=== PATIENT | male | born 1980 | race Caucasian/White ===

== ENCOUNTER 2020-02-29 07:46 | Inpatient (IN) | payer MEDICAID, OTHER ==
--- NOTE | 2020-02-29 08:05 | ED Physician Documentation ---
PD HPI NVD - Stated complaint Stated Complaint: VOMITING/SHAKY - Chief complaint Chief Complaint: Abd Pain - History obtained from History obtained from: Patient - History of Present Illness Timing - onset: How many days ago (several) Timing - details: Gradual onset, Still present Associated symptoms: Abdominal pain, Other (nausea and vomiting; no diarrhea.) Contributing factors: Alcohol use (regularly and was trying to taper some and then got the nausea/pain/vomiting and has not had regular alcohol for 2 days. 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 No: Sick contact, Bad food, Recent antibiotics Improved by: No: Vomiting, Position Worsened by: Eating, Moving, Palpation. No: Breathing Similar symptoms before: Has not had sx before Recently seen: Not recently seen Review of Systems Constitutional: reports: Myalgias, Fatigue. denies: Fever, Chills Nose: denies: Rhinorrhea / runny nose, Congestion Throat: denies: Sore throat Cardiac: denies: Chest pain / pressure Respiratory: denies: Cough (just usual "smokers cough"), Wheezing GI: reports: Abdominal Pain, Nausea, Vomiting (frequent for 2 days), Hematemesis (just small amount today). denies: Abdominal Swelling, Constipation, Diarrhea Neurologic: reports: Generalized weakness. denies: Focal weakness, Near syncope, Altered mental status, Headache Psychiatric: denies: Depressed Immunocompromised: denies: Immunocompromised PD PAST MEDICAL HISTORY - Past Medical History Cardiovascular: None Respiratory: None Endocrine/Autoimmune: None GI: None : None HEENT: None Psych: None Musculoskeletal: None Derm: None - Past Surgical History Past Surgical History: Yes Ortho: Other Derm: Skin grafts - Present Medications Home Medications: Ambulatory Orders Medication Instructions Recorded Confirmed Acetaminophen [Tylenol] 0 mg PO PRN PRN 02/29/20 02/29/20 - Allergies Allergies/Adverse Reactions: Allergies Allergy/AdvReac Type Severity Reaction Status Date / Time No Known Drug Allergies Allergy Verified 02/29/20 07:49 - Living Situation Living Arrangement: reports: At home - Social History Does the pt smoke?: Yes Smoking Status: Current every day smoker Does the pt drink ETOH?: Yes ETOH Use: Other (regular alcohol use for many years. ) Does the pt have substance abuse?: No - Family History Family history: reports: Non contributory - Immunizations Immunizations are current?: Yes - POLST Patient has POLST: No PD ED PE NORMAL - Vitals Vital signs reviewed: Yes - General General: Alert and oriented X 3, Well developed/nourished, Other (He appears uncomfortable with upper abdominal pain and nausea.) - HEENT HEENT: Pharynx benign. No: Moist mucous membranes - Neck Neck: Supple, no meningeal sign, No adenopathy - Cardiac Cardiac: RRR (tachycardic but regular), No murmur - Respiratory Respiratory: Clear bilaterally - Abdomen Abdomen: Soft, Non distended, No organomegaly, Other (Significantly tender in the epigastric to right upper quadrant area. There is positive Godoy sign. Lower abdomen is nontender. Bowel sounds are decreased. There is no distention.). No: Normal bowel sounds (decreased) - Male Male : Deferred - Rectal Rectal: Deferred - Back Back: No CVA TTP - Derm Derm: Normal color, Warm and dry - Extremities Extremities: No edema, No calf tenderness / cord - Neuro Neuro: Alert and oriented X 3, No motor deficit, Normal speech Results - Vitals Vitals: Vital Signs - 24 hr 02/29/20 02/29/20 07:49 09:30 Temperature 36.6 C Heart Rate 112 H 107 H Respiratory 20 20 Rate Blood Pressure 134/98 H 133/94 H O2 Saturation 96 91 L Oxygen O2 Source Room air - Labs Labs: Laboratory Tests 02/29/20 02/29/20 02/29/20 08:10 08:10 08:10 WBC 13.5 H RBC 3.92 L Hgb 13.4 L Hct 36.6 L MCV 93.4 MCH 34.2 H MCHC 36.6 H RDW 13.2 Plt Count 103 L MPV 11.7 H Neut # (Auto) Not Reportable Lymph # (Auto) Not Reportable Schuyler # (Auto) Not Reportable Eos # (Auto) Not Reportable Baso # (Auto) Not Reportable Absolute Nucleated RBC Not Reportable Total Counted 100 Band Neuts % (Manual) 6 Abnorm Lymph % (Manual) 0 Nucleated RBC % Not Reportable Neutrophils # (Manual) 13.0 H Lymphocytes # (Manual) 0.5 L Monocytes # (Manual) 0.0 Eosinophils # (Manual) 0.0 Basophils # (Manual) 0.0 Differential Comment MANUAL DIFFERENTIAL Manual Slide Review Indicated Sodium 138 Potassium 3.9 Chloride 94 L Carbon Dioxide 24 Anion Gap 20.0 H BUN 14 Creatinine 0.9 Estimated GFR (MDRD) 95 Glucose 169 H Calcium 8.3 L Magnesium Total Bilirubin 2.5 H AST 1113 H ALT 619 H Alkaline Phosphatase 390 H Total Protein 5.6 L Albumin 3.0 L Globulin 2.6 Albumin/Globulin Ratio 1.2 Triglycerides Cancelled Cholesterol Cancelled LDL Cholesterol, Calc Cancelled VLDL Cholesterol Cancelled HDL Cholesterol Cancelled LDL/HDL Ratio Cancelled Cholesterol/HDL Ratio Cancelled Lipase 26 Urine Color Urine Clarity Urine pH Ur Specific [place] Urine Protein Urine Glucose (UA) Urine Ketones Urine Occult Blood Urine Nitrite Urine Bilirubin Urine Urobilinogen Ur Leukocyte Esterase Ur Microscopic Review Urine Culture Comments Ethyl Alcohol 02/29/20 02/29/20 08:29 10:37 WBC RBC Hgb Hct MCV MCH MCHC RDW Plt Count MPV Neut # (Auto) Lymph # (Auto) Schuyler # (Auto) Eos # (Auto) Baso # (Auto) Absolute Nucleated RBC Total Counted Band Neuts % (Manual) Abnorm Lymph % (Manual) Nucleated RBC % Neutrophils # (Manual) Lymphocytes # (Manual) Monocytes # (Manual) Eosinophils # (Manual) Basophils # (Manual) Differential Comment Manual Slide Review Sodium Potassium Chloride Carbon Dioxide Anion Gap BUN Creatinine Estimated GFR (MDRD) Glucose Calcium Magnesium 1.6 L Total Bilirubin AST ALT Alkaline Phosphatase Total Protein Albumin Globulin Albumin/Globulin Ratio Triglycerides Cholesterol LDL Cholesterol, Calc VLDL Cholesterol HDL Cholesterol LDL/HDL Ratio Cholesterol/HDL Ratio Lipase Urine Color DARK YELLOW Urine Clarity CLEAR Urine pH 5.5 Ur Specific [place] >=1.030 H Urine Protein NEGATIVE Urine Glucose (UA) NEGATIVE Urine Ketones NEGATIVE Urine Occult Blood NEGATIVE Urine Nitrite NEGATIVE Urine Bilirubin MODERATE H Urine Urobilinogen 1 (NORMAL) Ur Leukocyte Esterase NEGATIVE Ur Microscopic Review NOT INDICATED Urine Culture Comments NOT INDICATED Ethyl Alcohol 28.1 - Rads (name of study) abd CT Radiology: Prelim report reviewed (Abdominal CT shows enlarged and edematous gallbladder. Pancreas appears normal. Intra-and extrahepatic ducts are normal.), See rad report PD MEDICAL DECISION MAKING - ED course Complexity details: reviewed results, re-evaluated patient (Proved pain and nausea after IV fluids and medications. Also given medication for withdrawal.), considered differential (Consideration for gastritis or ulcer versus pancreatitis versus gallbladder problem given the location of pain. He is also having now alcohol withdrawal due to the vomiting and inability to maintain his usual intake), d/w patient, d/w fundraising consultant (Talked with Dr. Perez on-call for surgery who states she would like to have his acute hepatitis and alcohol withdrawal improved prior to surgical treatment of the gallbladder. defers to hospitalist.) Departure - Departure Disposition: 66 [facility] DC/Xfer Clinical Impression: Acute alcoholic hepatitis, Acute cholecystitis, Upper abdominal pain Alcohol withdrawal Qualifiers: Complication of substance-induced condition: uncomplicated Qualified Code(s): F10.230 - Alcohol dependence with withdrawal, uncomplicated Condition: Stable Discharge Date/Time: 02/29/20 11:36
[2020-02-29] MEDS ORDERED: ONDANSETRON 4 MG/2 ML VIAL IVP STA (08:29)
[2020-02-29] MEDS ORDERED: LORazepam 2 MG/ML VIAL IVP STA ×2 (08:29→10:34)
[2020-02-29] MEDS ORDERED: FAMOTIDINE 20 MG/2 ML SYRINGE IVP STA (08:29)
[2020-02-29] MEDS ORDERED: SODIUM CHLORIDE 0.9% 1,000 ML IV STA ×2 (08:29→08:30)
[2020-02-29] MEDS ORDERED: HYDROmorphone 2 MG/ML VIAL IVP STA (08:29)
[2020-02-29] MEDS ORDERED: THIAMINE INJ 100 MG in SODIUM CHLORIDE 0.9% 50 ML IV STA (08:30)
[2020-02-29 09:01] LABS: BASOPHILS % (AUTO) 0.1 %; EOSINOPHILS % (AUTO) 0.1 %; HGB - HEMOGLOBIN 13.4 g/dL (14.0-18.0); LYMPHOCYTES % (AUTO) 13.6 %; MEAN CORPUSCULAR HEMOGLOBIN 34.2 pg (27.0-31.0); MEAN CORPUSCULAR VOLUME 93.4 fL (80.0-94.0); MEAN PLATELET VOLUME 11.7 fL (7.4-11.4); MONOCYTES % (AUTO) 5.2 %; NEUTROPHILS % (AUTO) 80.2 %; PLT - PLATELET COUNT 103 10^3/uL (130-450); RED BLOOD COUNT 3.92 10^6/uL (4.70-6.10); RED CELL DISTRIBUTION WIDTH 13.2 % (12.0-15.0); WHITE BLOOD COUNT 13.5 x10^3/uL (4.8-10.8)
[2020-02-29 09:07] LABS: MEAN CORPUSCULAR HGB CONC 36.6 g/dL (32.0-36.0)
[2020-02-29 09:08] LABS: ABNORMAL LYMPHS % (MANUAL) 0 %
[2020-02-29] MEDS ORDERED: IOVERSOL 320 100 ML VIAL IVP ONE ×2 (09:11→10:20)
[2020-02-29 09:25] LABS: BAND NEUTROPHILS % (MANUAL) 6 %; LYMPHOCYTES # (MANUAL) 0.5 10^3/uL (1.5-3.5); LYMPHOCYTES % (MANUAL) 4 %
[2020-02-29 09:26] LABS: DIFFERENTIAL COMMENT MANUAL DIFFERENTIAL
[2020-02-29 09:38] LABS: CREATININE 0.9 mg/dL (0.6-1.2)
[2020-02-29 09:39] LABS: BILIRUBIN,TOTAL 2.5 mg/dL (0.2-1.0); CALCIUM 8.3 mg/dL (8.5-10.3); TOTAL PROTEIN 5.6 g/dL (6.7-8.2)
[2020-02-29 09:40] LABS: ALBUMIN/GLOBULIN RATIO 1.2 (1.0-2.2)
[2020-02-29 09:42] LABS: MAGNESIUM 1.6 mg/dL (1.7-2.8)
--- NOTE | 2020-02-29 10:23 | CT Report ---
PROCEDURE: Abdomen/Pelvis W INDICATIONS: mid to upper abd pain x 1 week CONTRAST: IV CONTRAST: Optiray 320 ml: 100 PO CONTRAST: *NO PO CONTRAST TECHNIQUE: After the administration of 100 cc Optiray 320 IV contrast, 5 mm thick sections acquired from the stacy phragms to the symphysis. 5 mm thick coronal and sagittal reformats were acquired. For radiation do se reduction, the following was used: automated exposure control, adjustment of mA and/or kV accordi ng to patient size. COMPARISON: None. FINDINGS: Image quality: Excellent. ABDOMEN: Lung bases: Lung bases demonstrate mild bilateral bibasilar alveolitis, right more extensive than lef t. No dense consolidative changes or pleural effusions. Heart size is normal. Solid organs: The liver is enlarged and mildly diffusely hypodense suggesting fatty infiltration. The gallbladder wall is diffusely thickened and the mucosa is hyperemic. No calcified stones visible by CT. Intra and extrahepatic biliary tree is nondilated. The spleen, adrenal glands, pancreas, and kidneys are normal. Peritoneum and bowel: Bowel loops demonstrate normal wall thickness and caliber. Occasional divertic rj in the sigmoid colon. Normal appendix. No small bowel obstruction or ileus. No free fluid or air. Nodes and vessels: No retroperitoneal or mesenteric adenopathy by size criteria. Aorta and inferior vena cava are normal in size. Miscellaneous: No ventral hernias. PELVIS: Genitourinary: Bladder wall thickness is normal. Miscellaneous: No inguinal hernias or adenopathy. Bones: No suspicious bony lesions. No vertebral body compression fractures. IMPRESSION: 1. Findings suggest acute cholecystitis. Right upper quadrant ultrasound is recommended for confirmat ion. 2. Mild hepatomegaly and hepatic steatosis. 3. Acute bilateral lower lung alveolitis, potentially infection or aspiration. No dense consolidation or effusion. Reviewed by: Mae Mai MD on 02/29/2020 9:22 AM DARLENE Approved by: Mae Mai MD on 02/29/2020 9:22 AM DARLENE Station ID: [id number]
[2020-02-29] MEDS ORDERED: MAGNESIUM SULFATE 2 GRAM 2 GM/50 ML BAG IV ONE ×2 (10:26→10:55)
[2020-02-29] MEDS ORDERED: LACTATED RINGERS 1,000 ML IV STA (10:35)
[2020-02-29] MEDS ORDERED: PIPERACILLIN/TAZOBACTAM 3.375 GM in SODIUM CHLORIDE 0.9% MINIBAG 100 ML IV STA (10:39)
[2020-02-29] MEDS ORDERED: metroNIDAZOLE 500 MG/100 ML 500 MG/100 ML BAG IV ONE (10:40)
[2020-02-29 10:51] LABS: GLUCOSE, URINE (UA) NEGATIVE (NEGATIVE); KETONES,URINE (UA) NEGATIVE (NEGATIVE); LEUKOCYTE ESTERASE, URINE NEGATIVE (NEGATIVE); NITRITE,URINE NEGATIVE (NEGATIVE); OCCULT BLOOD,URINE NEGATIVE (NEGATIVE); PH,URINE 5.5 PH (5.0-7.5); PROTEIN,URINE NEGATIVE (NEGATIVE); UROBILINOGEN,URINE 1 (NORMAL) E.U./dL (NORMAL)
[2020-02-29 10:57] LABS: BILIRUBIN,URINE MODERATE (NEGATIVE); CLARITY,URINE CLEAR (CLEAR); ICTOTEST,URINE POSITIVE
[2020-02-29] MEDS ORDERED: PROCHLORPERAZINE 10 MG/2 ML VIAL IVP PRN (10:59)
[2020-02-29] MEDS ORDERED: ONDANSETRON 4 MG/2 ML VIAL IVP PRN (10:59)
--- NOTE | 2020-02-29 12:49 | XRAY Report ---
PROCEDURE: Chest 1 View X-Ray INDICATIONS: Eval for aspiration pneumonia TECHNIQUE: One view of the chest was acquired. COMPARISON: CT abdomen pelvis performed the same day. FINDINGS: Surgical changes and devices: None. Lungs and pleura: No pleural effusions or pneumothorax. Moderate mixed interstitial and alveolar [place] in the right mid and lower lung. The lateral perihilar peribronchial thickening, particularly in the right lung. No focal consolidations. Mediastinum: Mediastinal contours appear normal. Heart size is normal. Bones and chest wall: No suspicious bony lesions. Overlying soft tissues appear unremarkable. IMPRESSION: 1. Findings most suggestive of bronchitis without focal consolidative change. CT demonstrates minor b ronchopneumonia. Reviewed by: Mae Mai MD on 02/29/2020 11:48 AM DARLENE Approved by: Mae Mai MD on 02/29/2020 11:48 AM DARLENE Station ID: [id number]
[2020-02-29] MEDS ORDERED: LACTATED RINGERS 1,000 ML IV SCH (13:00)
--- NOTE | 2020-02-29 13:01 | HISTORY & PHYSICAL EXAMINATION ---
Chief Complaint - Chief Complaint Chief Complaint: abdominal pain History of Present Illness - Admitted From Admitted From:: ER - History Obtained From Records Reviewed: [facility] History obtained from: pt Exam Limitations: non - History of Present Illness HPI Comment/Other: This is a 39 years old male with a significant medical history of alcohol abuse, Who presented ER complaining of abdominal pain. pt report he had upper abdominal pain for last week with on/off nausea and vomiting for about one week. He report he was worse after eating. He feel he has abdominal pain in all his upper quadrant but mainly he still located at his right upper quadrant. He also report he had hematemesis in yesterday, emesis blood volume is small which feared to him. He reported his last alcohol use was last night. He usually drink 6 pack beer in the night. He reported he had alcohol withdrawal with shaking sweating in the last admission. He also reported he has cigarette smoking 1 pack/day. CAT scan of abdomen concern acute cholecystitis. Ultrasound of abdominal limited is pending. Phlebotomy report there is difficulty dry patient blood because so high cholesterol level and blood is white color. Routine laboratory tests do show patient had significantly elevated liver enzyme, alcohol level is 28, Slightly elevated WBC. surgeon was called by the ER for consulting. he denies Chest pain, fever, shortness of breathing, headache diarrhea. Patient is admitted for further medical management. Discussed the care goal with the patient, patient want full code. History - Past Medical History Cardiovascular: reports: None Respiratory: reports: None Neuro: reports: None Endocrine/Autoimmune: reports: None GI: reports: None : reports: None HEENT: reports: None Psych: reports: None Musculoskeletal: reports: None Derm: reports: None MRSA Hx?: No - Past Surgical History Ortho: reports: Other Derm: reports: Skin grafts - Family & Social History Family History: Mother: Alive and Well, Father: Alive and Well Family History Comment/Other: Patient reported his father have heart medical problem, her mother is healthy.He had 2 children, 1 daughter and 1 son, both are health. Social History Notes: Patient reported he is still smoking cigarette 1 pack/day, drinks alcohol daily.He is live at [place]. 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 - POLST Patient has POLST: No Meds/Allgy - Home Medications Home Medications: Ambulatory Orders Medication Instructions Recorded Confirmed Acetaminophen [Tylenol] 0 mg PO PRN PRN 02/29/20 02/29/20 - Allergies Allergies/Adverse Reactions: Allergies Allergy/AdvReac Type Severity Reaction Status Date / Time No Known Drug Allergies Allergy Verified 02/29/20 07:49 Review of Systems - Constitutional Constitutional: denies: Fatigue, Fever, Poor appetite, Diaphoresis, Night sweats - Eyes Eyes: denies: Pain, Blurred vision, Spots in vision, Field loss, Vision loss, Dipolpia - Ears, Nose & Throat Ears, Nose & Throat: denies: Ear pain, Vertigo, Nasal pain, Nosebleeds, Nasal congestion, Postnasal drainage, Hoarseness, Mouth lesions, Bleeding gums - Cardiovascular Cariovascular: denies: Irregular heart rate, Palpitations, Edema, Lightheadedness, Syncope, Exertional dyspnea, Decr. exercise tolerance - Respiratory Respiratory: denies: Cough, Sputum production, Wheezing, Snoring, Hemoptysis, Orthopnea, SOB at rest, SOB with exertion - Gastrointestinal Gastrointestinal: reports: Abdominal pain, Nausea, Vomiting, Coffee grounds emesis. denies: Constipation, Diarrhea, Change in bowel habits, Rectal bleeding, Black stools, Bloody stools, Bile emesis, Bam blood emesis - Genitourinary Genitourinary: denies: Dysuria, Frequency, Urgency, Hematuria, Incontinence, Flank pain, Urethral discharge - Musculoskeletal Musculoskeletal: denies: Muscle pain, Muscle aches, Limited range of motion, Gout, Joint pain - Integumentary Integumentary: denies: Lesions, Lumps, Pigment changes - Neurological Neurological: denies: General weakness, Focal weakness, Headache, Dizziness, Numbness, Memory problems, Pre-existing deficit, Abnormal gait, Seizures, Incoordination, Slurred speech - Psychiatric Psychiatric: denies: Suicidal, Delusions, Hallucinations, Homicidal - Endocrine Endocrine: denies: Polydypsia, Polyphagia - Hematologic/Lymphatic Hematologic/Lymphatic: denies: Anemia, Petechiae, Blood clots, Lymphadenopathy, Bleeding tendencies, Recurrent infections Exam - Vital Signs Vital Signs: Vital Signs x48h Temp Pulse Pulse Resp BP BP Pulse Ox 02/29/20 11:35 37.2 C 108 H 20 137/91 H 94 02/29/20 11:00 104 H 16 135/89 H 93 02/29/20 09:30 107 H 20 133/94 H 91 L 02/29/20 07:49 36.6 C 112 H 20 134/98 H 96 - Physical Exam General Appearance: positive: No acute distress, Alert. negative: Lethargic Eyes Bilateral: positive: Normal inspection, PERRL, No lid inflammation ENT: positive: ENT inspection nml, No signs of dehydration. negative: Purulent nasal drainage Neck: positive: Nml inspection, Thyroid nml, Trachea midline. negative: Thyromegaly, Stiff neck, Tracheal deviation Respiratory: positive: Chest non-tender, No respiratory distress. negative: Wheezes, Rales, Rhonchi Cardiovascular: positive: Regular rate & rhythm, No murmur, Tachycardia. negative: Irregularly irregular, Bradycardia, Systolic murmur, Diastolic murmur Peripheral Pulses: positive: 2+ Abdomen: positive: Non-tender, No organomegaly, Nml bowel sounds, No distention, Other (Godoy sign positive). negative: Tenderness, Guarding, Rebound Back: positive: Nml inspection. negative: CVA tenderness (R), CVA tenderness (L) Skin: positive: Color nml, No rash, Warm, Dry. negative: Cyanosis, Diaphoresis, Pallor Extremities: positive: Non-tender, Full ROM, Nml appearance. negative: Calf tenderness, Maverick's sign/cords Neurologic/Psychiatric: positive: Oriented x3, Motor nml, Sensation nml, Mood/affect nml. negative: Weakness, Sensory loss, Facial droop, Slurred/abnml speech, Depressed mood/affect Sepsis Event Note (H) - Evaluation Current Stage of Sepsis: Ruled out Conclusion/Plan - Problem List (1) Upper abdominal pain Conclusion/Plan: Patient report upper abdominal pain With nausea and vomiting. CAT scan of the abdomen indicate cholecystitis. Ultrasound finding are equivocal For cholecystitis. Surgeon was consult, Agree medical management right now. Patient had slightly elevated WBC. The patient denied fever or chill. Patient was given antibiotics Zosyn and Flagyl, Pain control, Intravenous IV fluids, NPO now. (2) Hematemesis Conclusion/Plan: Patient reported he had small amount of vomiting of blood. He does not know if he has varices. Consult with general surgeon, and NPO now. Patient had a hemoglobin 13.4. H&H monitor hemoglobin. Started intravenous of Protonix. (3) Alcoholic hepatitis Conclusion/Plan: Patient had a significant elevated total bili, AST, ALT and alk phos. Patient has history of alcohol abuse. Advised patient quit alcohol, patient agree to quit alcohol as well. 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 Hold or reduce hepatic intoxic agents. (4) Alcohol abuse Conclusion/Plan: Patient has a history of alcohol abuse, he still drinks six pack beer per day. Alcohol test was positive in the ER. Patient has history of alcohol withdrawal symptoms. Started with patient for CIWA protocol, Ativan PRN, Banana bag, ER give patient intravenous vitamin B1, continue oral vitamin B1. (5) Smokes cigarettes Conclusion/Plan: Patient reported he smokes cigarette 1 pack/day, he requests nicotine patch (6) HLD (hyperlipidemia) Conclusion/Plan: Phlebotomy could not finish patient lipid panel study now, And report patient blood was very thick and white, and difficult to draw. We will recheck lipid panel, will start patient with lipitor. Because patient had elevated liver enzyme, we started with Lipitor 40 mg daily. - Lab Results Fish Bones: 02/29/20 08:10 02/29/20 08:10 Core Measures - Anticipated LOS I expect patient to be DC'd or transferred within 96 hours.: Yes - Stroke - Rehab Assessment Rehab services assessment to be ordered?: Yes - AMI - Statin at Admit Aspirin Prescribed on Admit: Yes
[2020-02-29] MEDS: MULTIVITAMIN 10 ML, THIAMINE INJ 100 MG, FOLIC ACID INJ 1 MG in SODIUM CHLORIDE 0.9% 1,... IV SCH (13:12)
--- NOTE | 2020-02-29 13:14 | HISTORY & PHYSICAL EXAMINATION ---
Chief Complaint - Chief Complaint Chief Complaint: abdominal pain and nausea and vomiting Abdominal Pain HPI - Admitted From Admitted from: ED - History Obtained From Records Reviewed: Other (admitting md records reviewed) History obtained from: Patient Exam limitations: No limitations - History of Present Illness Severity at the worst: Moderate Pain Quality: Aching Improved with: Other (ivf and nausea medication) HPI Comment/Other: He states he had nausea and vomiting for a week and periumbilical pain for 1 day. He is feeling much improved PMH/PSH - Past Medical History Cardiovascular: positive: None Respiratory: positive: None Neuro: positive: None Endocrine/Autoimmune: positive: None GI: positive: None : positive: None HEENT: positive: None Psych: positive: None Musculoskeletal: positive: None Derm: positive: None MRSA Hx?: No - Past Surgical History Ortho: positive: Other Derm: positive: Skin grafts Social & Family Hx - Social History Does the pt smoke?: Yes Smoking Status: Current every day smoker Does the pt drink ETOH?: Yes Does the pt have substance abuse?: No - POLST Patient has POLST: No Meds/Allgy - Home Medications Home Medications: Ambulatory Orders Medication Instructions Recorded Confirmed Hydrocodone/Acetaminophen [[place] 1 each PO Q6H PRN #20 tablet 12/29/15 5-325 Tablet] Ibuprofen [Motrin] 600 mg PO TID #30 tab 12/29/15 - Allergies Allergies/Adverse Reactions: Allergies Allergy/AdvReac Type Severity Reaction Status Date / Time No Known Drug Allergies Allergy Verified 02/29/20 07:49 Exam - Vital Signs Vital Signs: Vital Signs x48h Temp Pulse Pulse Resp BP BP Pulse Ox 02/29/20 11:35 37.2 C 108 H 20 137/91 H 94 02/29/20 11:00 104 H 16 135/89 H 93 02/29/20 09:30 107 H 20 133/94 H 91 L 02/29/20 07:49 36.6 C 112 H 20 134/98 H 96 Results - Lab Results Fish Bones: 02/29/20 08:10 02/29/20 08:10 Other Lab Results: Lab Results x24hrs 02/29/20 02/29/20 02/29/20 Range/Units 13:04 10:37 08:29 WBC (4.8-10.8) x10^3/uL RBC (4.70-6.10) 10^6/uL Hgb (14.0-18.0) g/dL Hct (42.0-52.0) % MCV (80.0-94.0) fL MCH (27.0-31.0) pg MCHC (32.0-36.0) g/dL RDW (12.0-15.0) % Plt Count (130-450) 10^3/uL MPV (7.4-11.4) fL Neut # (Auto) Lymph # (Auto) [place] # (Auto) Eos # (Auto) Baso # (Auto) Absolute Nucleated RBC Total Counted Band Neuts % (Manual) (0 - 10) % Abnorm Lymph % (Manual) % Nucleated RBC % Neutrophils # (Manual) (1.5-6.6) 10^3/uL Lymphocytes # (Manual) (1.5-3.5) 10^3/uL Monocytes # (Manual) (0.0-1.0) 10^3/uL Eosinophils # (Manual) (0-0.7) 10^3/uL Basophils # (Manual) (0-0.1) 10^3/uL Differential Comment Manual Slide Review Whole Blood INR 1.0 (0.8-1.2) Sodium (135-145) mmol/L Potassium (3.5-5.0) mmol/L Chloride (101-111) mmol/L Carbon Dioxide (21-32) mmol/L Anion Gap (6-13) BUN (6-20) mg/dL Creatinine (0.6-1.2) mg/dL Estimated GFR (MDRD) (>89) Glucose (70-100) mg/dL Calcium (8.5-10.3) mg/dL Magnesium 1.6 L (1.7-2.8) mg/dL Total Bilirubin (0.2-1.0) mg/dL AST (10-42) IU/L ALT (10-60) IU/L Alkaline Phosphatase (42-121) IU/L Total Protein (6.7-8.2) g/dL Albumin (3.2-5.5) g/dL Globulin (2.1-4.2) g/dL Albumin/Globulin Ratio (1.0-2.2) Lipase (22-51) U/L Urine Color DARK YELLOW Urine Clarity CLEAR (CLEAR) Urine pH 5.5 (5.0-7.5) PH Ur Specific [place] >=1.030 H (1.002-1.030) Urine Protein NEGATIVE (NEGATIVE) mg/dL Urine Glucose (UA) NEGATIVE (NEGATIVE) mg/dL Urine Ketones NEGATIVE (NEGATIVE) mg/dL Urine Occult Blood NEGATIVE (NEGATIVE) Urine Nitrite NEGATIVE (NEGATIVE) Urine Bilirubin MODERATE H (NEGATIVE) Urine Urobilinogen 1 (NORMAL) (NORMAL) E.U./dL Ur Leukocyte Esterase NEGATIVE (NEGATIVE) Ur Microscopic Review NOT INDICATED Urine Culture Comments NOT INDICATED Ethyl Alcohol 28.1 mg/dL 02/29/20 02/29/20 Range/Units 08:10 08:10 WBC 13.5 H (4.8-10.8) x10^3/uL RBC 3.92 L (4.70-6.10) 10^6/uL Hgb 13.4 L (14.0-18.0) g/dL Hct 36.6 L (42.0-52.0) % MCV 93.4 (80.0-94.0) fL MCH 34.2 H (27.0-31.0) pg MCHC 36.6 H (32.0-36.0) g/dL RDW 13.2 (12.0-15.0) % Plt Count 103 L (130-450) 10^3/uL MPV 11.7 H (7.4-11.4) fL Neut # (Auto) Not Reportable Lymph # (Auto) Not Reportable [place] # (Auto) Not Reportable Eos # (Auto) Not Reportable Baso # (Auto) Not Reportable Absolute Nucleated RBC Not Reportable Total Counted 100 Band Neuts % (Manual) 6 (0 - 10) % Abnorm Lymph % (Manual) 0 % Nucleated RBC % Not Reportable Neutrophils # (Manual) 13.0 H (1.5-6.6) 10^3/uL Lymphocytes # (Manual) 0.5 L (1.5-3.5) 10^3/uL Monocytes # (Manual) 0.0 (0.0-1.0) 10^3/uL Eosinophils # (Manual) 0.0 (0-0.7) 10^3/uL Basophils # (Manual) 0.0 (0-0.1) 10^3/uL Differential Comment MANUAL DIFFERENTIAL Manual Slide Review Indicated Whole Blood INR (0.8-1.2) Sodium 138 (135-145) mmol/L Potassium 3.9 (3.5-5.0) mmol/L Chloride 94 L (101-111) mmol/L Carbon Dioxide 24 (21-32) mmol/L Anion Gap 20.0 H (6-13) BUN 14 (6-20) mg/dL Creatinine 0.9 (0.6-1.2) mg/dL Estimated GFR (MDRD) 95 (>89) Glucose 169 H (70-100) mg/dL Calcium 8.3 L (8.5-10.3) mg/dL Magnesium (1.7-2.8) mg/dL Total Bilirubin 2.5 H (0.2-1.0) mg/dL AST 1113 H (10-42) IU/L ALT 619 H (10-60) IU/L Alkaline Phosphatase 390 H (42-121) IU/L Total Protein 5.6 L (6.7-8.2) g/dL Albumin 3.0 L (3.2-5.5) g/dL Globulin 2.6 (2.1-4.2) g/dL Albumin/Globulin Ratio 1.2 (1.0-2.2) Lipase 26 (22-51) U/L Urine Color Urine Clarity (CLEAR) Urine pH (5.0-7.5) PH Ur Specific [place] (1.002-1.030) Urine Protein (NEGATIVE) mg/dL Urine Glucose (UA) (NEGATIVE) mg/dL Urine Ketones (NEGATIVE) mg/dL Urine Occult Blood (NEGATIVE) Urine Nitrite (NEGATIVE) Urine Bilirubin (NEGATIVE) Urine Urobilinogen (NORMAL) E.U./dL Ur Leukocyte Esterase (NEGATIVE) Ur Microscopic Review Urine Culture Comments Ethyl Alcohol mg/dL - Diagnostic Imaging Results Diagnostic Imaging Results: positive: Final report reviewed, Read independently (ct reviewed) Impression/Plan - Problem List Problem List: hepatitis and congested gallbladder. He is feeling better Clinically he does not have cholecystitis Agree with medical care It is reasonable to do an abdominal ultrasound for further evaluation of his liver, spleen, and to check for gallstones. Clinically he has hepatitis and gallbladder congestion without cholecystitis
--- NOTE | 2020-02-29 15:46 | PHARMACY PROGRESS NOTE ---
- Best Possible Medication History Admit Date and Time: 02/29/20 1052 Processed by: Pharmacy Medication History completed: Yes Patient Interview: Pt interview ONLY source (Patient is a poor historian - states takes medication at a strength that does not exist. The medication in question is a PRN OTC analgesic. Unable to source any additional meds. Patient states does not take any others.) As the person ultimately responsible for medication therapy, providers are able to order a medication from an existing home medication list in [facility] via the "Reconcile Routine" prior to Confirmation of that medication by aviation support equipment repairer. Such practice is discouraged except when the physician, in their clinical judgment, deems that a medical need exists for a medication without regard to previous use.
--- NOTE | 2020-02-29 15:59 | Ultrasound Report ---
PROCEDURE: Abdomen Limited INDICATIONS: abdominal pain, acute cholecystitis? TECHNIQUE: Real-time focused scanning was performed of the abdomen, with image documentation. COMPARISON: CT abdomen pelvis performed the same day. FINDINGS: The liver is mildly enlarged and diffusely mildly hyperechoic in echotexture. No biliary d ilatation. Common bile duct is at the upper limits of normal measuring 7 mm in diameter. The gallblad domi is underdistended, demonstrates a mildly hyperemic mucosal surface and diffusely thickened and ed ematous wall measuring up to 9 mm. No stones or sludge are seen. There is a negative sonographic Murp hy's sign per the technologist. The visible portions of the pancreas and right kidney are within normal limits. No free fluid in Tyler son's pouch. IMPRESSION: 1. Findings are equivocal for cholecystitis, acute or chronic. No obstruction is identified. 2. Consider nuclear medicine HIDA scan for further assessment of gallbladder function. 3. Mild hepatic steatosis. Reviewed by: Mae Mai MD on 02/29/2020 2:58 PM DARLENE Approved by: Mae Mai MD on 02/29/2020 2:58 PM AKJARETH Station ID: [id number]
[2020-02-29] MEDS ORDERED: oxyCODONE 5 MG TABLET PO PRN (16:16)
[2020-02-29] MEDS: HYDROmorphone 1 MG/ML CARPUJECT IVP PRN (16:21)
[2020-02-29] MEDS: LORazepam 2 MG/ML VIAL IVP PRN ×2 (16:22→23:45)
[2020-02-29] MEDS: PIPERACILLIN/TAZOBACTAM 3.375 GM in SODIUM CHLORIDE 0.9% MINIBAG 100 ML IV SCH ×2 (17:19→23:52)
[2020-02-29] MEDS: SODIUM CHLORIDE FLUSH 0.9% 10 ML SYRINGE IVP SCH ×2 (17:19→23:57)
[2020-02-29] MEDS: NICOTINE 14 MG PATCH TOP SCH (17:21)
[2020-02-29] MEDS: metroNIDAZOLE 500 MG/100 ML 500 MG/100 ML BAG IV SCH (19:06)
[2020-02-29] MEDS ORDERED: ATORVASTATIN 40 MG TABLET PO SCH ×2 (21:00)
[2020-02-29] MEDS: PANTOPRAZOLE 40 MG VIAL IVP SCH (21:34)
[2020-02-29] MEDS: D5.45NS W/20 MEQ KCL 1,000 ML IV SCH (22:28)
[2020-03-01] MEDS: HYDROmorphone 1 MG/ML CARPUJECT IVP PRN (00:01)
[2020-03-01] MEDS: LORazepam 2 MG/ML VIAL IVP PRN ×9 (01:27→09:37)
[2020-03-01] MEDS: metroNIDAZOLE 500 MG/100 ML 500 MG/100 ML BAG IV SCH (03:50)
[2020-03-01] MEDS: SODIUM CHLORIDE FLUSH 0.9% 10 ML SYRINGE IVP PRN ×7 (04:04→15:51)
[2020-03-01 05:31] LABS: BASOPHILS % (AUTO) 0.1 %; EOSINOPHILS # (AUTO) 0.1 10^3/uL (0.0-0.7); EOSINOPHILS % (AUTO) 1.3 %; HGB - HEMOGLOBIN 11.5 g/dL (14.0-18.0); LYMPHOCYTES # (AUTO) 1.7 10^3/uL (1.5-3.5); MEAN CORPUSCULAR HEMOGLOBIN 34.8 pg (27.0-31.0); MEAN CORPUSCULAR HGB CONC 36.5 g/dL (32.0-36.0); MEAN CORPUSCULAR VOLUME 95.5 fL (80.0-94.0); MEAN PLATELET VOLUME 12.3 fL (7.4-11.4); MONOCYTES # (AUTO) 0.5 10^3/uL (0.0-1.0); NEUTROPHILS # (AUTO) 6.6 10^3/uL (1.5-6.6); NEUTROPHILS % (AUTO) 74.2 %; PLT - PLATELET COUNT 66 10^3/uL (130-450); WHITE BLOOD COUNT 8.9 x10^3/uL (4.8-10.8)
[2020-03-01 05:45] LABS: ALBUMIN 2.6 g/dL (3.2-5.5); BILIRUBIN,TOTAL 3.8 mg/dL (0.2-1.0); CALCIUM 7.3 mg/dL (8.5-10.3); CREATININE 0.7 mg/dL (0.6-1.2); TOTAL PROTEIN 5.3 g/dL (6.7-8.2)
[2020-03-01 06:01] LABS: CHOL/HDL RATIO 53.6 (<5.0); CHOLESTEROL 643 mg/dL; HDL CHOLESTEROL 12 mg/dL
[2020-03-01 06:38] LABS: LDL CHOLESTEROL,DIRECT 129 mg/dL; LDLD/HDL RATIO 10.8 (<3.6)
[2020-03-01] MEDS ORDERED: PANTOPRAZOLE 40 MG VIAL IVP SCH (07:00)
[2020-03-01] MEDS ORDERED: OLANZapine 10 MG VIAL IM ONE ×3 (07:13→07:16)
[2020-03-01] MEDS ORDERED: LORazepam 2 MG/ML VIAL IVP STA (07:35)
[2020-03-01] MEDS ORDERED: gemfibroziL 600 MG TABLET PO SCH (08:00)
[2020-03-01] MEDS ORDERED: POTASSIUM CHLORIDE 20 MEQ TABLET PO ONE (08:00)
[2020-03-01] MEDS: LORazepam 100MG/100ML D5W 100 ML IV SCH ×3 (08:16→18:57)
[2020-03-01] MEDS ORDERED: SODIUM CHLORIDE FLUSH 0.9% 10 ML SYRINGE IVP PRN (08:18)
[2020-03-01] MEDS ORDERED: INSULIN REGULAR HUMAN 100 UNIT in SODIUM CHLORIDE 0.9% 100ML 99 ML IV SCH (08:30)
[2020-03-01] MEDS ORDERED: THIAMINE 100 MG TABLET PO SCH (09:00)
[2020-03-01] MEDS ORDERED: SODIUM CHLORIDE FLUSH 0.9% 10 ML SYRINGE IVP SCH (09:00)
[2020-03-01] MEDS ORDERED: chlordiazePOXIDE 25 MG CAPSULE PO SCH (09:00)
--- NOTE | 2020-03-01 09:54 | PROVIDER PROGRESS NOTE ---
Subjective - Prog Note Date Prog Note Date: 03/01/20 - Subjective Subjective: He does not have abdominal tenderness. He is very agitated, Objective - Vital Signs/Intake & Output Reviewed Vital Signs: Yes Vital Signs: Vital Signs x48h Temp Pulse Pulse Pulse Resp BP Pulse Ox 03/01/20 09:33 37.9 C H 102 H 27 H 118/83 H 95 03/01/20 09:02 130 H 28 H 145/94 H 98 03/01/20 04:00 36.9 C 95 20 134/79 H 93 03/01/20 02:32 92 Intake & Output: Intake & Output 02/27/20 02/28/20 02/29/20 03/01/20 23:59 23:59 23:59 23:59 Intake Total 3861.367 214.583 Output Total 1100 Balance 3861.367 -885.417 - Objective General Appearance: positive: Moderate distress, Other (agitation. no distress from abdomen) Respiratory: positive: No respiratory distress Abdomen: positive: Non-tender, No distention Neurologic/Psychiatric: positive: Disoriented to place - Lab Results Fish Bones: 03/01/20 04:45 03/01/20 04:45 Other Labs: Lab Results x24hrs 03/01/20 03/01/20 03/01/20 Range/Units 05:56 04:45 04:45 WBC (4.8-10.8) x10^3/uL RBC (4.70-6.10) 10^6/uL Hgb (14.0-18.0) g/dL Hct (42.0-52.0) % MCV (80.0-94.0) fL MCH (27.0-31.0) pg MCHC (32.0-36.0) g/dL RDW (12.0-15.0) % Plt Count (130-450) 10^3/uL MPV (7.4-11.4) fL Neut # (Auto) (1.5-6.6) 10^3/uL Lymph # (Auto) (1.5-3.5) 10^3/uL [place] # (Auto) (0.0-1.0) 10^3/uL Eos # (Auto) (0.0-0.7) 10^3/uL Baso # (Auto) (0.0-0.1) 10^3/uL Absolute Nucleated RBC x10^3/uL Nucleated RBC % /100WBC Whole Blood INR (0.8-1.2) Sodium (135-145) mmol/L Potassium (3.5-5.0) mmol/L Chloride (101-111) mmol/L Carbon Dioxide (21-32) mmol/L Anion Gap (6-13) BUN (6-20) mg/dL Creatinine (0.6-1.2) mg/dL Estimated GFR (MDRD) (>89) Glucose (70-100) mg/dL POC Whole Bld Glucose 134 H (70 - 100) mg/dL Calcium (8.5-10.3) mg/dL Magnesium (1.7-2.8) mg/dL Total Bilirubin (0.2-1.0) mg/dL AST (10-42) IU/L ALT (10-60) IU/L Alkaline Phosphatase (42-121) IU/L Total Protein (6.7-8.2) g/dL Albumin (3.2-5.5) g/dL Globulin (2.1-4.2) g/dL Albumin/Globulin Ratio (1.0-2.2) Triglycerides > 2000 H Cholesterol 643 H LDL Cholesterol Direct 129 ( - 129) mg/dL LDL Cholesterol, Calc Not Reportable VLDL Cholesterol Not Reportable HDL Cholesterol 12 L LDL/HDL Ratio Not Reportable dLDL/HDL Ratio 10.8 (<3.6) Cholesterol/HDL Ratio 53.6 Lipase 27 (22-51) U/L Urine Color Urine Clarity (CLEAR) Urine pH (5.0-7.5) PH Ur Specific [place] (1.002-1.030) Urine Protein (NEGATIVE) mg/dL Urine Glucose (UA) (NEGATIVE) mg/dL Urine Ketones (NEGATIVE) mg/dL Urine Occult Blood (NEGATIVE) Urine Nitrite (NEGATIVE) Urine Bilirubin (NEGATIVE) Urine Urobilinogen (NORMAL) E.U./dL Ur Leukocyte Esterase (NEGATIVE) Ur Microscopic Review Urine Culture Comments Blood Type Blood Type Recheck Antibody Screen 03/01/20 03/01/20 02/29/20 Range/Units 04:45 04:45 23:49 WBC 8.9 (4.8-10.8) x10^3/uL RBC 3.30 L (4.70-6.10) 10^6/uL Hgb 11.5 L (14.0-18.0) g/dL Hct 31.5 L (42.0-52.0) % MCV 95.5 H (80.0-94.0) fL MCH 34.8 H (27.0-31.0) pg MCHC 36.5 H (32.0-36.0) g/dL RDW 13.0 (12.0-15.0) % Plt Count 66 L (130-450) 10^3/uL MPV 12.3 H (7.4-11.4) fL Neut # (Auto) 6.6 (1.5-6.6) 10^3/uL Lymph # (Auto) 1.7 (1.5-3.5) 10^3/uL [place] # (Auto) 0.5 (0.0-1.0) 10^3/uL Eos # (Auto) 0.1 (0.0-0.7) 10^3/uL Baso # (Auto) 0.0 (0.0-0.1) 10^3/uL Absolute Nucleated RBC 0.00 x10^3/uL Nucleated RBC % 0.0 /100WBC Whole Blood INR (0.8-1.2) Sodium 131 L (135-145) mmol/L Potassium 2.9 L (3.5-5.0) mmol/L Chloride 95 L (101-111) mmol/L Carbon Dioxide 26 (21-32) mmol/L Anion Gap 10.0 (6-13) BUN 5 L (6-20) mg/dL Creatinine 0.7 (0.6-1.2) mg/dL Estimated GFR (MDRD) 127 (>89) Glucose 121 H (70-100) mg/dL POC Whole Bld Glucose 116 H (70 - 100) mg/dL Calcium 7.3 L (8.5-10.3) mg/dL Magnesium 2.0 (1.7-2.8) mg/dL Total Bilirubin 3.8 H (0.2-1.0) mg/dL AST 386 H (10-42) IU/L ALT 355 H (10-60) IU/L Alkaline Phosphatase 345 H (42-121) IU/L Total Protein 5.3 L (6.7-8.2) g/dL Albumin 2.6 L (3.2-5.5) g/dL Globulin 2.7 (2.1-4.2) g/dL Albumin/Globulin Ratio 1.0 (1.0-2.2) Triglycerides Cholesterol LDL Cholesterol Direct ( - 129) mg/dL LDL Cholesterol, Calc VLDL Cholesterol HDL Cholesterol LDL/HDL Ratio dLDL/HDL Ratio (<3.6) Cholesterol/HDL Ratio Lipase (22-51) U/L Urine Color Urine Clarity (CLEAR) Urine pH (5.0-7.5) PH Ur Specific [place] (1.002-1.030) Urine Protein (NEGATIVE) mg/dL Urine Glucose (UA) (NEGATIVE) mg/dL Urine Ketones (NEGATIVE) mg/dL Urine Occult Blood (NEGATIVE) Urine Nitrite (NEGATIVE) Urine Bilirubin (NEGATIVE) Urine Urobilinogen (NORMAL) E.U./dL Ur Leukocyte Esterase (NEGATIVE) Ur Microscopic Review Urine Culture Comments Blood Type Blood Type Recheck Antibody Screen 02/29/20 02/29/20 02/29/20 Range/Units 20:50 20:50 13:04 WBC (4.8-10.8) x10^3/uL RBC (4.70-6.10) 10^6/uL Hgb 13.0 L (14.0-18.0) g/dL Hct 33.6 L (42.0-52.0) % MCV (80.0-94.0) fL MCH (27.0-31.0) pg MCHC (32.0-36.0) g/dL RDW (12.0-15.0) % Plt Count (130-450) 10^3/uL MPV (7.4-11.4) fL Neut # (Auto) (1.5-6.6) 10^3/uL Lymph # (Auto) (1.5-3.5) 10^3/uL [place] # (Auto) (0.0-1.0) 10^3/uL Eos # (Auto) (0.0-0.7) 10^3/uL Baso # (Auto) (0.0-0.1) 10^3/uL Absolute Nucleated RBC x10^3/uL Nucleated RBC % /100WBC Whole Blood INR 1.0 (0.8-1.2) Sodium (135-145) mmol/L Potassium (3.5-5.0) mmol/L Chloride (101-111) mmol/L Carbon Dioxide (21-32) mmol/L Anion Gap (6-13) BUN (6-20) mg/dL Creatinine (0.6-1.2) mg/dL Estimated GFR (MDRD) (>89) Glucose (70-100) mg/dL POC Whole Bld Glucose (70 - 100) mg/dL Calcium (8.5-10.3) mg/dL Magnesium (1.7-2.8) mg/dL Total Bilirubin (0.2-1.0) mg/dL AST (10-42) IU/L ALT (10-60) IU/L Alkaline Phosphatase (42-121) IU/L Total Protein (6.7-8.2) g/dL Albumin (3.2-5.5) g/dL Globulin (2.1-4.2) g/dL Albumin/Globulin Ratio (1.0-2.2) Triglycerides Cholesterol LDL Cholesterol Direct ( - 129) mg/dL LDL Cholesterol, Calc VLDL Cholesterol HDL Cholesterol LDL/HDL Ratio dLDL/HDL Ratio (<3.6) Cholesterol/HDL Ratio Lipase (22-51) U/L Urine Color Urine Clarity (CLEAR) Urine pH (5.0-7.5) PH Ur Specific [place] (1.002-1.030) Urine Protein (NEGATIVE) mg/dL Urine Glucose (UA) (NEGATIVE) mg/dL Urine Ketones (NEGATIVE) mg/dL Urine Occult Blood (NEGATIVE) Urine Nitrite (NEGATIVE) Urine Bilirubin (NEGATIVE) Urine Urobilinogen (NORMAL) E.U./dL Ur Leukocyte Esterase (NEGATIVE) Ur Microscopic Review Urine Culture Comments Blood Type Blood Type Recheck O POSITIVE Antibody Screen 02/29/20 02/29/20 02/29/20 Range/Units 10:37 08:10 08:10 WBC (4.8-10.8) x10^3/uL RBC (4.70-6.10) 10^6/uL Hgb (14.0-18.0) g/dL Hct (42.0-52.0) % MCV (80.0-94.0) fL MCH (27.0-31.0) pg MCHC (32.0-36.0) g/dL RDW (12.0-15.0) % Plt Count (130-450) 10^3/uL MPV (7.4-11.4) fL Neut # (Auto) (1.5-6.6) 10^3/uL Lymph # (Auto) (1.5-3.5) 10^3/uL [place] # (Auto) (0.0-1.0) 10^3/uL Eos # (Auto) (0.0-0.7) 10^3/uL Baso # (Auto) (0.0-0.1) 10^3/uL Absolute Nucleated RBC x10^3/uL Nucleated RBC % /100WBC Whole Blood INR (0.8-1.2) Sodium (135-145) mmol/L Potassium (3.5-5.0) mmol/L Chloride (101-111) mmol/L Carbon Dioxide (21-32) mmol/L Anion Gap (6-13) BUN (6-20) mg/dL Creatinine (0.6-1.2) mg/dL Estimated GFR (MDRD) (>89) Glucose (70-100) mg/dL POC Whole Bld Glucose (70 - 100) mg/dL Calcium (8.5-10.3) mg/dL Magnesium (1.7-2.8) mg/dL Total Bilirubin (0.2-1.0) mg/dL AST (10-42) IU/L ALT (10-60) IU/L Alkaline Phosphatase (42-121) IU/L Total Protein (6.7-8.2) g/dL Albumin (3.2-5.5) g/dL Globulin (2.1-4.2) g/dL Albumin/Globulin Ratio (1.0-2.2) Triglycerides Cancelled Cholesterol Cancelled LDL Cholesterol Direct ( - 129) mg/dL LDL Cholesterol, Calc Cancelled VLDL Cholesterol Cancelled HDL Cholesterol Cancelled LDL/HDL Ratio Cancelled dLDL/HDL Ratio (<3.6) Cholesterol/HDL Ratio Cancelled Lipase (22-51) U/L Urine Color DARK YELLOW Urine Clarity CLEAR (CLEAR) Urine pH 5.5 (5.0-7.5) PH Ur Specific [place] >=1.030 H (1.002-1.030) Urine Protein NEGATIVE (NEGATIVE) mg/dL Urine Glucose (UA) NEGATIVE (NEGATIVE) mg/dL Urine Ketones NEGATIVE (NEGATIVE) mg/dL Urine Occult Blood NEGATIVE (NEGATIVE) Urine Nitrite NEGATIVE (NEGATIVE) Urine Bilirubin MODERATE H (NEGATIVE) Urine Urobilinogen 1 (NORMAL) (NORMAL) E.U./dL Ur Leukocyte Esterase NEGATIVE (NEGATIVE) Ur Microscopic Review NOT INDICATED Urine Culture Comments NOT INDICATED Blood Type O POSITIVE Blood Type Recheck Antibody Screen NEGATIVE - Diagnostic Imaging Diagnostic Imaging Results: positive: Read independently, Other (no gallstones) Sepsis Event Note (H) - Evaluation Current Stage of Sepsis: Ruled out Assessment/Plan - Problem List (1) Acute alcoholic hepatitis Impression: Clinically he has hepatitis and gallbladder congestion without cholecystitis. No gallstones Gallbladder surgery or procedure is not indicated or needed
[2020-03-01] MEDS: DEXMEDETOMIDINE 400 MCG in SODIUM CHLORIDE 0.9% 100ML 96 ML IV SCH ×2 (10:20→14:29)
[2020-03-01] MEDS ORDERED: MIDAZOLAM 2 MG/2 ML VIAL IVP ONE (10:39)
[2020-03-01] MEDS ORDERED: MIDAZOLAM 2 MG/2 ML VIAL IVP PRN (11:09)
[2020-03-01] MEDS: DEXTROSE 5%-0.45% NACL 1,000 ML IV SCH ×2 (11:48→22:12)
[2020-03-01] MEDS: MULTIVITAMIN 10 ML, THIAMINE INJ 100 MG, FOLIC ACID INJ 1 MG in SODIUM CHLORIDE 0.9% 1,... IV SCH (11:55)
--- NOTE | 2020-03-01 12:00 | PROVIDER PROGRESS NOTE ---
Assessment/Plan - Problem List (1) Alcohol withdrawal Qualifiers: Complication of substance-induced condition: with unspecified complication Qualified Code(s): F10.239 - Alcohol dependence with withdrawal, unspecified Assessment/Plan: Patient became delirious and combative, tachycardic and hypertensive and has been transferred to the ICU to start IV Ativan drip. Despite maximum dose of this he has needed Precedex drip. Continue ICU stay and neuro checks and CIWA protocol (2) Alcohol abuse Assessment/Plan: As per Hx. SW consult is planned, once his alcohol withdrawal clears (3) Hypertriglyceridemia Assessment/Plan: The serum triglycerides were greater than 2000 (severe hypertriglyceridemia). He was started on statin and gemfibrozil. The Television Cameraman also started him on insulin drip at a set rate with D5 IV (per up-to-date management of hypertriglyceridemia). He developed 2 episodes of hypoglycemia during the day and the insulin drip needed to be discontinued, after about 8 hours. He is also not able to take p.o. meds while he is sedated. Following Lipid panel daily. (4) Alcoholic hepatitis Assessment/Plan: LFTs have decreased slightly, ever since abstinence, since admission. (5) Acute cholecystitis Assessment/Plan: CT abdomen at admission was abnormal, but RUQ ultrasound did not confirm cholecystitis. The surgeon is following along. HIDA scan has been ordered however with today's delirium and combativeness and needing admission to the ICU for IV Ativan drip, he was not stable to take to a 2.5-hour nuclear med HIDA scan. Plan HIDA scan tomorrow. (6) Hematemesis Qualifiers: Nausea presence: with nausea Qualified Code(s): K92.0 - Hematemesis Assessment/Plan: Occurred briefly at the time of admission. Follow H/H daily. He is on IV Protonix twice daily empirically. (7) Hyponatremia Assessment/Plan: Replace with peripheral saline. Follow BMP daily (8) Hypokalemia Assessment/Plan: Likely related to inadequate p.o. intake during alcohol abuse. Replace with IV riders and ICU protocol. Follow BMP daily (9) Anemia Assessment/Plan: He did have witnessed hematemesis at admission, none further. Hemoglobin drop is also partly hemo-dilutional Follow H/H daily. (10) Tobacco use Assessment/Plan: Nicotine patch topically has been ordered - Current Meds Current Meds: Current Medications Generic Name Dose Route Start Last Admin Trade Name Freq PRN Reason Stop Dose Admin Atorvastatin Calcium 40 mg 02/29/20 21:00 02/29/20 21:31 Lipitor PO 40 mg QPM CASH Administration Hydromorphone HCl 1 mg 02/29/20 10:59 03/01/20 00:01 Dilaudid Inj Carp IVP 1 mg Q3H PRN Administration Pain 8 to 10 Multivitamins 10 ml/ Thiamine 1,011.2 mls @ 100 mls/hr 02/29/20 13:00 02/29/20 22:28 HCl 100 mg/ Folic Acid 1 mg/ IV Infused Sodium Chloride DAILY CASH Infusion Metronidazole 500 mg in 100 mls @ 100 mls/hr 02/29/20 18:00 03/01/20 04:55 Flagyl 500 Mg/100 Ml IV Infused Q8H CASH Infusion Lorazepam 100 mls @ 5 mls/hr 03/01/20 08:30 03/01/20 09:31 Ativan IV 20 mg/hr .Q20H CASH 20 mls/hr Titration Protocol 5 MG/HR Dexmedetomidine HCl 400 mcg/ 100 mls @ 3.175 mls/hr 03/01/20 10:00 03/01/20 11:30 Sodium Chloride IV 1.5 mcg/kg/hr .[id number] CASH 23.813 mls/hr Titration Protocol 0.2 MCG/KG/HR Lorazepam 2 mg 02/29/20 10:55 03/01/20 09:37 Ativan Inj (Vial) IVP 2 mg Q30M PRN Administration CIWA >8 Protocol Nicotine 1 patch 02/29/20 16:16 02/29/20 17:21 Nicoderm TOP 1 patch DAILY CASH Administration Oxycodone HCl 5 mg 02/29/20 16:16 02/29/20 20:10 Roxicodone PO 5 mg Q4HR PRN Administration PAIN Pantoprazole Sodium 40 mg 02/29/20 21:00 02/29/20 21:34 Protonix IVP 40 mg BID CASH Administration Sodium Chloride 10 ml 02/29/20 10:59 03/01/20 09:38 Normal Saline Flush 0.9% IVP 10 ml PRN PRN Administration NEEDED PER PROVIDER ORDERS Sodium Chloride 10 ml 02/29/20 17:00 02/29/20 23:57 Normal Saline Flush 0.9% IVP Not Given 0100,0900,1700 CASH - Lab Result Fish Bone Diagrams: 03/01/20 04:45 03/01/20 04:45 - Additional Planning My Orders: My Active Orders 02/29/20 10:59 Activity Orders [RC] Q2HR IO [RC] IOSHIFT Initiate Bowel Care Protocol [RC] .protocol Initiate Personal Care Protoco [RC] .protocol Oxygen Therapy [RC] Routine HYDROmorphone INJ CARP [Dilaudid Inj Carp] 1 mg IVP Q3H PRN Ondansetron Inj [Zofran Inj] 4 mg IVP Q6HR PRN Prochlorperazine Inj [Compazine Inj] 10 mg IVP Q6HR PRN Sodium Chloride Flush 0.9% [Normal Saline Flush 0.9%] 10 ml IVP PRN PRN Code Status [OTHERS] Routine Condition of Patient [OTHERS] Routine DVT Prophylaxis [OTHERS] Routine 02/29/20 11:00 IV Insert [RC] .ONCE 02/29/20 11:01 DANIELLE Vásquez [RC] QSHIFT 02/29/20 11:02 Initiate Line Care Protocol [RC] QSHIFT 02/29/20 11:50 Miscellaneous Laboratory Order [LAB] Urgent 02/29/20 13:00 Multivitamin [Infuvite] 10 ml Thiamine Inj [Vitamin B-1 Inj] 100 mg Folic Acid Inj 1 mg Sodium Chloride 0.9% [Normal Saline 0.9%] 1,000 ml IV DAILY 02/29/20 17:00 Sodium Chloride Flush 0.9% [Normal Saline Flush 0.9%] 10 ml IVP 0100,0900,1700 02/29/20 18:00 metroNIDAZOLE 500 MG/100 ML [Flagyl 500 mg/100 ml] 500 mg in 100 ml IV Q8H 03/01/20 08:18 Daily Weight [RC] 0600 IO [RC] Q1HR Initiate ICU Electrolyte Prot. [RC] .protocol 03/01/20 08:19 DANIELLE Vásquez and SCDs [RC] QSHIFT Telemetry- [RC] Q4HR Turn, Cough and Deep Breathe [RC] Routine 03/01/20 08:22 Miscellaenous Nursing Order [RC] QSHIFT 03/01/20 10:00 Sodium Chloride 0.9% 100Ml [Normal Saline 0.9% 100Ml] 96 ml Dexmedetomidine [Precedex] 400 mcg IV 0.2 mcg/kg/hr 03/01/20 11:02 MRSA PCR,CCU ADMIT Routine 03/01/20 11:09 Midazolam [Versed] 2 mg IVP Q6H PRN 03/01/20 13:00 Piperacillin/Tazobactam [Zosyn] 3.375 gm Sodium Chloride 0.9% Minibag [Normal Saline 0.9% Minibag] 100 ml IV ONCE 03/01/20 16:00 Piperacillin/Tazobactam [Zosyn] 3.375 gm Sodium Chloride 0.9% Minibag [Normal Saline 0.9% Minibag] 100 ml IV Q8H 03/02/20 05:00 CBC - COMP BLD CT W/AUTO DIFF [HEME] DAILYLAB COMPREHENSIVE METABOLIC PANEL [CHEM] DAILYLAB MAGNESIUM [CHEM] DAILYLAB 03/03/20 05:00 CBC - COMP BLD CT W/AUTO DIFF [HEME] DAILYLAB COMPREHENSIVE METABOLIC PANEL [CHEM] DAILYLAB MAGNESIUM [CHEM] DAILYLAB Subjective - Subjective Patient Reports: Other (Delerious, combative, staff are holding him down despite being in 4-point restraints) Objective Vital Signs: Vital Signs - 24 hr 02/29/20 02/29/20 02/29/20 16:32 20:01 23:58 Temperature 37.9 C H 37.4 C 37.0 C Heart Rate [ Apical] Heart Rate [ 92 89 81 Brachial] Heart Rate [ Monitoring electrodes] Respiratory 18 18 17 Rate Blood Pressure 139/89 H 125/82 H 135/83 H [Left Brachial artery] Blood Pressure [Right Brachial artery] O2 Saturation 96 93 93 03/01/20 03/01/20 03/01/20 02:32 04:00 09:02 Temperature 36.9 C Heart Rate [ 130 H Apical] Heart Rate [ 95 Brachial] Heart Rate [ Monitoring electrodes] Respiratory 20 28 H Rate Blood Pressure 134/79 H 145/94 H [Left Brachial artery] Blood Pressure [Right Brachial artery] O2 Saturation 92 93 98 03/01/20 03/01/20 03/01/20 09:33 10:39 10:53 Temperature 37.9 C H Heart Rate [ Apical] Heart Rate [ Brachial] Heart Rate [ 102 H 152 H 139 H Monitoring electrodes] Respiratory 27 H 37 H 22 Rate Blood Pressure 118/83 H [Left Brachial artery] Blood Pressure 149/106 H 124/88 H [Right Brachial artery] O2 Saturation 95 93 2 L Oxygen O2 Source Nasal cannula I&O (Last 24 Hrs): Intake and Output Totals x24h 02/28/20 02/29/20 03/01/20 23:59 23:59 23:59 Intake Total 3861.367 234.347 Output Total 1999 Balance 3861.367 -1765.653 General: Moderate distress HEENT: Other (Dry mucosa) Neck: No JVD Neuro: Disoriented, Non Focal Cardiovascular: Regular rate (Tachycardia), No murmurs Respiratory: No respiratory distress Abdomen: Soft (Non-distended) Extremities: No edema - Results Results: Laboratory Results WBC 8.9 x10^3/uL (4.8-10.8) 03/01/20 04:45 RBC 3.30 10^6/uL (4.70-6.10) L 03/01/20 04:45 Hgb 11.5 g/dL (14.0-18.0) L 03/01/20 04:45 Hct 31.5 % (42.0-52.0) L 03/01/20 04:45 MCV 95.5 fL (80.0-94.0) H 03/01/20 04:45 MCH 34.8 pg (27.0-31.0) H 03/01/20 04:45 MCHC 36.5 g/dL (32.0-36.0) H 03/01/20 04:45 RDW 13.0 % (12.0-15.0) 03/01/20 04:45 Plt Count 66 10^3/uL (130-450) L 03/01/20 04:45 MPV 12.3 fL (7.4-11.4) H 03/01/20 04:45 Neut # (Auto) 6.6 10^3/uL (1.5-6.6) 03/01/20 04:45 Lymph # (Auto) 1.7 10^3/uL (1.5-3.5) 03/01/20 04:45 [place] # (Auto) 0.5 10^3/uL (0.0-1.0) 03/01/20 04:45 Eos # (Auto) 0.1 10^3/uL (0.0-0.7) 03/01/20 04:45 Baso # (Auto) 0.0 10^3/uL (0.0-0.1) 03/01/20 04:45 Absolute Nucleated RBC 0.00 x10^3/uL 03/01/20 04:45 Total Counted 100 02/29/20 08:10 Band Neuts % (Manual) 6 % (0-10) 02/29/20 08:10 Abnorm Lymph % (Manual) 0 % 02/29/20 08:10 Nucleated RBC % 0.0 /100WBC 03/01/20 04:45 Neutrophils # (Manual) 13.0 10^3/uL (1.5-6.6) H 02/29/20 08:10 Lymphocytes # (Manual) 0.5 10^3/uL (1.5-3.5) L 02/29/20 08:10 Monocytes # (Manual) 0.0 10^3/uL (0.0-1.0) 02/29/20 08:10 Eosinophils # (Manual) 0.0 10^3/uL (0-0.7) 02/29/20 08:10 Basophils # (Manual) 0.0 10^3/uL (0-0.1) 02/29/20 08:10 Differential Comment MANUAL DIFFERENTIAL 02/29/20 08:10 Manual Slide Review Indicated 02/29/20 08:10 Whole Blood INR 1.0 (0.8-1.2) 02/29/20 13:04 Sodium 131 mmol/L (135-145) L 03/01/20 04:45 Potassium 2.9 mmol/L (3.5-5.0) L 03/01/20 04:45 Chloride 95 mmol/L (101-111) L 03/01/20 04:45 Carbon Dioxide 26 mmol/L (21-32) 03/01/20 04:45 Anion Gap 10.0 (6-13) 03/01/20 04:45 BUN 5 mg/dL (6-20) L 03/01/20 04:45 Creatinine 0.7 mg/dL (0.6-1.2) 03/01/20 04:45 Estimated GFR (MDRD) 127 (>89) 03/01/20 04:45 Glucose 121 mg/dL (70-100) H 03/01/20 04:45 POC Whole Bld Glucose 130 mg/dL (70 - 100) H 03/01/20 11:42 Calcium 7.3 mg/dL (8.5-10.3) L 03/01/20 04:45 Magnesium 2.0 mg/dL (1.7-2.8) 03/01/20 04:45 Total Bilirubin 3.8 mg/dL (0.2-1.0) H 03/01/20 04:45 AST 386 IU/L (10-42) H 03/01/20 04:45 ALT 355 IU/L (10-60) H 03/01/20 04:45 Alkaline Phosphatase 345 IU/L (42-121) H 03/01/20 04:45 Total Protein 5.3 g/dL (6.7-8.2) L 03/01/20 04:45 Albumin 2.6 g/dL (3.2-5.5) L 03/01/20 04:45 Globulin 2.7 g/dL (2.1-4.2) 03/01/20 04:45 Albumin/Globulin Ratio 1.0 (1.0-2.2) 03/01/20 04:45 Triglycerides > 2000 mg/dL (-149) H 03/01/20 04:45 Cholesterol 643 mg/dL (-199) H 03/01/20 04:45 LDL Cholesterol Direct 129 mg/dL (-129) 03/01/20 04:45 LDL Cholesterol, Calc Not Reportable 03/01/20 04:45 VLDL Cholesterol Not Reportable 03/01/20 04:45 HDL Cholesterol 12 mg/dL (60-) L 03/01/20 04:45 LDL/HDL Ratio Not Reportable 03/01/20 04:45 dLDL/HDL Ratio 10.8 (<3.6) 03/01/20 04:45 Cholesterol/HDL Ratio 53.6 (<5.0) 03/01/20 04:45 Lipase 27 U/L (22-51) 03/01/20 04:45 Urine Color DARK YELLOW 02/29/20 10:37 Urine Clarity CLEAR (CLEAR) 02/29/20 10:37 Urine pH 5.5 PH (5.0-7.5) 02/29/20 10:37 Ur Specific [place] >=1.030 (1.002-1.030) H 02/29/20 10:37 Urine Protein NEGATIVE mg/dL (NEGATIVE) 02/29/20 10:37 Urine Glucose (UA) NEGATIVE mg/dL (NEGATIVE) 02/29/20 10:37 Urine Ketones NEGATIVE mg/dL (NEGATIVE) 02/29/20 10:37 Urine Occult Blood NEGATIVE (NEGATIVE) 02/29/20 10:37 Urine Nitrite NEGATIVE (NEGATIVE) 02/29/20 10:37 Urine Bilirubin MODERATE (NEGATIVE) H 02/29/20 10:37 Urine Urobilinogen 1 (NORMAL) E.U./dL (NORMAL) 02/29/20 10:37 Ur Leukocyte Esterase NEGATIVE (NEGATIVE) 02/29/20 10:37 Ur Microscopic Review NOT INDICATED 02/29/20 10:37 Urine Culture Comments NOT INDICATED 02/29/20 10:37 Ethyl Alcohol 28.1 mg/dL 02/29/20 08:29 Blood Type O POSITIVE 02/29/20 08:10 Blood Type Recheck O POSITIVE 02/29/20 20:50 Antibody Screen NEGATIVE 02/29/20 08:10 Sepsis Event Note (H) - Evaluation Current Stage of Sepsis: Ruled out
[2020-03-01] MEDS: POTASSIUM CHLOR 10 MEQ/100 ML 10 MEQ/100 ML BAG IV SCH ×4 (12:43→15:41)
[2020-03-01] MEDS: NICOTINE 14 MG PATCH TOP SCH (12:54)
[2020-03-01] MEDS: PANTOPRAZOLE 40 MG VIAL IVP SCH ×2 (12:57→20:30)
[2020-03-01] MEDS ORDERED: PIPERACILLIN/TAZOBACTAM 3.375 GM in SODIUM CHLORIDE 0.9% MINIBAG 100 ML IV ONE (13:00)
[2020-03-01] MEDS: SODIUM CHLORIDE FLUSH 0.9% 10 ML SYRINGE IVP SCH ×3 (13:20→20:30)
[2020-03-01] MEDS: D5.45NS W/20 MEQ KCL 1,000 ML IV SCH (14:16)
[2020-03-01] MEDS ORDERED: DEXTROSE 50% ABBOJECT 25 GM/50 ML SYRINGE IVP SCH ×2 (14:30→15:59)
[2020-03-01] MEDS ORDERED: DEXTROSE 50% ABBOJECT 25 GM/50 ML SYRINGE IVP ONE (15:45)
[2020-03-01] MEDS: PIPERACILLIN/TAZOBACTAM 3.375 GM in SODIUM CHLORIDE 0.9% MINIBAG 100 ML IV SCH (16:11)
[2020-03-02] MEDS: PIPERACILLIN/TAZOBACTAM 3.375 GM in SODIUM CHLORIDE 0.9% MINIBAG 100 ML IV SCH ×3 (00:35→16:25)
[2020-03-02] MEDS: DEXTROSE 5%-0.45% NACL 1,000 ML IV SCH ×2 (00:38→06:03)
[2020-03-02] MEDS: HYDROmorphone 1 MG/ML CARPUJECT IVP PRN ×2 (01:20→10:44)
[2020-03-02] MEDS: LORazepam 100MG/100ML D5W 100 ML IV SCH ×3 (01:21→16:35)
[2020-03-02] MEDS: DEXMEDETOMIDINE 400 MCG in SODIUM CHLORIDE 0.9% 100ML 96 ML IV SCH ×3 (01:50→21:35)
[2020-03-02 05:03] LABS: BASOPHILS % (AUTO) 0.1 %; EOSINOPHILS # (AUTO) 0.2 10^3/uL (0.0-0.7); EOSINOPHILS % (AUTO) 2.2 %; HGB - HEMOGLOBIN 11.8 g/dL (14.0-18.0); LYMPHOCYTES # (AUTO) 1.5 10^3/uL (1.5-3.5); LYMPHOCYTES % (AUTO) 15.6 %; MEAN CORPUSCULAR HEMOGLOBIN 33.5 pg (27.0-31.0); MEAN CORPUSCULAR HGB CONC 34.8 g/dL (32.0-36.0); MEAN CORPUSCULAR VOLUME 96.3 fL (80.0-94.0); MEAN PLATELET VOLUME 11.5 fL (7.4-11.4); MONOCYTES # (AUTO) 0.5 10^3/uL (0.0-1.0); MONOCYTES % (AUTO) 5.4 %; NEUTROPHILS # (AUTO) 7.4 10^3/uL (1.5-6.6); NEUTROPHILS % (AUTO) 76.2 %; PLT - PLATELET COUNT 72 10^3/uL (130-450); RED BLOOD COUNT 3.52 10^6/uL (4.70-6.10); RED CELL DISTRIBUTION WIDTH 13.4 % (12.0-15.0); WHITE BLOOD COUNT 9.8 x10^3/uL (4.8-10.8)
[2020-03-02 05:15] LABS: ALBUMIN 2.5 g/dL (3.2-5.5); ALBUMIN/GLOBULIN RATIO 0.8 (1.0-2.2); ALKALINE PHOSPHATASE 384 IU/L (42-121); ALT ALANINE AMINOTRANSFERASE 283 IU/L (10-60); AST ASPARTATE AMINOTRANSFERASE 261 IU/L (10-42); BILIRUBIN,TOTAL 4.8 mg/dL (0.2-1.0); BUN - BLOOD UREA NITROGEN < 5 mg/dL (6-20); CALCIUM 7.6 mg/dL (8.5-10.3); CARBON DIOXIDE - CO2 26 mmol/L (21-32); CHLORIDE 102 mmol/L (101-111); CREATININE 0.6 mg/dL (0.6-1.2); GLUCOSE 159 mg/dL (70-100); MAGNESIUM 1.8 mg/dL (1.7-2.8); SODIUM 137 mmol/L (135-145); TOTAL PROTEIN 5.8 g/dL (6.7-8.2)
[2020-03-02 05:21] LABS: CHOL/HDL RATIO 41.8 (<5.0); CHOLESTEROL 544 mg/dL; HDL CHOLESTEROL 13 mg/dL
[2020-03-02 05:39] LABS: LDL CHOLESTEROL,DIRECT 231 mg/dL; LDLD/HDL RATIO 17.8 (<3.6)
[2020-03-02] MEDS: POTASSIUM CHLOR 10 MEQ/100 ML 10 MEQ/100 ML BAG IV SCH ×8 (05:44→15:20)
[2020-03-02] MEDS ORDERED: POTASSIUM CHLOR 10 MEQ/100 ML 10 MEQ/100 ML BAG IV SCH (08:00)
[2020-03-02] MEDS: NICOTINE 14 MG PATCH TOP SCH (08:19)
[2020-03-02] MEDS: PANTOPRAZOLE 40 MG VIAL IVP SCH ×2 (08:22→20:34)
[2020-03-02] MEDS: SODIUM CHLORIDE FLUSH 0.9% 10 ML SYRINGE IVP SCH ×2 (08:24→17:53)
[2020-03-02] MEDS: MULTIVITAMIN 10 ML, THIAMINE INJ 100 MG, FOLIC ACID INJ 1 MG in SODIUM CHLORIDE 0.9% 1,... IV SCH (08:55)
--- NOTE | 2020-03-02 15:35 | Nuclear Medicine Report ---
PROCEDURE: Hepatobiliary HIDA w/o Rx INDICATIONS: Eval for acute cholecystitis RADIOPHARMACEUTICAL: 5.10 mCi Tc-99m meprofenin i.v. TECHNIQUE: Following intravenous administration of Tc-99m meprofenin, sequential anterior abdominal images were obtained through 55 minutes. COMPARISON: None. FINDINGS: Biliary scan: There is normal tracer uptake and excretion by the liver. There is normal visualizati on of the intrahepatic ducts, common bile duct, and gallbladder. There is normal tracer transit into the duodenum. IMPRESSION: Normal biliary imaging study with no scintigraphic evidence of acute cholecystitis. Reviewed by: Sierra David MD, PhD on 03/02/2020 3:33 PM PDT Approved by: Sierra David MD, PhD on 03/02/2020 3:33 PM PDT Station ID: [id number]
--- NOTE | 2020-03-02 17:24 | PROVIDER PROGRESS NOTE ---
Assessment/Plan - Problem List (1) Alcohol withdrawal Qualifiers: Complication of substance-induced condition: with unspecified complication Qualified Code(s): F10.239 - Alcohol dependence with withdrawal, unspecified Assessment/Plan: He is still sedated, will try slow decrease of drips. (2) Alcohol abuse Assessment/Plan: He is on a banana bag and will switch to oral thiamine and multivitamins when he wakes up and is able to take a diet. He still needs consultation with social work regarding alcohol abuse, when alert (3) Hypertriglyceridemia Assessment/Plan: The insulin drip was stopped because it was causing hypoglycemia. He will need to be resumed on oral triglyceride management when he is awake and taking diet (4) Alcoholic hepatitis Assessment/Plan: LFTs are improving daily, since he is abstinent since admission (5) Hyponatremia Assessment/Plan: Improving. Continue with IV fluids. Follow BMP daily (6) Hypokalemia Assessment/Plan: Remains in the ICU and will get K riders and replacement on the ICU protocol. Follow BMP daily (7) Anemia Assessment/Plan: Likely hemo-dilutional because of very high fluid IV infusions. No obvious GI blood losses have occurred since admission Follow CBC daily (8) Tobacco use Assessment/Plan: Nicotine patch is on (9) Hematemesis Qualifiers: Nausea presence: with nausea Qualified Code(s): K92.0 - Hematemesis Assessment/Plan: None further Since day of admission. He still needs GI work-up (10) Acute cholecystitis Assessment/Plan: This was ruled out. He did undergo a HIDA nuclear scan today which showed no evidence of acute cholecystitis, therefore his right sided mid abdominal pain is not explained by acute cholecystitis - Current Meds Current Meds: Current Medications Generic Name Dose Route Start Last Admin Trade Name Freq PRN Reason Stop Dose Admin Multivitamins 10 ml/ Thiamine 1,011.2 mls @ 100 mls/hr 02/29/20 13:00 03/02/20 08:55 HCl 100 mg/ Folic Acid 1 mg/ IV 100 mls/hr Sodium Chloride DAILY CASH Administration Lorazepam 100 mls @ 5 mls/hr 03/01/20 08:30 03/02/20 16:35 Ativan IV 10 mg/hr .Q20H CASH 10 mls/hr Administration Protocol 5 MG/HR Dexmedetomidine HCl 400 mcg/ 100 mls @ 3.175 mls/hr 03/01/20 10:00 03/02/20 16:00 Sodium Chloride IV 0.4 mcg/kg/hr .[id number] CASH 6.35 mls/hr Titration Protocol 0.2 MCG/KG/HR Piperacillin Sod/Tazobactam 100 mls @ 25 mls/hr 03/01/20 16:00 03/02/20 16:25 Sod 3.375 gm/ Sodium Chloride IV 25 mls/hr Q8H CASH Administration Lorazepam 2 mg 02/29/20 10:55 03/01/20 09:37 Ativan Inj (Vial) IVP 2 mg Q30M PRN Administration CIWA >8 Protocol Nicotine 1 patch 02/29/20 16:16 03/02/20 08:19 Nicoderm TOP 1 patch DAILY CASH Administration Pantoprazole Sodium 40 mg 02/29/20 21:00 03/02/20 08:22 Protonix IVP 40 mg BID CASH Administration Sodium Chloride 10 ml 02/29/20 10:59 03/01/20 15:51 Normal Saline Flush 0.9% IVP 20 ml PRN PRN Administration NEEDED PER PROVIDER ORDERS Sodium Chloride 10 ml 02/29/20 17:00 03/02/20 08:24 Normal Saline Flush 0.9% IVP 10 ml 0100,0900,1700 CASH Administration - Lab Result Fish Bone Diagrams: 03/03/20 04:30 03/06/20 03:21 - Additional Planning My Orders: My Active Orders 03/03/20 05:00 CBC - COMP BLD CT W/AUTO DIFF [HEME] DAILYLAB COMPREHENSIVE METABOLIC PANEL [CHEM] DAILYLAB MAGNESIUM [CHEM] DAILYLAB Subjective - Subjective Patient Reports: Other (sedated on drips in ICU) Objective Vital Signs: Vital Signs - 24 hr 03/01/20 03/01/20 03/01/20 18:00 19:00 20:00 Temperature Heart Rate [ 63 64 66 Monitoring electrodes] Respiratory 31 H 26 H 35 H Rate Blood Pressure 139/89 H 133/89 H 126/89 H [Right Brachial artery] O2 Saturation 100 100 100 03/01/20 03/01/20 03/02/20 21:00 22:00 01:00 Temperature 36.9 C Heart Rate [ 71 74 74 Monitoring electrodes] Respiratory 34 H 35 H 30 H Rate Blood Pressure 118/83 H 114/79 110/88 H [Right Brachial artery] O2 Saturation 100 100 90 L 03/02/20 03/02/20 03/02/20 02:00 03:00 04:00 Temperature 36.8 C Heart Rate [ 75 73 74 Monitoring electrodes] Respiratory 20 22 25 H Rate Blood Pressure 147/97 H 153/98 H 149/99 H [Right Brachial artery] O2 Saturation 91 L 92 91 L 03/02/20 03/02/20 03/02/20 05:00 05:30 05:46 Temperature Heart Rate [ 76 Monitoring electrodes] Respiratory 30 H Rate Blood Pressure 150/99 H [Right Brachial artery] O2 Saturation 90 L 90 L 94 03/02/20 03/02/20 03/02/20 05:50 05:56 06:00 Temperature 36.8 C Heart Rate [ 74 Monitoring electrodes] Respiratory 29 H 28 H Rate Blood Pressure 125/84 H [Right Brachial artery] O2 Saturation 91 L 91 L 03/02/20 03/02/20 03/02/20 07:00 08:00 08:30 Temperature Heart Rate [ 72 72 69 Monitoring electrodes] Respiratory 26 H 34 H 35 H Rate Blood Pressure 127/89 H 137/93 H 140/99 H [Right Brachial artery] O2 Saturation 91 L 92 92 03/02/20 03/02/20 03/02/20 09:00 09:30 10:00 Temperature 36.7 C 36.7 C Heart Rate [ 71 71 70 Monitoring electrodes] Respiratory 32 H 31 H 19 Rate Blood Pressure 135/93 H 135/94 H 116/98 H [Right Brachial artery] O2 Saturation 92 92 92 03/02/20 03/02/20 03/02/20 10:30 11:00 11:30 Temperature Heart Rate [ 69 69 68 Monitoring electrodes] Respiratory 32 H 27 H 27 H Rate Blood Pressure 147/99 H 135/97 H 141/96 H [Right Brachial artery] O2 Saturation 92 92 92 03/02/20 03/02/20 03/02/20 12:00 12:30 13:00 Temperature 36.9 C Heart Rate [ 67 66 66 Monitoring electrodes] Respiratory 27 H 23 26 H Rate Blood Pressure 148/98 H 148/98 H 161/104 H [Right Brachial artery] O2 Saturation 92 96 96 03/02/20 03/02/20 03/02/20 13:30 14:00 14:30 Temperature Heart Rate [ 71 67 69 Monitoring electrodes] Respiratory 21 23 21 Rate Blood Pressure 140/104 H 157/108 H 156/105 H [Right Brachial artery] O2 Saturation 97 95 03/02/20 03/02/20 03/02/20 15:00 15:34 16:00 Temperature 36.4 C L Heart Rate [ 70 68 68 Monitoring electrodes] Respiratory 27 H 26 H 23 Rate Blood Pressure 143/101 H 157/102 H 155/108 H [Right Brachial artery] O2 Saturation 94 95 95 03/02/20 03/02/20 16:30 17:00 Temperature Heart Rate [ 68 68 Monitoring electrodes] Respiratory 24 23 Rate Blood Pressure 163/107 H 157/103 H [Right Brachial artery] O2 Saturation 95 95 Oxygen O2 Source Nasal cannula I&O (Last 24 Hrs): Intake and Output Totals x24h 02/29/20 03/01/20 03/02/20 23:59 23:59 23:59 Intake Total 3861.367 3311.099 2253.950 Output Total 4137 2710 Balance 3861.367 -825.901 -456.050 General: Other (sedated) HEENT: Other (sleeping) Neuro: Other (sedated) Cardiovascular: Regular rate Respiratory: No respiratory distress Abdomen: Soft Extremities: No edema - Results Results: Laboratory Results WBC 9.8 x10^3/uL (4.8-10.8) 03/02/20 04:15 RBC 3.52 10^6/uL (4.70-6.10) L 03/02/20 04:15 Hgb 11.8 g/dL (14.0-18.0) L 03/02/20 04:15 Hct 33.9 % (42.0-52.0) L 03/02/20 04:15 MCV 96.3 fL (80.0-94.0) H 03/02/20 04:15 MCH 33.5 pg (27.0-31.0) H 03/02/20 04:15 MCHC 34.8 g/dL (32.0-36.0) 03/02/20 04:15 RDW 13.4 % (12.0-15.0) 03/02/20 04:15 Plt Count 72 10^3/uL (130-450) L 03/02/20 04:15 MPV 11.5 fL (7.4-11.4) H 03/02/20 04:15 Neut # (Auto) 7.4 10^3/uL (1.5-6.6) H 03/02/20 04:15 Lymph # (Auto) 1.5 10^3/uL (1.5-3.5) 03/02/20 04:15 [place] # (Auto) 0.5 10^3/uL (0.0-1.0) 03/02/20 04:15 Eos # (Auto) 0.2 10^3/uL (0.0-0.7) 03/02/20 04:15 Baso # (Auto) 0.0 10^3/uL (0.0-0.1) 03/02/20 04:15 Absolute Nucleated RBC 0.00 x10^3/uL 03/02/20 04:15 Total Counted 100 02/29/20 08:10 Band Neuts % (Manual) 6 % (0-10) 02/29/20 08:10 Abnorm Lymph % (Manual) 0 % 02/29/20 08:10 Nucleated RBC % 0.0 /100WBC 03/02/20 04:15 Neutrophils # (Manual) 13.0 10^3/uL (1.5-6.6) H 02/29/20 08:10 Lymphocytes # (Manual) 0.5 10^3/uL (1.5-3.5) L 02/29/20 08:10 Monocytes # (Manual) 0.0 10^3/uL (0.0-1.0) 02/29/20 08:10 Eosinophils # (Manual) 0.0 10^3/uL (0-0.7) 02/29/20 08:10 Basophils # (Manual) 0.0 10^3/uL (0-0.1) 02/29/20 08:10 Differential Comment MANUAL DIFFERENTIAL 02/29/20 08:10 Manual Slide Review Indicated 02/29/20 08:10 Whole Blood INR 1.0 (0.8-1.2) 02/29/20 13:04 Sodium 137 mmol/L (135-145) 03/02/20 04:15 Potassium 2.7 mmol/L (3.5-5.0) L 03/02/20 04:15 Chloride 102 mmol/L (101-111) 03/02/20 04:15 Carbon Dioxide 26 mmol/L (21-32) 03/02/20 04:15 Anion Gap 9.0 (6-13) 03/02/20 04:15 BUN < 5 mg/dL (6-20) L 03/02/20 04:15 Creatinine 0.6 mg/dL (0.6-1.2) 03/02/20 04:15 Estimated GFR (MDRD) 152 (>89) 03/02/20 04:15 Glucose 159 mg/dL (70-100) H 03/02/20 04:15 POC Whole Bld Glucose 123 mg/dL (70 - 100) H 03/02/20 11:54 Calcium 7.6 mg/dL (8.5-10.3) L 03/02/20 04:15 Magnesium 1.8 mg/dL (1.7-2.8) 03/02/20 04:15 Total Bilirubin 4.8 mg/dL (0.2-1.0) H 03/02/20 04:15 AST 261 IU/L (10-42) H 03/02/20 04:15 ALT 283 IU/L (10-60) H 03/02/20 04:15 Alkaline Phosphatase 384 IU/L (42-121) H 03/02/20 04:15 Total Protein 5.8 g/dL (6.7-8.2) L 03/02/20 04:15 Albumin 2.5 g/dL (3.2-5.5) L 03/02/20 04:15 Globulin 3.3 g/dL (2.1-4.2) 03/02/20 04:15 Albumin/Globulin Ratio 0.8 (1.0-2.2) L 03/02/20 04:15 Triglycerides 784 mg/dL (-149) H 03/02/20 04:15 Cholesterol 544 mg/dL (-199) H 03/02/20 04:15 LDL Cholesterol Direct 231 mg/dL (-129) H 03/02/20 04:15 LDL Cholesterol, Calc Not Reportable 03/02/20 04:15 VLDL Cholesterol Not Reportable 03/02/20 04:15 HDL Cholesterol 13 mg/dL (60-) L 03/02/20 04:15 LDL/HDL Ratio Not Reportable 03/02/20 04:15 dLDL/HDL Ratio 17.8 (<3.6) 03/02/20 04:15 Cholesterol/HDL Ratio 41.8 (<5.0) 03/02/20 04:15 Lipase 27 U/L (22-51) 03/01/20 04:45 Urine Color DARK YELLOW 02/29/20 10:37 Urine Clarity CLEAR (CLEAR) 02/29/20 10:37 Urine pH 5.5 PH (5.0-7.5) 02/29/20 10:37 Ur Specific [place] >=1.030 (1.002-1.030) H 02/29/20 10:37 Urine Protein NEGATIVE mg/dL (NEGATIVE) 02/29/20 10:37 Urine Glucose (UA) NEGATIVE mg/dL (NEGATIVE) 02/29/20 10:37 Urine Ketones NEGATIVE mg/dL (NEGATIVE) 02/29/20 10:37 Urine Occult Blood NEGATIVE (NEGATIVE) 02/29/20 10:37 Urine Nitrite NEGATIVE (NEGATIVE) 02/29/20 10:37 Urine Bilirubin MODERATE (NEGATIVE) H 02/29/20 10:37 Urine Urobilinogen 1 (NORMAL) E.U./dL (NORMAL) 02/29/20 10:37 Ur Leukocyte Esterase NEGATIVE (NEGATIVE) 02/29/20 10:37 Ur Microscopic Review NOT INDICATED 02/29/20 10:37 Urine Culture Comments NOT INDICATED 02/29/20 10:37 Nasal Screen MRSA (PCR) NEGATIVE (NEGATIVE) 03/01/20 11:02 Ethyl Alcohol 28.1 mg/dL 02/29/20 08:29 Ref Lab Test Result REPORT 02/29/20 08:10 Blood Type O POSITIVE 02/29/20 08:10 Blood Type Recheck O POSITIVE 02/29/20 20:50 Antibody Screen NEGATIVE 02/29/20 08:10 Sepsis Event Note (H) - Evaluation Current Stage of Sepsis: Ruled out
[2020-03-02] MEDS ORDERED: SODIUM CHLORIDE 0.9% 500 ML IV PRN (19:50)
--- NOTE | 2020-03-02 21:22 | XRAY Report ---
PROCEDURE: Chest 1 View X-Ray INDICATIONS: tachypnea, hypoxia TECHNIQUE: One view of the chest was acquired. COMPARISON: 02/29/2020 FINDINGS: Surgical changes and devices: None. Lungs and pleura: No pleural effusions or pneumothorax. Interval development of subtle focal pneumon ia in the right midlung field. Interval development of patchy bibasilar consolidation, right greater than left. Mediastinum: Mediastinal contours appear normal. Heart size is normal. Bones and chest wall: No suspicious bony lesions. Overlying soft tissues appear unremarkable. IMPRESSION: Interval development of small focal pneumonia in the right midlung field and patchy bibasilar consoli dation. Consider viral versus bacterial pneumonia. Reviewed by: Canelo Alexander MD on 03/02/2020 9:21 PM PDT Approved by: Canelo Alexander MD on 03/02/2020 9:21 PM PDT Station ID: [id number]
[2020-03-02] MEDS: SODIUM CHLORIDE 0.9% 1,000 ML IV SCH (22:27)
[2020-03-02] MEDS: HYDROmorphone 0.5 MG/0.5 ML SYRINGE IVP PRN (22:27)
[2020-03-03] MEDS: SODIUM CHLORIDE FLUSH 0.9% 10 ML SYRINGE IVP SCH ×4 (00:11→23:28)
[2020-03-03] MEDS: PIPERACILLIN/TAZOBACTAM 3.375 GM in SODIUM CHLORIDE 0.9% MINIBAG 100 ML IV SCH ×4 (00:11→23:27)
[2020-03-03] MEDS: LORazepam 100MG/100ML D5W 100 ML IV SCH ×2 (02:03→14:26)
[2020-03-03 05:14] LABS: BASOPHILS % (AUTO) 0.2 %; EOSINOPHILS # (AUTO) 0.3 10^3/uL (0.0-0.7); EOSINOPHILS % (AUTO) 2.8 %; HGB - HEMOGLOBIN 11.6 g/dL (14.0-18.0); LYMPHOCYTES % (AUTO) 17.6 %; MEAN CORPUSCULAR HEMOGLOBIN 33.4 pg (27.0-31.0); MEAN CORPUSCULAR HGB CONC 34.6 g/dL (32.0-36.0); MEAN CORPUSCULAR VOLUME 96.5 fL (80.0-94.0); MEAN PLATELET VOLUME 11.5 fL (7.4-11.4); MONOCYTES % (AUTO) 8.6 %; NEUTROPHILS # (AUTO) 7.9 10^3/uL (1.5-6.6); NEUTROPHILS % (AUTO) 69.6 %; PLT - PLATELET COUNT 94 10^3/uL (130-450); RED BLOOD COUNT 3.47 10^6/uL (4.70-6.10); WHITE BLOOD COUNT 11.3 x10^3/uL (4.8-10.8)
[2020-03-03 05:17] LABS: VBG PH 7.405 (7.31-7.41)
[2020-03-03 05:29] LABS: ALBUMIN 2.4 g/dL (3.2-5.5); ALBUMIN/GLOBULIN RATIO 0.7 (1.0-2.2); ALKALINE PHOSPHATASE 372 IU/L (42-121); ALT ALANINE AMINOTRANSFERASE 222 IU/L (10-60); AST ASPARTATE AMINOTRANSFERASE 184 IU/L (10-42); BILIRUBIN,TOTAL 4.2 mg/dL (0.2-1.0); BUN - BLOOD UREA NITROGEN < 5 mg/dL (6-20); CALCIUM 7.8 mg/dL (8.5-10.3); CARBON DIOXIDE - CO2 26 mmol/L (21-32); CHLORIDE 104 mmol/L (101-111); CREATININE 0.6 mg/dL (0.6-1.2); GLUCOSE 111 mg/dL (70-100); MAGNESIUM 1.7 mg/dL (1.7-2.8); SODIUM 139 mmol/L (135-145); TOTAL PROTEIN 5.9 g/dL (6.7-8.2)
[2020-03-03 05:39] LABS: CHOL/HDL RATIO 32.4 (<5.0); CHOLESTEROL 454 mg/dL; HDL CHOLESTEROL 14 mg/dL; PHOSPHORUS 2.5 mg/dL (2.5-4.6)
[2020-03-03 06:01] LABS: LDL CHOLESTEROL,DIRECT 264 mg/dL; LDLD/HDL RATIO 18.9 (<3.6)
[2020-03-03] MEDS ORDERED: MAGNESIUM SULFATE 2 GRAM 2 GM/50 ML BAG IV ONE (06:20)
[2020-03-03] MEDS: POTASSIUM CHLOR 10 MEQ/100 ML 10 MEQ/100 ML BAG IV SCH ×4 (06:49→09:58)
[2020-03-03] MEDS: HYDROmorphone 0.5 MG/0.5 ML SYRINGE IVP PRN ×3 (07:49→22:44)
--- NOTE | 2020-03-03 08:05 | PROVIDER PROGRESS NOTE ---
Assessment/Plan - Problem List (1) HCAP (healthcare-associated pneumonia) Assessment/Plan: He started to desaturate yesterday and a chest x-ray was done last night showing a new consolidation in the right side and bilateral patchy infiltrates. He has been started on Pip/Tazocin for HCAP. The right-sided consolidation may be the reason for his right lateral upper abdominal pain, since acute cholecystitis was ruled out with a normal HIDA scan yesterday. Continue empiric iv antibiotics. We will add Florastor when he is taking p.o. (2) Alcohol withdrawal Qualifiers: Complication of substance-induced condition: with unspecified complication Qualified Code(s): F10.239 - Alcohol dependence with withdrawal, unspecified Assessment/Plan: Resolving, he is still tremulous when moves spontaneously He is still sleepy, going into the stage of benzodiazepene withdrawl (3) Alcohol abuse Assessment/Plan: He still needs to be more awake to have a conversation with social workers regarding resources to stay alcohol abstinence. The father is very supportive, at [facility] (4) Hypertriglyceridemia Assessment/Plan: He needs to be resumed on his triglyceride management. The father himself was interested in the patient having good follow-up for high triglycerides (5) Alcoholic hepatitis Assessment/Plan: LFTs improving daily. (6) Hypokalemia Assessment/Plan: Replace. Follow BMP daily (7) Anemia Assessment/Plan: Likely hemo-dilutional. We will check stores and replace if low (8) Tobacco use Assessment/Plan: Nicotine patche is on (9) Acute cholecystitis Assessment/Plan: Ruled out (10) Hematemesis Qualifiers: Nausea presence: with nausea Qualified Code(s): K92.0 - Hematemesis Assessment/Plan: No further hematemesis since day of admission. He still needs a GI work-up (11) Hyponatremia Assessment/Plan: Resolved on iv fluids - Current Meds Current Meds: Current Medications Generic Name Dose Route Start Last Admin Trade Name Freq PRN Reason Stop Dose Admin Hydromorphone HCl 0.5 mg 03/02/20 22:03 03/03/20 07:49 Dilaudid Inj Syringe IVP 0.5 mg Q2H PRN Administration PAIN Multivitamins 10 ml/ Thiamine 1,011.2 mls @ 100 mls/hr 02/29/20 13:00 03/02/20 19:49 HCl 100 mg/ Folic Acid 1 mg/ IV Infused Sodium Chloride DAILY CASH Infusion Lorazepam 100 mls @ 5 mls/hr 03/01/20 08:30 03/03/20 06:18 Ativan IV 8 mg/hr .Q20H CASH 8 mls/hr Titration Protocol 5 MG/HR Dexmedetomidine HCl 400 mcg/ 100 mls @ 3.175 mls/hr 03/01/20 10:00 03/03/20 06:00 Sodium Chloride IV 0.3 mcg/kg/hr .[id number] CASH 4.763 mls/hr Titration Protocol 0.2 MCG/KG/HR Piperacillin Sod/Tazobactam 100 mls @ 25 mls/hr 03/01/20 16:00 03/03/20 04:16 Sod 3.375 gm/ Sodium Chloride IV Infused Q8H CASH Infusion Sodium Chloride 500 mls @ 0 mls/hr 03/02/20 19:50 03/03/20 06:00 Normal Saline 0.9% IV 10 mls/hr Q24H PRN Infusion TKO RATE TKO Sodium Chloride 1,000 mls @ 83.333 mls/hr 03/02/20 23:00 03/03/20 06:51 Normal Saline 0.9% IV 50 mls/hr .Q12H CASH Infusion Potassium Chloride 10 meq in 100 mls @ 100 mls/hr 03/03/20 07:00 03/03/20 07:51 Potassium Chloride IV 03/03/20 10:59 100 mls/hr Q1H CASH Administration Protocol Lorazepam 2 mg 02/29/20 10:55 03/01/20 09:37 Ativan Inj (Vial) IVP 2 mg Q30M PRN Administration CIWA >8 Protocol Nicotine 1 patch 02/29/20 16:16 03/02/20 08:19 Nicoderm TOP 1 patch DAILY CASH Administration Pantoprazole Sodium 40 mg 02/29/20 21:00 03/02/20 20:34 Protonix IVP 40 mg BID CASH Administration Sodium Chloride 10 ml 02/29/20 10:59 03/01/20 15:51 Normal Saline Flush 0.9% IVP 20 ml PRN PRN Administration NEEDED PER PROVIDER ORDERS Sodium Chloride 10 ml 02/29/20 17:00 03/03/20 00:11 Normal Saline Flush 0.9% IVP 10 ml 0100,0900,1700 [facility] Administration - Lab Result Fish Bone Diagrams: 03/03/20 04:30 03/06/20 03:21 - Additional Planning My Orders: My Active Orders 03/03/20 07:00 Potassium Chlor 10 Meq/100 ml [Potassium Chloride] 10 meq in 100 ml IV Q1H 03/03/20 08:30 Potassium Phosphate 15 mmol Sodium Chloride 0.9% [Normal Saline 0.9%] 250 ml IV ONCE 03/04/20 05:00 CALCIUM, IONIZED ([facility]) [BG] DAILYLAB PHOSPHORUS [CHEM] DAILYLAB 03/05/20 05:00 CALCIUM, IONIZED ([facility]) [BG] DAILYLAB PHOSPHORUS [CHEM] DAILYLAB Subjective - Subjective Patient Reports: Other (Sleeping) Objective Vital Signs: Vital Signs - 24 hr 03/02/20 03/02/20 03/02/20 08:30 09:00 09:30 Temperature 36.7 C 36.7 C Heart Rate [ 69 71 71 Monitoring electrodes] Respiratory 35 H 32 H 31 H Rate Blood Pressure 140/99 H 135/93 H 135/94 H [Right Brachial artery] O2 Saturation 92 92 92 03/02/20 03/02/20 03/02/20 10:00 10:30 11:00 Temperature Heart Rate [ 70 69 69 Monitoring electrodes] Respiratory 19 32 H 27 H Rate Blood Pressure 116/98 H 147/99 H 135/97 H [Right Brachial artery] O2 Saturation 92 92 92 03/02/20 03/02/20 03/02/20 11:30 12:00 12:30 Temperature 36.9 C Heart Rate [ 68 67 66 Monitoring electrodes] Respiratory 27 H 27 H 23 Rate Blood Pressure 141/96 H 148/98 H 148/98 H [Right Brachial artery] O2 Saturation 92 92 96 03/02/20 03/02/20 03/02/20 13:00 13:30 14:00 Temperature Heart Rate [ 66 71 67 Monitoring electrodes] Respiratory 26 H 21 23 Rate Blood Pressure 161/104 H 140/104 H 157/108 H [Right Brachial artery] O2 Saturation 96 97 03/02/20 03/02/20 03/02/20 14:30 15:00 15:34 Temperature Heart Rate [ 69 70 68 Monitoring electrodes] Respiratory 21 27 H 26 H Rate Blood Pressure 156/105 H 143/101 H 157/102 H [Right Brachial artery] O2 Saturation 95 94 95 03/02/20 03/02/20 03/02/20 16:00 16:30 17:00 Temperature 36.4 C L Heart Rate [ 68 68 68 Monitoring electrodes] Respiratory 23 24 23 Rate Blood Pressure 155/108 H 163/107 H 157/103 H [Right Brachial artery] O2 Saturation 95 95 95 03/02/20 03/02/20 03/02/20 17:30 18:00 18:30 Temperature Heart Rate [ 71 77 78 Monitoring electrodes] Respiratory 26 H 38 H 42 H Rate Blood Pressure 149/102 H 123/86 H 124/95 H [Right Brachial artery] O2 Saturation 94 88 L 88 L 03/02/20 03/02/20 03/02/20 19:00 19:30 19:48 Temperature Heart Rate [ 75 Monitoring electrodes] Respiratory 33 H 45 H 34 H Rate Blood Pressure 139/91 H [Right Brachial artery] O2 Saturation 89 L 90 L 94 03/02/20 03/02/20 03/02/20 20:00 21:00 22:00 Temperature Heart Rate [ 85 84 87 Monitoring electrodes] Respiratory 36 H 36 H 27 H Rate Blood Pressure 116/79 91/61 96/84 H [Right Brachial artery] O2 Saturation 94 95 94 03/02/20 03/03/20 03/03/20 23:00 00:00 00:20 Temperature 36.2 C L Heart Rate [ 86 79 Monitoring electrodes] Respiratory 31 H 27 H Rate Blood Pressure 109/66 118/85 H [Right Brachial artery] O2 Saturation 92 95 03/03/20 03/03/20 03/03/20 01:00 02:00 03:00 Temperature Heart Rate [ 73 72 70 Monitoring electrodes] Respiratory 24 24 24 Rate Blood Pressure 125/87 H 125/85 H 136/93 H [Right Brachial artery] O2 Saturation 98 98 98 03/03/20 03/03/20 03/03/20 04:00 05:00 06:00 Temperature 36.4 C L Heart Rate [ 70 69 67 Monitoring electrodes] Respiratory 22 27 H 26 H Rate Blood Pressure 134/89 H 121/89 H 142/96 H [Right Brachial artery] O2 Saturation 99 96 97 03/03/20 07:00 Temperature Heart Rate [ 69 Monitoring electrodes] Respiratory 29 H Rate Blood Pressure 132/94 H [Right Brachial artery] O2 Saturation 95 Oxygen O2 Source Room air I&O (Last 24 Hrs): Intake and Output Totals x24h 03/01/20 03/02/20 03/03/20 23:59 23:59 23:59 Intake Total 3311.099 4020.007 1034.496 Output Total 4137 3400 470 Balance -825.901 620.007 564.496 General: Other (sedated) HEENT: Other (sleeping, eyes are closed) Neuro: Other (sedated) Respiratory: No respiratory distress Abdomen: Soft Extremities: No edema - Results Results: Laboratory Results WBC 11.3 x10^3/uL (4.8-10.8) H 03/03/20 04:30 RBC 3.47 10^6/uL (4.70-6.10) L 03/03/20 04:30 Hgb 11.6 g/dL (14.0-18.0) L 03/03/20 04:30 Hct 33.5 % (42.0-52.0) L 03/03/20 04:30 MCV 96.5 fL (80.0-94.0) H 03/03/20 04:30 MCH 33.4 pg (27.0-31.0) H 03/03/20 04:30 MCHC 34.6 g/dL (32.0-36.0) 03/03/20 04:30 RDW 14.0 % (12.0-15.0) 03/03/20 04:30 Plt Count 94 10^3/uL (130-450) L 03/03/20 04:30 MPV 11.5 fL (7.4-11.4) H 03/03/20 04:30 Neut # (Auto) 7.9 10^3/uL (1.5-6.6) H 03/03/20 04:30 Lymph # (Auto) 2.0 10^3/uL (1.5-3.5) 03/03/20 04:30 Ector # (Auto) 1.0 10^3/uL (0.0-1.0) 03/03/20 04:30 Eos # (Auto) 0.3 10^3/uL (0.0-0.7) 03/03/20 04:30 Baso # (Auto) 0.0 10^3/uL (0.0-0.1) 03/03/20 04:30 Absolute Nucleated RBC 0.00 x10^3/uL 03/03/20 04:30 Total Counted 100 02/29/20 08:10 Band Neuts % (Manual) 6 % (0-10) 02/29/20 08:10 Abnorm Lymph % (Manual) 0 % 02/29/20 08:10 Nucleated RBC % 0.0 /100WBC 03/03/20 04:30 Neutrophils # (Manual) 13.0 10^3/uL (1.5-6.6) H 02/29/20 08:10 Lymphocytes # (Manual) 0.5 10^3/uL (1.5-3.5) L 02/29/20 08:10 Monocytes # (Manual) 0.0 10^3/uL (0.0-1.0) 02/29/20 08:10 Eosinophils # (Manual) 0.0 10^3/uL (0-0.7) 02/29/20 08:10 Basophils # (Manual) 0.0 10^3/uL (0-0.1) 02/29/20 08:10 Differential Comment MANUAL DIFFERENTIAL 02/29/20 08:10 Manual Slide Review Indicated 02/29/20 08:10 Whole Blood INR 1.0 (0.8-1.2) 02/29/20 13:04 VBG pH 7.405 (7.31-7.41) 03/03/20 04:30 Ionized Calcium 1.04 mmol/L (1.15-1.33) L 03/03/20 04:30 Sodium 139 mmol/L (135-145) 03/03/20 04:30 Potassium 3.0 mmol/L (3.5-5.0) L 03/03/20 04:30 Chloride 104 mmol/L (101-111) 03/03/20 04:30 Carbon Dioxide 26 mmol/L (21-32) 03/03/20 04:30 Anion Gap 9.0 (6-13) 03/03/20 04:30 BUN < 5 mg/dL (6-20) L 03/03/20 04:30 Creatinine 0.6 mg/dL (0.6-1.2) 03/03/20 04:30 Estimated GFR (MDRD) 152 (>89) 03/03/20 04:30 Glucose 111 mg/dL (70-100) H 03/03/20 04:30 POC Whole Bld Glucose 92 mg/dL (70 - 100) 03/03/20 06:11 Calcium 7.8 mg/dL (8.5-10.3) L 03/03/20 04:30 Phosphorus 2.5 mg/dL (2.5-4.6) 03/03/20 04:30 Magnesium 1.7 mg/dL (1.7-2.8) 03/03/20 04:30 Total Bilirubin 4.2 mg/dL (0.2-1.0) H 03/03/20 04:30 AST 184 IU/L (10-42) H 03/03/20 04:30 ALT 222 IU/L (10-60) H 03/03/20 04:30 Alkaline Phosphatase 372 IU/L (42-121) H 03/03/20 04:30 Total Protein 5.9 g/dL (6.7-8.2) L 03/03/20 04:30 Albumin 2.4 g/dL (3.2-5.5) L 03/03/20 04:30 Globulin 3.5 g/dL (2.1-4.2) 03/03/20 04:30 Albumin/Globulin Ratio 0.7 (1.0-2.2) L 03/03/20 04:30 Triglycerides 591 mg/dL (-149) H 03/03/20 04:30 Cholesterol 454 mg/dL (-199) H 03/03/20 04:30 LDL Cholesterol Direct 264 mg/dL (-129) H 03/03/20 04:30 LDL Cholesterol, Calc Not Reportable 03/03/20 04:30 VLDL Cholesterol Not Reportable 03/03/20 04:30 HDL Cholesterol 14 mg/dL (60-) L 03/03/20 04:30 LDL/HDL Ratio Not Reportable 03/03/20 04:30 dLDL/HDL Ratio 18.9 (<3.6) 03/03/20 04:30 Cholesterol/HDL Ratio 32.4 (<5.0) 03/03/20 04:30 Lipase 27 U/L (22-51) 03/01/20 04:45 Urine Color DARK YELLOW 02/29/20 10:37 Urine Clarity CLEAR (CLEAR) 02/29/20 10:37 Urine pH 5.5 PH (5.0-7.5) 02/29/20 10:37 Ur Specific Miller >=1.030 (1.002-1.030) H 02/29/20 10:37 Urine Protein NEGATIVE mg/dL (NEGATIVE) 02/29/20 10:37 Urine Glucose (UA) NEGATIVE mg/dL (NEGATIVE) 02/29/20 10:37 Urine Ketones NEGATIVE mg/dL (NEGATIVE) 02/29/20 10:37 Urine Occult Blood NEGATIVE (NEGATIVE) 02/29/20 10:37 Urine Nitrite NEGATIVE (NEGATIVE) 02/29/20 10:37 Urine Bilirubin MODERATE (NEGATIVE) H 02/29/20 10:37 Urine Urobilinogen 1 (NORMAL) E.U./dL (NORMAL) 02/29/20 10:37 Ur Leukocyte Esterase NEGATIVE (NEGATIVE) 02/29/20 10:37 Ur Microscopic Review NOT INDICATED 02/29/20 10:37 Urine Culture Comments NOT INDICATED 02/29/20 10:37 Nasal Screen MRSA (PCR) NEGATIVE (NEGATIVE) 03/01/20 11:02 Ethyl Alcohol 28.1 mg/dL 02/29/20 08:29 Ref Lab Test Result REPORT 02/29/20 08:10 Blood Type O POSITIVE 02/29/20 08:10 Blood Type Recheck O POSITIVE 02/29/20 20:50 Antibody Screen NEGATIVE 02/29/20 08:10 Sepsis Event Note (H) - Evaluation Current Stage of Sepsis: Ruled out
[2020-03-03] MEDS: NICOTINE 14 MG PATCH TOP SCH (08:30)
[2020-03-03] MEDS ORDERED: POTASSIUM PHOSPHATE 15 MMOL in SODIUM CHLORIDE 0.9% 250 ML IV ONE (08:30)
[2020-03-03] MEDS: PANTOPRAZOLE 40 MG VIAL IVP SCH ×2 (08:47→21:00)
[2020-03-03] MEDS: MULTIVITAMIN 10 ML, THIAMINE INJ 100 MG, FOLIC ACID INJ 1 MG in SODIUM CHLORIDE 0.9% 1,... IV SCH (08:59)
--- NOTE | 2020-03-03 15:35 | ADVANCE CARE PLANNING NOTE ---
Advance Care Planning - Planning Encounter Date: 03/03/20 Time: 14:30 Purpose: To update father on his condition To determine wishes for patient's care going forward. Parties in Attendance: I met with the patient in his bed, TIANNA Clayton at bedside, and the patient's father at bedside. Decisional Capacity of the Patient: Part of this visit was to establish if the patient has capacity to make decisions for himself yet. He does not have decision-making capacity. - Diagnosis for Encounter (1) Alcohol withdrawal Qualifiers: Complication of substance-induced condition: with unspecified complication Qualified Code(s): F10.239 - Alcohol dependence with withdrawal, unspecified Summary: I updated the father on how the patient is progressing with his alcohol withdrawal. I then tested to see what the patient remembered about going through withdrawal and his answers were only about vomiting, Which were his symptoms for several days before coming to the ER peer. He does not remember being combative and delirious (and needing four-point restraints). He does not know how many days he has been in the hospital. Patient is still on Ativan drip and a Precedex drip and both are being decreased. The patient still has bradycardikinesis and is not yet swallowing more than just ice chips. Patient asked to be discharged and when I replied that he has an estimated hospitalization of 2 days to go yet, patient began to shake his head no and said "That's not going to happen". The father then rep lied that he knows the patient is stubborn and wants things his way. I requested that the father have some influence over the patient to prevent this patient from leaving or requesting to sign out AMA and the father agreed. (2) Alcohol abuse Summary: As learned from the admitting provider, the patient drinks 6 beers per day. The father is supportive of the patient transitioning through alcohol withdrawal and being abstinent, he said today. The father wanted to know what kind of follow-up there will be for this problem. He will get social work consultation when he is medically clear to make decisions regarding the choices that are available for alcohol rehab. (3) Hypertriglyceridemia Summary: I updated the father about this patient's severe hyperlipidemia, with triglyceride level greater than 2000. The father then provided information that he himself is a cardiac patient has very high lipids as was his father before him. I stated that the lipid panel was so high that it must be a genetic problem and this was confirmed with this information. The father then stated that he is half and knows that high lipids are high in the community. The father then wanted to know what kind of follow-up there would be for this problem. The plan will be that the patient will be discharged on triglyceride meds and will need follow-up from a PCP. (4) Alcoholic hepatitis Summary: I summarized the abnormal lab findings including inflammatory liver function test results, which are consequence of alcohol abuse. (5) Tobacco use Summary: The patient asked to go out of the hospital for a smoke. His RN Rdaha answered that this is currently not a good idea with his cough and pneumonia and also responded that he already has a nicotine patch on to help with nicotine urges. (6) Hematemesis Qualifiers: Nausea presence: with nausea Qualified Code(s): K92.0 - Hematemesis Summary: During our conversation, when asked what he remembers about this current hospitalization, the patient only kept supplying information about the 3 days that he had abdominal pain, burning and nausea and vomiting. - Encounter Subjective/Patient's Story: The patient is currently living in his parents old house (his parents just moved into their new house). The patient's older child, a son Roman, who is 12 years old, is staying with his grandfather, this patient's father. When speaking about Roman, the patient stated "My son is old enough to be independent". The patient's younger child is an 8-year-old daughter staying with her mother. Patient is from his . 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 With that he lost his health insurance. Father states he knows this patient is worried about getting back to work for this reason. Patient presented to the ER with several days of nausea and vomiting and had witnessed hematemesis x1. Since being admitted he is also had right lateral abdominal pain. He underwent work-up for gallbladder disease which was finally definitively negative. I confirmed this for the father since he said he was telling family members that the patient had acute cholecystitis. The patient started to have a cough and a chest x-ray yesterday showed a right base pneumonia, thus he was started on antibiotics yesterday. This may be adding to the pain. I asked if it hurts with a deep breath and he tried that and said it hurts in the mid and right abdomen. I asked the patient if he has had any trauma to the right rib cage area and the patient answered that yes he "falls a lot". He remembered a recent fall over an excavator and tripping over his dog. I asked if any of these were when he was drunk and he said he thought he was not drunk with either of these episodes. He did say he fell on his right rib cage area though. Objective/Medical Story: Patient admitted with nausea vomiting and tremulous with early alcohol withdrawal. He then went into florid alcohol withdrawal and needed transfer to the ICU for IV sedative drips. He has been somnolent for 2 days, the drips are decreasing and he is more awake. A Healthcare-associated pneumonia has been documented and antibiotics were started. Goals of Care: Continue to manage his alcohol withdrawal. Advance his diet as tolerated. The patient is eager to be discharged. The father is to help the patient make good medical decisions, to avoid signing out AMA. Sources and management for alcohol abuse will be done when the patient is more alert and awake. The patient will need treatment for newly diagnosed hypertriglyceridemia and will need a new PCP. Plan: Does not medications and plan. Code Status: Attempt Resuscitation Time spent on advance care plannin min.
[2020-03-03] MEDS: DEXMEDETOMIDINE 400 MCG in SODIUM CHLORIDE 0.9% 100ML 96 ML IV SCH (19:31)
[2020-03-03] MEDS: SODIUM CHLORIDE 0.9% 1,000 ML IV SCH ×2 (19:31→23:05)
[2020-03-03] MEDS: chlordiazePOXIDE 25 MG CAPSULE PO SCH (23:27)
[2020-03-04] MEDS: HYDROmorphone 0.5 MG/0.5 ML SYRINGE IVP PRN ×3 (03:27→19:03)
[2020-03-04] MEDS: chlordiazePOXIDE 25 MG CAPSULE PO SCH ×4 (05:37→23:45)
[2020-03-04 06:22] LABS: VBG PH 7.378 (7.31-7.41)
[2020-03-04 06:31] LABS: CALCIUM 8.3 mg/dL (8.5-10.3); MAGNESIUM 1.9 mg/dL (1.7-2.8)
[2020-03-04 06:48] LABS: CHOL/HDL RATIO 31.4 (<5.0); CHOLESTEROL 439 mg/dL; HDL CHOLESTEROL 14 mg/dL; PHOSPHORUS 2.8 mg/dL (2.5-4.6)
[2020-03-04 07:26] LABS: LDL CHOLESTEROL,DIRECT 296 mg/dL; LDLD/HDL RATIO 21.1 (<3.6)
[2020-03-04] MEDS: polyethylene glycoL 3350 17 GM PACKET PO SCH (08:51)
[2020-03-04] MEDS: PANTOPRAZOLE 40 MG VIAL IVP SCH ×2 (08:51→21:03)
[2020-03-04] MEDS: MULTIVITAMIN 10 ML, THIAMINE INJ 100 MG, FOLIC ACID INJ 1 MG in SODIUM CHLORIDE 0.9% 1,... IV SCH (08:51)
[2020-03-04] MEDS: PIPERACILLIN/TAZOBACTAM 3.375 GM in SODIUM CHLORIDE 0.9% MINIBAG 100 ML IV SCH ×3 (08:51→23:45)
[2020-03-04] MEDS: NICOTINE 14 MG PATCH TOP SCH (08:51)
[2020-03-04] MEDS: SODIUM CHLORIDE FLUSH 0.9% 10 ML SYRINGE IVP SCH ×4 (08:52→21:05)
[2020-03-04] MEDS ORDERED: POTASSIUM CHLORIDE 20 MEQ TABLET PO SCH (12:27)
--- NOTE | 2020-03-04 15:47 | PROVIDER PROGRESS NOTE ---
Assessment/Plan - Problem List (1) Benzodiazepine withdrawal Assessment/Plan: The IV Ativan and IV Precedex were discontinued overnight. Today he is mostly sleepy but when he awakens he is tremulous and also combative and states he wants to leave, pulls off his telemetry leads. Continue with gentle weaning of his meds for withdrawal and get him through his benzodiazepine withdrawal as well (2) HCAP (healthcare-associated pneumonia) Assessment/Plan: still has a wet but non-productive cough Continue empiric iv Uansyn (3) Alcohol abuse Assessment/Plan: He still needs social work consult when he is awake and alert and medically cleared. Continue with thiamine daily, transition to oral. Finished with banana bag and transition to oral intake (4) Hypertriglyceridemia Assessment/Plan: It was learned that he has a familial history of this. He received less than 24 hours of IV insulin to bring this down since it was greater than 2000 on admission. He will need oral treatment started and follow-up regarding this with a new PCP (5) Alcoholic hepatitis Assessment/Plan: LFTs are improving daily. We will order ammonia level as well which may explain some of his confusion and poor decision-making choices (6) Hypokalemia Assessment/Plan: Related to inadequate intake. Replace and follow BMP daily (7) Anemia Assessment/Plan: He did have witnessed hematemesis at the time of this admission. Will check B12 and folate levels and iron stores and replace if low. He needs work-up for GI blood loss anemia (see below) (8) Tobacco use Assessment/Plan: Nicotine patch ordered. (9) Hematemesis Qualifiers: Nausea presence: with nausea Qualified Code(s): K92.0 - Hematemesis Assessment/Plan: No further hematemesis, it was witnessed at the time of admission. He has not yet had EGD because he went through florid alcohol withdrawal just after admission. We will obtain general surgery consult (10) Hyponatremia Assessment/Plan: Improving daily. Follow BMP daily (11) Alcohol withdrawal Qualifiers: Complication of substance-induced condition: with unspecified complication Qualified Code(s): F10.239 - Alcohol dependence with withdrawal, unspecified Assessment/Plan: Resolved and drips off since last night (12) Acute cholecystitis Assessment/Plan: Ruled out. - Current Meds Current Meds: Current Medications Generic Name Dose Route Start Last Admin Trade Name Freq PRN Reason Stop Dose Admin Chlordiazepoxide HCl 25 mg 03/04/20 00:00 03/04/20 13:27 Librium PO 03/05/20 06:01 25 mg Q6HR CASH Administration Hydromorphone HCl 0.5 mg 03/02/20 22:03 03/04/20 13:34 Dilaudid Inj Syringe IVP 0.5 mg Q2H PRN Administration PAIN Lorazepam 100 mls @ 5 mls/hr 03/01/20 08:30 03/04/20 03:20 Ativan IV Infused .Q20H CASH Titration Protocol 5 MG/HR Dexmedetomidine HCl 400 mcg/ 100 mls @ 3.175 mls/hr 03/01/20 10:00 03/04/20 07:10 Sodium Chloride IV Infused .[id number] CASH Titration Protocol 0.2 MCG/KG/HR Piperacillin Sod/Tazobactam 100 mls @ 25 mls/hr 03/01/20 16:00 03/04/20 13:00 Sod 3.375 gm/ Sodium Chloride IV Infused Q8H CASH Infusion Lorazepam 2 mg 02/29/20 10:55 03/01/20 09:37 Ativan Inj (Vial) IVP 2 mg Q30M PRN Administration CIWA >8 Protocol Nicotine 1 patch 02/29/20 16:16 03/04/20 08:51 Nicoderm TOP 1 patch DAILY CASH Administration Ondansetron HCl 4 mg 02/29/20 10:59 03/03/20 14:15 Zofran Inj IVP 4 mg Q6HR PRN Administration Nausea / Vomiting Pantoprazole Sodium 40 mg 02/29/20 21:00 03/04/20 08:51 Protonix IVP 40 mg BID CASH Administration Polyethylene Glycol 17 gm 03/04/20 09:00 03/04/20 08:51 Miralax PO 17 gm DAILY CASH Administration Sodium Chloride 10 ml 02/29/20 10:59 03/01/20 15:51 Normal Saline Flush 0.9% IVP 20 ml PRN PRN Administration NEEDED PER PROVIDER ORDERS Sodium Chloride 10 ml 02/29/20 17:00 03/04/20 08:52 Normal Saline Flush 0.9% IVP 10 ml 0100,0900,1700 CASH Administration - Lab Result Fish Bone Diagrams: 03/03/20 04:30 03/04/20 06:10 - Additional Planning My Orders: My Active Orders 03/04/20 09:00 polyethylene glycoL 3350 [Miralax] 17 gm PO DAILY 03/05/20 05:00 CALCIUM [CHEM] DAILYLAB CALCIUM, IONIZED ([facility]) [BG] DAILYLAB MAGNESIUM [CHEM] DAILYLAB PHOSPHORUS [CHEM] DAILYLAB POTASSIUM [CHEM] DAILYLAB 03/06/20 05:00 CALCIUM [CHEM] DAILYLAB MAGNESIUM [CHEM] DAILYLAB POTASSIUM [CHEM] DAILYLAB 03/07/20 05:00 CALCIUM [CHEM] DAILYLAB MAGNESIUM [CHEM] DAILYLAB POTASSIUM [CHEM] DAILYLAB Subjective - Subjective Patient Reports: Resting Comfortably Objective Vital Signs: Vital Signs - 24 hr 03/03/20 03/03/20 03/03/20 16:00 17:00 18:00 Temperature Heart Rate Heart Rate [ 76 77 78 Monitoring electrodes] Respiratory 32 H 30 H 34 H Rate Blood Pressure 144/99 H 146/97 H 138/99 H [Right Brachial artery] O2 Saturation 91 L 93 92 03/03/20 03/03/20 03/03/20 19:00 20:00 21:00 Temperature 37.4 C Heart Rate Heart Rate [ 88 79 72 Monitoring electrodes] Respiratory 19 22 23 Rate Blood Pressure 141/102 H 126/90 H [Right Brachial artery] O2 Saturation 96 96 03/03/20 03/03/20 03/03/20 22:00 23:00 23:30 Temperature 36.8 C Heart Rate Heart Rate [ 74 75 Monitoring electrodes] Respiratory 24 26 H 24 Rate Blood Pressure 130/91 H 134/93 H [Right Brachial artery] O2 Saturation 92 87 L 94 03/04/20 03/04/20 03/04/20 02:14 03:21 03:50 Temperature 37.3 C Heart Rate Heart Rate [ 88 Monitoring electrodes] Respiratory 26 H 18 27 H Rate Blood Pressure 124/84 H [Right Brachial artery] O2 Saturation 94 91 L 94 03/04/20 03/04/20 03/04/20 07:25 09:00 11:00 Temperature 37.3 C 37.0 C Heart Rate 79 Heart Rate [ 82 78 Monitoring electrodes] Respiratory 24 16 25 H Rate Blood Pressure 140/104 H 141/91 H [Right Brachial artery] O2 Saturation 92 94 88 L 03/04/20 14:45 Temperature Heart Rate Heart Rate [ 104 H Monitoring electrodes] Respiratory 21 Rate Blood Pressure 134/100 H [Right Brachial artery] O2 Saturation 88 L Oxygen O2 Source Room air I&O (Last 24 Hrs): Intake and Output Totals x24h 03/02/20 03/03/20 03/04/20 23:59 23:59 23:59 Intake Total 4020.257 3734.162 2422.747 Output Total 3400 2135 650 Balance 306.759 0766.162 1772.747 General: Other (sleeping) HEENT: Mucous membr. moist/pink Neck: Supple Neuro: Other (sleeping) Cardiovascular: Regular rate Respiratory: No respiratory distress Abdomen: Soft Extremities: No edema - Results Results: Laboratory Results WBC 11.3 x10^3/uL (4.8-10.8) H 03/03/20 04:30 RBC 3.47 10^6/uL (4.70-6.10) L 03/03/20 04:30 Hgb 11.6 g/dL (14.0-18.0) L 03/03/20 04:30 Hct 33.5 % (42.0-52.0) L 03/03/20 04:30 MCV 96.5 fL (80.0-94.0) H 03/03/20 04:30 MCH 33.4 pg (27.0-31.0) H 03/03/20 04:30 MCHC 34.6 g/dL (32.0-36.0) 03/03/20 04:30 RDW 14.0 % (12.0-15.0) 03/03/20 04:30 Plt Count 94 10^3/uL (130-450) L 03/03/20 04:30 MPV 11.5 fL (7.4-11.4) H 03/03/20 04:30 Neut # (Auto) 7.9 10^3/uL (1.5-6.6) H 03/03/20 04:30 Lymph # (Auto) 2.0 10^3/uL (1.5-3.5) 03/03/20 04:30 [place] # (Auto) 1.0 10^3/uL (0.0-1.0) 03/03/20 04:30 Eos # (Auto) 0.3 10^3/uL (0.0-0.7) 03/03/20 04:30 Baso # (Auto) 0.0 10^3/uL (0.0-0.1) 03/03/20 04:30 Absolute Nucleated RBC 0.00 x10^3/uL 03/03/20 04:30 Total Counted 100 02/29/20 08:10 Band Neuts % (Manual) 6 % (0-10) 02/29/20 08:10 Abnorm Lymph % (Manual) 0 % 02/29/20 08:10 Nucleated RBC % 0.0 /100WBC 03/03/20 04:30 Neutrophils # (Manual) 13.0 10^3/uL (1.5-6.6) H 02/29/20 08:10 Lymphocytes # (Manual) 0.5 10^3/uL (1.5-3.5) L 02/29/20 08:10 Monocytes # (Manual) 0.0 10^3/uL (0.0-1.0) 02/29/20 08:10 Eosinophils # (Manual) 0.0 10^3/uL (0-0.7) 02/29/20 08:10 Basophils # (Manual) 0.0 10^3/uL (0-0.1) 02/29/20 08:10 Differential Comment MANUAL DIFFERENTIAL 02/29/20 08:10 Manual Slide Review Indicated 02/29/20 08:10 Whole Blood INR 1.0 (0.8-1.2) 02/29/20 13:04 VBG pH 7.378 (7.31-7.41) 03/04/20 06:10 Ionized Calcium 1.10 mmol/L (1.15-1.33) L 03/04/20 06:10 Sodium 139 mmol/L (135-145) 03/03/20 04:30 Potassium 3.4 mmol/L (3.5-5.0) L 03/04/20 06:10 Chloride 104 mmol/L (101-111) 03/03/20 04:30 Carbon Dioxide 26 mmol/L (21-32) 03/03/20 04:30 Anion Gap 9.0 (6-13) 03/03/20 04:30 BUN < 5 mg/dL (6-20) L 03/03/20 04:30 Creatinine 0.6 mg/dL (0.6-1.2) 03/03/20 04:30 Estimated GFR (MDRD) 152 (>89) 03/03/20 04:30 Glucose 111 mg/dL (70-100) H 03/03/20 04:30 POC Whole Bld Glucose 101 mg/dL (70 - 100) H 03/03/20 16:55 Calcium 8.3 mg/dL (8.5-10.3) L 03/04/20 06:10 Phosphorus 2.8 mg/dL (2.5-4.6) 03/04/20 06:10 Magnesium 1.9 mg/dL (1.7-2.8) 03/04/20 06:10 Total Bilirubin 4.2 mg/dL (0.2-1.0) H 03/03/20 04:30 AST 184 IU/L (10-42) H 03/03/20 04:30 ALT 222 IU/L (10-60) H 03/03/20 04:30 Alkaline Phosphatase 372 IU/L (42-121) H 03/03/20 04:30 Total Protein 5.9 g/dL (6.7-8.2) L 03/03/20 04:30 Albumin 2.4 g/dL (3.2-5.5) L 03/03/20 04:30 Globulin 3.5 g/dL (2.1-4.2) 03/03/20 04:30 Albumin/Globulin Ratio 0.7 (1.0-2.2) L 03/03/20 04:30 Triglycerides 584 mg/dL (-149) H 03/04/20 06:10 Cholesterol 439 mg/dL (-199) H 03/04/20 06:10 LDL Cholesterol Direct 296 mg/dL (-129) H 03/04/20 06:10 LDL Cholesterol, Calc Not Reportable 03/04/20 06:10 VLDL Cholesterol Not Reportable 03/04/20 06:10 HDL Cholesterol 14 mg/dL (60-) L 03/04/20 06:10 LDL/HDL Ratio Not Reportable 03/04/20 06:10 dLDL/HDL Ratio 21.1 (<3.6) 03/04/20 06:10 Cholesterol/HDL Ratio 31.4 (<5.0) 03/04/20 06:10 Lipase 27 U/L (22-51) 03/01/20 04:45 Urine Color DARK YELLOW 02/29/20 10:37 Urine Clarity CLEAR (CLEAR) 02/29/20 10:37 Urine pH 5.5 PH (5.0-7.5) 02/29/20 10:37 Ur Specific [place] >=1.030 (1.002-1.030) H 02/29/20 10:37 Urine Protein NEGATIVE mg/dL (NEGATIVE) 02/29/20 10:37 Urine Glucose (UA) NEGATIVE mg/dL (NEGATIVE) 02/29/20 10:37 Urine Ketones NEGATIVE mg/dL (NEGATIVE) 02/29/20 10:37 Urine Occult Blood NEGATIVE (NEGATIVE) 02/29/20 10:37 Urine Nitrite NEGATIVE (NEGATIVE) 02/29/20 10:37 Urine Bilirubin MODERATE (NEGATIVE) H 02/29/20 10:37 Urine Urobilinogen 1 (NORMAL) E.U./dL (NORMAL) 02/29/20 10:37 Ur Leukocyte Esterase NEGATIVE (NEGATIVE) 02/29/20 10:37 Ur Microscopic Review NOT INDICATED 02/29/20 10:37 Urine Culture Comments NOT INDICATED 02/29/20 10:37 Nasal Screen MRSA (PCR) NEGATIVE (NEGATIVE) 03/01/20 11:02 Ethyl Alcohol 28.1 mg/dL 02/29/20 08:29 Ref Lab Test Result REPORT 02/29/20 08:10 Blood Type O POSITIVE 02/29/20 08:10 Blood Type Recheck O POSITIVE 02/29/20 20:50 Antibody Screen NEGATIVE 02/29/20 08:10 Sepsis Event Note (H) - Evaluation Current Stage of Sepsis: Ruled out
[2020-03-04] MEDS ORDERED: LORazepam 2 MG/ML VIAL ONE (17:41)
[2020-03-04] MEDS: LORazepam 2 MG/ML VIAL IVP PRN ×2 (17:42→22:44)
[2020-03-04] MEDS ORDERED: LORazepam 2 MG/ML VIAL IVP ONE (17:53)
--- NOTE | 2020-03-04 19:44 | CONSULTATION NOTE ---
Chief Complaint - Chief Complaint Chief Complaint: Hematemesis/upper GI bleed History of Present Illness - Admitted From Admitted From:: Home - History Obtained From Records Reviewed: Electronic medical record History obtained from: Hospitalist service and EMR as patient is arousable but difficult to engage Exam Limitations: Patient remains on benzodiazepine regimen for delirium tremens however able - History of Present Illness HPI Comment/Other: 39-year-old male with alcoholic cirrhosis by report who presents with judy temesis. He immediately began with alcoholic withdrawal with delirium tremens. Work-up was deferred for his gastrointestinal bleed and the hematemesis. He was followed without any recurrence however towards evaluating for potential source request was made from surgery to perform upper endoscopy to rule out varices in this patient with known cirrhosis. History - Past Medical History Cardiovascular: reports: None Respiratory: reports: None Neuro: reports: None Endocrine/Autoimmune: reports: None GI: reports: None : reports: None HEENT: reports: None Psych: reports: None Musculoskeletal: reports: None Derm: reports: None MRSA Hx?: No - Past Surgical History Ortho: reports: Other Derm: reports: Skin grafts - Family & Social History Family History: Mother: Alive and Well, Father: Alive and Well Family History Comment/Other: Patient reported his father have heart medical problem, her mother is healthy.He had 2 children, 1 daughter and 1 son, both are health. Living arrangement: At home Social History Notes: Patient reported he is still smoking cigarette 1 pack/day, drinks alcohol daily.He is live at [place]. 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 - POLST Patient has POLST: No Meds/Allgy - Home Medications Home Medications: Ambulatory Orders Medication Instructions Recorded Confirmed Acetaminophen [Tylenol] 0 mg PO PRN PRN 02/29/20 02/29/20 Amox/Clav 875/125 [Augmentin] 1 each PO Q12H #6 tablet 03/06/20 Gemfibrozil [Lopid] 600 mg PO BID #60 tablet 03/06/20 Pantoprazole [Protonix] 40 mg PO BID #42 tablet 03/06/20 148/Iron/Folate 6/Dha 1 each PO DAILY #30 capsule 03/06/20 [Tendera-Ob Softgel] Thiamine [Vitamin B-1] 100 mg PO DAILY #30 tablet 03/06/20 - Allergies Allergies/Adverse Reactions: Allergies Allergy/AdvReac Type Severity Reaction Status Date / Time phenobarbital Allergy Severe Anaphylaxis Verified 03/05/20 08:34 Review of Systems - Other Findings Other Findings: See hospitalist service admission history and physical. Exam - Vital Signs Reviewed Vital Signs: Yes Vital Signs: Vital Signs x48h Temp Pulse Resp BP Pulse Ox 03/04/20 19:15 36.9 C 83 19 130/101 H 95 03/04/20 15:59 37 C 88 19 134/91 H 94 03/04/20 14:45 104 H 21 134/100 H 88 L - Physical Exam General Appearance: positive: No acute distress, Other (Patient lethargic however arousable) Eyes Bilateral: positive: Normal inspection, PERRL, EOMI ENT: positive: ENT inspection nml Neck: positive: Nml inspection Respiratory: positive: Chest non-tender, No respiratory distress, Breath sounds nml. negative: Wheezes, Rales, Rhonchi Cardiovascular: positive: Regular rate & rhythm Abdomen: positive: Non-tender, No distention. negative: Tenderness, Guarding, Rebound Back: positive: Nml inspection Skin: positive: Color nml Extremities: positive: Non-tender, Full ROM, Nml appearance Neurologic/Psychiatric: positive: Oriented x3, CN's nml (2-12), Motor nml, Sensation nml, Other (Patient arousable however sedated.) Conclusion/Plan - Diagnosis Diagnosis: 1. Liver cirrhosis. 2. Alcohol abuse. 3. Delirium tremens. 4. Upper GI bleed - Plan Plan: 1. Patient has been admitted to the ICU, with hospitalist service, as part of treatment for his alcohol withdrawal and severe delirium tremens for which he has been on a benzodiazepine taper. 2. Patient is currently stable from a hospital standpoint to proceed with work- up for his hematemesis for which we will evaluate for the presence of any g astric or esophageal varices. 3. Patient was advised of the indication to undergo endoscopic evaluation. 4. Plan upper endoscopy to evaluate source, will defer colonoscopy and necessary bowel prep given presentation with hematemesis and associated history of alcoholic cirrhosis. 5. Aggressive resuscitation 6. Patient consented 7. Bowel rest pending results 8. PPI infusion and consider Carafate pending results - Lab Results Fish Bones: 03/03/20 04:30 03/06/20 03:21
[2020-03-04] MEDS: SODIUM CHLORIDE FLUSH 0.9% 10 ML SYRINGE IVP PRN (22:43)
[2020-03-04] MEDS ORDERED: PHENobarbitaL 32.4 MG TABLET PO SCH (23:23)
[2020-03-05] MEDS: HYDROmorphone 0.5 MG/0.5 ML SYRINGE IVP PRN ×3 (03:21→20:11)
[2020-03-05] MEDS: diphenhydrAMINE 25 MG CAPSULE PO PRN ×3 (03:23→20:06)
[2020-03-05 05:09] LABS: VBG PH 7.442 (7.31-7.41)
[2020-03-05 05:16] LABS: CALCIUM 8.6 mg/dL (8.5-10.3); CHOL/HDL RATIO 23.4 (<5.0); CHOLESTEROL 398 mg/dL; HDL CHOLESTEROL 17 mg/dL; MAGNESIUM 1.9 mg/dL (1.7-2.8); PHOSPHORUS 2.9 mg/dL (2.5-4.6)
[2020-03-05 05:35] LABS: LDL CHOLESTEROL,DIRECT 304 mg/dL; LDLD/HDL RATIO 17.9 (<3.6)
[2020-03-05] MEDS: chlordiazePOXIDE 25 MG CAPSULE PO SCH (06:55)
[2020-03-05] MEDS: PIPERACILLIN/TAZOBACTAM 3.375 GM in SODIUM CHLORIDE 0.9% MINIBAG 100 ML IV SCH ×2 (07:55→16:33)
[2020-03-05] MEDS: NICOTINE 14 MG PATCH TOP SCH (07:56)
[2020-03-05] MEDS: PANTOPRAZOLE 40 MG VIAL IVP SCH ×2 (07:57→20:06)
[2020-03-05] MEDS: polyethylene glycoL 3350 17 GM PACKET PO SCH (07:57)
[2020-03-05] MEDS: SODIUM CHLORIDE FLUSH 0.9% 10 ML SYRINGE IVP SCH ×2 (07:58→16:37)
[2020-03-05] MEDS: DEXMEDETOMIDINE 400 MCG in SODIUM CHLORIDE 0.9% 100ML 96 ML IV SCH (07:58)
[2020-03-05] MEDS ORDERED: POTASSIUM CHLORIDE 20 MEQ TABLET PO ONE (08:00)
--- NOTE | 2020-03-05 09:22 | PROVIDER PROGRESS NOTE ---
Assessment/Plan - Problem List (1) Benzodiazepine withdrawal Assessment/Plan: Today he started with physical therapy who reported a wide-based gait, unsteady on his feet and he improved even later in the day. Probable discharge tomorrow (2) Angioedema of lips Assessment/Plan: He required phenobarbital for agitation last night. Following this he had swelling of the upper lip, consistent with angioedema, consistent with an allergic reaction. Phenobarbital has been added to his list of allergy (3) HCAP (healthcare-associated pneumonia) Assessment/Plan: Continue to treat with antibiotics. He will be discharged with a course of p.o. antibiotics to finish. Probably discharge tomorrow (4) Alcohol abuse Assessment/Plan: He was seen by social work today and there were discussions about how to manage alcohol abuse. Patient told me, in front of his father at bedside, that he plans to not abuse alcohol going forward (5) Hypertriglyceridemia Assessment/Plan: This will need p.o. medications and follow-up with a PCP. I reminded him of this and the father in the room at bedside. (6) Alcoholic hepatitis Assessment/Plan: LFTs are better daily, since alcohol abstinence while here (7) Hypokalemia Assessment/Plan: Replace. Follow BMP (8) Anemia Assessment/Plan: EGD was done today to finally look at upper GI tract since he had hematemesis at presentation. Findings were of gastritis. He had no varices. He will need a PPI for several weeks (9) Tobacco use Assessment/Plan: On a Nicotine patch (10) Hematemesis Qualifiers: Nausea presence: with nausea Qualified Code(s): K92.0 - Hematemesis Assessment/Plan: None further (11) Hyponatremia Assessment/Plan: Resolved (12) Alcohol withdrawal Qualifiers: Complication of substance-induced condition: with unspecified complication Qualified Code(s): F10.239 - Alcohol dependence with withdrawal, unspecified (13) Acute cholecystitis Assessment/Plan: Ruled out - Current Meds Current Meds: Current Medications Generic Name Dose Route Start Last Admin Trade Name Freq PRN Reason Stop Dose Admin Diphenhydramine HCl 25 mg 03/05/20 03:19 03/05/20 06:55 Benadryl PO 25 mg Q4HR PRN Administration Allergy Symptoms Hydromorphone HCl 0.5 mg 03/02/20 22:03 03/05/20 09:19 Dilaudid Inj Syringe IVP 0.5 mg Q2H PRN Administration PAIN Lorazepam 100 mls @ 5 mls/hr 03/01/20 08:30 03/04/20 03:20 Ativan IV Infused .Q20H CASH Titration Protocol 5 MG/HR Dexmedetomidine HCl 400 mcg/ 100 mls @ 3.175 mls/hr 03/01/20 10:00 03/05/20 07:58 Sodium Chloride IV Not Given .[id number] CASH Protocol 0.2 MCG/KG/HR Piperacillin Sod/Tazobactam 100 mls @ 25 mls/hr 03/01/20 16:00 03/05/20 07:55 Sod 3.375 gm/ Sodium Chloride IV 25 mls/hr Q8H CASH Administration Lorazepam 2 mg 02/29/20 10:55 03/04/20 22:44 Ativan Inj (Vial) IVP 2 mg Q30M PRN Administration CIWA >8 Protocol Nicotine 1 patch 02/29/20 16:16 03/05/20 07:56 Nicoderm TOP 1 patch DAILY CASH Administration Ondansetron HCl 4 mg 02/29/20 10:59 03/03/20 14:15 Zofran Inj IVP 4 mg Q6HR PRN Administration Nausea / Vomiting Pantoprazole Sodium 40 mg 02/29/20 21:00 03/05/20 07:57 Protonix IVP 40 mg BID CASH Administration Polyethylene Glycol 17 gm 03/04/20 09:00 03/05/20 07:57 Miralax PO Not Given DAILY CASH Sodium Chloride 10 ml 02/29/20 10:59 03/04/20 22:43 Normal Saline Flush 0.9% IVP 10 ml PRN PRN Administration NEEDED PER PROVIDER ORDERS Sodium Chloride 10 ml 02/29/20 17:00 03/05/20 07:58 Normal Saline Flush 0.9% IVP 10 ml 0100,0900,1700 CASH Administration - Lab Result Fish Bone Diagrams: 03/03/20 04:30 03/05/20 04:25 - Additional Planning My Orders: My Active Orders 03/04/20 09:00 polyethylene glycoL 3350 [Miralax] 17 gm PO DAILY 03/06/20 05:00 CALCIUM [CHEM] DAILYLAB MAGNESIUM [CHEM] DAILYLAB POTASSIUM [CHEM] DAILYLAB 03/07/20 05:00 CALCIUM [CHEM] DAILYLAB MAGNESIUM [CHEM] DAILYLAB POTASSIUM [CHEM] DAILYLAB Objective Vital Signs: Vital Signs - 24 hr 03/04/20 03/04/20 03/04/20 11:00 14:45 15:59 Temperature 37 C Heart Rate [ 78 104 H 88 Monitoring electrodes] Respiratory 25 H 21 19 Rate Blood Pressure 141/91 H 134/100 H 134/91 H [Right Brachial artery] O2 Saturation 88 L 88 L 94 03/04/20 03/04/20 03/05/20 19:15 23:00 03:19 Temperature 36.9 C 37.2 C 36.8 C Heart Rate [ 83 98 76 Monitoring electrodes] Respiratory 19 21 21 Rate Blood Pressure 130/101 H 133/101 H 133/88 H [Right Brachial artery] O2 Saturation 95 92 91 L Oxygen O2 Source Room air I&O (Last 24 Hrs): Intake and Output Totals x24h 03/03/20 03/04/20 03/05/20 23:59 23:59 23:59 Intake Total 3734.162 3318.947 500 Output Total 2135 850 0 Balance 2763.962 4792.947 500 General: Alert HEENT: Mucous membr. moist/pink, Other (Swelling around both eyes, slightly swollen upper) Neck: Supple Neuro: Alert, Non Focal, Oriented Times 3 Cardiovascular: Regular rate Respiratory: No respiratory distress Extremities: No edema - Results Results: Laboratory Results WBC 11.3 x10^3/uL (4.8-10.8) H 03/03/20 04:30 RBC 3.47 10^6/uL (4.70-6.10) L 03/03/20 04:30 Hgb 11.6 g/dL (14.0-18.0) L 03/03/20 04:30 Hct 33.5 % (42.0-52.0) L 03/03/20 04:30 MCV 96.5 fL (80.0-94.0) H 03/03/20 04:30 MCH 33.4 pg (27.0-31.0) H 03/03/20 04:30 MCHC 34.6 g/dL (32.0-36.0) 03/03/20 04:30 RDW 14.0 % (12.0-15.0) 03/03/20 04:30 Plt Count 94 10^3/uL (130-450) L 03/03/20 04:30 MPV 11.5 fL (7.4-11.4) H 03/03/20 04:30 Neut # (Auto) 7.9 10^3/uL (1.5-6.6) H 03/03/20 04:30 Lymph # (Auto) 2.0 10^3/uL (1.5-3.5) 03/03/20 04:30 [place] # (Auto) 1.0 10^3/uL (0.0-1.0) 03/03/20 04:30 Eos # (Auto) 0.3 10^3/uL (0.0-0.7) 03/03/20 04:30 Baso # (Auto) 0.0 10^3/uL (0.0-0.1) 03/03/20 04:30 Absolute Nucleated RBC 0.00 x10^3/uL 03/03/20 04:30 Total Counted 100 02/29/20 08:10 Band Neuts % (Manual) 6 % (0-10) 02/29/20 08:10 Abnorm Lymph % (Manual) 0 % 02/29/20 08:10 Nucleated RBC % 0.0 /100WBC 03/03/20 04:30 Neutrophils # (Manual) 13.0 10^3/uL (1.5-6.6) H 02/29/20 08:10 Lymphocytes # (Manual) 0.5 10^3/uL (1.5-3.5) L 02/29/20 08:10 Monocytes # (Manual) 0.0 10^3/uL (0.0-1.0) 02/29/20 08:10 Eosinophils # (Manual) 0.0 10^3/uL (0-0.7) 02/29/20 08:10 Basophils # (Manual) 0.0 10^3/uL (0-0.1) 02/29/20 08:10 Differential Comment MANUAL DIFFERENTIAL 02/29/20 08:10 Manual Slide Review Indicated 02/29/20 08:10 Whole Blood INR 1.0 (0.8-1.2) 02/29/20 13:04 VBG pH 7.442 (7.31-7.41) H 03/05/20 04:25 Ionized Calcium 1.08 mmol/L (1.15-1.33) L 03/05/20 04:25 Sodium 139 mmol/L (135-145) 03/03/20 04:30 Potassium 3.1 mmol/L (3.5-5.0) L 03/05/20 04:25 Chloride 104 mmol/L (101-111) 03/03/20 04:30 Carbon Dioxide 26 mmol/L (21-32) 03/03/20 04:30 Anion Gap 9.0 (6-13) 03/03/20 04:30 BUN < 5 mg/dL (6-20) L 03/03/20 04:30 Creatinine 0.6 mg/dL (0.6-1.2) 03/03/20 04:30 Estimated GFR (MDRD) 152 (>89) 03/03/20 04:30 Glucose 111 mg/dL (70-100) H 03/03/20 04:30 POC Whole Bld Glucose 101 mg/dL (70 - 100) H 03/03/20 16:55 Calcium 8.6 mg/dL (8.5-10.3) 03/05/20 04:25 Phosphorus 2.9 mg/dL (2.5-4.6) 03/05/20 04:25 Magnesium 1.9 mg/dL (1.7-2.8) 03/05/20 04:25 Total Bilirubin 4.2 mg/dL (0.2-1.0) H 03/03/20 04:30 AST 184 IU/L (10-42) H 03/03/20 04:30 ALT 222 IU/L (10-60) H 03/03/20 04:30 Alkaline Phosphatase 372 IU/L (42-121) H 03/03/20 04:30 Total Protein 5.9 g/dL (6.7-8.2) L 03/03/20 04:30 Albumin 2.4 g/dL (3.2-5.5) L 03/03/20 04:30 Globulin 3.5 g/dL (2.1-4.2) 03/03/20 04:30 Albumin/Globulin Ratio 0.7 (1.0-2.2) L 03/03/20 04:30 Triglycerides 405 mg/dL (-149) H 03/05/20 04:25 Cholesterol 398 mg/dL (-199) H 03/05/20 04:25 LDL Cholesterol Direct 304 mg/dL (-129) H 03/05/20 04:25 LDL Cholesterol, Calc Not Reportable 03/05/20 04:25 VLDL Cholesterol Not Reportable 03/05/20 04:25 HDL Cholesterol 17 mg/dL (60-) L 03/05/20 04:25 LDL/HDL Ratio Not Reportable 03/05/20 04:25 dLDL/HDL Ratio 17.9 (<3.6) 03/05/20 04:25 Cholesterol/HDL Ratio 23.4 (<5.0) 03/05/20 04:25 Lipase 27 U/L (22-51) 03/01/20 04:45 Urine Color DARK YELLOW 02/29/20 10:37 Urine Clarity CLEAR (CLEAR) 02/29/20 10:37 Urine pH 5.5 PH (5.0-7.5) 02/29/20 10:37 Ur Specific [place] >=1.030 (1.002-1.030) H 02/29/20 10:37 Urine Protein NEGATIVE mg/dL (NEGATIVE) 02/29/20 10:37 Urine Glucose (UA) NEGATIVE mg/dL (NEGATIVE) 02/29/20 10:37 Urine Ketones NEGATIVE mg/dL (NEGATIVE) 02/29/20 10:37 Urine Occult Blood NEGATIVE (NEGATIVE) 02/29/20 10:37 Urine Nitrite NEGATIVE (NEGATIVE) 02/29/20 10:37 Urine Bilirubin MODERATE (NEGATIVE) H 02/29/20 10:37 Urine Urobilinogen 1 (NORMAL) E.U./dL (NORMAL) 02/29/20 10:37 Ur Leukocyte Esterase NEGATIVE (NEGATIVE) 02/29/20 10:37 Ur Microscopic Review NOT INDICATED 02/29/20 10:37 Urine Culture Comments NOT INDICATED 02/29/20 10:37 Nasal Screen MRSA (PCR) NEGATIVE (NEGATIVE) 03/01/20 11:02 Ethyl Alcohol 28.1 mg/dL 02/29/20 08:29 Ref Lab Test Result REPORT 02/29/20 08:10 Blood Type O POSITIVE 02/29/20 08:10 Blood Type Recheck O POSITIVE 02/29/20 20:50 Antibody Screen NEGATIVE 02/29/20 08:10 Sepsis Event Note (H) - Evaluation Current Stage of Sepsis: Ruled out
--- NOTE | 2020-03-05 14:45 | ANESTHESIA ---
Pre-Anesthesia VS, & Labs - Diagnosis GI Bleed - Procedure EGD Vital Signs: Temp Pulse Resp BP Pulse Ox 36.9 C 98 24 131/88 H 92 03/05/20 13:00 03/05/20 13:00 03/05/20 13:00 03/05/20 13:00 03/05/20 13:00 Height: 5 ft 11 in Weight (kg): 64.5 kg Body Mass Index: 19.8 BMI Classification: Healthy weight - NPO >8 hours - Lab Results Current Lab Results: Laboratory Tests 03/05/20 04:25: VBG pH 7.442 H, Ionized Calcium 1.08 L 03/05/20 04:25: Potassium 3.1 L, Calcium 8.6, Phosphorus 2.9, Magnesium 1.9, Triglycerides 405 H, Cholesterol 398 H, LDL Cholesterol Direct 304 H, LDL Cholesterol, Calc Not Reportable, VLDL Cholesterol Not Reportable, HDL Cholesterol 17 L, LDL/HDL Ratio Not Reportable, dLDL/HDL Ratio 17.9, Cholesterol/HDL Ratio 23.4 03/04/20 06:10: Potassium 3.4 L, Calcium 8.3 L, Magnesium 1.9 03/04/20 06:10: VBG pH 7.378, Ionized Calcium 1.10 L 03/04/20 06:10: Phosphorus 2.8, Triglycerides 584 H, Cholesterol 439 H, LDL Cholesterol Direct 296 H, LDL Cholesterol, Calc Not Reportable, VLDL Cholesterol Not Reportable, HDL Cholesterol 14 L, LDL/HDL Ratio Not Reportable, dLDL/HDL Ratio 21.1, Cholesterol/HDL Ratio 31.4 03/03/20 16:55: POC Whole Bld Glucose 101 H 03/03/20 11:48: POC Whole Bld Glucose 105 H 03/03/20 06:11: POC Whole Bld Glucose 92 03/03/20 04:30: VBG pH 7.405, Ionized Calcium 1.04 L 03/03/20 04:30: Phosphorus 2.5, Triglycerides 591 H, Cholesterol 454 H, LDL Cholesterol Direct 264 H, LDL Cholesterol, Calc Not Reportable, VLDL Cholesterol Not Reportable, HDL Cholesterol 14 L, LDL/HDL Ratio Not Reportable, dLDL/HDL Ratio 18.9, Cholesterol/HDL Ratio 32.4 03/03/20 04:30: Sodium 139, Potassium 3.0 L, Chloride 104, Carbon Dioxide 26, Anion Gap 9.0, BUN < 5 L, Creatinine 0.6, Estimated GFR (MDRD) 152, Glucose 111 H, Calcium 7.8 L, Magnesium 1.7, Total Bilirubin 4.2 H, AST 184 H, ALT 222 H, A lkaline Phosphatase 372 H, Total Protein 5.9 L, Albumin 2.4 L, Globulin 3.5, Albumin/Globulin Ratio 0.7 L 03/03/20 04:30: WBC 11.3 H, RBC 3.47 L, Hgb 11.6 L, Hct 33.5 L, MCV 96.5 H, MCH 33.4 H, MCHC 34.6, RDW 14.0, Plt Count 94 L, MPV 11.5 H, Neut # (Auto) 7.9 H, Lymph # (Auto) 2.0, Butler # (Auto) 1.0, Eos # (Auto) 0.3, Baso # (Auto) 0.0, Absolute Nucleated RBC 0.00, Nucleated RBC % 0.0 03/03/20 00:16: POC Whole Bld Glucose 111 H 03/02/20 17:56: POC Whole Bld Glucose 98 03/02/20 11:54: POC Whole Bld Glucose 123 H 03/02/20 04:15: Triglycerides 784 H, Cholesterol 544 H, LDL Cholesterol Direct 231 H, LDL Cholesterol, Calc Not Reportable, VLDL Cholesterol Not Reportable, HDL Cholesterol 13 L, LDL/HDL Ratio Not Reportable, dLDL/HDL Ratio 17.8, Cholesterol/HDL Ratio 41.8 03/02/20 04:15: Sodium 137, Potassium 2.7 L, Chloride 102, Carbon Dioxide 26, Anion Gap 9.0, BUN < 5 L, Creatinine 0.6, Estimated GFR (MDRD) 152, Glucose 159 H, Calcium 7.6 L, Magnesium 1.8, Total Bilirubin 4.8 H, AST 261 H, ALT 283 H, Alkaline Phosphatase 384 H, Total Protein 5.8 L, Albumin 2.5 L, Globulin 3.3, Albumin/Globulin Ratio 0.8 L 03/02/20 04:15: WBC 9.8, RBC 3.52 L, Hgb 11.8 L, Hct 33.9 L, MCV 96.3 H, MCH 33.5 H, MCHC 34.8, RDW 13.4, Plt Count 72 L, MPV 11.5 H, Neut # (Auto) 7.4 H, Lymph # (Auto) 1.5, Butler # (Auto) 0.5, Eos # (Auto) 0.2, Baso # (Auto) 0.0, Absolute Nucleated RBC 0.00, Nucleated RBC % 0.0 03/02/20 00:04: POC Whole Bld Glucose 111 H 03/01/20 18:20: POC Whole Bld Glucose 140 H 03/01/20 16:06: POC Whole Bld Glucose 168 H 03/01/20 15:40: POC Whole Bld Glucose 50 L* 03/01/20 13:51: POC Whole Bld Glucose 94 03/01/20 11:42: POC Whole Bld Glucose 130 H 03/01/20 05:56: POC Whole Bld Glucose 134 H 03/01/20 04:45: Lipase 27 03/01/20 04:45: Triglycerides > 2000 H, Cholesterol 643 H, LDL Cholesterol Direct 129, LDL Cholesterol, Calc Not Reportable, VLDL Cholesterol Not Reportable, HDL Cholesterol 12 L, LDL/HDL Ratio Not Reportable, dLDL/HDL Ratio 10.8, Cholesterol/HDL Ratio 53.6 03/01/20 04:45: Sodium 131 L, Potassium 2.9 L, Chloride 95 L, Carbon Dioxide 26, Anion Gap 10.0, BUN 5 L, Creatinine 0.7, Estimated GFR (MDRD) 127, Glucose 121 H , Calcium 7.3 L, Magnesium 2.0, Total Bilirubin 3.8 H, AST 386 H, ALT 355 H, Alkaline Phosphatase 345 H, Total Protein 5.3 L, Albumin 2.6 L, Globulin 2.7, Albumin/Globulin Ratio 1.0 03/01/20 04:45: WBC 8.9, RBC 3.30 L, Hgb 11.5 L, Hct 31.5 L, MCV 95.5 H, MCH 34.8 H, MCHC 36.5 H, RDW 13.0, Plt Count 66 L, MPV 12.3 H, Neut # (Auto) 6.6, Lymph # (Auto) 1.7, Butler # (Auto) 0.5, Eos # (Auto) 0.1, Baso # (Auto) 0.0, Absolute Nucleated RBC 0.00, Nucleated RBC % 0.0 02/29/20 23:49: POC Whole Bld Glucose 116 H 02/29/20 20:50: Blood Type Recheck O POSITIVE 02/29/20 20:50: Hgb 13.0 L, Hct 33.6 L 02/29/20 13:04: Whole Blood INR 1.0 02/29/20 08:29: Magnesium 1.6 L, Ethyl Alcohol 28.1 02/29/20 08:10: Blood Type O POSITIVE, Antibody Screen NEGATIVE 02/29/20 08:10: Triglycerides Cancelled, Cholesterol Cancelled, LDL Cholesterol, Calc Cancelled, VLDL Cholesterol Cancelled, HDL Cholesterol Cancelled, LDL/HDL Ratio Cancelled, Cholesterol/HDL Ratio Cancelled 02/29/20 08:10: Sodium 138, Potassium 3.9, Chloride 94 L, Carbon Dioxide 24, Anion Gap 20.0 H, BUN 14, Creatinine 0.9, Estimated GFR (MDRD) 95, Glucose 169 H , Calcium 8.3 L, Total Bilirubin 2.5 H, AST 1113 H, ALT 619 H, Alkaline Phosphatase 390 H, Total Protein 5.6 L, Albumin 3.0 L, Globulin 2.6, Albumin/Globulin Ratio 1.2, Lipase 26 02/29/20 08:10: WBC 13.5 H, RBC 3.92 L, Hgb 13.4 L, Hct 36.6 L, MCV 93.4, MCH 34.2 H, MCHC 36.6 H, RDW 13.2, Plt Count 103 L, MPV 11.7 H, Neut # (Auto) Not Reportable, Lymph # (Auto) Not Reportable, Butler # (Auto) Not Reportable, Eos # (Auto) Not Reportable, Baso # (Auto) Not Reportable, Absolute Nucleated RBC Not Reportable, Total Counted 100, Band Neuts % (Manual) 6, Abnorm Lymph % (Manual) 0, Nucleated RBC % Not Reportable, Neutrophils # (Manual) 13.0 H, Lymphocytes # (Manual) 0.5 L, Monocytes # (Manual) 0.0, Eosinophils # (Manual) 0.0, Basophils # (Manual) 0.0, Differential Comment MANUAL DIFFERENTIAL, Manual Slide Review Indicated Fish Bones: 03/03/20 04:30 03/05/20 04:25 Home Medications and Allergies Home Medications: Ambulatory Orders Acetaminophen [Tylenol] 0 mg PO PRN PRN 02/29/20 Active Medications Diphenhydramine HCl (Benadryl) 25 mg PO Q4HR PRN PRN Reason: Allergy Symptoms Last Admin: 03/05/20 06:55 Dose: 25 mg Documented by: Hydromorphone HCl (Dilaudid Inj Syringe) 0.5 mg IVP Q2H PRN PRN Reason: PAIN Last Admin: 03/05/20 09:19 Dose: 0.5 mg Documented by: Lorazepam (Ativan) 100 mls @ 5 mls/hr IV .Q20H [facility]; Protocol Last Titration: 03/04/20 03:20 Dose: Infused Documented by: Dexmedetomidine HCl 400 mcg/ (Sodium Chloride) 100 mls @ 3.175 mls/hr IV .[id number] [facility]; Protocol Last Admin: 03/05/20 07:58 Dose: Not Given Documented by: Piperacillin Sod/Tazobactam (Sod 3.375 gm/ Sodium Chloride) 100 mls @ 25 mls/hr IV Q8H [facility] Last Infusion: 03/05/20 12:15 Dose: Infused Documented by: Lorazepam (Ativan Inj (Vial)) 2 mg IVP Q30M PRN; Protocol PRN Reason: CIWA >8 Last Admin: 03/04/20 22:44 Dose: 2 mg Documented by: Midazolam HCl (Versed) 2 mg IVP Q6H PRN PRN Reason: Agitation Nicotine (Nicoderm) 1 patch TOP DAILY [facility] Last Admin: 03/05/20 07:56 Dose: 1 patch Documented by: Ondansetron HCl (Zofran Inj) 4 mg IVP Q6HR PRN PRN Reason: Nausea / Vomiting Last Admin: 03/03/20 14:15 Dose: 4 mg Documented by: Pantoprazole Sodium (Protonix) 40 mg IVP BID [facility] Last Admin: 03/05/20 07:57 Dose: 40 mg Documented by: Polyethylene Glycol (Miralax) 17 gm PO DAILY [facility] Last Admin: 03/05/20 07:57 Dose: Not Given Documented by: Prochlorperazine Edisylate (Compazine Inj) 10 mg IVP Q6HR PRN PRN Reason: Nausea / Vomiting Sodium Chloride (Normal Saline Flush 0.9%) 10 ml IVP PRN PRN PRN Reason: NEEDED PER PROVIDER ORDERS Last Admin: 03/04/20 22:43 Dose: 10 ml Documented by: Sodium Chloride (Normal Saline Flush 0.9%) 10 ml IVP 0100,0900,1700 CASH Last Admin: 03/05/20 07:58 Dose: 10 ml Documented by: Acetaminophen [Tylenol] 0 mg PO PRN PRN 02/29/20 Allergies/Adverse Reactions: Allergies Allergy/AdvReac Type Severity Reaction Status Date / Time phenobarbital Allergy Severe Anaphylaxis Verified 03/05/20 08:34 Anes History & Medical History - Anesthetic History Anesthesia Complications: reports: No previous complications - Medical History Cardiovascular: reports: None Pulmonary: reports: None Gastrointestinal: reports: GI bleed, Other (hypertriglyceridemia) Urinary: reports: None Neuro: reports: Other (DTs) Musculoskeletal: reports: None Endocrine/Autoimmune: reports: None Blood Disorders: reports: None Skin: reports: None Smoking Status: Current every day smoker Psychosocial: reports: Substance abuse, Alcohol History of Cancer?: No Other Past Medical History: ETOH use and smokes. - Surgical History Orthopedic: Other Dermatologic: Skin grafts Exam General: Alert, Oriented x3, Cooperative, No acute distress Dental: Poor dentition Mouth Openin Fingerbreadth Neck Mobility: Normal Mallampati classification: III Thyromental Distance: 4-6 cm Mental/Cognitive Status: Alert/Oriented X3, Normal for patient, Lethargic Plan Anesthesia Type: MAC Consent for Procedure(s) Verified and Reviewed: Yes Code Status: Attempt Resuscitation ASA classification: 3-Severe systemic disease Is this case an emergency?: No
--- NOTE | 2020-03-05 15:39 | ANESTHESIA POST OP EVALUATION ---
Anesthesia Post Eval - Post Anesthesia Eval Vitals: Last Vital Signs Temp 36.9 C 03/05/20 15:37 Pulse 86 03/05/20 15:37 Resp 32 H 03/05/20 15:37 BP 118/80 03/05/20 15:37 Pulse Ox 91 L 03/05/20 15:37 CV Function Including HR & BP: positive: Stable Pain Control: positive: Satisfactory Nausea & Vomiting: positive: Negative Mental Status: positive: Baseline Respiratory Status: Airway Patent Hydration Status: Satisfactory Anesthesia Complications: positive: None
[2020-03-05] MEDS: SODIUM CHLORIDE FLUSH 0.9% 10 ML SYRINGE IVP PRN (20:12)
[2020-03-05] MEDS ORDERED: PHENobarbitaL 32.4 MG TABLET PO SCH (21:00)
[2020-03-06] MEDS: PIPERACILLIN/TAZOBACTAM 3.375 GM in SODIUM CHLORIDE 0.9% MINIBAG 100 ML IV SCH ×2 (00:09→08:31)
[2020-03-06] MEDS: HYDROmorphone 0.5 MG/0.5 ML SYRINGE IVP PRN ×2 (00:09→03:19)
[2020-03-06] MEDS: SODIUM CHLORIDE FLUSH 0.9% 10 ML SYRINGE IVP SCH (00:09)
[2020-03-06] MEDS: SODIUM CHLORIDE FLUSH 0.9% 10 ML SYRINGE IVP PRN (03:19)
[2020-03-06 03:46] LABS: CALCIUM 8.7 mg/dL (8.5-10.3); CHOL/HDL RATIO 17.9 (<5.0); CHOLESTEROL 429 mg/dL; HDL CHOLESTEROL 24 mg/dL; LDL CHOLESTEROL,CALCULATED 335 mg/dL; MAGNESIUM 1.8 mg/dL (1.7-2.8); VLDL CHOLESTEROL 70 mg/dL
[2020-03-06] MEDS ORDERED: POTASSIUM CHLORIDE 20 MEQ TABLET PO ONE (08:00)
[2020-03-06 08:05] VITALS: BP 127/77
--- NOTE | 2020-03-06 08:47 | Discharge Plan ---
Discharge Plan Problem Reviewed?: Yes Disposition: Home, Self Care Condition: Stable Prescriptions: Amox/Clav 875/125 [Augmentin] 1 each PO Q12H #6 tablet Gemfibrozil [Lopid] 600 mg PO BID #60 tablet 148/Iron/Folate 6/Dha [Tendera-Ob Softgel] 1 each PO DAILY #30 capsule Thiamine [Vitamin B-1] 100 mg PO DAILY #30 tablet Diet: Regular Activity Restrictions: Activity as Tolerated Shower Restrictions: No Driving Restrictions: Yes (You need to see your PCP to have OK to resume driving) Instruction Topics: Addiction Alcohol, Addiction Tx Options, Triglycerides Health Concerns: You were hospitalized for 7 days, in critical condition, due to alcohol withdrawal (DTs). There is new prescription for Thiamine replacement and multivitamin with iron to take, which you are low in because of alcohol abuse. You also had evaluation of why you had been throwing up blood. You are being discharged to take several weeks of Protonix for healing the gastritis found on endoscopy. You are being discharged on new triglyceride medication (Gemfibrozil), for your severely elevated triglyceride levels which we found, and you need a PCP for managing this. These high triglyceride levels give you a very high risk of heart attack and stroke in your future, especially if left untreated. You also had a pneumonia. You are being discharged to finish a course of antibiotics. All these new prescriptions were electronically sent to your [facility] pharmacy in [place] There is a medical restriction for you to drive now, because of the fogginess and poor balance, which is slowly improving. Police take this very seriously; if you are stopped and found to be driving with this medical restriction, you will be arrested. You must see your PCP for having clearance to resume driving a vehicle or operating heavy machinery, because of the heavy sedatives used to get you through withdrawal. Stop abusing alcohol. Resources were given to you to help you with this, from our social media assistant. Plan of Treatment: As above. Please get an appointment with a PCP soon. A list of providers was given to you by our social workers. Care Goals: Improvement in symptoms and stabilization are the goals. Assessment: Patient understood the plan, written instructions were provided to him at discharge. These instructions had been reviewed with him and his father at bedside, yesterday. Additional Instructions or Follow Up instructions: If you have new or worsening symptoms, call your PCP for advice or come to the ER. No Smoking: If you smoke, Please STOP! Call for help.
--- NOTE | 2020-03-06 09:21 | DISCHARGE SUMMARY ---
Discharge Summary Admit Date: 02/29/20 Discharge Date: 03/06/20 Discharging Provider: Dr Annie Hill Primary Care Provider: None Code Status: Attempt Resuscitation Condition at Discharge: Stable Discharge Disposition: 01 Home, Self Care - HPI History of Present Illness: From the admission H&&P of Len Dyson NP: This is a 39 year old male with a significant medical history of alcohol abuse, who presented to the ER complaining of abdominal pain. He reported he had upper abdominal pain for the last week with on&off nausea and vomiting for about one week. He reported he was worse after eating. He has abdominal pain in his upper abdomen but mainly located at his right upper quadrant. He also reported he had hematemesis yesterday, which scared him. He reported his last alcohol use was last night. He usually drinks a 6-pack of beer a night. He reported he had alcohol withdrawal with shaking and sweating on the last admission. He also reported he is cigarette smoking 1 pack/day. In the ER, CT scan of abdomen had concern of acute cholecystitis. Ultrasound of abdominal (limited) is still pending. Catalog Librarian reported there is difficulty to draw patient's blood because it is white in color. Routine laboratory tests do show patient had significantly elevated liver enzymes, alcohol level is 28, slightly elevated WBC. The general surgeon was called by the ER for consulting, given the vomiting of blood. The patient currently denies chest pain, fever, shortness of breathing, headache or diarrhea. Patient is admitted for further medical management. I discussed the care goals with the patient; patient wants to be Full Code. - HOSPITAL COURSE Hospital Course: (1) Alcohol withdrawal He started to have delusions, tremors, combativeness, tachycardia and diaphoresis. He was admitted to the ICU on a CIWA protocol, but iv Ativan pushes was changed to a drip and he and required many days of IV Ativan drip, then additional Valium iv and eventually several days of a Precedex drip. He was kept on iv fluids of a banana bag and eventually transitioned to oral Thiamine. He was seen in consult by ANABELLA, when medically cleared, and was given resources for alcohol abstinence. (2) Benzodiazepine withdrawal He had many days of somnolence, after the iv Ativan and Precedex were stopped and he was also deconditioned from a long ICU stay and needed physical therapy who reported a wide-based gait and unsteady on his feet, which slowly improved. At discharge, he was advised not to drive a car or operate heavy machinery until cleared to do so be a (new) PCP. (3) Hypertriglyceridemia At admission, the lab reported they could not run certain lab tests here, due to very lipemic blood, which actually appeared white when drawn. A lipid panel was therefore done which showed a Triglyceride level of >2000. This was felt to be genetic, and the father at bedside reported that he and his father (the patient's grandfather) had high fat in the blood, that both of them had early ca rdiovascular disease and the father wished his son to have aggressive treatment for this to avoid such disease. The patient was treated with iv Insulin for a day, and was eventually started on and discharged on Gemfibrozil. He will need refill of p.o. medications and follow-up with a PCP. I reminded him of this and the father in the room at bedside. (4) HCAP (healthcare-associated pneumonia) At about mid-hospitalization, he developed a cough and a fever, and a CXR showed an infiltrate. He was started on empiric iv antibiotics and was discharged to complete a course of p.o. antibiotics. (5) Hematemesis There was no further hematemesis. He was on iv Protonix bid empirically. He then eventually underwent upper endoscopy to evaluate the source of bleeding. (6) Gastritis The general surgeon found gastritis and no active bleeding at the time of EGD. He had no varices. The patient was discharged on oral Protonix. (7) Alcohol abuse He was seen by social work and there were discussions about how to manage alcohol abuse. Patient told me, in front of his father at bedside, that he plans to not abuse alcohol going forward (7) Alcoholic hepatitis LFTs were elevated and became better daily, since he had alcohol abstinence while here. (8) Anemia This was hemodilutional, from many days of iv hydration plus anemia from witnessed hematemesis. EGD was done and findings were of gastritis. (9) Tobacco use He required a Nicotine patch to supress his urges. (10) Hyponatremia Related to iv hydration plus history of alcohol abuse. It normalized with iv hydration. (11) Hypokalemia Also replated to alcohol intake; it was replaced and BMP followed daily. (12) Angioedema of lips Near the end of this hospitalization, he was ordered to get phenobarbital for agitation and combativeness. Following this he had swelling of the upper lip, consistent with angioedema, consistent with an allergic reaction. He received steroids and Phenobarbital has been added to his list of allergies. - ALLERGIES Allergies/Adverse Reactions: Allergies Allergy/AdvReac Type Severity Reaction Status Date / Time phenobarbital Allergy Severe Anaphylaxis Verified 03/05/20 08:34 - MEDICATIONS Home Medications: Ambulatory Orders Medication Instructions Recorded Confirmed Acetaminophen [Tylenol] 0 mg PO PRN PRN 02/29/20 02/29/20 Amox/Clav 875/125 [Augmentin] 1 each PO Q12H #6 tablet 03/06/20 Gemfibrozil [Lopid] 600 mg PO BID #60 tablet 03/06/20 Pantoprazole [Protonix] 40 mg PO BID #42 tablet 03/06/20 148/Iron/Folate 6/Dha 1 each PO DAILY #30 capsule 03/06/20 [Tendera-Ob Softgel] Thiamine [Vitamin B-1] 100 mg PO DAILY #30 tablet 03/06/20 - PHYSICAL EXAM AT DISCHARGE General Appearance: positive: No acute distress, Lethargic Eyes Bilateral: positive: Normal inspection, EOMI ENT: positive: ENT inspection nml, No signs of dehydration Neck: positive: Nml inspection, No JVD Respiratory: positive: No respiratory distress, Breath sounds nml Cardiovascular: positive: Regular rate & rhythm, No murmur Abdomen: positive: Non-tender, No distention Skin: positive: Warm, Dry Extremities: positive: No pedal edema Neurologic/Psychiatric: positive: Oriented x3 (Wide-based gait, poor balance still present.) - LABS Result Diagrams: 03/03/20 04:30 03/06/20 03:21 - SEPSIS Current Stage of Sepsis: Ruled out - FOLLOW UP Follow Up: He needs to get a PCP and needs a hospital follow-up appointment in 5-10 days. - TIME SPENT Time Spent in Discharge (Minutes): 60
== END 2020-03-06 09:55 | disposition home or self-care (01) | DRG 377 ==
LOC: ED 07:46 → MS3 10:52 → ICU 03-01 07:59
PROVIDERS: ADMIT Internal Medicine; ATTEND Internal Medicine
PROC: 0DB68ZX Excision of Stomach, Via Natural or Artificial Opening Endoscopic, Diagnostic (ICD-10-PCS; 2020-03-05)
PROC: 0DB58ZX Excision of Esophagus, Via Natural or Artificial Opening Endoscopic, Diagnostic (ICD-10-PCS; 2020-03-05)
PROC: 0DB98ZX Excision of Duodenum, Via Natural or Artificial Opening Endoscopic, Diagnostic (ICD-10-PCS; principal; 2020-03-05 10:30)
DX: K29.21 Alcoholic gastritis with bleeding (principal); J18.9 Pneumonia, unspecified organism; F10.231 Alcohol dependence with withdrawal delirium; E87.1 Hypo-osmolality and hyponatremia; K70.10 Alcoholic hepatitis without ascites; E87.6 Hypokalemia; E78.1 Pure hyperglyceridemia; F17.210 Nicotine dependence, cigarettes, uncomplicated; R40.0 Somnolence; T42.4X5A Adverse effect of benzodiazepines, initial encounter; T78.3XXA Angioneurotic edema, initial encounter; T42.3X5A Adverse effect of barbiturates, initial encounter; Y92.230 Patient room in hospital as the place of occurrence of the external cause; D64.9 Anemia, unspecified; Y95 Nosocomial condition; Y90.0 Blood alcohol level of less than 20 mg/100 ml; Z78.1 Physical restraint status; Z82.49 Family history of ischemic heart disease and other diseases of the circulatory system
CPT/HCPCS: 36415; 71045; 74177; 76705; 78226; 80053; 80061; 80320; 81003; 81599; 82310; 82330; 83690; 83721; 83735; 84100; 84132; 85014; 85018; 85025; 85610; 86850; 86900; 86901; 87070; 87150; 87205; 96365; 96375; 97161; 99284; 99285; A9270; J1170; J1815; J2060; J3411; J7040; J7120; Q9967; 81001; 87086

== ENCOUNTER 2020-12-18 11:05 | Emergency (ER) | payer MEDICAID ==
[2020-12-18 11:25] VITALS: BP 147/95
== END 2020-12-18 13:42 | disposition left against medical advice (07) ==
LOC: ED 11:05
DX: Z53.21 Procedure and treatment not carried out due to patient leaving prior to being seen by health care provider (principal)

== ENCOUNTER 2021-04-05 18:48 | Emergency (ER) | payer MEDICAID ==
--- NOTE | 2021-04-05 19:32 | ED Physician Documentation ---
History of Present Illness - Stated complaint Stated Complaint: RT FOOT INJ/PX - Chief complaint Chief Complaint: Trauma Ext - Additonal information Additional information: 40-year-old male presents emergency department for evaluation of acute right foot pain that occurred 2 nights ago when a heavy dresser was accidentally dropped on his foot. He has pain and swelling over the MCP joint of the great toe. He has fractured this foot in the past. He has been walking though painful for the last 2 days. Review of Systems Constitutional: reports: Reviewed and negative Ears: reports: Reviewed and negative Cardiac: reports: Reviewed and negative Respiratory: reports: Reviewed and negative : reports: Reviewed and negative Skin: reports: Reviewed and negative Musculoskeletal: reports: Extremity pain (Right foot) PD PAST MEDICAL HISTORY - Past Medical History Past Medical History: Yes Cardiovascular: None Respiratory: None Neuro: None Endocrine/Autoimmune: None GI: None : None HEENT: None Psych: None Musculoskeletal: None Derm: None - Past Surgical History Past Surgical History: Yes Ortho: Other Derm: Skin grafts - Present Medications Home Medications: Ambulatory Orders Medication Instructions Recorded Confirmed No Known Home Medications 12/18/20 04/05/21 - Allergies Allergies/Adverse Reactions: Allergies Allergy/AdvReac Type Severity Reaction Status Date / Time phenobarbital Allergy Severe Anaphylaxis Verified 04/05/21 18:51 morphine AdvReac Emesis Verified 04/05/21 19:30 - Social History Does the pt smoke?: Yes Smoking Status: Current every day smoker Does the pt drink ETOH?: Yes ETOH Use: Wine, Beer Does the pt have substance abuse?: No - Immunizations Immunizations are current?: Yes - POLST Patient has POLST: No PD ED PE EXPANDED - Extremities Extremities: Right foot (Tenderness and ecchymosis at MCP joint of right great toe. Normal flexion extension of the ankle and range of motion of the foot in all planes. No pain at the base of the fifth metatarsal. No Achilles or lateral malleoli or pain.), Pedal Pulses Present, Motor intact, Sensory intact Results - Vitals Vitals: Vital Signs - 24 hr 04/05/21 18:51 Temperature 36.5 C Heart Rate 100 Respiratory 16 Rate Blood Pressure 150/90 H O2 Saturation 96 Oxygen O2 Source Room air - Rads (name of study) Right foot Radiology: Final report received (No acute fracture or dislocation.) PD MEDICAL DECISION MAKING - ED course Complexity details: reviewed results, re-evaluated patient, d/w patient ED course: 40-year-old male presents the emergency department for evaluation of acute right foot pain sustained 2 nights ago when a dresser was accidentally dropped on the foot. He has swelling and ecchymosis at the MCP of the great toe. He has been able to ambulate. 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 Imaging is negative for fracture and patient is ambulatory. I have advised Tyle nol ibuprofen and ice. Advised to return to the ER for repeat imaging if pain not markedly better in 7 to 10 days. Departure - Departure Disposition: 01 Home, Self Care Clinical Impression: Contusion of right foot Qualifiers: Encounter type: initial encounter Qualified Code(s): S90.31XA - Contusion of right foot, initial encounter Condition: Stable Record reviewed to determine appropriate education?: Yes Instructions: ED Contusion Lower Extr Ch Comments: Luis you are seen today in the ER for pain in the right foot after a dresser was dropped on it 2 nights ago. The x-ray does not show an obvious fracture. You most likely have a significant bruise or contusion. It is okay to take Tylenol and ibuprofen [id number] for pain. Attempt to stay off the foot as much as possible. If your symptoms are not much better in 7 to 10 days you should return to the ER to have the x-ray repeated as in some cases subtle fractures are missed with i nitial imaging.
--- NOTE | 2021-04-05 19:32 | XRAY Report ---
PROCEDURE: Foot 3 View RT INDICATIONS: Trauma TECHNIQUE: 3 views of the foot were acquired. COMPARISON: None FINDINGS: Bones: No fractures or dislocations. No suspicious bony lesions. Soft tissues: No tibiotalar joint effusion. Achilles tendon appears normal. IMPRESSION: Unremarkable right foot radiographs Reviewed by: Tremayne Clemente MD on 04/05/2021 6:31 PM [facility] Approved by: Tremayne Clemente MD on 04/05/2021 6:31 PM [facility] Station ID: [id number]
[2021-04-05 20:02] VITALS: BP 138/88
== END 2021-04-05 20:01 | disposition home or self-care (01) ==
LOC: ED 18:48
DX: S90.31XA Contusion of right foot, initial encounter (principal); W20.8XXA Other cause of strike by thrown, projected or falling object, initial encounter; F17.200 Nicotine dependence, unspecified, uncomplicated
CPT/HCPCS: 99281; 99283

== ENCOUNTER 2022-01-09 16:06 | Emergency (ER) | payer MEDICAID ==
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
[2022-01-09 16:16] VITALS: BP 129/94
--- NOTE | 2022-01-09 17:18 | XRAY Report ---
PROCEDURE: Knee 4 View RT INDICATIONS: KNEE INJ TECHNIQUE: 3 views of the knee(s) were acquired. COMPARISON: None. FINDINGS: Bones: No fractures or dislocations. No suspicious bony lesions. Soft tissues: There is a mild joint effusion. No suspicious soft tissue calcifications. right IMPRESSION: Mild joint effusion, without an acute bony abnormality seen. If it would be helpful for clinical management decision making, please consider a dedicated, schedule d knee MRI for further evaluation (assuming that there is no contraindication). Reviewed by: Cliff Thomas MD on 01/09/2022 5:16 PM PDT Approved by: Cliff Thomas MD on 01/09/2022 5:16 PM PDT Station ID: [id number]
== END 2022-01-09 17:23 | disposition home or self-care (01) ==
LOC: EDUNIT# → ED 16:06
DX: S83.91XA Sprain of unspecified site of right knee, initial encounter (principal); W03.XXXA Other fall on same level due to collision with another person, initial encounter; Y92.511 Restaurant or cafe as the place of occurrence of the external cause; F10.129 Alcohol abuse with intoxication, unspecified; F17.200 Nicotine dependence, unspecified, uncomplicated
CPT/HCPCS: 99282; 99283

== ENCOUNTER 2022-06-11 21:09 | Outpatient (CLI) | payer MEDICAID | END 2022-06-11 21:10 | disposition critical access hospital (66) | LOC: EMS 21:09 | DX: R07.9 Chest pain, unspecified (principal) | CPT/HCPCS: A0425; A0427; A0999 ==

== ENCOUNTER 2022-06-11 21:36 | Emergency (ER) | payer MEDICAID ==
[2022-06-11 22:13] LABS: BASOPHILS % (AUTO) 0.1 %; EOSINOPHILS # (AUTO) 0.2 10^3/uL (0.0-0.7); HGB - HEMOGLOBIN 12.5 g/dL (14.0-18.0); LYMPHOCYTES # (AUTO) 1.9 10^3/uL (1.5-3.5); LYMPHOCYTES % (AUTO) 27.3 %; MEAN CORPUSCULAR HEMOGLOBIN 33.3 pg (27.0-31.0); MEAN CORPUSCULAR HGB CONC 32.9 g/dL (32.0-36.0); MEAN CORPUSCULAR VOLUME 101.3 fL (80.0-94.0); MEAN PLATELET VOLUME 10.6 fL (7.4-11.4); MONOCYTES # (AUTO) 0.7 10^3/uL (0.0-1.0); MONOCYTES % (AUTO) 10.6 %; NEUTROPHILS % (AUTO) 58.6 %; PLT - PLATELET COUNT 162 10^3/uL (130-450); RED BLOOD COUNT 3.75 10^6/uL (4.70-6.10); RED CELL DISTRIBUTION WIDTH 15.9 % (12.0-15.0); WHITE BLOOD COUNT 6.9 x10^3/uL (4.8-10.8)
[2022-06-11 22:31] LABS: ALBUMIN 3.4 g/dL (3.2-5.5); ALBUMIN/GLOBULIN RATIO 0.9 (1.0-2.2); BILIRUBIN,TOTAL 0.7 mg/dL (0.2-1.0); CALCIUM 7.6 mg/dL (8.5-10.3); CREATININE 0.8 mg/dL (0.6-1.2); POTASSIUM 3.9 mmol/L (3.5-5.0); TOTAL PROTEIN 7.1 g/dL (6.7-8.2)
--- NOTE | 2022-06-11 23:17 | XRAY Report ---
PROCEDURE: Chest 2 View X-Ray INDICATIONS: chest pain TECHNIQUE: 2 views of the chest were acquired. COMPARISON: Chest x-ray 03/02/2020 FINDINGS: Surgical changes and devices: None. Lungs and pleura: No pleural effusions or pneumothorax. There is hyperinflation of the lungs with fl attening of the hemidiaphragms compatible with COPD. Lungs are clear. Mediastinum: Mediastinal contours are normal. Heart size is normal. Bones and chest wall: No suspicious bony abnormalities. Soft tissues appear unremarkable. IMPRESSION: 1. No acute cardiopulmonary disease. 2. Findings compatible with COPD. Reviewed by: Josh Barillas MD on 06/11/2022 11:15 PM PST Approved by: Josh Barillas MD on 06/11/2022 11:15 PM PST Station ID: [id number]
--- NOTE | 2022-06-11 23:28 | ED Physician Documentation ---
PD HPI CHEST PAIN - Stated complaint Stated Complaint: CHEST/RIB PX - Chief complaint Chief Complaint: Cardiac - History obtained from History obtained from: Patient, Family (mother) - Additional information Additional information: 42-year-old man presented with chest pain for the past week, worsening this evening, Left-sided nonradiating, aching, constant, gradual onset, occurring at rest, nonexertional. Worse with range of motion of the arm. Patient has a prior rib fracture on the left side. Note that he is a smoker and has family history of AR. otherwise no hx HTN, hld, dm. Review of Systems Constitutional: denies: Fever Cardiac: reports: Chest pain / pressure Respiratory: denies: Cough PD PAST MEDICAL HISTORY - Past Medical History Cardiovascular: None Respiratory: None Neuro: None Endocrine/Autoimmune: None GI: None : None HEENT: None Psych: None Musculoskeletal: None Derm: None - Past Surgical History Past Surgical History: Yes Ortho: Other Derm: Skin grafts - Present Medications Home Medications: Ambulatory Orders Medication Instructions Recorded Confirmed No Known Home Medications 12/18/20 04/05/21 - Allergies Allergies/Adverse Reactions: Allergies Allergy/AdvReac Type Severity Reaction Status Date / Time phenobarbital Allergy Severe Anaphylaxis Verified 06/11/22 21:44 morphine AdvReac Emesis Verified 06/11/22 21:44 - Social History Does the pt smoke?: Yes Smoking Status: Current every day smoker Does the pt drink ETOH?: Yes Does the pt have substance abuse?: No - Immunizations Immunizations are current?: Yes - POLST Patient has POLST: No PD ED PE NORMAL - Vitals Vital signs reviewed: Yes - General General: Alert and oriented X 3, No acute distress, Well developed/nourished - HEENT HEENT: Atraumatic, PERRL, EOMI, Moist mucous membranes, Pharynx benign - Neck Neck: Supple, no meningeal sign - Cardiac Cardiac: RRR - Respiratory Respiratory: No respiratory distress, Clear bilaterally - Derm Derm: Normal color, Warm and dry - Psych Psych: Normal mood, Normal affect, Other (clinically sober. ambulatory without difficulty. mother at bedside) Results - Vitals Vitals: Vital Signs - 24 hr 06/11/22 06/11/22 21:44 21:49 Temperature 36.5 C 36.5 C Heart Rate 100 100 Respiratory 16 16 Rate Blood Pressure 120/86 H 120/86 H O2 Saturation 99 99 Oxygen O2 Source Room air - Labs Labs: Laboratory Tests 06/11/22 06/11/22 06/11/22 22:06 22:06 22:06 WBC 6.9 RBC 3.75 L Hgb 12.5 L Hct 38.0 L MCV 101.3 H MCH 33.3 H MCHC 32.9 RDW 15.9 H Plt Count 162 MPV 10.6 Neut # (Auto) 4.0 Lymph # (Auto) 1.9 [place] # (Auto) 0.7 Eos # (Auto) 0.2 Baso # (Auto) 0.0 Absolute Nucleated RBC 0.00 Nucleated RBC % 0.0 Sodium 141 Potassium 3.9 Chloride 102 Carbon Dioxide 24 Anion Gap 15.0 H BUN 7 Creatinine 0.8 Estimated GFR (MDRD) 107 Glucose 108 H Calcium 7.6 L Total Bilirubin 0.7 AST 265 H ALT 85 H Alkaline Phosphatase 174 H Troponin I High Sens 7.7 Total Protein 7.1 Albumin 3.4 Globulin 3.7 Albumin/Globulin Ratio 0.9 L Lipase 51 PD Medical Decision Making - ED course ED course: 42-year-old man presented with chest pain for the past week, worsening this evening, Left-sided nonradiating, aching, constant, gradual onset, occurring at rest, nonexertional. Worse with range of motion of the arm. Patient has a prior rib fracture on the left side. Note that he is a smoker and has family history of AR (heart score 1). Lab work elevation of LFTs consistent with chronic alcohol abuse. Chest x-ray without acute findings. EKG normal sinus rhythm with rate of 90, normal intervals. Discussed findings with patient. At ypical chest pain is most likely musculoskeletal in nature, however I am recommending follow-up with primary care provider and cardiology and smoking cessation. Doubt pulmonary embolism given he is not experiencing hemoptysis, leg swelling, has no prior history of clots or other risk factors.Return precautions given. Departure - Departure Disposition: 01 Home, Self Care Clinical Impression: Chest pain, Alcohol abuse Condition: Stable Instructions: ED Chest Pain Atypical Unkn Cause Follow-Up: Dulce Kay ARNP [Provider Admit Priv/Credential] - Comments: You are seen in the emergency department for chest pain. Your lab work, EKG, and chest x-ray uncovered no emergent cause for your symptoms. You should follow-up with a primary care provider and with cardiology for further evaluation. Return to the emergency department if you have any new or worsening symptoms or other concerns. Do not stop drinking alcohol cold turkey. Come to the emergency department if you need help quitting drinking. [facility] [address] [place] [address], [address] [place] [address]
[2022-06-11 23:31] VITALS: BP 120/82
== END 2022-06-11 23:29 | disposition home or self-care (01) ==
LOC: EDUNIT# → ED 21:36
DX: R07.9 Chest pain, unspecified (principal); F17.200 Nicotine dependence, unspecified, uncomplicated; F10.10 Alcohol abuse, uncomplicated; Z82.49 Family history of ischemic heart disease and other diseases of the circulatory system
CPT/HCPCS: 36415; 80053; 83690; 84484; 85025; 93005; 99283; 99284

== ENCOUNTER 2022-08-07 14:56 | Inpatient (IN) | payer MEDICAID ==
--- NOTE | 2022-08-07 15:09 | ED Physician Documentation ---
PD HPI ABD PAIN - Stated complaint Stated Complaint: ABD PX/SOA - Chief complaint Chief Complaint: Abd Pain - History obtained from History obtained from: Patient - History of Present Illness Timing - onset: How many weeks ago (2) Timing - duration: Weeks (2) Timing - details: Gradual onset, Still present, Now resolved Quality: Cramping, Aching, Fullness/distended, Pain Location: RUQ, Epigastric Radiation: Chest, Upper back Improved by: No: Vomiting Worsened by: Eating, Palpation. No: Breathing Associated symptoms: Nausea, Vomiting (frequently with any food intake, reji to take small sips of fluids. Decreased urine output but still urinating some.), Constipation. No: Fever, Hematemesis, Diarrhea Similar symptoms before: Has not had sx before (has had alcohol withdrawal in the past. Some abd pains. No prior jaundice per patient.) Recently seen: Not recently seen Review of Systems Constitutional: reports: Chills, Myalgias. denies: Fever Nose: reports: Congestion. denies: Rhinorrhea / runny nose Throat: reports: Sore throat (has noted progressive pain with swallowing, and noted redness in throat/roof of mouth.) Respiratory: reports: Cough GI: reports: Abdominal Pain, Abdominal Swelling (right upper), Nausea, Vomiting. denies: Diarrhea Skin: denies: Rash PD PAST MEDICAL HISTORY - Past Medical History Cardiovascular: None Respiratory: None Neuro: None Endocrine/Autoimmune: None GI: None : None HEENT: None Psych: None Musculoskeletal: None Derm: None - Past Surgical History Past Surgical History: Yes Ortho: Other Derm: Skin grafts - Present Medications Home Medications: Ambulatory Orders Medication Instructions Recorded Confirmed No Known Home Medications 12/18/20 08/07/22 - Allergies Allergies/Adverse Reactions: Allergies Allergy/AdvReac Type Severity Reaction Status Date / Time phenobarbital Allergy Severe Anaphylaxis Verified 08/07/22 15:08 morphine AdvReac Emesis Verified 08/07/22 15:08 - Living Situation Living Situation: reports: With friend(s) Living Arrangement: reports: At home - Social History Does the pt smoke?: Yes Smoking Status: Current every day smoker Does the pt drink ETOH?: Yes ETOH Use: Other (drinks about a fifth of liquor/vodka daily.) Does the pt have substance abuse?: No - Immunizations Immunizations are current?: Yes - POLST Patient has POLST: No PD ED PE NORMAL - Vitals Vital signs reviewed: Yes - General General: Alert and oriented X 3, Well developed/nourished, Other (appears uncomfortable due to abd pain. ) - HEENT HEENT: PERRL, EOMI (icteric). No: Pharynx benign (marked uniformly red/raw mucosa with white exudates pharynx, pallate, corners of mouth, appears c/w yeast stomatitis/esophagitis. ) - Cardiac Cardiac: No: RRR (regular but tachycardic. ) - Respiratory Respiratory: No respiratory distress. No: Clear bilaterally (Faint coarse sounds on the right hilar and central areas. No wheezes noted.) - Abdomen Abdomen: Soft, Other (His abdomen is mildly distended. It is particularly tense in the right upper quadrant with localized guarding and percussion tenderness. Lower abdomen is minimally tender. Liver feels enlarged to palpation though limited by guarding.) - Derm Derm: Warm and dry. No: Normal color (jaundice coloring. ) - Extremities Extremities: No edema, No calf tenderness / cord - Neuro Neuro: Alert and oriented X 3, No motor deficit, Normal speech Eye Opening: Spontaneous Motor: Obeys Commands Verbal: Oriented GCS Score: 15 - Psych Psych: Normal mood Results - Vitals Vitals: Vital Signs - 24 hr 08/07/22 08/07/22 08/07/22 15:01 15:56 17:29 Temperature 36.9 C Heart Rate 119 H 111 H 109 H Respiratory 28 H 13 12 Rate Blood Pressure 122/71 125/85 H 134/89 H O2 Saturation 99 97 98 08/07/22 08/07/22 08/07/22 18:50 19:32 20:14 Temperature Heart Rate 110 H 113 H 116 H Respiratory 15 13 14 Rate Blood Pressure 98/67 120/85 H 117/93 H O2 Saturation 95 92 94 08/07/22 21:49 Temperature Heart Rate 120 H Respiratory 20 Rate Blood Pressure 121/77 O2 Saturation 95 Oxygen O2 Source Room air - Labs Labs: Laboratory Tests 08/07/22 08/07/22 08/07/22 15:37 15:37 15:37 WBC 18.4 H RBC 2.73 L Hgb 9.7 L Hct 26.6 L MCV 97.4 H MCH 35.5 H MCHC 36.5 H RDW 15.5 H Plt Count 109 L MPV 11.2 Neut # (Auto) Not Reportable Lymph # (Auto) Not Reportable [place] # (Auto) Not Reportable Eos # (Auto) Not Reportable Baso # (Auto) Not Reportable Absolute Nucleated RBC Not Reportable Total Counted 100 Band Neuts % (Manual) 1 Abnorm Lymph % (Manual) 0 Metamyelocytes % 1 H Myelocytes % 3 H Nucleated RBC % Not Reportable Neutrophils # (Manual) 15.3 H Lymphocytes # (Manual) 2.2 Monocytes # (Manual) 0.2 Eosinophils # (Manual) 0.0 Basophils # (Manual) 0.0 Nucleated RBCs 1 Differential Comment MANUAL DIFFERENTIAL Platelet Estimate DECREASED (<130,000) Platelet Morphology NORMAL APPEARANCE RBC Morph Micro Appear 1+ POLYCHROMASIA Sodium Potassium Chloride Carbon Dioxide Anion Gap BUN Creatinine Estimated GFR (MDRD) Glucose Calcium Magnesium Total Bilirubin AST ALT Alkaline Phosphatase Ammonia 63.2 H Total Protein Albumin Globulin Albumin/Globulin Ratio Lipase Urine Color Urine Clarity Urine pH Ur Specific Benjamin Urine Protein Urine Glucose (UA) Urine Ketones Urine Occult Blood Urine Nitrite Urine Bilirubin Urine Urobilinogen Ur Leukocyte Esterase Urine RBC Urine WBC Ur Squamous Epith Cells Urine Bacteria Urine Casts Urine Mucus Ur Microscopic Review Urine Culture Comments Nasal Adenovirus (PCR) Nasal B. parapertussis DNA (PCR) Nasal Coronavir 229E PCR Nasal Coronavir HKU1 PCR Nasal Coronavir NL63 PCR Nasal Coronavir OC43 PCR Nasal Enterovir/Rhinovir PCR Nasal Influenza B PCR Nasal Influenza A PCR Nasal Parainfluen 1 PCR Nasal Parainfluen 2 PCR Nasal Parainfluen 3 PCR Nasal Parainfluen 4 PCR Nasal RSV (PCR) Nasal B.pertussis DNA PCR Nasal C.pneumoniae (PCR) Asaf Human Metapneumo PCR Nasal M.pneumoniae (PCR) Nasal SARS-CoV-2 (PCR) Ethyl Alcohol 121.5 08/07/22 08/07/22 08/07/22 15:54 16:15 17:15 WBC RBC Hgb Hct MCV MCH MCHC RDW Plt Count MPV Neut # (Auto) Lymph # (Auto) [place] # (Auto) Eos # (Auto) Baso # (Auto) Absolute Nucleated RBC Total Counted Band Neuts % (Manual) Abnorm Lymph % (Manual) Metamyelocytes % Myelocytes % Nucleated RBC % Neutrophils # (Manual) Lymphocytes # (Manual) Monocytes # (Manual) Eosinophils # (Manual) Basophils # (Manual) Nucleated RBCs Differential Comment Platelet Estimate Platelet Morphology RBC Morph Micro Appear Sodium 120 L* Potassium 2.3 L* Chloride 72 L* Carbon Dioxide 24 Anion Gap 24.0 H BUN 8 Creatinine 0.3 L Estimated GFR (MDRD) 332 Glucose 178 H Calcium 7.7 L Magnesium 1.8 Total Bilirubin 12.5 H AST 273 H ALT 107 H Alkaline Phosphatase 556 H Ammonia Total Protein 6.6 L Albumin 2.0 L Globulin 4.6 H Albumin/Globulin Ratio 0.4 L Lipase 58 H Urine Color DARK YELLOW Urine Clarity HAZY Urine pH 6.5 Ur Specific Benjamin 1.020 Urine Protein 100 H Urine Glucose (UA) 100 H Urine Ketones TRACE Urine Occult Blood NEGATIVE Urine Nitrite Urine Bilirubin LARGE H Urine Urobilinogen Ur Leukocyte Esterase NEGATIVE Urine RBC 0-5 Urine WBC 4-5 Ur Squamous Epith Cells NONE SEEN Urine Bacteria Rare Urine Casts 3-5 Hyaline Casts Urine Mucus Few Strands Ur Microscopic Review INDICATED Urine Culture Comments NOT INDICATED Nasal Adenovirus (PCR) NOT DETECTED Nasal B. parapertussis DNA (PCR) NOT DETECTED Nasal Coronavir 229E PCR NOT DETECTED Nasal Coronavir HKU1 PCR NOT DETECTED Nasal Coronavir NL63 PCR NOT DETECTED Nasal Coronavir OC43 PCR NOT DETECTED Nasal Enterovir/Rhinovir PCR NOT DETECTED Nasal Influenza B PCR NOT DETECTED Nasal Influenza A PCR NOT DETECTED Nasal Parainfluen 1 PCR NOT DETECTED Nasal Parainfluen 2 PCR NOT DETECTED Nasal Parainfluen 3 PCR NOT DETECTED Nasal Parainfluen 4 PCR NOT DETECTED Nasal RSV (PCR) NOT DETECTED Nasal B.pertussis DNA PCR NOT DETECTED Nasal C.pneumoniae (PCR) NOT DETECTED Asaf Human Metapneumo PCR NOT DETECTED Nasal M.pneumoniae (PCR) NOT DETECTED Nasal SARS-CoV-2 (PCR) NOT DETECTED Ethyl Alcohol - Rads (name of study) abd/pelvic cT Radiology: Prelim report reviewed, EMP read indepedently (very large liver. Pancreatic inflammation. Distended gallbladder with mildly thickened wall.s ), See rad report PD Medical Decision Making - ED course ED course: The patient has had viral type illness with congestion and cough and general malaise for about 2 weeks ago and ongoing. He started with nausea vomiting and upper abdominal pain about a week ago. He has had consistent vomiting and feels dehydrated. He has noticed onset of yellow jaundice appearance over the last several days to week. He has been able to continue some IV or oral fluids but denies any food intake. He has still been drinking alcohol. He has had the upper abdominal pain which is new for him. He has some known mild alcoholic liver disease with elevated liver enzymes but no prior bilirubin elevation. The jaundice is new. He was given some IV fluids and medications here in the ER for pain and nausea. He also was having some mild alcohol withdrawal and given lorazepam as well. Initial labs were showing significant abnormalities of liver enzymes of AST ALT and alk phos. Also elevated lipase. His bilirubin was significantly elevated at 12. His electrolytes were also abnormal with a sodium of 120 and a potassium of 2.6. Liver function creatinine and GFR is actually good. CT of the abdomen showed enlarged liver. There is findings consistent with pancreatitis. There was some distention of the gallbladder but no wall thickness or fluid noted. No obvious stones. I talked with the hospitalist who was concerned that there may be a common bile duct abnormality or acute gallbladder. Recommendation for an ultrasound. Ultrasound was done and the preliminary reading is slightly thickened wall with some distention but no pericholecystic fluid and no edema. Common bile duct was normal at 5 mm. No obvious stone seen. Liver was obviously enlarged. Inflammation of the pancreas. I talked with Dr. Goyal who is on-call for surgery. He said the gallbladder distention is likely just inflammatory and from vomiting but he would be in to discuss the case and look at imaging. At this point would likely need to admit the patient to the nighttime telemedicine hospitalist for acute pancreatitis and presumably underlying initial viral illness. His PCR was negative. He does have acute hepatitis as well and electrolyte abnormalities. He does have chronic alcoholism and certainly will need to be treated for alcohol withdrawal as well. Also of note is apparent thrush of the oral pharynx and presumably esophagus clinically. - Consults Consults: Consulted (name) (Jyotsna), Request claims consultant evaluate patient (He would come and see the patient and imaging. Initial impression was likely gb congestion due to illness and not acute cholecystitis. No obvious ductal blockage. Consult to follow. ) Departure - Departure Disposition: 66 [facility] DC/Xfer Clinical Impression: Nausea and vomiting, Elevated liver enzymes, Electrolyte abnormality, Alcohol dependence, Dehydration, Thrush of mouth and esophagus, Jaundice, Pancreatitis Condition: Stable
[2022-08-07] MEDS ORDERED: ONDANSETRON 4 MG/2 ML VIAL IVP STA (15:35)
[2022-08-07] MEDS ORDERED: SODIUM CHLORIDE 0.9% 1,000 ML IV STA (15:35)
[2022-08-07] MEDS ORDERED: HYDROmorphone 1 MG/ML CARPUJECT IVP STA ×2 (15:35→17:39)
[2022-08-07] MEDS ORDERED: KETOROLAC 15 MG/ML VIAL IVP STA (15:42)
[2022-08-07] MEDS ORDERED: NYSTATIN 500000 UNITS/5 ML UDC PO STA (15:43)
[2022-08-07 15:54] LABS: BASOPHILS % (AUTO) 0.5 %; EOSINOPHILS % (AUTO) 0.5 %; HCT - HEMATOCRIT 26.6 % (42.0-52.0); HGB - HEMOGLOBIN 9.7 g/dL (14.0-18.0); MEAN CORPUSCULAR HEMOGLOBIN 35.5 pg (27.0-31.0); MEAN CORPUSCULAR HGB CONC 36.5 g/dL (32.0-36.0); MEAN CORPUSCULAR VOLUME 97.4 fL (80.0-94.0); MEAN PLATELET VOLUME 11.2 fL (7.4-11.4); MONOCYTES % (AUTO) 2.6 %; NEUTROPHILS % (AUTO) 78.6 %; PLT - PLATELET COUNT 109 10^3/uL (130-450); RED BLOOD COUNT 2.73 10^6/uL (4.70-6.10); RED CELL DISTRIBUTION WIDTH 15.5 % (12.0-15.0); WHITE BLOOD COUNT 18.4 x10^3/uL (4.8-10.8)
[2022-08-07 15:56] LABS: ABNORMAL LYMPHS % (MANUAL) 0 %
[2022-08-07 16:21] LABS: BAND NEUTROPHILS % (MANUAL) 1 %; LYMPHOCYTES # (MANUAL) 2.2 10^3/uL (1.5-3.5); LYMPHOCYTES % (MANUAL) 12 %; METAMYELOCYTES % (MANUAL) 1 %; MONOCYTES # (MANUAL) 0.2 10^3/uL (0.0-1.0); MYELOCYTES % (MANUAL) 3 %; NEUTROPHILS # (MANUAL) 15.3 10^3/uL (1.5-6.6); NUCLEATED RBC (MANUAL) 1 %
[2022-08-07 16:22] LABS: DIFFERENTIAL COMMENT MANUAL DIFFERENTIAL; PLATELET ESTIMATE, MANUAL DECREASED (<130,000) (NORMAL); PLATELET MORPHOLOGY NORMAL APPEARANCE (NORMAL)
--- NOTE | 2022-08-07 16:23 | XRAY Report ---
PROCEDURE: Chest 1 View X-Ray INDICATIONS: cough/congestion TECHNIQUE: One view of the chest was acquired. COMPARISON: None. FINDINGS: Surgical changes and devices: None. Lungs and pleura: No pleural effusions or pneumothorax. Lungs are clear. Mediastinum: Mediastinal contours appear normal. Heart size is normal. Bones and chest wall: No suspicious bony lesions. Overlying soft tissues appear unremarkable. IMPRESSION: No acute pulmonary process. Reviewed by: Ana Paul MD on 08/07/2022 4:21 PM PST Approved by: Ana Paul MD on 08/07/2022 4:21 PM [facility] Station ID: [id number]
[2022-08-07 16:38] LABS: ALBUMIN/GLOBULIN RATIO 0.4 (1.0-2.2); BILIRUBIN,TOTAL 12.5 mg/dL (0.2-1.0); CALCIUM 7.7 mg/dL (8.5-10.3); CREATININE 0.3 mg/dL (0.6-1.2); MAGNESIUM 1.8 mg/dL (1.7-2.8); TOTAL PROTEIN 6.6 g/dL (6.7-8.2)
[2022-08-07 16:40] LABS: POTASSIUM 2.3 mmol/L (3.5-5.0)
[2022-08-07] MEDS ORDERED: POTASSIUM CHLOR 10 MEQ/100 ML 10 MEQ/100 ML BAG IV ONE (16:45)
[2022-08-07] MEDS ORDERED: LACTATED RINGERS 1,000 ML IV STA (16:45)
[2022-08-07 16:48] LABS: B. PARAPERTUSSIS- RESP PCR PAN NOT DETECTED; B. PERTUSSIS- RESP PCR PANEL NOT DETECTED; C. PNEUMONIAE- RESP PCR PANEL NOT DETECTED; CORONAVIRUS 229E-RESP PCR NOT DETECTED; CORONAVIRUS HKU1-RESP PCR NOT DETECTED; CORONAVIRUS NL63-RESP PCR NOT DETECTED; CORONAVIRUS OC43-RESP PCR NOT DETECTED; HUMAN METAPNEUMOVIRUS NOT DETECTED; INFLUENZA A- RESP PCR PANEL NOT DETECTED; INFLUENZA B - RESP PCR PANEL NOT DETECTED; M. PNEUMONIAE- RESP PCR PANEL NOT DETECTED; PARAINFLUENZA VIRUS 1 NOT DETECTED; PARAINFLUENZA VIRUS 2 NOT DETECTED; PARAINFLUENZA VIRUS 3 NOT DETECTED; PARAINFLUENZA VIRUS 4 NOT DETECTED; RHINOVIRUS/ENTEROVIRUS NOT DETECTED; RSV- RESP PCR PANEL NOT DETECTED; SARS-CoV-2 -RESP PCR PANEL NOT DETECTED
[2022-08-07] MEDS ORDERED: iohexoL-300 100 ML VIAL ONE (16:57)
[2022-08-07 17:36] LABS: GLUCOSE, URINE (UA) 100 mg/dL (NEGATIVE); KETONES,URINE (UA) TRACE mg/dL (NEGATIVE); LEUKOCYTE ESTERASE, URINE NEGATIVE (NEGATIVE); OCCULT BLOOD,URINE NEGATIVE (NEGATIVE); PH,URINE 6.5 PH (5.0-7.5); PROTEIN,URINE 100 mg/dL (NEGATIVE)
[2022-08-07] MEDS ORDERED: LORazepam 2 MG/ML VIAL IVP STA (17:39)
--- NOTE | 2022-08-07 17:41 | CT Report ---
PROCEDURE: ABDOMEN/PELVIS W INDICATIONS: right upper abd pain, vomiting, jaundice CONTRAST: 100mL Omni 300 TECHNIQUE: After the administration of intravenous contrast, 5 mm thick sections acquired from the diaphragms to the symphysis. 5 mm thick coronal and sagittal reformats were acquired. For radiation dose reducti on, the following was used: automated exposure control, adjustment of mA and/or kV according to akhil ent size. COMPARISON: CT abdomen pelvis 02/29/2020. FINDINGS: Visualized lung bases: No pleural effusion. Patchy groundglass opacities present at the imaged lung b ases, left worse than right. Liver and biliary tree: Liver is enlarged and diffusely hypoattenuating. No biliary ductal dilation d emonstrated. Gallbladder: Distended. No radiopaque cholelithiasis. Spleen: Unremarkable. Pancreas: Small amount of peripancreatic fluid present. No organized peripancreatic fluid collection or definite abnormal parenchymal enhancement. Adrenal glands: Unremarkable. Kidneys and ureters: No hydronephrosis. Gastrointestinal tract: No bowel obstruction. Peritoneal cavity: No free air . Bladder: Unremarkable. Pelvic organs: Unremarkable CT appearance. Vasculature: No abdominal aortic aneurysm. Musculoskeletal: Degenerative change of the spine. Several nonacute fractures of left lateral lower r ibs. IMPRESSION: 1. Findings compatible with acute pancreatitis. No organized peripancreatic fluid collection or evide nce of pancreatic necrosis present at this time. 2. Liver is enlarged and appears diffusely hypoattenuating suggestive of fatty infiltration. 3. Gallbladder is distended without definite radiopaque stones identified. If there is clinical suspi cion for acute cholecystitis right upper quadrant abdominal ultrasound may be helpful. 4. Patchy groundglass opacities present at the imaged lung bases, left worse than right, nonspecific but likely infectious/inflammatory. Reviewed by: Kenan Baker MD on 08/07/2022 5:39 PM PST Approved by: Kenan Baker MD on 08/07/2022 5:39 PM PST Station ID: [id number]
[2022-08-07 17:42] LABS: BILIRUBIN,URINE LARGE (NEGATIVE); CLARITY,URINE HAZY (CLEAR); ICTOTEST,URINE POSITIVE
[2022-08-07 17:50] LABS: BACTERIA,URINE Rare /HPF (None Seen); RBC,URINE 0-5 /HPF (0-5); SQUAMOUS EPITHELIAL CELL,UR NONE SEEN (<= Few)
[2022-08-07 17:51] LABS: CASTS, URINE 3-5 Hyaline Casts /LPF; MUCUS,URINE Few Strands
[2022-08-07] MEDS ORDERED: PIPERACILLIN/TAZOBACTAM 3.375 GM in SODIUM CHLORIDE 0.9% MINIBAG 100 ML IV STA (18:20)
--- NOTE | 2022-08-07 19:14 | Ultrasound Report ---
PROCEDURE: Abdomen Limited INDICATIONS: RUQ abd pain; distended GB on CT. TECHNIQUE: Real-time focused scanning was performed of the abdomen, with image documentation. COMPARISON: CT abdomen pelvis same day FINDINGS: Liver length of 23.8 cm. Liver is echogenic. Gallbladder is distended as on same-day CT. No stones id entified. Mild thickening of the gallbladder wall measuring up to 4 mm. No sonographic Godoy's sign documented. No biliary ductal dilation, extrahepatic duct measures 5 mm. Pancreas is better visualize d on same-day CT. Right renal length of 11.3 cm no right hydronephrosis or evidence of right nephroli thiasis IMPRESSION: 1. The gallbladder is distended as seen on same-day CT. No gallstones identified. Nonspecific wall th ickening of the gallbladder is present. 2. Enlarged liver, echogenic, a nonspecific finding commonly seen in the setting of steatosis. Reviewed by: Kenan Baker MD on 08/07/2022 7:12 PM PST Approved by: Kenan Baker MD on 08/07/2022 7:12 PM PST Station ID: [id number]
[2022-08-07] MEDS ORDERED: iohexoL-300 100 ML VIAL IVP ONE (19:46)
--- NOTE | 2022-08-07 20:40 | CONSULTATION NOTE ---
Referring Provider Consult Date: 08/07/22 Chief Complaint - Chief Complaint Chief Complaint: prior complaining of abdominal pain History of Present Illness - History Obtained From Records Reviewed: yes History obtained from: ed md Exam Limitations: pt currently nearly comatose. - History of Present Illness HPI Comment/Other: pt currently is not responding to voice and touch. consult for possible cholecystitis History - Past Medical History Cardiovascular: reports: None Respiratory: reports: None Neuro: reports: None Endocrine/Autoimmune: reports: None GI: reports: None : reports: None HEENT: reports: None Psych: reports: None Musculoskeletal: reports: None Derm: reports: None MRSA Hx?: No - Past Surgical History Ortho: reports: Other Derm: reports: Skin grafts - Family & Social History Family History: Mother: Alive and Well, Father: Alive and Well Family History Comment/Other: Patient reported his father have heart medical problem, her mother is healthy.He had 2 children, 1 daughter and 1 son, both are health. Social History Notes: Patient reported he is still smoking cigarette 1 pack/day, drinks alcohol daily.He is live at [place]. 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 - POLST Patient has POLST: No Meds/Allgy - Home Medications Home Medications: Ambulatory Orders Medication Instructions Recorded Confirmed No Known Home Medications 12/18/20 08/07/22 - Allergies Allergies/Adverse Reactions: Allergies Allergy/AdvReac Type Severity Reaction Status Date / Time phenobarbital Allergy Severe Anaphylaxis Verified 08/07/22 15:08 morphine AdvReac Emesis Verified 08/07/22 15:08 Exam - Vital Signs Reviewed Vital Signs: Yes Vital Signs: Vital Signs x48h Temp Pulse Resp BP Pulse Ox 08/07/22 20:14 116 H 14 117/93 H 94 08/07/22 19:32 113 H 13 120/85 H 92 08/07/22 18:50 110 H 15 98/67 95 08/07/22 17:29 109 H 12 134/89 H 98 08/07/22 15:56 111 H 13 125/85 H 97 08/07/22 15:01 36.9 C 119 H 28 H 122/71 99 - Physical Exam General Appearance: positive: Other (does not respond to voice or touch. painful stimulus not done obvious jaundice) Eyes Bilateral: positive: Other (eyes closed. not responding to open eyes) Respiratory: positive: No respiratory distress Cardiovascular: positive: Regular rate & rhythm Abdomen: positive: Other (very distended. by imaging huge liver. no ascites or dilated bowel) Skin: positive: Other (jaundice) Neurologic/Psychiatric: positive: Other (as above) Conclusion/Plan - Problem List (1) Elevated liver enzymes Conclusion/Plan: appears to be having serious acute liver failure gallbladder is mildly congested as a result. no cholecystitis. no gallstones. gallbladder is less congested than it was on imaging in 2019. had a very large liver at that time - Lab Results Fish Bones: 08/07/22 15:37 08/07/22 16:15
[2022-08-07] MEDS ORDERED: NICOTINE 14 MG PATCH TOP STA (22:18)
[2022-08-07] MEDS ORDERED: IPRATROPIUM 0.2 MG/ML NEB INH PRN (22:20)
[2022-08-07] MEDS ORDERED: ONDANSETRON 4 MG/2 ML VIAL IVP PRN (22:20)
[2022-08-07] MEDS ORDERED: PROCHLORPERAZINE 10 MG/2 ML VIAL IVP PRN (22:20)
[2022-08-07] MEDS ORDERED: ALBUTEROL NEB 2.5 MG/3 ML INH PRN (22:20)
[2022-08-07] MEDS ORDERED: POTASSIUM CHLORIDE 20 MEQ TABLET PO ONE (22:31)
[2022-08-07] MEDS ORDERED: IPRATROPIUM/ALBUTEROL 3 ML NEB INH PRN (22:39)
--- NOTE | 2022-08-07 22:44 | HISTORY & PHYSICAL EXAMINATION ---
Chief Complaint - Chief Complaint Chief Complaint: nausea, vomiting, and abdominal pain History of Present Illness - Admitted From Admitted From:: ED - History Obtained From Records Reviewed: EMR History obtained from: Patient Exam Limitations: Tele medicine - History of Present Illness HPI Comment/Other: 42M c alcohol abuse hx p/w nausea, vomiting, and abdominal pain. Patient reports 1 bottle of vodka a day. Prior hx of alcohol withdraw however no seizure. He has had abdominal pain for the past 2 weeks with RUQ being more tender for the past 2-3 days. He has noticed within the past wk to have nausea and vomiting and subsequently unable to tolerate any po. He denies bleed- no deidra blood or coffee ground or melena. Patient states no fever. POS cough - chronically 2/2 smoking. No chest pain. Positive SOB. No palpitation. No dysuria. No swelling in extremities. History - Past Medical History Cardiovascular: reports: None Respiratory: reports: Other (tobacco abuse) Neuro: reports: None Endocrine/Autoimmune: reports: None GI: reports: None : reports: None HEENT: reports: None Psych: reports: None Musculoskeletal: reports: None Derm: reports: None MRSA Hx?: No Other Past Medical History: alcohol abuse c hx of withdraw - Past Surgical History Ortho: reports: Other Derm: reports: Skin grafts - Family & Social History Family History: Mother: Alive and Well, Father: Alive and Well Family History Comment/Other: Patient reported his father have heart medical problem, her mother is healthy.He had 2 children, 1 daughter and 1 son, both are health. Living arrangement: At home Living Situation: With friend(s) Social History Notes: Patient reported he is still smoking cigarette 1 pack/day, drinks alcohol daily.He is live at [place]. 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 - POLST Patient has POLST: No Meds/Allgy - Home Medications Home Medications: Ambulatory Orders Medication Instructions Recorded Confirmed No Known Home Medications 12/18/20 08/07/22 - Allergies Allergies/Adverse Reactions: Allergies Allergy/AdvReac Type Severity Reaction Status Date / Time phenobarbital Allergy Severe Anaphylaxis Verified 08/07/22 15:08 morphine AdvReac Emesis Verified 08/07/22 15:08 Review of Systems - Constitutional Constitutional: denies: Fever - Respiratory Respiratory: reports: Cough, SOB at rest - Gastrointestinal Gastrointestinal: reports: Abdominal pain, Abdominal distention, Diarrhea, Nausea, Vomiting - Genitourinary Genitourinary: denies: Dysuria - Musculoskeletal Musculoskeletal: denies: Joint swelling - Integumentary Integumentary: denies: Rash Exam - Vital Signs Reviewed Vital Signs: Yes Vital Signs: Vital Signs x48h Temp Pulse Resp BP Pulse Ox 08/07/22 22:33 36.2 C L 121 H 18 118/92 H 95 08/07/22 21:49 120 H 20 121/77 95 08/07/22 20:14 116 H 14 117/93 H 94 08/07/22 19:32 113 H 13 120/85 H 92 08/07/22 18:50 110 H 15 98/67 95 08/07/22 17:29 109 H 12 134/89 H 98 08/07/22 15:56 111 H 13 125/85 H 97 08/07/22 15:01 36.9 C 119 H 28 H 122/71 99 - Physical Exam General Appearance: positive: No acute distress Eyes Bilateral: positive: Normal inspection ENT: positive: ENT inspection nml Neck: positive: Nml inspection Respiratory: positive: Other (diminished on the right posterior) Cardiovascular: positive: Other (s1 s2. elevated rate. no murmur. no rubs) Abdomen: positive: Tenderness, Hepatomegaly. negative: Guarding, Rebound Skin: positive: Color nml Extremities: positive: Non-tender Neurologic/Psychiatric: positive: Oriented x3, CN's nml (2-12) Conclusion/Plan - Problem List (1) Alcoholic hepatitis Conclusion/Plan: patient with elevated LFTs in setting of alcohol hepatitis. possible biliary i nfection. in addition 3 g drop, rule out GIB. hence despite discriminant score would support steroids, patient's over risk on steroids outweighs the benefit. counseled to stop all alcohol use. r/o GB disease with a HIDA. trend LFTs. Qualifiers: Ascites presence: without ascites Qualified Code(s): K70.10 - Alcoholic hepatitis without ascites (2) Alcohol dependence Conclusion/Plan: counseled to stop all alcohol abuse. transition social worker consulted. Qualifiers: Substance use status: with intoxication (3) Anemia Conclusion/Plan: noted 3g drop however per ED and patient no signs of GIB. would not be surprised if patient has variceal bleed. will seek stool guaiac and monitor hgb/hct level with repeat CBC. (4) Hypokalemia Conclusion/Plan: likely GI loss from vomiting. no on meds that would trigger loss. will replete and monitor via BMP daily and replete as needed (5) Hyponatremia Conclusion/Plan: low sodium likely multifactorial -beer potomania, vomiting, and liver cirrhosis. refrain from alcohol abuse. antiemetics. H2 salena for alcohol gastritis. regular diet. consider limited NaCl tab support. monitor Na level with q 6. (6) Tobacco use Conclusion/Plan: ordered nicotine for smoking cessation - Lab Results Lab results reviewed: Yes Fish Bones: 08/07/22 15:37 08/07/22 16:15 - Diagnostic Imaging Results Diagnostic Imaging Results: positive: Final report reviewed (noted distend GB h owever per ED Gen surg consult was negative intervention) - EKG Results EKG Interpreted Independently: No Core Measures - Anticipated LOS I expect patient to be DC'd or transferred within 96 hours.: No - DVT/VTE - Prophylaxis VTE/DVT Device ordered at admit?: Yes Telemedicine Consult Details - Provider Location & Consult Time Telemedicine consultation conducted via videoconferencing?: Yes List names and roles of persons who participated in consult:: RN and patient Telemedicine provider location:: [facility] Time Telemedicine consult began:: 22:48 Time Telemedicine consult completed:: 22:48
[2022-08-07 22:58] LABS: INR 1.1 (0.8-1.2); PT - PROTHROMBIN TIME 12.2 secs (9.9-12.6)
[2022-08-07] MEDS: SODIUM CHLORIDE 1 GM TABLET PO SCH (23:41)
[2022-08-07] MEDS: cefTRIAXone 2 GM in SODIUM CHLORIDE 0.9% MINIBAG 100 ML IV SCH (23:45)
[2022-08-07] MEDS: FAMOTIDINE 20 MG/2 ML VIAL IVP SCH (23:46)
[2022-08-07] MEDS: POTASSIUM CHLOR 10 MEQ/100 ML 10 MEQ/100 ML BAG IV SCH (23:46)
[2022-08-07] MEDS: SODIUM CHLORIDE FLUSH 0.9% 10 ML SYRINGE IVP SCH (23:55)
[2022-08-08] MEDS: POTASSIUM CHLOR 10 MEQ/100 ML 10 MEQ/100 ML BAG IV SCH ×5 (01:01→08:37)
[2022-08-08] MEDS: HYDROmorphone 1 MG/ML CARPUJECT IVP PRN ×4 (02:55→17:25)
[2022-08-08] MEDS: LORazepam 2 MG/ML VIAL IVP PRN ×5 (04:14→22:49)
[2022-08-08 04:44] LABS: CALCIUM, IONIZED 0.86 mmol/L (1.15-1.33); VBG PH 7.494 (7.31-7.41)
[2022-08-08 04:46] LABS: BASOPHILS % (AUTO) 0.5 %; EOSINOPHILS % (AUTO) 1.5 %; HGB - HEMOGLOBIN 7.5 g/dL (14.0-18.0); LYMPHOCYTES % (AUTO) 11.6 %; MEAN CORPUSCULAR HEMOGLOBIN 35.2 pg (27.0-31.0); MEAN CORPUSCULAR HGB CONC 35.7 g/dL (32.0-36.0); MEAN CORPUSCULAR VOLUME 98.6 fL (80.0-94.0); MEAN PLATELET VOLUME 11.3 fL (7.4-11.4); MONOCYTES % (AUTO) 2.3 %; NEUTROPHILS % (AUTO) 75.3 %; PLT - PLATELET COUNT 70 10^3/uL (130-450); RED BLOOD COUNT 2.13 10^6/uL (4.70-6.10); RED CELL DISTRIBUTION WIDTH 15.9 % (12.0-15.0); WHITE BLOOD COUNT 16.9 x10^3/uL (4.8-10.8)
[2022-08-08 04:47] LABS: ABNORMAL LYMPHS % (MANUAL) 0 %
[2022-08-08 04:59] LABS: BAND NEUTROPHILS % (MANUAL) 1 %; EOSINOPHILS # (MANUAL) 0.2 10^3/uL (0-0.7); LYMPHOCYTES # (MANUAL) 2.2 10^3/uL (1.5-3.5); LYMPHOCYTES % (MANUAL) 13 %; METAMYELOCYTES % (MANUAL) 1 %; MONOCYTES # (MANUAL) 0.2 10^3/uL (0.0-1.0); MYELOCYTES % (MANUAL) 2 %; NEUTROPHILS # (MANUAL) 13.9 10^3/uL (1.5-6.6); NUCLEATED RBC (MANUAL) 1 %
[2022-08-08 05:01] LABS: DIFFERENTIAL COMMENT MANUAL DIFFERENTIAL; PLATELET ESTIMATE, MANUAL DECREASED (<130,000) (NORMAL); PLATELET MORPHOLOGY NORMAL APPEARANCE (NORMAL); WBC MORPHOLOGY (MULTIPLE) NORMAL APPEARANCE (NORMAL)
[2022-08-08 05:03] LABS: ALBUMIN 1.7 g/dL (3.2-5.5); ALBUMIN/GLOBULIN RATIO 0.4 (1.0-2.2); ALKALINE PHOSPHATASE 437 IU/L (42-121); ALT ALANINE AMINOTRANSFERASE 93 IU/L (10-60); AST ASPARTATE AMINOTRANSFERASE 233 IU/L (10-42); BILIRUBIN,TOTAL 12.2 mg/dL (0.2-1.0); BUN - BLOOD UREA NITROGEN 9 mg/dL (6-20); CALCIUM 7.1 mg/dL (8.5-10.3); CARBON DIOXIDE - CO2 24 mmol/L (21-32); CHLORIDE 81 mmol/L (101-111); CREATININE 0.5 mg/dL (0.6-1.2); GFR - MDRD 184 (>89); GLUCOSE 135 mg/dL (70-100); MAGNESIUM 1.5 mg/dL (1.7-2.8); POTASSIUM 2.6 mmol/L (3.5-5.0); SODIUM 124 mmol/L (135-145); TOTAL PROTEIN 5.9 g/dL (6.7-8.2)
[2022-08-08 05:05] LABS: PHOSPHORUS < 1.0 mg/dL (2.5-4.6)
[2022-08-08] MEDS ORDERED: MAGNESIUM SULFATE 2 GRAM 2 GM/50 ML BAG IV ONE (05:10)
[2022-08-08] MEDS ORDERED: CALCIUM GLUCONATE IN NS 0.9% 2,000 MG/100 ML BAG IV ONE ×2 (05:10→15:10)
[2022-08-08] MEDS: SODIUM CHLORIDE 0.9% 500 ML IV PRN ×3 (06:28→18:44)
[2022-08-08] MEDS: POTASSIUM PHOSPHATE 15 MMOL in SODIUM CHLORIDE 0.9% 250 ML IV SCH ×2 (06:50→08:38)
[2022-08-08] MEDS: DOCUSATE SODIUM 250 MG CAPSULE PO SCH (08:36)
[2022-08-08] MEDS: SENNA 8.6 MG TABLET PO SCH (08:36)
[2022-08-08] MEDS: SODIUM CHLORIDE 1 GM TABLET PO SCH (08:36)
[2022-08-08] MEDS: polyethylene glycoL 3350 17 GM PACKET PO SCH (08:37)
[2022-08-08] MEDS: SODIUM CHLORIDE FLUSH 0.9% 10 ML SYRINGE IVP SCH ×2 (08:38→17:03)
[2022-08-08] MEDS: FAMOTIDINE 20 MG/2 ML VIAL IVP SCH ×2 (08:38→21:01)
[2022-08-08] MEDS ORDERED: SODIUM PHOSPHATE 15 MMOL in SODIUM CHLORIDE 0.9% 250 ML IV SCH (09:00)
[2022-08-08 10:09] LABS: HCT - HEMATOCRIT 20.4 % (42.0-52.0); HGB - HEMOGLOBIN 7.3 g/dL (14.0-18.0)
[2022-08-08 10:12] LABS: CALCIUM, IONIZED 0.94 mmol/L (1.15-1.33); VBG PH 7.473 (7.31-7.41)
[2022-08-08 10:23] LABS: CALCIUM 7.6 mg/dL (8.5-10.3); CREATININE 0.4 mg/dL (0.6-1.2); POTASSIUM 2.8 mmol/L (3.5-5.0)
--- NOTE | 2022-08-08 10:44 | PHARMACY PROGRESS NOTE ---
- Best Possible Medication History Admit Date and Time: 08/07/222222 Processed by: Nursing Medication History completed: Yes Patient Interview: Completed As the person ultimately responsible for medication therapy, providers are able to order a medication from an existing home medication list in [facility] via the "Reconcile Routine" prior to Confirmation of that medication by direct support specialist. Such practice is discouraged except when the physician, in their clinical judg ment, deems that a medical need exists for a medication without regard to previous use.
[2022-08-08] MEDS: chlordiazePOXIDE 5 MG CAPSULE PO SCH ×2 (12:04→17:00)
[2022-08-08] MEDS: THIAMINE 100 MG TABLET PO SCH (12:04)
[2022-08-08] MEDS: PRENATAL VITAMIN TABLET PO SCH (12:04)
--- NOTE | 2022-08-08 13:20 | PROVIDER PROGRESS NOTE ---
Subjective - Prog Note Date Prog Note Date: 08/08/22 Prog Note Time: 13:15 - Subjective Pt reports feeling: Worse (Patient is increasingly fatigued and has a baseline tremor that is worse upon arousal.) Subjective: Patient is a 42 year old male who is has a history of chronic alcohol abuse for an unspecified amount of time. Patient is extremely fatigued and shaky during visit and is unable to give a full detailed history. Patient was just given ativan prior to visit. As per the RN patient has a baseline tremor and patient is not a accurate historian. Patient has been urinating during admission but has yet to have a bowel movement. Lactolose has been considered to possibly aide in producing a bowel movement. During visit in the morning with Dr. Quinones, patient was informed on the direness of his condition, and told that he will likely from his condition if no changes are made to his drinking habits. Patient unders tood and expressed interest in inpatient rehab for alcoholics to the social science instructor Kika. Current Medications - Current Medications Current Medications: Active Medications Albuterol/Ipratropium (Ipratropium/Albuterol 3 Ml Neb) 3 ml INH Q4HR PRN PRN Reason: Wheezing Chlordiazepoxide HCl (Chlordiazepoxide 5 Mg Capsule) 5 mg PO Q6HR [facility] Last Admin: 08/08/22 12:04 Dose: 5 mg Docusate Sodium (Docusate Sodium 250 Mg Capsule) 250 - 500 mg PO DAILY [facility] Last Admin: 08/08/22 08:36 Dose: 250 mg Famotidine (Famotidine 20 Mg/2 Ml Vial) 20 mg IVP BID [facility] Last Admin: 08/08/22 08:38 Dose: 20 mg Hydromorphone HCl (Hydromorphone 0.5 Mg/0.5 Ml Syringe) 0.5 mg IVP Q2HR PRN PRN Reason: moderate pain Hydromorphone HCl (Hydromorphone 1 Mg/Ml Carpuject) 0.8 mg IVP Q2HR PRN PRN Reason: Severe Pain Last Admin: 08/08/22 08:48 Dose: 0.8 mg Ceftriaxone Sodium 2 gm/ (Sodium Chloride) 100 mls @ 200 mls/hr IV Q24H [facility] Last Infusion: 08/08/22 00:15 Dose: Infused Potassium Phosphate 15 mmol/ (Sodium Chloride) 255 mls @ 63 mls/hr IV Q4H [facility]; Protocol Stop: 08/08/22 14:59 Last Admin: 08/08/22 08:38 Dose: 63 mls/hr Sodium Chloride (Normal Saline 0.9%) 500 mls @ 20 mls/hr IV Q24H PRN PRN Reason: TKO RATE Last Admin: 08/08/22 12:07 Dose: 100 mls/hr Lorazepam (Lorazepam 2 Mg/Ml Vial) 2 - 20 mg IVP Q15M PRN; Protocol PRN Reason: RASS > 0 Last Admin: 08/08/22 12:05 Dose: 2 mg Nicotine (Nicotine 14 Mg Patch) 1 patch TOP DAILY PRN PRN Reason: smoking cessation Ondansetron HCl (Ondansetron 4 Mg/2 Ml Vial) 4 mg IVP Q6HR PRN PRN Reason: Nausea / Vomiting Polyethylene Glycol (Polyethylene Glycol 3350 17 Gm Packet) 17 gm PO DAILY [facility] Last Admin: 08/08/22 08:37 Dose: 17 gm Multivit/Folic Acid/Iron ( Vitamin Tablet) 1 tab PO DAILYWM [facility] Last Admin: 08/08/22 12:04 Dose: 1 tab Prochlorperazine Edisylate (Prochlorperazine 10 Mg/2 Ml Vial) 10 mg IVP Q6HR PRN PRN Reason: Nausea / Vomiting Senna (Senna 8.6 Mg Tablet) 8.6 - 17.2 mg PO DAILY [facility] Last Admin: 08/08/22 08:36 Dose: 8.6 mg Sodium Chloride (Sodium Chloride Flush 0.9% 10 Ml Syringe) 10 ml IVP 0100,0900,1700 [facility] Last Admin: 08/08/22 08:38 Dose: 10 ml Sodium Chloride (Sodium Chloride Flush 0.9% 10 Ml Syringe) 10 ml IVP PRN PRN PRN Reason: NEEDED PER PROVIDER ORDERS Sodium Chloride (Sodium Chloride 1 Gm Tablet) 1 gm PO DAILY [facility] Last Admin: 08/08/22 08:36 Dose: 1 gm Thiamine HCl (Thiamine 100 Mg Tablet) 100 mg PO DAILY [facility] Last Admin: 08/08/22 12:04 Dose: 100 mg No Known Home Medications 12/18/20 Objective - Vital Signs/Intake & Output Reviewed Vital Signs: Yes Vital Signs: Vital Signs x48h Temp Pulse Resp BP Pulse Ox O2 Flow Rate 08/08/22 12:37 37.3 C 08/08/22 12:00 122 H 23 142/90 H 94 2 08/08/22 11:00 121 H 21 131/82 H 97 08/08/22 10:00 128 H 17 126/72 94 2 08/08/22 09:00 127 H 27 H 130/88 H 95 2 08/08/22 08:00 37.0 C 125 H 16 130/90 H 92 2 08/08/22 07:00 127 H 23 132/93 H 93 2 08/08/22 06:57 2 08/08/22 06:11 125 H 20 125/86 H 95 2 Intake & Output: Intake & Output 08/05/22 08/06/22 08/07/22 08/08/22 23:59 23:59 23:59 23:59 Intake Total 2200 2041.733 Output Total 350 Balance 2200 1691.733 - Objective General Appearance: positive: Lethargic (Patient was fatigued and difficult to arouse. Possibly exacerbated by ativan.) Eyes Bilateral: positive: Normal inspection ENT: positive: ENT inspection nml Neck: positive: Nml inspection, Thyroid nml, No JVD Respiratory: positive: Chest non-tender, Other (Decreased breath sounds in right posterior.) Cardiovascular: positive: Tachycardia (Patient consistently over 120bpm during exam.) Abdomen: positive: Non-tender, Hepatomegaly Back: positive: Nml inspection Skin: positive: No rash, Warm, Other (Jaundiced.) Extremities: positive: Non-tender, Nml appearance, No pedal edema Neurologic/Psychiatric: positive: Other (Patient difficult to arouse and likely confused.) - Lab Results Fish Bones: 08/08/22 10:02 08/08/22 10:02 Other Labs: Lab Results x24hrs 08/08/22 08/08/22 08/08/22 Range/Units 10:02 10:02 10:02 WBC (4.8-10.8) x10^3/uL RBC (4.70-6.10) 10^6/uL Hgb 7.3 L (14.0-18.0) g/dL Hct 20.4 L (42.0-52.0) % MCV (80.0-94.0) fL MCH (27.0-31.0) pg MCHC (32.0-36.0) g/dL RDW (12.0-15.0) % Plt Count (130-450) 10^3/uL MPV (7.4-11.4) fL Neut # (Auto) Lymph # (Auto) [place] # (Auto) Eos # (Auto) Baso # (Auto) Absolute Nucleated RBC Total Counted Band Neuts % (Manual) (0 - 10) % Abnorm Lymph % (Manual) % Metamyelocytes % ( - 0) % Myelocytes % ( - 0) % Nucleated RBC % Neutrophils # (Manual) (1.5-6.6) 10^3/uL Lymphocytes # (Manual) (1.5-3.5) 10^3/uL Monocytes # (Manual) (0.0-1.0) 10^3/uL Eosinophils # (Manual) (0-0.7) 10^3/uL Basophils # (Manual) (0-0.1) 10^3/uL Nucleated RBCs % Differential Comment WBC Morphology (NORMAL) Platelet Estimate (NORMAL) Platelet Morphology (NORMAL) RBC Morph Micro Appear (NORMAL) PT (9.9-12.6) secs INR (0.8-1.2) VBG pH 7.473 H (7.31-7.41) Ionized Calcium 0.94 L (1.15-1.33) mmol/L Sodium (135-145) mmol/L Potassium (3.5-5.0) mmol/L Chloride (101-111) mmol/L Carbon Dioxide (21-32) mmol/L Anion Gap (6-13) BUN (6-20) mg/dL Creatinine (0.6-1.2) mg/dL Estimated GFR (MDRD) (>89) Glucose (70-100) mg/dL Calcium (8.5-10.3) mg/dL Phosphorus (2.5-4.6) mg/dL Magnesium 2.0 (1.7-2.8) mg/dL Total Bilirubin (0.2-1.0) mg/dL AST (10-42) IU/L ALT (10-60) IU/L Alkaline Phosphatase (42-121) IU/L Ammonia (7-35) umol/L Total Protein (6.7-8.2) g/dL Albumin (3.2-5.5) g/dL Globulin (2.1-4.2) g/dL Albumin/Globulin Ratio (1.0-2.2) Lipase (22-51) U/L Procalcitonin (<0.5) ng/mL Urine Color Urine Clarity (CLEAR) Urine pH (5.0-7.5) PH Ur Specific [place] (1.002-1.030) Urine Protein (NEGATIVE) mg/dL Urine Glucose (UA) (NEGATIVE) mg/dL Urine Ketones (NEGATIVE) mg/dL Urine Occult Blood (NEGATIVE) Urine Nitrite (NEGATIVE) Urine Bilirubin (NEGATIVE) Urine Urobilinogen (NORMAL) E.U./dL Ur Leukocyte Esterase (NEGATIVE) Urine RBC (0-5) /HPF Urine WBC (0-3) /HPF Ur Squamous Epith Cells (<= Few) Urine Bacteria (None Seen) /HPF Urine Casts /LPF Urine Mucus Ur Microscopic Review Urine Culture Comments Nasal Adenovirus (PCR) Nasal B. parapertussis DNA (PCR) Nasal Coronavir 229E PCR Nasal Coronavir HKU1 PCR Nasal Coronavir NL63 PCR Nasal Coronavir OC43 PCR Nasal Enterovir/Rhinovir PCR Nasal Influenza B PCR Nasal Influenza A PCR Nasal Parainfluen 1 PCR Nasal Parainfluen 2 PCR Nasal Parainfluen 3 PCR Nasal Parainfluen 4 PCR Nasal RSV (PCR) Nasal Screen MRSA (PCR) (NEGATIVE) Nasal B.pertussis DNA PCR Nasal C.pneumoniae (PCR) Asaf Human Metapneumo PCR Nasal M.pneumoniae (PCR) Nasal SARS-CoV-2 (PCR) Ethyl Alcohol mg/dL Blood Type Antibody Screen 08/08/22 08/08/22 08/08/22 Range/Units 10:02 04:23 04:23 WBC (4.8-10.8) x10^3/uL RBC (4.70-6.10) 10^6/uL Hgb (14.0-18.0) g/dL Hct (42.0-52.0) % MCV (80.0-94.0) fL MCH (27.0-31.0) pg MCHC (32.0-36.0) g/dL RDW (12.0-15.0) % Plt Count (130-450) 10^3/uL MPV (7.4-11.4) fL Neut # (Auto) Lymph # (Auto) [place] # (Auto) Eos # (Auto) Baso # (Auto) Absolute Nucleated RBC Total Counted Band Neuts % (Manual) (0 - 10) % Abnorm Lymph % (Manual) % Metamyelocytes % ( - 0) % Myelocytes % ( - 0) % Nucleated RBC % Neutrophils # (Manual) (1.5-6.6) 10^3/uL Lymphocytes # (Manual) (1.5-3.5) 10^3/uL Monocytes # (Manual) (0.0-1.0) 10^3/uL Eosinophils # (Manual) (0-0.7) 10^3/uL Basophils # (Manual) (0-0.1) 10^3/uL Nucleated RBCs % Differential Comment WBC Morphology (NORMAL) Platelet Estimate (NORMAL) Platelet Morphology (NORMAL) RBC Morph Micro Appear (NORMAL) PT (9.9-12.6) secs INR (0.8-1.2) VBG pH 7.494 H (7.31-7.41) Ionized Calcium 0.86 L (1.15-1.33) mmol/L Sodium 125 L 124 L (135-145) mmol/L Potassium 2.8 L 2.6 L (3.5-5.0) mmol/L Chloride 86 L 81 L (101-111) mmol/L Carbon Dioxide 25 24 (21-32) mmol/L Anion Gap 14.0 H 19.0 H (6-13) BUN 8 9 (6-20) mg/dL Creatinine 0.4 L 0.5 L (0.6-1.2) mg/dL Estimated GFR (MDRD) 238 184 (>89) Glucose 135 H 135 H (70-100) mg/dL Calcium 7.6 L 7.1 L (8.5-10.3) mg/dL Phosphorus < 1.0 L* (2.5-4.6) mg/dL Magnesium 1.5 L (1.7-2.8) mg/dL Total Bilirubin 12.2 H (0.2-1.0) mg/dL AST 233 H (10-42) IU/L ALT 93 H (10-60) IU/L Alkaline Phosphatase 437 H (42-121) IU/L Ammonia (7-35) umol/L Total Protein 5.9 L (6.7-8.2) g/dL Albumin 1.7 L (3.2-5.5) g/dL Globulin 4.2 (2.1-4.2) g/dL Albumin/Globulin Ratio 0.4 L (1.0-2.2) Lipase (22-51) U/L Procalcitonin (<0.5) ng/mL Urine Color Urine Clarity (CLEAR) Urine pH (5.0-7.5) PH Ur Specific [place] (1.002-1.030) Urine Protein (NEGATIVE) mg/dL Urine Glucose (UA) (NEGATIVE) mg/dL Urine Ketones (NEGATIVE) mg/dL Urine Occult Blood (NEGATIVE) Urine Nitrite (NEGATIVE) Urine Bilirubin (NEGATIVE) Urine Urobilinogen (NORMAL) E.U./dL Ur Leukocyte Esterase (NEGATIVE) Urine RBC (0-5) /HPF Urine WBC (0-3) /HPF Ur Squamous Epith Cells (<= Few) Urine Bacteria (None Seen) /HPF Urine Casts /LPF Urine Mucus Ur Microscopic Review Urine Culture Comments Nasal Adenovirus (PCR) Nasal B. parapertussis DNA (PCR) Nasal Coronavir 229E PCR Nasal Coronavir HKU1 PCR Nasal Coronavir NL63 PCR Nasal Coronavir OC43 PCR Nasal Enterovir/Rhinovir PCR Nasal Influenza B PCR Nasal Influenza A PCR Nasal Parainfluen 1 PCR Nasal Parainfluen 2 PCR Nasal Parainfluen 3 PCR Nasal Parainfluen 4 PCR Nasal RSV (PCR) Nasal Screen MRSA (PCR) (NEGATIVE) Nasal B.pertussis DNA PCR Nasal C.pneumoniae (PCR) Asaf Human Metapneumo PCR Nasal M.pneumoniae (PCR) Nasal SARS-CoV-2 (PCR) Ethyl Alcohol mg/dL Blood Type Antibody Screen 08/08/22 08/07/22 08/07/22 Range/Units 04:23 23:35 22:45 WBC 16.9 H (4.8-10.8) x10^3/uL RBC 2.13 L (4.70-6.10) 10^6/uL Hgb 7.5 L (14.0-18.0) g/dL Hct 21.0 L (42.0-52.0) % MCV 98.6 H (80.0-94.0) fL MCH 35.2 H (27.0-31.0) pg MCHC 35.7 (32.0-36.0) g/dL RDW 15.9 H (12.0-15.0) % Plt Count 70 L (130-450) 10^3/uL MPV 11.3 (7.4-11.4) fL Neut # (Auto) Not Reportable Lymph # (Auto) Not Reportable [place] # (Auto) Not Reportable Eos # (Auto) Not Reportable Baso # (Auto) Not Reportable Absolute Nucleated RBC Not Reportable Total Counted 100 Band Neuts % (Manual) 1 (0 - 10) % Abnorm Lymph % (Manual) 0 % Metamyelocytes % 1 H ( - 0) % Myelocytes % 2 H ( - 0) % Nucleated RBC % Not Reportable Neutrophils # (Manual) 13.9 H (1.5-6.6) 10^3/uL Lymphocytes # (Manual) 2.2 (1.5-3.5) 10^3/uL Monocytes # (Manual) 0.2 (0.0-1.0) 10^3/uL Eosinophils # (Manual) 0.2 (0-0.7) 10^3/uL Basophils # (Manual) 0.0 (0-0.1) 10^3/uL Nucleated RBCs 1 % Differential Comment MANUAL DIFFERENTIAL WBC Morphology NORMAL APPEARANCE (NORMAL) Platelet Estimate DECREASED (<130,000) (NORMAL) Platelet Morphology NORMAL APPEARANCE (NORMAL) RBC Morph Micro Appear 1+ STOMATOCYTES (NORMAL) PT (9.9-12.6) secs INR (0.8-1.2) VBG pH (7.31-7.41) Ionized Calcium (1.15-1.33) mmol/L Sodium (135-145) mmol/L Potassium (3.5-5.0) mmol/L Chloride (101-111) mmol/L Carbon Dioxide (21-32) mmol/L Anion Gap (6-13) BUN (6-20) mg/dL Creatinine (0.6-1.2) mg/dL Estimated GFR (MDRD) (>89) Glucose (70-100) mg/dL Calcium (8.5-10.3) mg/dL Phosphorus (2.5-4.6) mg/dL Magnesium (1.7-2.8) mg/dL Total Bilirubin (0.2-1.0) mg/dL AST (10-42) IU/L ALT (10-60) IU/L Alkaline Phosphatase (42-121) IU/L Ammonia (7-35) umol/L Total Protein (6.7-8.2) g/dL Albumin (3.2-5.5) g/dL Globulin (2.1-4.2) g/dL Albumin/Globulin Ratio (1.0-2.2) Lipase (22-51) U/L Procalcitonin 1.30 H (<0.5) ng/mL Urine Color Urine Clarity (CLEAR) Urine pH (5.0-7.5) PH Ur Specific [place] (1.002-1.030) Urine Protein (NEGATIVE) mg/dL Urine Glucose (UA) (NEGATIVE) mg/dL Urine Ketones (NEGATIVE) mg/dL Urine Occult Blood (NEGATIVE) Urine Nitrite (NEGATIVE) Urine Bilirubin (NEGATIVE) Urine Urobilinogen (NORMAL) E.U./dL Ur Leukocyte Esterase (NEGATIVE) Urine RBC (0-5) /HPF Urine WBC (0-3) /HPF Ur Squamous Epith Cells (<= Few) Urine Bacteria (None Seen) /HPF Urine Casts /LPF Urine Mucus Ur Microscopic Review Urine Culture Comments Nasal Adenovirus (PCR) Nasal B. parapertussis DNA (PCR) Nasal Coronavir 229E PCR Nasal Coronavir HKU1 PCR Nasal Coronavir NL63 PCR Nasal Coronavir OC43 PCR Nasal Enterovir/Rhinovir PCR Nasal Influenza B PCR Nasal Influenza A PCR Nasal Parainfluen 1 PCR Nasal Parainfluen 2 PCR Nasal Parainfluen 3 PCR Nasal Parainfluen 4 PCR Nasal RSV (PCR) Nasal Screen MRSA (PCR) NEGATIVE (NEGATIVE) Nasal B.pertussis DNA PCR Nasal C.pneumoniae (PCR) Asaf Human Metapneumo PCR Nasal M.pneumoniae (PCR) Nasal SARS-CoV-2 (PCR) Ethyl Alcohol mg/dL Blood Type Antibody Screen 08/07/22 08/07/22 08/07/22 Range/Units 22:45 22:45 22:45 WBC (4.8-10.8) x10^3/uL RBC (4.70-6.10) 10^6/uL Hgb (14.0-18.0) g/dL Hct (42.0-52.0) % MCV (80.0-94.0) fL MCH (27.0-31.0) pg MCHC (32.0-36.0) g/dL RDW (12.0-15.0) % Plt Count (130-450) 10^3/uL MPV (7.4-11.4) fL Neut # (Auto) Lymph # (Auto) [place] # (Auto) Eos # (Auto) Baso # (Auto) Absolute Nucleated RBC Total Counted Band Neuts % (Manual) (0 - 10) % Abnorm Lymph % (Manual) % Metamyelocytes % ( - 0) % Myelocytes % ( - 0) % Nucleated RBC % Neutrophils # (Manual) (1.5-6.6) 10^3/uL Lymphocytes # (Manual) (1.5-3.5) 10^3/uL Monocytes # (Manual) (0.0-1.0) 10^3/uL Eosinophils # (Manual) (0-0.7) 10^3/uL Basophils # (Manual) (0-0.1) 10^3/uL Nucleated RBCs % Differential Comment WBC Morphology (NORMAL) Platelet Estimate (NORMAL) Platelet Morphology (NORMAL) RBC Morph Micro Appear (NORMAL) PT 12.2 (9.9-12.6) secs INR 1.1 (0.8-1.2) VBG pH (7.31-7.41) Ionized Calcium (1.15-1.33) mmol/L Sodium (135-145) mmol/L Potassium (3.5-5.0) mmol/L Chloride (101-111) mmol/L Carbon Dioxide (21-32) mmol/L Anion Gap (6-13) BUN (6-20) mg/dL Creatinine (0.6-1.2) mg/dL Estimated GFR (MDRD) (>89) Glucose (70-100) mg/dL Calcium (8.5-10.3) mg/dL Phosphorus (2.5-4.6) mg/dL Magnesium (1.7-2.8) mg/dL Total Bilirubin (0.2-1.0) mg/dL AST (10-42) IU/L ALT (10-60) IU/L Alkaline Phosphatase (42-121) IU/L Ammonia (7-35) umol/L Total Protein (6.7-8.2) g/dL Albumin (3.2-5.5) g/dL Globulin (2.1-4.2) g/dL Albumin/Globulin Ratio (1.0-2.2) Lipase 47 (22-51) U/L Procalcitonin (<0.5) ng/mL Urine Color Urine Clarity (CLEAR) Urine pH (5.0-7.5) PH Ur Specific [place] (1.002-1.030) Urine Protein (NEGATIVE) mg/dL Urine Glucose (UA) (NEGATIVE) mg/dL Urine Ketones (NEGATIVE) mg/dL Urine Occult Blood (NEGATIVE) Urine Nitrite (NEGATIVE) Urine Bilirubin (NEGATIVE) Urine Urobilinogen (NORMAL) E.U./dL Ur Leukocyte Esterase (NEGATIVE) Urine RBC (0-5) /HPF Urine WBC (0-3) /HPF Ur Squamous Epith Cells (<= Few) Urine Bacteria (None Seen) /HPF Urine Casts /LPF Urine Mucus Ur Microscopic Review Urine Culture Comments Nasal Adenovirus (PCR) Nasal B. parapertussis DNA (PCR) Nasal Coronavir 229E PCR Nasal Coronavir HKU1 PCR Nasal Coronavir NL63 PCR Nasal Coronavir OC43 PCR Nasal Enterovir/Rhinovir PCR Nasal Influenza B PCR Nasal Influenza A PCR Nasal Parainfluen 1 PCR Nasal Parainfluen 2 PCR Nasal Parainfluen 3 PCR Nasal Parainfluen 4 PCR Nasal RSV (PCR) Nasal Screen MRSA (PCR) (NEGATIVE) Nasal B.pertussis DNA PCR Nasal C.pneumoniae (PCR) Asaf Human Metapneumo PCR Nasal M.pneumoniae (PCR) Nasal SARS-CoV-2 (PCR) Ethyl Alcohol mg/dL Blood Type O POSITIVE Antibody Screen NEGATIVE 08/07/22 08/07/22 08/07/22 Range/Units 17:15 16:15 15:54 WBC (4.8-10.8) x10^3/uL RBC (4.70-6.10) 10^6/uL Hgb (14.0-18.0) g/dL Hct (42.0-52.0) % MCV (80.0-94.0) fL MCH (27.0-31.0) pg MCHC (32.0-36.0) g/dL RDW (12.0-15.0) % Plt Count (130-450) 10^3/uL MPV (7.4-11.4) fL Neut # (Auto) Lymph # (Auto) [place] # (Auto) Eos # (Auto) Baso # (Auto) Absolute Nucleated RBC Total Counted Band Neuts % (Manual) (0 - 10) % Abnorm Lymph % (Manual) % Metamyelocytes % ( - 0) % Myelocytes % ( - 0) % Nucleated RBC % Neutrophils # (Manual) (1.5-6.6) 10^3/uL Lymphocytes # (Manual) (1.5-3.5) 10^3/uL Monocytes # (Manual) (0.0-1.0) 10^3/uL Eosinophils # (Manual) (0-0.7) 10^3/uL Basophils # (Manual) (0-0.1) 10^3/uL Nucleated RBCs % Differential Comment WBC Morphology (NORMAL) Platelet Estimate (NORMAL) Platelet Morphology (NORMAL) RBC Morph Micro Appear (NORMAL) PT (9.9-12.6) secs INR (0.8-1.2) VBG pH (7.31-7.41) Ionized Calcium (1.15-1.33) mmol/L Sodium 120 L* (135-145) mmol/L Potassium 2.3 L* (3.5-5.0) mmol/L Chloride 72 L* (101-111) mmol/L Carbon Dioxide 24 (21-32) mmol/L Anion Gap 24.0 H (6-13) BUN 8 (6-20) mg/dL Creatinine 0.3 L (0.6-1.2) mg/dL Estimated GFR (MDRD) 332 (>89) Glucose 178 H (70-100) mg/dL Calcium 7.7 L (8.5-10.3) mg/dL Phosphorus (2.5-4.6) mg/dL Magnesium 1.8 (1.7-2.8) mg/dL Total Bilirubin 12.5 H (0.2-1.0) mg/dL AST 273 H (10-42) IU/L ALT 107 H (10-60) IU/L Alkaline Phosphatase 556 H (42-121) IU/L Ammonia (7-35) umol/L Total Protein 6.6 L (6.7-8.2) g/dL Albumin 2.0 L (3.2-5.5) g/dL Globulin 4.6 H (2.1-4.2) g/dL Albumin/Globulin Ratio 0.4 L (1.0-2.2) Lipase 58 H (22-51) U/L Procalcitonin (<0.5) ng/mL Urine Color DARK YELLOW Urine Clarity HAZY (CLEAR) Urine pH 6.5 (5.0-7.5) PH Ur Specific [place] 1.020 (1.002-1.030) Urine Protein 100 H (NEGATIVE) mg/dL Urine Glucose (UA) 100 H (NEGATIVE) mg/dL Urine Ketones TRACE (NEGATIVE) mg/dL Urine Occult Blood NEGATIVE (NEGATIVE) Urine Nitrite (NEGATIVE) Urine Bilirubin LARGE H (NEGATIVE) Urine Urobilinogen (NORMAL) E.U./dL Ur Leukocyte Esterase NEGATIVE (NEGATIVE) Urine RBC 0-5 (0-5) /HPF Urine WBC 4-5 (0-3) /HPF Ur Squamous Epith Cells NONE SEEN (<= Few) Urine Bacteria Rare (None Seen) /HPF Urine Casts 3-5 Hyaline Casts /LPF Urine Mucus Few Strands Ur Microscopic Review INDICATED Urine Culture Comments NOT INDICATED Nasal Adenovirus (PCR) NOT DETECTED Nasal B. parapertussis DNA (PCR) NOT DETECTED Nasal Coronavir 229E PCR NOT DETECTED Nasal Coronavir HKU1 PCR NOT DETECTED Nasal Coronavir NL63 PCR NOT DETECTED Nasal Coronavir OC43 PCR NOT DETECTED Nasal Enterovir/Rhinovir PCR NOT DETECTED Nasal Influenza B PCR NOT DETECTED Nasal Influenza A PCR NOT DETECTED Nasal Parainfluen 1 PCR NOT DETECTED Nasal Parainfluen 2 PCR NOT DETECTED Nasal Parainfluen 3 PCR NOT DETECTED Nasal Parainfluen 4 PCR NOT DETECTED Nasal RSV (PCR) NOT DETECTED Nasal Screen MRSA (PCR) (NEGATIVE) Nasal B.pertussis DNA PCR NOT DETECTED Nasal C.pneumoniae (PCR) NOT DETECTED Asaf Human Metapneumo PCR NOT DETECTED Nasal M.pneumoniae (PCR) NOT DETECTED Nasal SARS-CoV-2 (PCR) NOT DETECTED Ethyl Alcohol mg/dL Blood Type Antibody Screen 08/07/22 08/07/22 08/07/22 Range/Units 15:37 15:37 15:37 WBC 18.4 H (4.8-10.8) x10^3/uL RBC 2.73 L (4.70-6.10) 10^6/uL Hgb 9.7 L (14.0-18.0) g/dL Hct 26.6 L (42.0-52.0) % MCV 97.4 H (80.0-94.0) fL MCH 35.5 H (27.0-31.0) pg MCHC 36.5 H (32.0-36.0) g/dL RDW 15.5 H (12.0-15.0) % Plt Count 109 L (130-450) 10^3/uL MPV 11.2 (7.4-11.4) fL Neut # (Auto) Not Reportable Lymph # (Auto) Not Reportable [place] # (Auto) Not Reportable Eos # (Auto) Not Reportable Baso # (Auto) Not Reportable Absolute Nucleated RBC Not Reportable Total Counted 100 Band Neuts % (Manual) 1 (0 - 10) % Abnorm Lymph % (Manual) 0 % Metamyelocytes % 1 H ( - 0) % Myelocytes % 3 H ( - 0) % Nucleated RBC % Not Reportable Neutrophils # (Manual) 15.3 H (1.5-6.6) 10^3/uL Lymphocytes # (Manual) 2.2 (1.5-3.5) 10^3/uL Monocytes # (Manual) 0.2 (0.0-1.0) 10^3/uL Eosinophils # (Manual) 0.0 (0-0.7) 10^3/uL Basophils # (Manual) 0.0 (0-0.1) 10^3/uL Nucleated RBCs 1 % Differential Comment MANUAL DIFFERENTIAL WBC Morphology (NORMAL) Platelet Estimate DECREASED (<130,000) (NORMAL) Platelet Morphology NORMAL APPEARANCE (NORMAL) RBC Morph Micro Appear 1+ POLYCHROMASIA (NORMAL) PT (9.9-12.6) secs INR (0.8-1.2) VBG pH (7.31-7.41) Ionized Calcium (1.15-1.33) mmol/L Sodium (135-145) mmol/L Potassium (3.5-5.0) mmol/L Chloride (101-111) mmol/L Carbon Dioxide (21-32) mmol/L Anion Gap (6-13) BUN (6-20) mg/dL Creatinine (0.6-1.2) mg/dL Estimated GFR (MDRD) (>89) Glucose (70-100) mg/dL Calcium (8.5-10.3) mg/dL Phosphorus (2.5-4.6) mg/dL Magnesium (1.7-2.8) mg/dL Total Bilirubin (0.2-1.0) mg/dL AST (10-42) IU/L ALT (10-60) IU/L Alkaline Phosphatase (42-121) IU/L Ammonia 63.2 H (7-35) umol/L Total Protein (6.7-8.2) g/dL Albumin (3.2-5.5) g/dL Globulin (2.1-4.2) g/dL Albumin/Globulin Ratio (1.0-2.2) Lipase (22-51) U/L Procalcitonin (<0.5) ng/mL Urine Color Urine Clarity (CLEAR) Urine pH (5.0-7.5) PH Ur Specific [place] (1.002-1.030) Urine Protein (NEGATIVE) mg/dL Urine Glucose (UA) (NEGATIVE) mg/dL Urine Ketones (NEGATIVE) mg/dL Urine Occult Blood (NEGATIVE) Urine Nitrite (NEGATIVE) Urine Bilirubin (NEGATIVE) Urine Urobilinogen (NORMAL) E.U./dL Ur Leukocyte Esterase (NEGATIVE) Urine RBC (0-5) /HPF Urine WBC (0-3) /HPF Ur Squamous Epith Cells (<= Few) Urine Bacteria (None Seen) /HPF Urine Casts /LPF Urine Mucus Ur Microscopic Review Urine Culture Comments Nasal Adenovirus (PCR) Nasal B. parapertussis DNA (PCR) Nasal Coronavir 229E PCR Nasal Coronavir HKU1 PCR Nasal Coronavir NL63 PCR Nasal Coronavir OC43 PCR Nasal Enterovir/Rhinovir PCR Nasal Influenza B PCR Nasal Influenza A PCR Nasal Parainfluen 1 PCR Nasal Parainfluen 2 PCR Nasal Parainfluen 3 PCR Nasal Parainfluen 4 PCR Nasal RSV (PCR) Nasal Screen MRSA (PCR) (NEGATIVE) Nasal B.pertussis DNA PCR Nasal C.pneumoniae (PCR) Asaf Human Metapneumo PCR Nasal M.pneumoniae (PCR) Nasal SARS-CoV-2 (PCR) Ethyl Alcohol 121.5 mg/dL Blood Type Antibody Screen ABX Reporting Has patient been on IV antibiotics over the past 48 hours?: Yes Assessment/Plan - Problem List (1) Alcoholic hepatitis Impression: Patient presents with elevated LFTs and bilirubin. Patient is jaundiced and is difficult to arouse. Patient's chronic use of alcohol is believed to be the main culprit of patient condition. Hepatomegaly was noted on physical exam. Patient MELD score was calculated at 19.6% per [facility]. Hepatatis panel have been order to rule out Hep A,B,C,D. Plan Stop all use of alcohol Strongly insist on inpatient rehab for alcohol Continue IV fluids Continue to monitor LFTs, PT, and CBC every 6 hours. Order Hepatitis panels Qualifiers: Ascites presence: without ascites Qualified Code(s): K70.10 - Alcoholic hepatitis without ascites (2) Alcohol withdrawal Impression: Patient has essential tremor at rest. Patient is jaundiced and has a long unspecified history of alcohol use. Patient's mouth is full of dried blood, highly suggestive of seizure. Patients given benzos to alleviate tremors. Plan Continue use of ativan to alleviate symptoms Continue IV fluids. Strongly encourage inpatient rehab. Monitor patient closely for seizures and need for intubation. Qualifiers: Complication of substance-induced condition: with unspecified complication Qualified Code(s): F10.939 - Alcohol use, unspecified with withdrawal, unspecified (3) Anemia Impression: Patient is fatigued and not well appearing. Patients labs should decreased hemoglobin and hematocrit since admission. Patients increased MCV is likely due to alcohol abuse but is also suggestive of possible GI bleed. Patient to remain in ICU under close supervision. Plan Continue monitoring patients CBC, CMP, and PT every 6 hours. Continue IV fluids including banana bag. Qualifiers: Folate deficiency anemia type: drug-induced (4) Hypokalemia Impression: Patient's hypokalemia likely from vomiting. Patient's potassium level has been increasing since admission due to IV potassium. Plan Continue with IV potassium until within normal range Continue to monitor patients heart rate and pattern. (5) Hyponatremia Impression: Patient's sodium has been increasing since admission. Patient still seems confused, but this is likely due to ativan. Plan Continue on IV fluids Continue to monitor patients arousal level and vitals. 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 Patient will be encourage to stop smoking and nicotine will be offered if patient needs it. Plan Encourage cessation of smoking Provide nicotine patches prn. (7) Constipation Impression: Patient does not know when his last bowel movement was. Lactolose may be considered if patient has no produced a bowel movement in the next couple of days Plan Monitor patient bowel movements Consider lactolose if patient has not produce a bowel movement in 1-2 days. Qualifiers: Constipation type: other constipation type Qualified Code(s): K59.09 - Other constipation
[2022-08-08 18:30] LABS: VBG PH 7.459 (7.31-7.41)
[2022-08-08] MEDS: PANTOPRAZOLE 40 MG TABLET PO SCH (18:35)
[2022-08-08 18:38] LABS: PHOSPHORUS 1.5 mg/dL (2.5-4.6)
[2022-08-08 18:40] LABS: POTASSIUM 2.5 mmol/L (3.5-5.0)
[2022-08-08] MEDS ORDERED: POTASSIUM PHOSPHATE 21 MMOL in SODIUM CHLORIDE 0.9% 250 ML IV ONE (18:55)
[2022-08-08] MEDS: HYDROGEN PEROXIDE 3% 473 ML BOTTLE TOP SCH (23:18)
[2022-08-08] MEDS: CALCIUM CARBONATE CHEW 500 MG TABLET PO SCH (23:18)
[2022-08-08] MEDS: cefTRIAXone 2 GM in SODIUM CHLORIDE 0.9% MINIBAG 100 ML IV SCH (23:35)
[2022-08-09] MEDS: SODIUM CHLORIDE 0.9% 500 ML IV PRN (00:17)
[2022-08-09] MEDS: HYDROmorphone 0.5 MG/0.5 ML SYRINGE IVP PRN ×4 (02:22→15:25)
[2022-08-09] MEDS: LORazepam 2 MG/ML VIAL IVP PRN ×6 (02:26→21:20)
[2022-08-09] MEDS: CALCIUM CARBONATE CHEW 500 MG TABLET PO SCH (02:28)
[2022-08-09] MEDS: NICOTINE 14 MG PATCH TOP PRN (02:34)
[2022-08-09] MEDS: SODIUM CHLORIDE FLUSH 0.9% 10 ML SYRINGE IVP SCH ×3 (02:40→15:07)
[2022-08-09 04:55] LABS: CALCIUM, IONIZED 0.96 mmol/L (1.15-1.33); VBG PH 7.541 (7.31-7.41)
[2022-08-09 04:59] LABS: BASOPHILS % (AUTO) 0.4 %; EOSINOPHILS % (AUTO) 2.6 %; LYMPHOCYTES % (AUTO) 12.9 %; MEAN CORPUSCULAR HEMOGLOBIN 35.1 pg (27.0-31.0); MEAN CORPUSCULAR HGB CONC 34.9 g/dL (32.0-36.0); MEAN CORPUSCULAR VOLUME 100.5 fL (80.0-94.0); MEAN PLATELET VOLUME 12.4 fL (7.4-11.4); MONOCYTES % (AUTO) 3.6 %; NEUTROPHILS % (AUTO) 68.4 %; PLT - PLATELET COUNT 44 10^3/uL (130-450); RED BLOOD COUNT 1.94 10^6/uL (4.70-6.10); RED CELL DISTRIBUTION WIDTH 16.5 % (12.0-15.0)
[2022-08-09 05:03] LABS: HCT - HEMATOCRIT 19.5 % (42.0-52.0); HGB - HEMOGLOBIN 6.8 g/dL (14.0-18.0)
[2022-08-09 05:04] LABS: ABNORMAL LYMPHS % (MANUAL) 0 %
[2022-08-09 05:27] LABS: ALBUMIN 1.6 g/dL (3.2-5.5); ALBUMIN/GLOBULIN RATIO 0.4 (1.0-2.2); BILIRUBIN,TOTAL 12.4 mg/dL (0.2-1.0); CALCIUM 7.4 mg/dL (8.5-10.3); CREATININE 0.3 mg/dL (0.6-1.2); POTASSIUM 2.6 mmol/L (3.5-5.0); TOTAL PROTEIN 5.4 g/dL (6.7-8.2)
[2022-08-09 05:52] LABS: BAND NEUTROPHILS % (MANUAL) 8 %; DIFFERENTIAL COMMENT MANUAL DIFFERENTIAL; EOSINOPHILS # (MANUAL) 0.9 10^3/uL (0-0.7); LYMPHOCYTES # (MANUAL) 2.7 10^3/uL (1.5-3.5); LYMPHOCYTES % (MANUAL) 16 %; METAMYELOCYTES % (MANUAL) 3 %; MONOCYTES # (MANUAL) 0.2 10^3/uL (0.0-1.0); MYELOCYTES % (MANUAL) 3 %; NEUTROPHILS # (MANUAL) 12.2 10^3/uL (1.5-6.6); NUCLEATED RBC (MANUAL) 2 %; PLATELET ESTIMATE, MANUAL DECREASED (<130,000) (NORMAL)
[2022-08-09 05:54] LABS: MAGNESIUM 1.7 mg/dL (1.7-2.8); PHOSPHORUS 1.5 mg/dL (2.5-4.6)
[2022-08-09] MEDS: POTASSIUM CHLOR 10 MEQ/100 ML 10 MEQ/100 ML BAG IV SCH ×9 (06:05→20:00)
[2022-08-09 06:10] LABS: HBsAG SCREEN Negative (Negative); HCV AB Non Reactive (Non Reactive); HEPATITIS B CORE IGM AB Negative (Negative)
[2022-08-09] MEDS: HYDROGEN PEROXIDE 3% 473 ML BOTTLE TOP SCH ×3 (06:10→21:23)
[2022-08-09] MEDS ORDERED: MAGNESIUM SULFATE 2 GRAM 2 GM/50 ML BAG IV ONE (06:50)
[2022-08-09] MEDS ORDERED: CALCIUM GLUCONATE IN NS 0.9% 2,000 MG/100 ML BAG IV ONE (07:13)
[2022-08-09] MEDS: PANTOPRAZOLE 40 MG TABLET PO SCH (07:34)
[2022-08-09] MEDS: PRENATAL VITAMIN TABLET PO SCH (08:23)
[2022-08-09] MEDS: DOCUSATE SODIUM 250 MG CAPSULE PO SCH (08:25)
[2022-08-09] MEDS: SENNA 8.6 MG TABLET PO SCH (08:26)
[2022-08-09] MEDS: THIAMINE 100 MG TABLET PO SCH (08:27)
[2022-08-09] MEDS: FAMOTIDINE 20 MG/2 ML VIAL IVP SCH ×2 (08:28→20:38)
[2022-08-09] MEDS: polyethylene glycoL 3350 17 GM PACKET PO SCH (08:28)
[2022-08-09] MEDS: LACTULOSE 10 GM /15 ML UDC PO SCH (08:40)
[2022-08-09] MEDS ORDERED: POTASSIUM PHOSPHATE 21 MMOL in SODIUM CHLORIDE 0.9% 250 ML IV ONE ×2 (09:00→22:31)
[2022-08-09 09:53] LABS: CALCIUM, IONIZED 1.03 mmol/L (1.15-1.33); VBG PH 7.496 (7.31-7.41)
[2022-08-09] MEDS ORDERED: CALCIUM CHLORIDE 1,000 MG in SODIUM CHLORIDE 0.9% 50 ML IV ONE (10:11)
[2022-08-09] MEDS: SODIUM CHLORIDE FLUSH 0.9% 10 ML SYRINGE IVP PRN ×3 (10:23→20:42)
[2022-08-09] MEDS ORDERED: CALCIUM GLUC 1,000MG/50ML-NACL 1,000 MG/50 ML BAG IV ONE ×3 (11:00→17:33)
[2022-08-09 11:12] LABS: HCT - HEMATOCRIT 22.5 % (42.0-52.0); HGB - HEMOGLOBIN 7.8 g/dL (14.0-18.0)
[2022-08-09 13:42] LABS: CALCIUM, IONIZED 1.05 mmol/L (1.15-1.33); VBG PH 7.454 (7.31-7.41)
--- NOTE | 2022-08-09 13:52 | PROVIDER PROGRESS NOTE ---
Subjective - Prog Note Date Prog Note Date: 08/09/22 Prog Note Time: 13:50 - Subjective Pt reports feeling: Improved (Patient has improved but only slightly. He is more alert during visit, however is still extremely fatigued and tremulous.) Subjective: Patient is a 42 year old male who is going through alcohol withdrawal. Patient is currently on his third day of admission and has shown slight improvement. Patient is responsive to verbal stimuli but is only able to stay awake for a short amount of time. Patient confirms abdominal pain and feeling fatigued. Patient denies chest pain, fever, and shortness of breath. Patient appears to be responding well to CIWA protocol and was given Ativan at 1023, as well as IV fluids and thiamine supplements PO. Patient's mouth was clean out by nursing staff and revealed a missing left lateral incisor. This may be the source of bleeding that was seen upon admission. No obvious signs of laceration to tongue were found, however, seizure monitoring should still continue. Patient was transfused at 0639 with 300 mL of leuocyte-reduced RBCs which raised Hgb from 6.8 to 7.8 and Hct from 19.5 to 22.5. Suggest that patients Hgb and Hct to remain in close monitoring and CBC to be drawn every 6 hours. Current Medications - Current Medications Current Medications: Active Medications Albuterol/Ipratropium (Ipratropium/Albuterol 3 Ml Neb) 3 ml INH Q4HR PRN PRN Reason: Wheezing Docusate Sodium (Docusate Sodium 250 Mg Capsule) 250 - 500 mg PO DAILY [facility] Last Admin: 08/09/22 08:25 Dose: 250 mg Famotidine (Famotidine 20 Mg/2 Ml Vial) 20 mg IVP BID [facility] Last Admin: 08/09/22 08:28 Dose: Not Given Hydrogen Peroxide/Benzyl Alcohol (Hydrogen Peroxide 3% 473 Ml Bottle) 5 ml TOP TID [facility] Stop: 08/10/22 14:01 Last Admin: 08/09/22 06:10 Dose: Not Given Hydromorphone HCl (Hydromorphone 0.5 Mg/0.5 Ml Syringe) 0.5 mg IVP Q2HR PRN PRN Reason: moderate pain Last Admin: 08/09/22 10:23 Dose: 0.5 mg Hydromorphone HCl (Hydromorphone 1 Mg/Ml Carpuject) 0.8 mg IVP Q2HR PRN PRN Reason: Severe Pain Last Admin: 08/08/22 17:25 Dose: 0.8 mg Ceftriaxone Sodium 2 gm/ (Sodium Chloride) 100 mls @ 200 mls/hr IV Q24H [facility] Last Infusion: 08/09/22 00:09 Dose: Infused Sodium Chloride (Normal Saline 0.9%) 500 mls @ 20 mls/hr IV Q24H PRN PRN Reason: TKO RATE Last Infusion: 08/09/22 12:26 Dose: 20 mls/hr Lactulose (Lactulose 10 Gm /15 Ml Udc) 10 gm PO DAILY [facility] Last Admin: 08/09/22 08:40 Dose: 10 gm Lorazepam (Lorazepam 2 Mg/Ml Vial) 2 - 20 mg IVP Q15M PRN; Protocol PRN Reason: RASS > 0 Last Admin: 08/09/22 10:23 Dose: 2 mg Nicotine (Nicotine 14 Mg Patch) 1 patch TOP DAILY PRN PRN Reason: smoking cessation Last Admin: 08/09/22 02:34 Dose: 1 patch Ondansetron HCl (Ondansetron 4 Mg/2 Ml Vial) 4 mg IVP Q6HR PRN PRN Reason: Nausea / Vomiting Pantoprazole Sodium (Pantoprazole 40 Mg Tablet) 40 mg PO QDAC [facility] Last Admin: 08/09/22 07:34 Dose: 40 mg Polyethylene Glycol (Polyethylene Glycol 3350 17 Gm Packet) 17 gm PO DAILY [facility] Last Admin: 08/09/22 08:28 Dose: 17 gm Multivit/Folic Acid/Iron ( Vitamin Tablet) 1 tab PO DAILYWM [facility] Last Admin: 08/09/22 08:23 Dose: 1 tab Prochlorperazine Edisylate (Prochlorperazine 10 Mg/2 Ml Vial) 10 mg IVP Q6HR PRN PRN Reason: Nausea / Vomiting Senna (Senna 8.6 Mg Tablet) 8.6 - 17.2 mg PO DAILY [facility] Last Admin: 08/09/22 08:26 Dose: 8.6 mg Sodium Chloride (Sodium Chloride Flush 0.9% 10 Ml Syringe) 10 ml IVP 0100,0900,1700 [facility] Last Admin: 08/09/22 08:27 Dose: 10 ml Sodium Chloride (Sodium Chloride Flush 0.9% 10 Ml Syringe) 10 ml IVP PRN PRN PRN Reason: NEEDED PER PROVIDER ORDERS Last Admin: 08/09/22 11:14 Dose: 10 ml Sodium Chloride (Sodium Chloride 1 Gm Tablet) 1 gm PO DAILY [facility] Last Admin: 08/08/22 08:36 Dose: 1 gm Thiamine HCl (Thiamine 100 Mg Tablet) 100 mg PO DAILY [facility] Last Admin: 08/09/22 08:27 Dose: 100 mg No Known Home Medications 12/18/20 Objective - Vital Signs/Intake & Output Reviewed Vital Signs: Yes Vital Signs: Vital Signs x48h Temp Pulse Resp BP Pulse Ox O2 Flow Rate 08/09/22 13:00 99 21 115/67 100 2 08/09/22 12:00 103 H 22 92/65 99 2 08/09/22 11:00 102 H 21 118/80 94 2 08/09/22 10:00 113 H 25 H 126/92 H 95 2 08/09/22 09:22 37.7 C 108 H 28 H 150/97 H 97 2 08/09/22 09:00 118 H 37 H 154/92 H 98 2 08/09/22 08:00 37.3 C 108 H 23 139/92 H 92 2 08/09/22 07:46 37.8 C 108 H 26 H 126/97 H 98 2 08/09/22 07:15 114 H 31 H 130/85 H 94 2 08/09/22 07:00 37.7 C 113 H 21 113/77 100 2 08/09/22 06:54 112 H 24 114/83 H 97 2 08/09/22 06:46 116 H 24 100/79 96 2 08/09/22 06:38 37.2 C 117 H 23 108/58 L 2 08/09/22 06:34 36.9 C 129 H 16 108/58 L 97 2 08/09/22 06:00 116 H 22 99/74 95 2 Intake & Output: Intake & Output 08/06/22 08/07/22 08/08/22 08/09/22 23:59 23:59 23:59 23:59 Intake Total 2200 2901.733 1954.067 Output Total 1050 800 Balance 2200 1410.937 1161.067 - Objective General Appearance: positive: Lethargic, Other (Patient is sick appearing and inconherent at times.) Eyes Bilateral: positive: No lid inflammation, No scleral icterus ENT: positive: Other (Missing left lateral incisor. May be source of bleeding upon admission.) Neck: positive: Nml inspection, No JVD Respiratory: positive: Wheezes, Other Cardiovascular: positive: Tachycardia (Tachypnea) Abdomen: positive: Nml bowel sounds, Hepatomegaly. negative: Tenderness Back: positive: Nml inspection Skin: positive: No rash, Warm, Other (Jaundiced) Extremities: positive: Full ROM, No pedal edema Neurologic/Psychiatric: positive: Weakness, Other (Baseline tremor when awake.). negative: Motor nml, Mood/affect nml - Lab Results Fish Bones: 08/09/22 11:07 08/09/22 13:32 Other Labs: Lab Results x24hrs 08/09/22 08/09/22 08/09/22 Range/Units 13:32 11:07 09:47 WBC (4.8-10.8) x10^3/uL RBC (4.70-6.10) 10^6/uL Hgb 7.8 L (14.0-18.0) g/dL Hct 22.5 L (42.0-52.0) % MCV (80.0-94.0) fL MCH (27.0-31.0) pg MCHC (32.0-36.0) g/dL RDW (12.0-15.0) % Plt Count (130-450) 10^3/uL MPV (7.4-11.4) fL Neut # (Auto) Lymph # (Auto) Coffee # (Auto) Eos # (Auto) Baso # (Auto) Absolute Nucleated RBC Total Counted Band Neuts % (Manual) (0 - 10) % Abnorm Lymph % (Manual) % Metamyelocytes % ( - 0) % Myelocytes % ( - 0) % Nucleated RBC % Neutrophils # (Manual) (1.5-6.6) 10^3/uL Lymphocytes # (Manual) (1.5-3.5) 10^3/uL Monocytes # (Manual) (0.0-1.0) 10^3/uL Eosinophils # (Manual) (0-0.7) 10^3/uL Basophils # (Manual) (0-0.1) 10^3/uL Nucleated RBCs % Differential Comment Platelet Estimate (NORMAL) RBC Morph Micro Appear (NORMAL) VBG pH 7.454 H 7.496 H (7.31-7.41) Ionized Calcium 1.05 L 1.03 L (1.15-1.33) mmol/L Sodium (135-145) mmol/L Potassium (3.5-5.0) mmol/L Chloride (101-111) mmol/L Carbon Dioxide (21-32) mmol/L Anion Gap (6-13) BUN (6-20) mg/dL Creatinine (0.6-1.2) mg/dL Estimated GFR (MDRD) (>89) Glucose (70-100) mg/dL Calcium (8.5-10.3) mg/dL Phosphorus (2.5-4.6) mg/dL Magnesium (1.7-2.8) mg/dL Total Bilirubin (0.2-1.0) mg/dL AST (10-42) IU/L ALT (10-60) IU/L Alkaline Phosphatase (42-121) IU/L Total Protein (6.7-8.2) g/dL Albumin (3.2-5.5) g/dL Globulin (2.1-4.2) g/dL Albumin/Globulin Ratio (1.0-2.2) Hepatitis A IgM Ab (Negative) Hep Bs Antigen (Negative) Hep B Core IgM Ab (Negative) Hepatitis C Antibody (Non Reactive) Hepatitis C Interp (.) Blood Type Antibody Screen Crossmatch IS Only 08/09/22 08/09/22 08/09/22 Range/Units 09:47 04:35 04:35 WBC (4.8-10.8) x10^3/uL RBC (4.70-6.10) 10^6/uL Hgb (14.0-18.0) g/dL Hct (42.0-52.0) % MCV (80.0-94.0) fL MCH (27.0-31.0) pg MCHC (32.0-36.0) g/dL RDW (12.0-15.0) % Plt Count (130-450) 10^3/uL MPV (7.4-11.4) fL Neut # (Auto) Lymph # (Auto) Coffee # (Auto) Eos # (Auto) Baso # (Auto) Absolute Nucleated RBC Total Counted Band Neuts % (Manual) (0 - 10) % Abnorm Lymph % (Manual) % Metamyelocytes % ( - 0) % Myelocytes % ( - 0) % Nucleated RBC % Neutrophils # (Manual) (1.5-6.6) 10^3/uL Lymphocytes # (Manual) (1.5-3.5) 10^3/uL Monocytes # (Manual) (0.0-1.0) 10^3/uL Eosinophils # (Manual) (0-0.7) 10^3/uL Basophils # (Manual) (0-0.1) 10^3/uL Nucleated RBCs % Differential Comment Platelet Estimate (NORMAL) RBC Morph Micro Appear (NORMAL) VBG pH (7.31-7.41) Ionized Calcium (1.15-1.33) mmol/L Sodium 130 L (135-145) mmol/L Potassium 2.6 L (3.5-5.0) mmol/L Chloride 93 L (101-111) mmol/L Carbon Dioxide 26 (21-32) mmol/L Anion Gap 11.0 (6-13) BUN 7 (6-20) mg/dL Creatinine 0.3 L (0.6-1.2) mg/dL Estimated GFR (MDRD) 332 (>89) Glucose 101 H (70-100) mg/dL Calcium 7.4 L (8.5-10.3) mg/dL Phosphorus 1.5 L (2.5-4.6) mg/dL Magnesium 2.6 1.7 (1.7-2.8) mg/dL Total Bilirubin 12.4 H (0.2-1.0) mg/dL AST 171 H (10-42) IU/L ALT 77 H (10-60) IU/L Alkaline Phosphatase 343 H (42-121) IU/L Total Protein 5.4 L (6.7-8.2) g/dL Albumin 1.6 L (3.2-5.5) g/dL Globulin 3.8 (2.1-4.2) g/dL Albumin/Globulin Ratio 0.4 L (1.0-2.2) Hepatitis A IgM Ab (Negative) Hep Bs Antigen (Negative) Hep B Core IgM Ab (Negative) Hepatitis C Antibody (Non Reactive) Hepatitis C Interp (.) Blood Type Antibody Screen Crossmatch IS Only 08/09/22 08/09/22 08/08/22 Range/Units 04:35 04:35 18:13 WBC 17.0 H (4.8-10.8) x10^3/uL RBC 1.94 L (4.70-6.10) 10^6/uL Hgb 6.8 L* (14.0-18.0) g/dL Hct 19.5 L* (42.0-52.0) % MCV 100.5 H (80.0-94.0) fL MCH 35.1 H (27.0-31.0) pg MCHC 34.9 (32.0-36.0) g/dL RDW 16.5 H (12.0-15.0) % Plt Count 44 L (130-450) 10^3/uL MPV 12.4 H (7.4-11.4) fL Neut # (Auto) Not Reportable Lymph # (Auto) Not Reportable Coffee # (Auto) Not Reportable Eos # (Auto) Not Reportable Baso # (Auto) Not Reportable Absolute Nucleated RBC Not Reportable Total Counted 100 Band Neuts % (Manual) 8 (0 - 10) % Abnorm Lymph % (Manual) 0 % Metamyelocytes % 3 H ( - 0) % Myelocytes % 3 H ( - 0) % Nucleated RBC % Not Reportable Neutrophils # (Manual) 12.2 H (1.5-6.6) 10^3/uL Lymphocytes # (Manual) 2.7 (1.5-3.5) 10^3/uL Monocytes # (Manual) 0.2 (0.0-1.0) 10^3/uL Eosinophils # (Manual) 0.9 H (0-0.7) 10^3/uL Basophils # (Manual) 0.0 (0-0.1) 10^3/uL Nucleated RBCs 2 % Differential Comment MANUAL DIFFERENTIAL Platelet Estimate DECREASED (<130,000) (NORMAL) RBC Morph Micro Appear 1+ MACROCYTOSIS (NORMAL) VBG pH 7.541 H 7.459 H (7.31-7.41) Ionized Calcium 0.96 L 1.00 L (1.15-1.33) mmol/L Sodium (135-145) mmol/L Potassium (3.5-5.0) mmol/L Chloride (101-111) mmol/L Carbon Dioxide (21-32) mmol/L Anion Gap (6-13) BUN (6-20) mg/dL Creatinine (0.6-1.2) mg/dL Estimated GFR (MDRD) (>89) Glucose (70-100) mg/dL Calcium (8.5-10.3) mg/dL Phosphorus (2.5-4.6) mg/dL Magnesium (1.7-2.8) mg/dL Total Bilirubin (0.2-1.0) mg/dL AST (10-42) IU/L ALT (10-60) IU/L Alkaline Phosphatase (42-121) IU/L Total Protein (6.7-8.2) g/dL Albumin (3.2-5.5) g/dL Globulin (2.1-4.2) g/dL Albumin/Globulin Ratio (1.0-2.2) Hepatitis A IgM Ab (Negative) Hep Bs Antigen (Negative) Hep B Core IgM Ab (Negative) Hepatitis C Antibody (Non Reactive) Hepatitis C Interp (.) Blood Type Antibody Screen Crossmatch IS Only 08/08/22 08/07/22 08/07/22 Range/Units 18:13 22:45 15:37 WBC (4.8-10.8) x10^3/uL RBC (4.70-6.10) 10^6/uL Hgb (14.0-18.0) g/dL Hct (42.0-52.0) % MCV (80.0-94.0) fL MCH (27.0-31.0) pg MCHC (32.0-36.0) g/dL RDW (12.0-15.0) % Plt Count (130-450) 10^3/uL MPV (7.4-11.4) fL Neut # (Auto) Lymph # (Auto) Coffee # (Auto) Eos # (Auto) Baso # (Auto) Absolute Nucleated RBC Total Counted Band Neuts % (Manual) (0 - 10) % Abnorm Lymph % (Manual) % Metamyelocytes % ( - 0) % Myelocytes % ( - 0) % Nucleated RBC % Neutrophils # (Manual) (1.5-6.6) 10^3/uL Lymphocytes # (Manual) (1.5-3.5) 10^3/uL Monocytes # (Manual) (0.0-1.0) 10^3/uL Eosinophils # (Manual) (0-0.7) 10^3/uL Basophils # (Manual) (0-0.1) 10^3/uL Nucleated RBCs % Differential Comment Platelet Estimate (NORMAL) RBC Morph Micro Appear (NORMAL) VBG pH (7.31-7.41) Ionized Calcium (1.15-1.33) mmol/L Sodium (135-145) mmol/L Potassium 2.5 L* (3.5-5.0) mmol/L Chloride (101-111) mmol/L Carbon Dioxide (21-32) mmol/L Anion Gap (6-13) BUN (6-20) mg/dL Creatinine (0.6-1.2) mg/dL Estimated GFR (MDRD) (>89) Glucose (70-100) mg/dL Calcium (8.5-10.3) mg/dL Phosphorus 1.5 L (2.5-4.6) mg/dL Magnesium (1.7-2.8) mg/dL Total Bilirubin (0.2-1.0) mg/dL AST (10-42) IU/L ALT (10-60) IU/L Alkaline Phosphatase (42-121) IU/L Total Protein (6.7-8.2) g/dL Albumin (3.2-5.5) g/dL Globulin (2.1-4.2) g/dL Albumin/Globulin Ratio (1.0-2.2) Hepatitis A IgM Ab Negative (Negative) Hep Bs Antigen Negative (Negative) Hep B Core IgM Ab Negative (Negative) Hepatitis C Antibody Non Reactive (Non Reactive) Hepatitis C Interp Comment (.) Blood Type O POSITIVE Antibody Screen NEGATIVE Crossmatch IS Only See Detail ABX Reporting Has patient been on IV antibiotics over the past 48 hours?: Yes Assessment/Plan - Problem List (1) Alcoholic hepatitis Impression: Patient LFTs and bilirubin are still elevated during visit. Patient is jaundiced and hepatomegaly noted during exam. Patient is responsive to verbal stimuli but is only able to remain awake for short amount of time and is tremulous during that time. Patient's alcohol abuse is the most likely culprit of condition since Hepatitis panel came back negative for A,B,C,D Plan Continue CIWA protocol to prevent alcoholic seizures due to withdrawal. Continue transfusion if Hgb is <7 Continue IV fluids and thiamine/folate supplementation to correct lab abnormalities and prevent Wernicke's encephalopathy. Strongly encourage abstaining from alcohol after admission. Strongly encourage inpatient rehab Qualifiers: Ascites presence: without ascites Qualified Code(s): K70.10 - Alcoholic hepatitis without ascites (2) Alcohol withdrawal Impression: Patient admits to chronic use of alcohol that has most likely lead to this condition. Patient is jaundiced and has tremors when awake. Labs show elevated LFT and abnormal CBC. Plan Continue CIWA protocol to prevent seizures from withdrawals Continue IV fluids and thiamine/folate supplements to correct labs and prevent Wernicke's encephalopathy Strongly encourage inpatient rehab Strongly discourage further alcohol use. Qualifiers: Complication of substance-induced condition: with unspecified complication Qualified Code(s): F10.939 - Alcohol use, unspecified with withdrawal, unspecified (3) Anemia Impression: Patient is fatigued and not well appearing. Patient Hgb was at 6.8 at 0435 and was given 300mL Leuocyte-reduced RBCs at 0639 which raised Hgb to 7.8. Patient Patients MCV is still elevated which most likely is due to alcohol abuse but can also be due to GI bleed. CBC and CMP should be monitored very closely every 6 hours. Plan Patient to receive transfusion if Hgb is less than 7. Repeat CBC, PT, and CMP every 6 hours. Continue IV fluids and thiamine supplementation. Qualifiers: Folate deficiency anemia type: drug-induced (4) Hypokalemia Impression: Patients potassium is has elevated since admission to 2.9 from 2.5 yesterday at 1813. IV potassium appears to be working as it should. Hypokalemia is likely due to vomiting. Plan Continue with IV potassium until within normal range Continue with IV fluids and thiamine supplementation. Continue to monitor patients heart rate and pattern. (5) Hyponatremia Impression: Patients sodium has increased since admission and IV fluids. Patient is still lethargic, however this may be due to ativan. Plan Continue with IV fluids and thiamine supplementation PO. Continue to monitor patients LOC and vitals. 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 Patient will be encourage to stop smoking and given nicotine patch to alleviate symptoms. Plan Encourage smoking cessation Provide patient with nicotine patches Refer to CBT to help with cessation. (7) Constipation Impression: Patients nurse reports a "smear" of feces on patients underwear. However this is not a full bowel movement. Patient given senna, miralax, lactolose and senna. Patient should be monitored for bowel movement Plan Monitor patients bowel movements Continue to give patient laxatives to encourage bowel movement. Qualifiers: Constipation type: other constipation type Qualified Code(s): K59.09 - Other constipation
[2022-08-09 13:54] LABS: MAGNESIUM 2.2 mg/dL (1.7-2.8); PHOSPHORUS 2.5 mg/dL (2.5-4.6); POTASSIUM 2.9 mmol/L (3.5-5.0)
[2022-08-09 17:17] LABS: CALCIUM, IONIZED 1.01 mmol/L (1.15-1.33); VBG PH 7.44 (7.31-7.41)
[2022-08-09 21:57] LABS: BASOPHILS % (AUTO) 0.4 %; EOSINOPHILS % (AUTO) 2.5 %; HGB - HEMOGLOBIN 8.1 g/dL (14.0-18.0); LYMPHOCYTES % (AUTO) 12.8 %; MEAN CORPUSCULAR HEMOGLOBIN 33.9 pg (27.0-31.0); MEAN CORPUSCULAR HGB CONC 35.2 g/dL (32.0-36.0); MEAN CORPUSCULAR VOLUME 96.2 fL (80.0-94.0); MEAN PLATELET VOLUME 11.6 fL (7.4-11.4); MONOCYTES % (AUTO) 4.7 %; NEUTROPHILS % (AUTO) 61.3 %; PLT - PLATELET COUNT 42 10^3/uL (130-450); RED BLOOD COUNT 2.39 10^6/uL (4.70-6.10); RED CELL DISTRIBUTION WIDTH 19.4 % (12.0-15.0)
[2022-08-09 22:00] LABS: ABNORMAL LYMPHS % (MANUAL) 0 %
[2022-08-09 22:08] LABS: MAGNESIUM 1.8 mg/dL (1.7-2.8); PHOSPHORUS 1.5 mg/dL (2.5-4.6)
[2022-08-09 22:17] LABS: BAND NEUTROPHILS % (MANUAL) 4 %; EOSINOPHILS # (MANUAL) 0.7 10^3/uL (0-0.7); LYMPHOCYTES # (MANUAL) 3.3 10^3/uL (1.5-3.5); LYMPHOCYTES % (MANUAL) 15 %; METAMYELOCYTES % (MANUAL) 5 %; MONOCYTES # (MANUAL) 0.9 10^3/uL (0.0-1.0); MYELOCYTES % (MANUAL) 2 %; NEUTROPHILS # (MANUAL) 15.4 10^3/uL (1.5-6.6); NUCLEATED RBC (MANUAL) 1 %; PROMYELOCYTES % (MANUAL) 1 %
[2022-08-09 22:18] LABS: PLATELET ESTIMATE, MANUAL DECREASED (<130,000) (NORMAL); PLATELET MORPHOLOGY NORMAL APPEARANCE (NORMAL)
[2022-08-09 22:19] LABS: DIFFERENTIAL COMMENT MANUAL DIFFERENTIAL
[2022-08-09] MEDS ORDERED: POTASSIUM CHLOR 10 MEQ/100 ML 10 MEQ/100 ML BAG IV SCH (23:00)
[2022-08-09] MEDS: cefTRIAXone 2 GM in SODIUM CHLORIDE 0.9% MINIBAG 100 ML IV SCH (23:10)
[2022-08-10] MEDS: SODIUM CHLORIDE FLUSH 0.9% 10 ML SYRINGE IVP SCH ×3 (00:11→16:40)
[2022-08-10] MEDS: LORazepam 2 MG/ML VIAL IVP PRN ×7 (00:41→22:23)
[2022-08-10] MEDS: HYDROmorphone 0.5 MG/0.5 ML SYRINGE IVP PRN ×2 (02:00→07:55)
[2022-08-10] MEDS: NICOTINE 14 MG PATCH TOP PRN (03:02)
[2022-08-10] MEDS: SODIUM CHLORIDE 0.9% 500 ML IV PRN (03:39)
[2022-08-10 05:14] LABS: CALCIUM, IONIZED 1.01 mmol/L (1.15-1.33); VBG PH 7.498 (7.31-7.41)
[2022-08-10] MEDS ORDERED: CALCIUM GLUC 1,000MG/50ML-NACL 1,000 MG/50 ML BAG IV ONE ×6 (05:27→23:54)
[2022-08-10 05:35] LABS: ALBUMIN 1.6 g/dL (3.2-5.5); ALBUMIN/GLOBULIN RATIO 0.4 (1.0-2.2); ALKALINE PHOSPHATASE 320 IU/L (42-121); ALT ALANINE AMINOTRANSFERASE 73 IU/L (10-60); AST ASPARTATE AMINOTRANSFERASE 148 IU/L (10-42); BILIRUBIN,TOTAL 13.4 mg/dL (0.2-1.0); BUN - BLOOD UREA NITROGEN < 5 mg/dL (6-20); CALCIUM 8.1 mg/dL (8.5-10.3); CARBON DIOXIDE - CO2 28 mmol/L (21-32); CHLORIDE 94 mmol/L (101-111); CREATININE 0.5 mg/dL (0.6-1.2); GFR - MDRD 184 (>89); GLUCOSE 85 mg/dL (70-100); POTASSIUM 3.1 mmol/L (3.5-5.0); SODIUM 132 mmol/L (135-145); TOTAL PROTEIN 5.5 g/dL (6.7-8.2)
[2022-08-10 06:31] LABS: MAGNESIUM 1.6 mg/dL (1.7-2.8); PHOSPHORUS 2.7 mg/dL (2.5-4.6)
[2022-08-10] MEDS: HYDROGEN PEROXIDE 3% 473 ML BOTTLE TOP SCH ×2 (06:40→13:46)
[2022-08-10] MEDS ORDERED: MAGNESIUM SULFATE 2 GRAM 2 GM/50 ML BAG IV ONE ×2 (06:58→23:56)
[2022-08-10] MEDS: PANTOPRAZOLE 40 MG TABLET PO SCH ×2 (07:11)
[2022-08-10] MEDS: POTASSIUM CHLOR 10 MEQ/100 ML 10 MEQ/100 ML BAG IV SCH ×6 (07:31→16:40)
[2022-08-10] MEDS: FAMOTIDINE 20 MG/2 ML VIAL IVP SCH ×2 (09:48→20:20)
[2022-08-10] MEDS: SENNA 8.6 MG TABLET PO SCH (09:54)
[2022-08-10] MEDS: DOCUSATE SODIUM 250 MG CAPSULE PO SCH (09:54)
[2022-08-10] MEDS: THIAMINE 100 MG TABLET PO SCH (09:54)
[2022-08-10] MEDS: PRENATAL VITAMIN TABLET PO SCH (09:54)
[2022-08-10] MEDS: polyethylene glycoL 3350 17 GM PACKET PO SCH (10:07)
[2022-08-10] MEDS: LACTULOSE 10 GM /15 ML UDC PO SCH (10:07)
[2022-08-10 10:22] LABS: CALCIUM, IONIZED 1.05 mmol/L (1.15-1.33); VBG PH 7.471 (7.31-7.41)
[2022-08-10] MEDS: SODIUM CHLORIDE 1 GM TABLET PO SCH (10:32)
[2022-08-10 14:16] LABS: CALCIUM, IONIZED 1.07 mmol/L (1.15-1.33); VBG PH 7.469 (7.31-7.41)
[2022-08-10 14:29] LABS: MAGNESIUM 1.9 mg/dL (1.7-2.8); PHOSPHORUS 2.3 mg/dL (2.5-4.6); POTASSIUM 3.2 mmol/L (3.5-5.0)
[2022-08-10] MEDS ORDERED: POTASSIUM PHOSPHATE 15 MMOL in SODIUM CHLORIDE 0.9% 250 ML IV ONE (17:00)
--- NOTE | 2022-08-10 19:29 | PROVIDER PROGRESS NOTE ---
Progress Note August 10, 2022 7:15 PM Patient has been seen several times today. He has been sleeping. Easily arousable and then goes back to sleep and snores. Still tosses and turns in his sleep. Incontinent of urine. Active Medications Albuterol/Ipratropium (Ipratropium/Albuterol 3 Ml Neb) 3 ml INH Q4HR PRN PRN Reason: Wheezing Docusate Sodium (Docusate Sodium 250 Mg Capsule) 250 - 500 mg PO DAILY [facility] Last Admin: 08/10/22 09:54 Dose: 250 mg Famotidine (Famotidine 20 Mg/2 Ml Vial) 20 mg IVP BID [facility] Last Admin: 08/10/22 09:48 Dose: 20 mg Hydromorphone HCl (Hydromorphone 0.5 Mg/0.5 Ml Syringe) 0.5 mg IVP Q2HR PRN PRN Reason: moderate pain Last Admin: 08/10/22 07:55 Dose: 0.5 mg Hydromorphone HCl (Hydromorphone 1 Mg/Ml Carpuject) 0.8 mg IVP Q2HR PRN PRN Reason: Severe Pain Last Admin: 08/08/22 17:25 Dose: 0.8 mg Ceftriaxone Sodium 2 gm/ (Sodium Chloride) 100 mls @ 200 mls/hr IV Q24H [facility] Last Infusion: 08/09/22 23:45 Dose: Infused Sodium Chloride (Normal Saline 0.9%) 500 mls @ 20 mls/hr IV Q24H PRN PRN Reason: TKO RATE Last Infusion: 08/10/22 09:00 Dose: 20 mls/hr Potassium Phosphate 15 mmol/ (Sodium Chloride) 255 mls @ 63 mls/hr IV ONCE ONE; Protocol Stop: 08/10/22 21:02 Last Admin: 08/10/22 16:40 Dose: 63 mls/hr Lactulose (Lactulose 10 Gm /15 Ml Udc) 10 gm PO DAILY [facility] Last Admin: 08/10/22 10:07 Dose: 10 gm Lorazepam (Lorazepam 2 Mg/Ml Vial) 2 - 20 mg IVP Q15M PRN; Protocol PRN Reason: RASS > 0 Last Admin: 08/10/22 15:52 Dose: 2 mg Nicotine (Nicotine 14 Mg Patch) 1 patch TOP DAILY PRN PRN Reason: smoking cessation Last Admin: 08/10/22 03:02 Dose: 1 patch Ondansetron HCl (Ondansetron 4 Mg/2 Ml Vial) 4 mg IVP Q6HR PRN PRN Reason: Nausea / Vomiting Pantoprazole Sodium (Pantoprazole 40 Mg Tablet) 40 mg PO QDAC [facility] Last Admin: 08/10/22 07:11 Dose: 40 mg Polyethylene Glycol (Polyethylene Glycol 3350 17 Gm Packet) 17 gm PO DAILY [facility] Last Admin: 08/10/22 10:07 Dose: 17 gm Multivit/Folic Acid/Iron ( Vitamin Tablet) 1 tab PO DAILYWM [facility] Last Admin: 08/10/22 09:54 Dose: 1 tab Prochlorperazine Edisylate (Prochlorperazine 10 Mg/2 Ml Vial) 10 mg IVP Q6HR PRN PRN Reason: Nausea / Vomiting Senna (Senna 8.6 Mg Tablet) 8.6 - 17.2 mg PO DAILY [facility] Last Admin: 08/10/22 09:54 Dose: 8.6 mg Sodium Chloride (Sodium Chloride Flush 0.9% 10 Ml Syringe) 10 ml IVP 0100,0900,1700 [facility] Last Admin: 08/10/22 16:40 Dose: 10 ml Sodium Chloride (Sodium Chloride Flush 0.9% 10 Ml Syringe) 10 ml IVP PRN PRN PRN Reason: NEEDED PER PROVIDER ORDERS Last Admin: 08/09/22 20:42 Dose: 10 ml Sodium Chloride (Sodium Chloride 1 Gm Tablet) 1 gm PO DAILY [facility] Last Admin: 08/10/22 10:32 Dose: 1 gm Thiamine HCl (Thiamine 100 Mg Tablet) 100 mg PO DAILY [facility] Last Admin: 08/10/22 09:54 Dose: 100 mg No Known Home Medications 12/18/20 Exam: Vital signs throughout the day show occasional tachycardia to the 120s. Blood pressure at midnight last night was 89 systolic. Throughout the day he has been between 93 and 102 systolic. Yesterday he was hypertensive in the morning at 154/92. He is anywhere between 82 to 98% on room air. Respirations are 21. 5 feet 11 inches tall, 69.5 kg ICU nurse has rinsed out his mouth, and no lacerations. Neck is with shotty adenopathy Lungs have coarse upper airway sounds Tachycardic regular rate and rhythm at times, and he has been mainly 90 all day long Abdomen is soft, large liver that is firm and palpable in the right upper quadrant. At least 1 handbreadth below the costal margin. No fluid wave Extremities are warm, no edema. Labs: Sodium 132, potassium 3.1, BUN less than 5, creatinine 0.5 Total bili was 12.5 on admission and is 13.4 today. AST was 273 on admission is 148 ALT was 107 on admission and this was 73 alk phos was 556 and is now 320 White cell count is 22,000. Hemoglobin 8.1 after 1 unit of blood from yesterday to today. Platelets 42,000. Assessment/plan 1. Alcohol withdrawal So far he is getting 2 mg of Ativan about every 2-3 hours with adequate sedation. I would continue that amount since he still intermittently tachycardic. He is not on a banana bag but he is on thiamine 100 mg daily and a vitamin. Plan: Continues current sedation. Continue to monitor for tachycardia and hypertension. This is now day #4 and I would anticipate that will he will slowly start to resolve in the next 24 to 48 hours. 2. Alcoholic hepatitis. Enzymes are trending down. Except for bilirubin. No other treatment other than supportive care. He is not a candidate for steroids. 3. Anemia. No signs or symptoms of GI bleed other than the anemia. We will continue to monitor hemoglobin and transfuse as necessary. If he continues to need transfusion he may need an upper endoscopy. 4. Hypokalemia. On ICU electrolyte replacement protocol. Still requiring replacement as well as getting Mg and Phosporus.
[2022-08-10 23:05] LABS: CALCIUM, IONIZED 1.02 mmol/L (1.15-1.33); VBG PH 7.488 (7.31-7.41)
[2022-08-10 23:18] LABS: MAGNESIUM 1.6 mg/dL (1.7-2.8); PHOSPHORUS 3.2 mg/dL (2.5-4.6)
[2022-08-10] MEDS: cefTRIAXone 2 GM in SODIUM CHLORIDE 0.9% MINIBAG 100 ML IV SCH (23:47)
[2022-08-11] MEDS: POTASSIUM CHLOR 10 MEQ/100 ML 10 MEQ/100 ML BAG IV SCH ×4 (00:41→03:53)
[2022-08-11] MEDS: LORazepam 2 MG/ML VIAL IVP PRN ×3 (00:50→10:09)
[2022-08-11] MEDS: SODIUM CHLORIDE FLUSH 0.9% 10 ML SYRINGE IVP SCH ×3 (03:55→16:33)
[2022-08-11 07:25] LABS: ALBUMIN 1.6 g/dL (3.2-5.5); ALBUMIN/GLOBULIN RATIO 0.4 (1.0-2.2); ALKALINE PHOSPHATASE 317 IU/L (42-121); ALT ALANINE AMINOTRANSFERASE 67 IU/L (10-60); AST ASPARTATE AMINOTRANSFERASE 141 IU/L (10-42); BILIRUBIN,TOTAL 15.8 mg/dL (0.2-1.0); BUN - BLOOD UREA NITROGEN < 5 mg/dL (6-20); CARBON DIOXIDE - CO2 27 mmol/L (21-32); CHLORIDE 97 mmol/L (101-111); GLUCOSE 81 mg/dL (70-100); SODIUM 135 mmol/L (135-145); TOTAL PROTEIN 5.8 g/dL (6.7-8.2)
[2022-08-11 07:29] LABS: CREATININE < 0.3 mg/dL (0.6-1.2)
[2022-08-11 08:23] LABS: CALCIUM, IONIZED 1.04 mmol/L (1.15-1.33); VBG PH 7.526 (7.31-7.41)
[2022-08-11] MEDS: PANTOPRAZOLE 40 MG VIAL IVP SCH (08:31)
[2022-08-11] MEDS: SENNA 8.6 MG TABLET PO SCH (08:32)
[2022-08-11] MEDS: LACTULOSE 10 GM /15 ML UDC PO SCH (08:32)
[2022-08-11] MEDS: SODIUM CHLORIDE 1 GM TABLET PO SCH (08:32)
[2022-08-11] MEDS: polyethylene glycoL 3350 17 GM PACKET PO SCH (08:32)
[2022-08-11] MEDS: PRENATAL VITAMIN TABLET PO SCH (08:32)
[2022-08-11] MEDS: DOCUSATE SODIUM 250 MG CAPSULE PO SCH (08:32)
[2022-08-11] MEDS: THIAMINE 100 MG TABLET PO SCH (08:32)
[2022-08-11 08:34] LABS: MAGNESIUM 1.8 mg/dL (1.7-2.8); PHOSPHORUS 2.6 mg/dL (2.5-4.6)
[2022-08-11] MEDS ORDERED: MAGNESIUM SULFATE 2 GRAM 2 GM/50 ML BAG IV ONE (10:07)
[2022-08-11] MEDS ORDERED: CALCIUM GLUC 1,000MG/50ML-NACL 1,000 MG/50 ML BAG IV ONE ×3 (10:07→19:34)
--- NOTE | 2022-08-11 12:20 | PROVIDER PROGRESS NOTE ---
Progress Note August 11, 2022 4:11 PM Patient is adequately sedated. On his side, snoring. Not eating any of his food right now. I think he is too sleepy to eat. No fevers. Blood pressure is stable. He gets intermittently agitated with tachypnea and then receives some benzodiazepine and goes back to sleep. He is getting 2 mg of Ativan at a time. He received 7 doses yesterday, and as of midnight last night, he is only gotten 3 doses today. He is arousable, but still not verbal. In his sleep he does twitch but there is no tremors. Active Medications Albuterol/Ipratropium (Ipratropium/Albuterol 3 Ml Neb) 3 ml INH Q4HR PRN PRN Reason: Wheezing Docusate Sodium (Docusate Sodium 250 Mg Capsule) 250 - 500 mg PO DAILY [facility] Last Admin: 08/11/22 08:32 Dose: 250 mg Hydromorphone HCl (Hydromorphone 0.5 Mg/0.5 Ml Syringe) 0.5 mg IVP Q2HR PRN PRN Reason: moderate pain Last Admin: 08/10/22 07:55 Dose: 0.5 mg Hydromorphone HCl (Hydromorphone 1 Mg/Ml Carpuject) 0.8 mg IVP Q2HR PRN PRN Reason: Severe Pain Last Admin: 08/08/22 17:25 Dose: 0.8 mg Ceftriaxone Sodium 2 gm/ (Sodium Chloride) 100 mls @ 200 mls/hr IV Q24H [facility] Last Infusion: 08/11/22 00:25 Dose: Infused Sodium Chloride (Normal Saline 0.9%) 500 mls @ 20 mls/hr IV Q24H PRN PRN Reason: TKO RATE Last Infusion: 08/10/22 09:00 Dose: 20 mls/hr CALCIUM GLUC 1,000MG/50ML-NACL (Calcium Gluc 1,000mg/50ml-Nacl) 1,000 mg in 50 mls @ 50 mls/hr IV ONCE ONE; Protocol Stop: 08/11/22 16:23 Lactulose (Lactulose 10 Gm /15 Ml Udc) 10 gm PO DAILY [facility] Last Admin: 08/11/22 08:32 Dose: 10 gm Lorazepam (Lorazepam 2 Mg/Ml Vial) 2 - 20 mg IVP Q15M PRN; Protocol PRN Reason: RASS > 0 Last Admin: 08/11/22 10:09 Dose: 2 mg Nicotine (Nicotine 14 Mg Patch) 1 patch TOP DAILY PRN PRN Reason: smoking cessation Last Admin: 08/10/22 03:02 Dose: 1 patch Ondansetron HCl (Ondansetron 4 Mg/2 Ml Vial) 4 mg IVP Q6HR PRN PRN Reason: Nausea / Vomiting Pantoprazole Sodium (Pantoprazole 40 Mg Vial) 40 mg IVP QDAC [facility] Last Admin: 08/11/22 08:31 Dose: 40 mg Polyethylene Glycol (Polyethylene Glycol 3350 17 Gm Packet) 17 gm PO DAILY [facility] Last Admin: 08/11/22 08:32 Dose: 17 gm Multivit/Folic Acid/Iron ( Vitamin Tablet) 1 tab PO DAILYWM [facility] Last Admin: 08/11/22 08:32 Dose: 1 tab Prochlorperazine Edisylate (Prochlorperazine 10 Mg/2 Ml Vial) 10 mg IVP Q6HR PRN PRN Reason: Nausea / Vomiting Senna (Senna 8.6 Mg Tablet) 8.6 - 17.2 mg PO DAILY [facility] Last Admin: 08/11/22 08:32 Dose: 8.6 mg Sodium Chloride (Sodium Chloride Flush 0.9% 10 Ml Syringe) 10 ml IVP 0100,0900,1700 [facility] Last Admin: 08/11/22 03:56 Dose: 10 ml Sodium Chloride (Sodium Chloride Flush 0.9% 10 Ml Syringe) 10 ml IVP PRN PRN PRN Reason: NEEDED PER PROVIDER ORDERS Last Admin: 08/09/22 20:42 Dose: 10 ml Sodium Chloride (Sodium Chloride 1 Gm Tablet) 1 gm PO DAILY [facility] Last Admin: 08/11/22 08:32 Dose: 1 gm Thiamine HCl (Thiamine 100 Mg Tablet) 100 mg PO DAILY [facility] Last Admin: 08/11/22 08:32 Dose: 100 mg No Known Home Medications 12/18/20 Exam: Temperature 36.9, heart rate 89, blood pressure 100/63, respirations 27, where he had respirations of 23 an hour before, 100% on room air. Sleeping, snoring, disheveled appearing white male. Shotty neck adenopathy Coarse upper airway sounds with squeaking rhonchi bilaterally, right worse than left Regular rate and rhythm. His last tachycardia was August 10 when he was 123 at 5 in the afternoon. Abdomen is still firm, liver is handbreadth below his costal margin, quiet bowel sounds, and his grimacing of pain when I palpate his liver is not present as it was when I admitted him. I do not feel a fluid wave. Extremities are without edema Labs: Sodium 135, potassium 4, BUN less than 5, creatinine less than 3, total bili 15.8, AST 141, ALT 67, alk phos 317. White cell count 31.5 and continues to climb. Hemoglobin 8.3. MCV 101. Platelets 45. Conclusion/Plan - Problem List Assessment/plan 1. Alcohol withdrawal So far he is getting 2 mg of Ativan about every 2-3 hours with adequate sedation. 2 mg doses, 3 so far today. 7 yesterday. I would continue that amount since he still intermittently tachycardic. He is not on a banana bag but he is on thiamine 100 mg daily and a vitamin. Plan: Continues current sedation. Continue to monitor for tachycardia and hypertension. This is now day #5 and I would anticipate that will he will slowly start to resolve in the next 24 hours 2. Alcoholic hepatitis. Enzymes are trending down. Except for bilirubin. No other treatment other than supportive care. He is not a candidate for steroids. He is on lactulose. At this point in time I think his encephalopathy is more benzodiazepine induced than liver failure. 3. Anemia. No signs or symptoms of GI bleed other than the anemia. We will continue to monitor hemoglobin and transfuse as necessary. If he continues to need transfusion he may need an upper endoscopy. 4. Hypokalemia. On ICU electrolyte replacement protocol. Still requiring replacement as well as getting Mg and Phosporus. 5. Leukocytosis He has been sleeping most the time. Snoring. Not eating. No witnessed episodes of aspiration. He does not have any episodes of fever. I would think by now that if he had demargination his white cell count will be coming down as opposed to keep on going up. He does have an occasional cough.He has been on empiric Rocephin since admission. When I read the H&P there is no thought process document about why Rocephin. Now the only thing I can think of is that he is if he has esophageal varices and possibly bleeding, Rocephin will be started. Plan: Check chest x-ray. Check urinalysis Analyzed to see if I need to start him on Different antibiotic
[2022-08-11 13:28] LABS: BASOPHILS % (AUTO) 0.4 %; EOSINOPHILS % (AUTO) 2.3 %; HCT - HEMATOCRIT 24.6 % (42.0-52.0); HGB - HEMOGLOBIN 8.3 g/dL (14.0-18.0); LYMPHOCYTES % (AUTO) 10.4 %; MEAN CORPUSCULAR HEMOGLOBIN 34.2 pg (27.0-31.0); MEAN CORPUSCULAR HGB CONC 33.7 g/dL (32.0-36.0); MEAN CORPUSCULAR VOLUME 101.2 fL (80.0-94.0); MEAN PLATELET VOLUME 13.6 fL (7.4-11.4); MONOCYTES % (AUTO) 6.8 %; NEUTROPHILS % (AUTO) 57.3 %; PLT - PLATELET COUNT 45 10^3/uL (130-450); RED BLOOD COUNT 2.43 10^6/uL (4.70-6.10); RED CELL DISTRIBUTION WIDTH 20.5 % (12.0-15.0); WHITE BLOOD COUNT 31.5 x10^3/uL (4.8-10.8)
[2022-08-11 13:33] LABS: ABNORMAL LYMPHS % (MANUAL) 0 %
[2022-08-11 13:37] LABS: CALCIUM, IONIZED 1.07 mmol/L (1.15-1.33); VBG PH 7.504 (7.31-7.41)
[2022-08-11 13:52] LABS: BAND NEUTROPHILS % (MANUAL) 8 %; EOSINOPHILS # (MANUAL) 0.3 10^3/uL (0-0.7); LYMPHOCYTES # (MANUAL) 5.7 10^3/uL (1.5-3.5); LYMPHOCYTES % (MANUAL) 18 %; METAMYELOCYTES % (MANUAL) 3 %; MONOCYTES # (MANUAL) 0.6 10^3/uL (0.0-1.0); MYELOCYTES % (MANUAL) 13 %; NEUTROPHILS # (MANUAL) 19.8 10^3/uL (1.5-6.6); NUCLEATED RBC (MANUAL) 6 %
[2022-08-11 13:53] LABS: DIFFERENTIAL COMMENT MANUAL DIFFERENTIAL
--- NOTE | 2022-08-11 17:20 | XRAY Report ---
PROCEDURE: Chest 1 View X-Ray INDICATIONS: WBC elev, on CIWA, TECHNIQUE: One view of the chest was acquired. COMPARISON: None. FINDINGS: Surgical changes and devices: None. Lungs and pleura: No pleural effusions or pneumothorax. Lungs are clear. Mediastinum: Mediastinal contours appear normal. Heart size is normal. Bones and chest wall: No suspicious bony lesions. Overlying soft tissues appear unremarkable. IMPRESSION: No acute abnormality of the chest Reviewed by: Fredrick Stephenson on 08/11/2022 4:18 PM [facility] Approved by: Fredrick Stephenson on 08/11/2022 4:18 PM [facility] Station ID: [id number]
[2022-08-11 19:28] LABS: CALCIUM, IONIZED 1.06 mmol/L (1.15-1.33); VBG PH 7.5 (7.31-7.41)
[2022-08-11 21:49] LABS: GLUCOSE, URINE (UA) 100 mg/dL (NEGATIVE); KETONES,URINE (UA) NEGATIVE (NEGATIVE); LEUKOCYTE ESTERASE, URINE NEGATIVE (NEGATIVE); NITRITE,URINE NEGATIVE (NEGATIVE); OCCULT BLOOD,URINE TRACE-INTA (NEGATIVE); PROTEIN,URINE NEGATIVE (NEGATIVE); UROBILINOGEN,URINE 0.2 (NORMAL) E.U./dL (NORMAL)
[2022-08-11 21:54] LABS: BILIRUBIN,URINE LARGE (NEGATIVE); CLARITY,URINE HAZY (CLEAR); ICTOTEST,URINE POSITIVE
[2022-08-11 22:03] LABS: RBC,URINE 0-5 /HPF (0-5); SQUAMOUS EPITHELIAL CELL,UR FEW Squamous (<= Few); WBC,URINE 0-3 /HPF (0-3)
[2022-08-11 22:04] LABS: AMORPHOUS SEDIMENT,UR Few /LPF; BACTERIA,URINE Few /HPF (None Seen); CASTS, URINE 3-5 Fine Granular /LPF; MUCUS,URINE Few Strands
[2022-08-11] MEDS: cefTRIAXone 2 GM in SODIUM CHLORIDE 0.9% MINIBAG 100 ML IV SCH (23:17)
[2022-08-11] MEDS: SODIUM CHLORIDE 0.9% 500 ML IV PRN (23:23)
[2022-08-12 05:16] LABS: BASOPHILS % (AUTO) 0.4 %; EOSINOPHILS % (AUTO) 2.2 %; HCT - HEMATOCRIT 25.9 % (42.0-52.0); HGB - HEMOGLOBIN 8.8 g/dL (14.0-18.0); LYMPHOCYTES % (AUTO) 10.7 %; MEAN CORPUSCULAR HEMOGLOBIN 34.2 pg (27.0-31.0); MEAN CORPUSCULAR VOLUME 100.8 fL (80.0-94.0); MONOCYTES % (AUTO) 7.2 %; NEUTROPHILS % (AUTO) 59.1 %; PLT - PLATELET COUNT 49 10^3/uL (130-450); RED BLOOD COUNT 2.57 10^6/uL (4.70-6.10); RED CELL DISTRIBUTION WIDTH 21.9 % (12.0-15.0); WHITE BLOOD COUNT 32.1 x10^3/uL (4.8-10.8)
[2022-08-12 05:23] LABS: ABNORMAL LYMPHS % (MANUAL) 0 %
[2022-08-12 05:34] LABS: ALBUMIN 1.5 g/dL (3.2-5.5); ALBUMIN/GLOBULIN RATIO 0.3 (1.0-2.2); ALKALINE PHOSPHATASE 314 IU/L (42-121); ALT ALANINE AMINOTRANSFERASE 61 IU/L (10-60); AST ASPARTATE AMINOTRANSFERASE 122 IU/L (10-42); BILIRUBIN,TOTAL 16.4 mg/dL (0.2-1.0); BUN - BLOOD UREA NITROGEN < 5 mg/dL (6-20); CALCIUM 8.4 mg/dL (8.5-10.3); CARBON DIOXIDE - CO2 26 mmol/L (21-32); CHLORIDE 103 mmol/L (101-111); CREATININE 0.4 mg/dL (0.6-1.2); GFR - MDRD 238 (>89); GLUCOSE 86 mg/dL (70-100); POTASSIUM 3.3 mmol/L (3.5-5.0); SODIUM 139 mmol/L (135-145); TOTAL PROTEIN 5.9 g/dL (6.7-8.2)
[2022-08-12 05:44] LABS: BAND NEUTROPHILS % (MANUAL) 3 %; LYMPHOCYTES # (MANUAL) 4.5 10^3/uL (1.5-3.5); LYMPHOCYTES % (MANUAL) 14 %; METAMYELOCYTES % (MANUAL) 3 %; MONOCYTES # (MANUAL) 1.3 10^3/uL (0.0-1.0); MYELOCYTES % (MANUAL) 8 %; NEUTROPHILS # (MANUAL) 21.8 10^3/uL (1.5-6.6); NUCLEATED RBC (MANUAL) 1 %
[2022-08-12 05:46] LABS: PLATELET ESTIMATE, MANUAL DECREASED (<130,000) (NORMAL); PLATELET MORPHOLOGY NORMAL APPEARANCE (NORMAL); WBC MORPHOLOGY (MULTIPLE) NORMAL APPEARANCE (NORMAL)
[2022-08-12 05:47] LABS: DIFFERENTIAL COMMENT MANUAL DIFFERENTIAL
[2022-08-12] MEDS: SODIUM CHLORIDE FLUSH 0.9% 10 ML SYRINGE IVP SCH ×3 (06:31→18:07)
[2022-08-12] MEDS: PANTOPRAZOLE 40 MG VIAL IVP SCH (06:31)
[2022-08-12] MEDS: SODIUM CHLORIDE FLUSH 0.9% 10 ML SYRINGE IVP PRN (06:33)
[2022-08-12 06:37] LABS: MAGNESIUM 1.9 mg/dL (1.7-2.8); PHOSPHORUS 3.3 mg/dL (2.5-4.6)
[2022-08-12 08:16] LABS: CALCIUM, IONIZED 1.15 mmol/L (1.15-1.33); VBG PH 7.568 (7.31-7.41)
[2022-08-12] MEDS: polyethylene glycoL 3350 17 GM PACKET PO SCH (08:22)
[2022-08-12] MEDS: POTASSIUM CHLOR 10 MEQ/100 ML 10 MEQ/100 ML BAG IV SCH ×10 (08:23→23:16)
[2022-08-12] MEDS: THIAMINE 100 MG TABLET PO SCH (09:22)
[2022-08-12] MEDS: DOCUSATE SODIUM 250 MG CAPSULE PO SCH (09:22)
[2022-08-12] MEDS: PRENATAL VITAMIN TABLET PO SCH (09:22)
[2022-08-12] MEDS: LACTULOSE 10 GM /15 ML UDC PO SCH (09:22)
[2022-08-12] MEDS: SENNA 8.6 MG TABLET PO SCH (09:22)
[2022-08-12] MEDS: SODIUM CHLORIDE 1 GM TABLET PO SCH (09:22)
[2022-08-12] MEDS ORDERED: SODIUM CHLORIDE 0.9% MINIBAG 100 ML IV ONE (12:20)
[2022-08-12] MEDS: LORazepam 2 MG/ML VIAL IVP PRN (12:25)
[2022-08-12 14:58] LABS: CALCIUM, IONIZED 1.04 mmol/L (1.15-1.33); VBG PH 7.49 (7.31-7.41)
[2022-08-12 15:06] LABS: MAGNESIUM 1.8 mg/dL (1.7-2.8); POTASSIUM 3.4 mmol/L (3.5-5.0)
[2022-08-12] MEDS ORDERED: CALCIUM GLUC 1,000MG/50ML-NACL 1,000 MG/50 ML BAG IV ONE ×2 (15:13→21:49)
[2022-08-12] MEDS ORDERED: MAGNESIUM SULFATE 2 GRAM 2 GM/50 ML BAG IV ONE (15:13)
--- NOTE | 2022-08-12 18:45 | Ultrasound Report ---
PROCEDURE: Abdomen Limited INDICATIONS: liver failure, elev wbc TECHNIQUE: Real-time focused scanning was performed of the abdomen, with image documentation. COMPARISON: Ultrasound abdomen limited, 08/07/2022. CT of abdomen and pelvis with, 08/07/2022 FINDINGS: Liver: Liver is enlarged measuring 23 cm in length. There is diffusely increased hepatic echotexture . Portal vein is patent, demonstrating hepatopedal flow Gallbladder: No gallstones. There is mild gallbladder wall thickening measuring 3.4 mm. No pericholec ystic fluid collection or no sonographic Godoy sign. Biliary ducts: Intrahepatic bile ducts are non-dilated. Extrahepatic bile duct caliber measures 5.1 mm. Normal is 6-7 mm or less in diameter, or 10 mm or less post-cholecystectomy. Pancreas: Visualized pancreas appears heterogeneous. Spleen: Spleen is normal in size and homogeneous in echotexture. Right kidney: Right kidney measures 10.6 cm long. No hydronephrosis or nephrolithiasis. No solid ma sses. Miscellaneous: No free abdominal fluid. IMPRESSION: 1. Hepatomegaly and diffuse increased hepatic echotexture. Differential diagnoses are hepatic fatty i nfiltration versus other hepatocellular disease. Please correlate with liver enzymes. 2. Gallbladder wall thickening. No gallstones. The finding may be secondary to liver disease but acal culous cholecystitis is a differential diagnosis. 3. Heterogeneous pancreas. Please correlate with pancreatic enzymes. Reviewed by: Beryl Waite MD on 08/12/2022 6:43 PM PST Approved by: Beryl Waite MD on 08/12/2022 6:43 PM PST Station ID: [id number]
--- NOTE | 2022-08-12 19:18 | PROVIDER PROGRESS NOTE ---
Progress Note August 12, 2022 7:11 PM He is not on any Librium. We are giving him Ativan to control his withdrawal. Yesterday he was on 2 mg. Had received only 3 doses yesterday. Last dose was at 10 in the morning. The day before that he received 7 doses. Today he is only received 1 dose of milligram at 1 mg at noon. Now he has seemed to transition to a sleeping state. He wakes very easily to my voice. He knows he is in the hospital but he thinks he is at [facility]. His only pain is right upper quadrant. He is still so weak that he does not get up. He is incontinent of stool. He does roll himself over in the bed and pull the covers onto himself when he wants to get comfortable. He has not had any fever. Blood pressure is occasionally hypotensive at 95/71. Or he goes back up to 117/86. He has done that this entire stay. Belly pain remains the same in his right upper quadrant. Active Medications Albuterol/Ipratropium (Ipratropium/Albuterol 3 Ml Neb) 3 ml INH Q4HR PRN PRN Reason: Wheezing Docusate Sodium (Docusate Sodium 250 Mg Capsule) 250 - 500 mg PO DAILY [facility] Last Admin: 08/12/22 09:22 Dose: 250 mg Hydromorphone HCl (Hydromorphone 0.5 Mg/0.5 Ml Syringe) 0.5 mg IVP Q2HR PRN PRN Reason: moderate pain Last Admin: 08/10/22 07:55 Dose: 0.5 mg Hydromorphone HCl (Hydromorphone 1 Mg/Ml Carpuject) 0.8 mg IVP Q2HR PRN PRN Reason: Severe Pain Last Admin: 08/08/22 17:25 Dose: 0.8 mg Ceftriaxone Sodium 2 gm/ (Sodium Chloride) 100 mls @ 200 mls/hr IV Q24H [facility] Last Infusion: 08/12/22 00:40 Dose: Infused Sodium Chloride (Normal Saline 0.9%) 500 mls @ 20 mls/hr IV Q24H PRN PRN Reason: TKO RATE Last Admin: 08/11/22 23:23 Dose: 20 mls/hr Potassium Chloride (Potassium Chloride) 10 meq in 100 mls @ 100 mls/hr IV Q1H [facility]; Protocol Stop: 08/12/22 19:59 Last Admin: 08/12/22 18:29 Dose: 100 mls/hr Lactulose (Lactulose 10 Gm /15 Ml Udc) 10 gm PO DAILY [facility] Last Admin: 08/12/22 09:22 Dose: 10 gm Lorazepam (Lorazepam 2 Mg/Ml Vial) 2 - 20 mg IVP Q15M PRN; Protocol PRN Reason: RASS > 0 Last Admin: 08/12/22 12:25 Dose: 1 mg Nicotine (Nicotine 14 Mg Patch) 1 patch TOP DAILY PRN PRN Reason: smoking cessation Last Admin: 08/10/22 03:02 Dose: 1 patch Ondansetron HCl (Ondansetron 4 Mg/2 Ml Vial) 4 mg IVP Q6HR PRN PRN Reason: Nausea / Vomiting Pantoprazole Sodium (Pantoprazole 40 Mg Vial) 40 mg IVP QDAC [facility] Last Admin: 08/12/22 06:31 Dose: 40 mg Polyethylene Glycol (Polyethylene Glycol 3350 17 Gm Packet) 17 gm PO DAILY [facility] Last Admin: 08/12/22 08:22 Dose: 17 gm Multivit/Folic Acid/Iron ( Vitamin Tablet) 1 tab PO DAILYWM [facility] Last Admin: 08/12/22 09:22 Dose: 1 tab Prochlorperazine Edisylate (Prochlorperazine 10 Mg/2 Ml Vial) 10 mg IVP Q6HR PRN PRN Reason: Nausea / Vomiting Senna (Senna 8.6 Mg Tablet) 8.6 - 17.2 mg PO DAILY [facility] Last Admin: 08/12/22 09:22 Dose: 8.6 mg Sodium Chloride (Sodium Chloride Flush 0.9% 10 Ml Syringe) 10 ml IVP 0100,0900,1700 [facility] Last Admin: 08/12/22 18:07 Dose: Not Given Sodium Chloride (Sodium Chloride Flush 0.9% 10 Ml Syringe) 10 ml IVP PRN PRN PRN Reason: NEEDED PER PROVIDER ORDERS Last Admin: 08/12/22 06:33 Dose: 10 ml Sodium Chloride (Sodium Chloride 1 Gm Tablet) 1 gm PO DAILY [facility] Last Admin: 08/12/22 09:22 Dose: 1 gm Thiamine HCl (Thiamine 100 Mg Tablet) 100 mg PO DAILY [facility] Last Admin: 08/12/22 09:22 Dose: 100 mg No Known Home Medications 12/18/20 Temperature is 37.2. Heart rate 93. The lowest blood pressure today is 88/60, respirations 18, 98% on room air. A thin white male who is quite yellow Neck is supple with shotty adenopathy Oral mucosa is moist. Lungs have coarse upper airway sounds and he does have an occasional cough but not productive. No respiratory distress, no tachypnea. Regular rate and rhythm and heart rate has slowed down so that he is no longer in the 120s as he was when he first came in and is mainly 98-103 Abdomen is distended, firm. Unchanged this week. The only thing that improved is less right upper quadrant pain. He still is uncomfortable when I palpate the liver which is huge. But he does not grimace with pain as he used to. Extremities are thin, without edema. oriented to person, understands he is in a hospital, and states he is here because of his drinking. Today was the first day he gave me 2 or 3 sentences in a row before going back to sleep. Sodium is 139. Potassium is 3.3. BUN less than 5, creatinine less than 4. Total bili is 16.4. Continues to climb. Admission was 12.5. AST is 122. Down from the 273 at admission. AST is 61, down from the 107 on admission. Alk phos is 314, down from the 556 from admission. Total protein is 5.9, albumin 1.5. White cell count is 32,000. Yesterday he was 31,000. On admission he was 18.4 thousand. Conclusion/Plan - Problem List Assessment/plan 1. Leukocytosis and hypotension He has been sleeping most the time. Snoring. Not eating. No witnessed episodes of aspiration. He does not have any episodes of fever. I would think by now that if he had demargination his white cell count will be coming down as opposed to keep on going up. He does have an occasional cough.He has been on empiric Rocephin since admission. When I read the H&P there is no thought process document about why Rocephin. Now the only thing I can think of is that he is if he has esophageal varices and possibly bleeding, Rocephin would started. Chest x-ray yesterday was clear. No infection. I ordered a straight cath because he was incontinent. He has squamous epithelial cells, granular casts, few bacteria. Large amount of bilirubin. Glucosuria. Negative nitrates. Culture has not been done. I am worried by the white cell count. And now I am worried about the low blood pressure. I did have repeat ultrasound looking for liver abscess. Other than a large liver, no abscess were seen, and his pancreas does have hypoechoic areas. I thought about spontaneous bacterial peritonitis. But his belly pain has been less over the last few days not worse. He is already been on Rocephin since admission. Plan: Add Flagyl to the Rocephin paracentesis with culture of fluid tomorrow repeat BP and if still low, fluid bolus. already in ICU 2. Alcohol withdrawal From a withdrawal perspective the patient is improving. He is requiring almost no benzodiazepine today. Because he is only gotten 1 dose of Ativan today, his sleepiness is more that of a normal sleep than sedation from a benzo. Today is day #6 and it finally 6 seems to be improving. He is already on oral vitamin, thiamine. Plan: Continue benzodiazepine as needed. Nursing has been very good about tapering him off today. 3. Liver failure His ammonia level was elevated and nursing states that he is taking his lactulose. Bilirubin continues to slowly climb although liver enzymes are going down. Even if we asked for transfer, to a higher level of care, I do not know how much more a GI specialist could help us. He is improving, albeit quite slowly. 4. Anemia. No signs or symptoms of GI bleed other than the anemia. We will continue to monitor hemoglobin and transfuse as necessary. If he continues to need transfusion he may need an upper endoscopy. 5 Hypokalemia. On ICU electrolyte replacement protocol. Still requiring replacement as well as getting Mg and Phosporus.
[2022-08-12] MEDS: metroNIDAZOLE 500 MG/100 ML 500 MG/100 ML BAG IV SCH (20:13)
[2022-08-12 21:29] LABS: CALCIUM, IONIZED 1.05 mmol/L (1.15-1.33); VBG PH 7.468 (7.31-7.41)
[2022-08-12 21:43] LABS: MAGNESIUM 2.4 mg/dL (1.7-2.8); PHOSPHORUS 2.9 mg/dL (2.5-4.6); POTASSIUM 3.8 mmol/L (3.5-5.0)
[2022-08-12] MEDS: cefTRIAXone 2 GM in SODIUM CHLORIDE 0.9% MINIBAG 100 ML IV SCH (23:32)
[2022-08-13] MEDS: SODIUM CHLORIDE FLUSH 0.9% 10 ML SYRINGE IVP SCH ×3 (01:16→17:19)
[2022-08-13] MEDS: SODIUM CHLORIDE 0.9% 500 ML IV PRN (02:00)
[2022-08-13] MEDS: metroNIDAZOLE 500 MG/100 ML 500 MG/100 ML BAG IV SCH ×3 (03:43→19:39)
[2022-08-13] MEDS: PANTOPRAZOLE 40 MG VIAL IVP SCH (06:18)
[2022-08-13 06:48] LABS: BASOPHILS % (AUTO) 0.2 %; EOSINOPHILS % (AUTO) 2.3 %; HGB - HEMOGLOBIN 8.2 g/dL (14.0-18.0); LYMPHOCYTES % (AUTO) 10.9 %; MEAN CORPUSCULAR HGB CONC 32.8 g/dL (32.0-36.0); MEAN CORPUSCULAR VOLUME 103.7 fL (80.0-94.0); MEAN PLATELET VOLUME 13.1 fL (7.4-11.4); MONOCYTES % (AUTO) 6.8 %; PLT - PLATELET COUNT 76 10^3/uL (130-450); RED BLOOD COUNT 2.41 10^6/uL (4.70-6.10); RED CELL DISTRIBUTION WIDTH 23.5 % (12.0-15.0); WHITE BLOOD COUNT 26.4 x10^3/uL (4.8-10.8)
[2022-08-13 06:49] LABS: ABNORMAL LYMPHS % (MANUAL) 0 %
[2022-08-13 06:53] LABS: CALCIUM, IONIZED 1.05 mmol/L (1.15-1.33); VBG PH 7.504 (7.31-7.41)
[2022-08-13 07:00] LABS: BAND NEUTROPHILS % (MANUAL) 4 %; EOSINOPHILS # (MANUAL) 0.5 10^3/uL (0-0.7); LYMPHOCYTES # (MANUAL) 2.1 10^3/uL (1.5-3.5); LYMPHOCYTES % (MANUAL) 8 %; MONOCYTES # (MANUAL) 2.1 10^3/uL (0.0-1.0); MYELOCYTES % (MANUAL) 6 %; NEUTROPHILS # (MANUAL) 20.1 10^3/uL (1.5-6.6)
[2022-08-13 07:02] LABS: DIFFERENTIAL COMMENT MANUAL DIFFERENTIAL; PLATELET ESTIMATE, MANUAL DECREASED (<130,000) (NORMAL); PLATELET MORPHOLOGY NORMAL APPEARANCE (NORMAL); WBC MORPHOLOGY (MULTIPLE) NORMAL APPEARANCE (NORMAL)
[2022-08-13] MEDS ORDERED: CALCIUM GLUC 1,000MG/50ML-NACL 1,000 MG/50 ML BAG IV ONE (07:18)
[2022-08-13] MEDS: PRENATAL VITAMIN TABLET PO SCH (08:04)
[2022-08-13] MEDS: THIAMINE 100 MG TABLET PO SCH (08:04)
[2022-08-13 08:17] LABS: LIPASE 40 U/L (22-51); TRIGLYCERIDES 790 mg/dL
[2022-08-13 08:25] LABS: ALBUMIN 1.6 g/dL (3.2-5.5); ALBUMIN/GLOBULIN RATIO 0.4 (1.0-2.2); ALKALINE PHOSPHATASE 264 IU/L (42-121); ALT ALANINE AMINOTRANSFERASE 54 IU/L (10-60); AST ASPARTATE AMINOTRANSFERASE 115 IU/L (10-42); BILIRUBIN,TOTAL 16.8 mg/dL (0.2-1.0); BUN - BLOOD UREA NITROGEN < 5 mg/dL (6-20); CALCIUM 8.4 mg/dL (8.5-10.3); CARBON DIOXIDE - CO2 23 mmol/L (21-32); CHLORIDE 107 mmol/L (101-111); CREATININE 0.4 mg/dL (0.6-1.2); GFR - MDRD 238 (>89); GLUCOSE 96 mg/dL (70-100); POTASSIUM 3.3 mmol/L (3.5-5.0); SODIUM 141 mmol/L (135-145); TOTAL PROTEIN 5.9 g/dL (6.7-8.2)
[2022-08-13 08:49] LABS: INR 1.1 (0.8-1.2)
[2022-08-13] MEDS: POTASSIUM CHLOR 10 MEQ/100 ML 10 MEQ/100 ML BAG IV SCH ×4 (08:50→14:10)
[2022-08-13 08:52] LABS: LDL CHOLESTEROL,DIRECT 321 mg/dL
[2022-08-13] MEDS: polyethylene glycoL 3350 17 GM PACKET PO SCH (08:52)
[2022-08-13] MEDS: SENNA 8.6 MG TABLET PO SCH (08:52)
[2022-08-13] MEDS: SODIUM CHLORIDE 1 GM TABLET PO SCH (09:00)
[2022-08-13] MEDS: LACTULOSE 10 GM /15 ML UDC PO SCH (09:07)
[2022-08-13] MEDS: DOCUSATE SODIUM 250 MG CAPSULE PO SCH (10:11)
[2022-08-13] MEDS ORDERED: LORazepam 2 MG/ML VIAL IVP PRN (11:16)
[2022-08-13] MEDS ORDERED: iohexoL-300 100 ML VIAL ONE (15:37)
--- NOTE | 2022-08-13 16:47 | CT Report ---
PROCEDURE: ABDOMEN/PELVIS W INDICATIONS: Persistent elev WBC and abd pain CONTRAST: 100mL Omni 300 TECHNIQUE: After the administration of IV contrast, 5 mm thick sections acquired from the diaphragms to the symp hysis. 5 mm thick coronal and sagittal reformats were acquired. For radiation dose reduction, the f ollowing was used: automated exposure control, adjustment of mA and/or kV according to patient size. COMPARISON: 08/07/2022 CT, 08/12/2022 Abdomen ultrasound FINDINGS: Image quality: Good Lower chest: Basal scarring/atelectasis. Solid organs: Hepatomegaly and fatty infiltration of the liver. There are small areas of focal fatty sparing. Gallbladder hyperemia, without radiopaque gallstone identified. Mild peripancreatic edema, similar to prior. No definite areas of necrosis. Borderline splenomegaly at 13 to 14 cm. No adrenal nodules. No hydronephrosis. Vessels and lymph nodes: The main portal vein is patent. No abdominal aortic aneurysm. No pathologic adenopathy by size criteria. Bowel and peritoneum: No evidence of small bowel obstruction. No drainable abscess. No pathologic asc ites. Body wall: Unremarkable Pelvis: Bladder is underdistended. Prostate is not well evaluated. Bones: No acute or suspicious osseous finding. Old left rib fractures partially seen. IMPRESSION: Persistent findings of acute interstitial pancreatitis, without appreciable necrotic component or julio inable fluid collection. Imaging suggestion of steatohepatitis. Correlate with LFTs. Gallbladder is better evaluated on ultrasound. No other acute changes compared to prior. Reviewed by: Yusuf Olsen MD on 08/13/2022 4:46 PM PST Approved by: Yusuf Olsen MD on 08/13/2022 4:46 PM PST Station ID: [id number]
--- NOTE | 2022-08-13 16:50 | PROVIDER PROGRESS NOTE ---
Assessment/Plan - Problem List (1) Leukocytosis Assessment/Plan: He continues to have an= very elev white cell count. He did have repeat ultrasound looking for liver abscess. Other than a large liver, no abscess were seen, and his pancreas does have hypoechoic areas. We considered spontaneous bacterial peritonitis, but US showed no ascites fluid, nothing to tap. He has already been on Rocephin since admission. We empirically added Flagyl yesterday to the Rocephin Plan: Because of very elevated triglycerides (which were checked because of Hx of familial hypertriglyceridemia), consideration is once again for pancreatitis as the cause of his leukocytosis, and will therefore repeat CT abdomen today. Remain on empiric antibiotics He may transfer out of ICU to [facility], given his stable vital signs today 2. Pancreatitis Imaging with CT was repeated today and shows persistent acute pancreatitis. However there is no abscess, no drainable fluid, no cyst or necrosis of the pancreas. Triglyceride level was checked today and is very high at 790. There is a FH of Familial Hypertriglyceridemia, per records (I reviewed his last Inpatient stay in [facility] today). His pancreatitis is likely from alcohol abuse plus hypertriglyceridemia. His lipase has dropped from to normal range of 40 today His diet has been adjusted to a soft diet, no low-fat restrictions are in place Plan: We will change to low-fat, low protein, hepatic diet Will start (re)treatment of his hypertriglyceridemia. After the admission 2 years ago he was discharged on Lopid however his current reconciled med list shows he was taking no meds 3. Familial hypertriglyceridemia Triglyceride level was checked today and is very high at 790. There is a FH of Familial Hypertriglyceridemia, per records (I reviewed his last Inpatient stay in [facility] today). He is on no low-fat restrictions on his diet order Plan: We will change to low-fat, low protein, hepatic diet Will start (re)treatment of his hypertriglyceridemia using Lopid BID. After the admission 2 years ago he was discharged on Lopid however his current reconciled med list shows he was taking no meds. I reminded the patient about his hypertriglyceridemia and he answered "yeah I think I have heard about that before" 4. Alcohol dependance with withdrawal From a withdrawal perspective the patient is improving. He is already on oral vitamin, thiamine. When he last was admitted here for alcohol withdrawal, he had a similar pattern of needing many days of benzodiazepines to get through withdrawal and was very sleepy for a prolonged period of time Plan: Continue benzodiazepine, now just as needed. 5. Elevated LFTs His ammonia level was elevated and nursing states that he is taking his lactulose. Bilirubin continues to slowly climb although liver enzymes are going down. Plan: Even if we asked for transfer, to a higher level of care, I do not know how much more a GI specialist could help us. He is improving, albeit quite slowly and will continue supportive care. 6. Alcohol abuse As per Hx. SW input appreciated. 7. Anemia No signs or symptoms of GI bleed other than the anemia. Plan: We will continue to monitor hemoglobin and transfuse as necessary. If he continues to need transfusion he may need an upper endoscopy. 8 Hypokalemia Likely related to poor p.o. intake in conjunction with his alcohol abuse. Still requiring K replacement as well as getting Mg and Phosporus. Plan: Continue to monitor electrolytes, Mg and PO4 and replace if low 9. Hypotension Resolved - Current Meds Current Meds: Current Medications Generic Name Dose Route Start Last Admin Trade Name Freq PRN Reason Stop Dose Admin Ceftriaxone Sodium 2 gm/ 100 mls @ 200 mls/hr 08/07/22 23:00 08/13/22 00:05 Sodium Chloride IV Infused Q24H CASH Infusion Sodium Chloride 500 mls @ 20 mls/hr 08/08/22 06:05 08/13/22 14:00 Normal Saline 0.9% IV 20 mls/hr Q24H PRN Infusion TKO RATE Metronidazole 500 mg in 100 mls @ 100 mls/hr 08/12/22 20:00 08/13/22 12:35 Flagyl 500 Mg/100 Ml IV Infused Q8H CASH Infusion Lactulose 10 gm 08/09/22 09:00 08/13/22 09:07 Lactulose 10 Gm /15 Ml Udc PO 10 gm DAILY CASH Administration Nicotine 1 patch 08/07/22 22:39 08/10/22 03:02 Nicotine 14 Mg Patch TOP 1 patch DAILY PRN Administration smoking cessation Pantoprazole Sodium 40 mg 08/11/22 08:00 08/13/22 06:18 Pantoprazole 40 Mg Vial IVP 40 mg QDAC CASH Administration Multivit/Folic Acid/Iron 1 tab 08/08/22 12:00 08/13/22 08:04 Vitamin Tablet PO 1 tab DAILYWM CASH Administration Sodium Chloride 10 ml 08/08/22 01:00 08/13/22 10:28 Sodium Chloride Flush 0.9% 10 Ml Syringe IVP Not Given 0100,0900,1700 CASH Sodium Chloride 10 ml 08/07/22 22:20 08/12/22 06:33 Sodium Chloride Flush 0.9% 10 Ml Syringe IVP 10 ml PRN PRN Administration NEEDED PER PROVIDER ORDERS Thiamine HCl 100 mg 08/08/22 12:00 08/13/22 08:04 Thiamine 100 Mg Tablet PO 100 mg DAILY CASH Administration - Lab Result Fish Bone Diagrams: 08/14/22 05:03 08/14/22 05:03 - Additional Planning My Orders: My Active Orders 08/13/22 Evaluate and Treat PT [PT] Routine 08/13/22 11:16 LORazepam INJ [Ativan Inj (Vial)] 1 mg IVP Q30M PRN 08/13/22 15:13 HYDROmorphone 0.5MG SYRINGE [Dilaudid 0.5MG Syringe] 0.5 mg IVP Q4HR PRN 08/13/22 16:43 Telemetry- [RC] Q4HR 08/14/22 05:00 CMP [COMPREHENSIVE METABOLIC PANEL] [CHEM] DAILYLAB 08/15/22 05:00 CMP [COMPREHENSIVE METABOLIC PANEL] [CHEM] DAILYLAB 08/16/22 05:00 CMP [COMPREHENSIVE METABOLIC PANEL] [CHEM] DAILYLAB Subjective - Subjective Patient Reports: Feeling Better (Is more awake. Still has mid-abd pain.) Objective Vital Signs: Vital Signs - 24 hr 08/12/22 08/12/22 08/12/22 17:00 18:00 19:00 Temperature Heart Rate [ 100 93 92 Monitoring electrodes] Respiratory 20 18 26 H Rate Blood Pressure 106/86 H 88/60 L 89/65 L [Right Brachial artery] O2 Saturation 100 98 98 08/12/22 08/12/22 08/12/22 20:00 21:00 22:00 Temperature 37.3 C Heart Rate [ 93 97 98 Monitoring electrodes] Respiratory 25 H 20 25 H Rate Blood Pressure 107/81 H 114/80 106/74 [Right Brachial artery] O2 Saturation 99 94 100 08/12/22 08/13/22 08/13/22 23:00 00:00 01:00 Temperature 37.3 C Heart Rate [ 106 H 97 96 Monitoring electrodes] Respiratory 24 25 H 23 Rate Blood Pressure 119/72 103/74 107/78 [Right Brachial artery] O2 Saturation 99 100 98 08/13/22 08/13/22 08/13/22 02:00 03:00 04:00 Temperature Heart Rate [ 107 H 105 H 116 H Monitoring electrodes] Respiratory 24 25 H 19 Rate Blood Pressure 92/60 92/60 105/77 [Right Brachial artery] O2 Saturation 100 100 100 08/13/22 08/13/22 08/13/22 05:00 06:00 06:52 Temperature Heart Rate [ 114 H 106 H 99 Monitoring electrodes] Respiratory 21 22 26 H Rate Blood Pressure 101/70 96/66 106/77 [Right Brachial artery] O2 Saturation 98 98 99 08/13/22 08/13/22 08/13/22 08:00 09:00 10:00 Temperature 37.7 C Heart Rate [ 122 H 105 H 100 Monitoring electrodes] Respiratory 17 15 24 Rate Blood Pressure 115/93 H 121/85 H 91/65 [Right Brachial artery] O2 Saturation 100 100 98 08/13/22 08/13/22 08/13/22 11:00 12:00 13:00 Temperature 36.7 C Heart Rate [ 103 H 121 H 109 H Monitoring electrodes] Respiratory 21 14 21 Rate Blood Pressure 101/67 109/79 [Right Brachial artery] O2 Saturation 97 96 98 08/13/22 08/13/22 14:00 16:11 Temperature Heart Rate [ 104 H 107 H Monitoring electrodes] Respiratory 25 H 20 Rate Blood Pressure 112/82 H 119/75 [Right Brachial artery] O2 Saturation 99 98 Oxygen O2 Source Room air I&O (Last 24 Hrs): Intake and Output Totals x24h 08/11/22 08/12/22 08/13/22 23:59 23:59 23:59 Intake Total 1637.530 2093.334 2180 Output Total 550 600 350 Balance 994.442 2274.334 1830 General: Alert, Oriented x3, Other (Cachectic, appears weak and tired.) HEENT: Mucous membr. moist/pink, Other (icteric) Neck: Supple Neuro: Alert, Other (Has mild resting tremor of hands. Soft-spoken and short answers. Moving all extrem) Cardiovascular: Regular rate, No murmurs Respiratory: No respiratory distress, Breath sounds nml Abdomen: Normal bowel sounds, Soft, Other (tender in LUQ, mild, no rebound or guarding) Extremities: No clubbing, No edema, No tenderness/swelling Skin: No rashes (Icteric skin) - Results Results: Laboratory Results WBC 26.4 x10^3/uL (4.8-10.8) H 08/13/22 06:36 RBC 2.41 10^6/uL (4.70-6.10) L 08/13/22 06:36 Hgb 8.2 g/dL (14.0-18.0) L 08/13/22 06:36 Hct 25.0 % (42.0-52.0) L 08/13/22 06:36 MCV 103.7 fL (80.0-94.0) H 08/13/22 06:36 MCH 34.0 pg (27.0-31.0) H 08/13/22 06:36 MCHC 32.8 g/dL (32.0-36.0) 08/13/22 06:36 RDW 23.5 % (12.0-15.0) H 08/13/22 06:36 Plt Count 76 10^3/uL (130-450) L 08/13/22 06:36 MPV 13.1 fL (7.4-11.4) H 08/13/22 06:36 Neut # (Auto) Not Reportable 08/13/22 06:36 Lymph # (Auto) Not Reportable 08/13/22 06:36 Mineral # (Auto) Not Reportable 08/13/22 06:36 Eos # (Auto) Not Reportable 08/13/22 06:36 Baso # (Auto) Not Reportable 08/13/22 06:36 Absolute Nucleated RBC Not Reportable 08/13/22 06:36 Total Counted 100 08/13/22 06:36 Band Neuts % (Manual) 4 % (0-10) 08/13/22 06:36 Abnorm Lymph % (Manual) 0 % 08/13/22 06:36 Metamyelocytes % 3 % (-0) H 08/12/22 04:19 Myelocytes % 6 % (-0) H 08/13/22 06:36 Promyelocytes % 1 % (-0) H 08/09/22 21:48 Nucleated RBC % Not Reportable 08/13/22 06:36 Neutrophils # (Manual) 20.1 10^3/uL (1.5-6.6) H 08/13/22 06:36 Lymphocytes # (Manual) 2.1 10^3/uL (1.5-3.5) 08/13/22 06:36 Monocytes # (Manual) 2.1 10^3/uL (0.0-1.0) H 08/13/22 06:36 Eosinophils # (Manual) 0.5 10^3/uL (0-0.7) 08/13/22 06:36 Basophils # (Manual) 0.0 10^3/uL (0-0.1) 08/13/22 06:36 Nucleated RBCs 1 % 08/12/22 04:19 Differential Comment MANUAL DIFFERENTIAL 08/13/22 06:36 WBC Morphology NORMAL APPEARANCE (NORMAL) 08/13/22 06:36 Platelet Estimate DECREASED (<130,000) (NORMAL) 08/13/22 06:36 Platelet Morphology NORMAL APPEARANCE (NORMAL) 08/13/22 06:36 RBC Morph Micro Appear 2+ ANISOCYTOSIS (NORMAL) 2+ POLYCHROMASIA (NORMAL) 1+ TARGET CELLS (NORMAL) 08/13/22 06:36 RBC Morph Micro Appear 2+ ANISOCYTOSIS (NORMAL) 2+ POLYCHROMASIA (NORMAL) 1+ TARGET CELLS (NORMAL) 08/13/22 06:36 RBC Morph Micro Appear 2+ ANISOCYTOSIS (NORMAL) 2+ POLYCHROMASIA (NORMAL) 1+ TARGET CELLS (NORMAL) 08/13/22 06:36 PT 12.0 secs (9.9-12.6) 08/13/22 08:24 INR 1.1 (0.8-1.2) 08/13/22 08:24 VBG pH 7.504 (7.31-7.41) H 08/13/22 06:36 Ionized Calcium 1.05 mmol/L (1.15-1.33) L 08/13/22 06:36 Sodium 141 mmol/L (135-145) 08/13/22 06:36 Potassium 3.3 mmol/L (3.5-5.0) L 08/13/22 06:36 Potassium 3.3 mmol/L (3.5-5.0) L 08/13/22 06:36 Chloride 107 mmol/L (101-111) 08/13/22 06:36 Carbon Dioxide 23 mmol/L (21-32) 08/13/22 06:36 Anion Gap 11.0 (6-13) 08/13/22 06:36 BUN < 5 mg/dL (6-20) L 08/13/22 06:36 Creatinine 0.4 mg/dL (0.6-1.2) L 08/13/22 06:36 Estimated GFR (MDRD) 238 (>89) 08/13/22 06:36 Glucose 96 mg/dL (70-100) 08/13/22 06:36 Calcium 8.4 mg/dL (8.5-10.3) L 08/13/22 06:36 Phosphorus 2.9 mg/dL (2.5-4.6) 08/12/22 21:20 Magnesium 2.4 mg/dL (1.7-2.8) 08/12/22 21:20 Total Bilirubin 16.8 mg/dL (0.2-1.0) H 08/13/22 06:36 AST 115 IU/L (10-42) H 08/13/22 06:36 ALT 54 IU/L (10-60) 08/13/22 06:36 Alkaline Phosphatase 264 IU/L (42-121) H 08/13/22 06:36 Ammonia 71.6 umol/L (7-35) H 08/13/22 08:24 Total Protein 5.9 g/dL (6.7-8.2) L 08/13/22 06:36 Albumin 1.6 g/dL (3.2-5.5) L 08/13/22 06:36 Globulin 4.3 g/dL (2.1-4.2) H 08/13/22 06:36 Albumin/Globulin Ratio 0.4 (1.0-2.2) L 08/13/22 06:36 Triglycerides 790 mg/dL (-149) H 08/13/22 06:36 LDL Cholesterol Direct 321 mg/dL (-129) H 08/13/22 06:36 dLDL/HDL Ratio Not Reportable 08/13/22 06:36 Lipase 40 U/L (22-51) 08/13/22 06:36 Procalcitonin 1.30 ng/mL (<0.5) H 08/07/22 22:45 Urine Color YELLOW 08/11/22 21:40 Urine Clarity HAZY (CLEAR) 08/11/22 21:40 Urine pH 7.0 PH (5.0-7.5) 08/11/22 21:40 Ur Specific [place] 1.010 (1.002-1.030) 08/11/22 21:40 Urine Protein NEGATIVE mg/dL (NEGATIVE) 08/11/22 21:40 Urine Glucose (UA) 100 mg/dL (NEGATIVE) H 08/11/22 21:40 Urine Ketones NEGATIVE mg/dL (NEGATIVE) 08/11/22 21:40 Urine Occult Blood TRACE-INTA (NEGATIVE) 08/11/22 21:40 Urine Nitrite NEGATIVE (NEGATIVE) 08/11/22 21:40 Urine Bilirubin LARGE (NEGATIVE) H 08/11/22 21:40 Urine Urobilinogen 0.2 (NORMAL) E.U./dL (NORMAL) 08/11/22 21:40 Ur Leukocyte Esterase NEGATIVE (NEGATIVE) 08/11/22 21:40 Urine RBC 0-5 /HPF (0-5) 08/11/22 21:40 Urine WBC 0-3 /HPF (0-3) 08/11/22 21:40 Ur Squamous Epith Cells FEW Squamous (<= Few) 08/11/22 21:40 Amorphous Sediment Few /LPF 08/11/22 21:40 Urine Bacteria Few /HPF (None Seen) 08/11/22 21:40 Urine Casts 3-5 Fine Granular /LPF 08/11/22 21:40 Urine Mucus Few Strands 08/11/22 21:40 Ur Microscopic Review INDICATED 08/07/22 17:15 Urine Culture Comments NOT INDICATED 08/11/22 21:40 Nasal Adenovirus (PCR) NOT DETECTED 08/07/22 15:54 Nasal B. parapertussis DNA (PCR) NOT DETECTED 08/07/22 15:54 Nasal Coronavir 229E PCR NOT DETECTED 08/07/22 15:54 Nasal Coronavir HKU1 PCR NOT DETECTED 08/07/22 15:54 Nasal Coronavir NL63 PCR NOT DETECTED 08/07/22 15:54 Nasal Coronavir OC43 PCR NOT DETECTED 08/07/22 15:54 Nasal Enterovir/Rhinovir PCR NOT DETECTED 08/07/22 15:54 Nasal Influenza B PCR NOT DETECTED 08/07/22 15:54 Nasal Influenza A PCR NOT DETECTED 08/07/22 15:54 Nasal Parainfluen 1 PCR NOT DETECTED 08/07/22 15:54 Nasal Parainfluen 2 PCR NOT DETECTED 08/07/22 15:54 Nasal Parainfluen 3 PCR NOT DETECTED 08/07/22 15:54 Nasal Parainfluen 4 PCR NOT DETECTED 08/07/22 15:54 Nasal RSV (PCR) NOT DETECTED 08/07/22 15:54 Nasal Screen MRSA (PCR) NEGATIVE (NEGATIVE) 08/07/22 23:35 Nasal B.pertussis DNA PCR NOT DETECTED 08/07/22 15:54 Nasal C.pneumoniae (PCR) NOT DETECTED 08/07/22 15:54 Asaf Human Metapneumo PCR NOT DETECTED 08/07/22 15:54 Nasal M.pneumoniae (PCR) NOT DETECTED 08/07/22 15:54 Nasal SARS-CoV-2 (PCR) NOT DETECTED 08/07/22 15:54 Ethyl Alcohol 121.5 mg/dL 08/07/22 15:37 Hepatitis A IgM Ab Negative (Negative) 08/07/22 15:37 Hep Bs Antigen Negative (Negative) 08/07/22 15:37 Hep B Core IgM Ab Negative (Negative) 08/07/22 15:37 Hepatitis C Antibody Non Reactive (Non Reactive) 08/07/22 15:37 Hepatitis C Interp Comment (.) 08/07/22 15:37 Blood Type O POSITIVE 08/07/22 22:45 Antibody Screen NEGATIVE 08/07/22 22:45 Crossmatch IS Only See Detail 08/07/22 22:45 - Procedures Procedures: Procedures EXCISION OF DUODENUM, ENDO, DIAGN (02/29/20) EXCISION OF ESOPHAGUS, ENDO, DIAGN (02/29/20) EXCISION OF STOMACH, ENDO, DIAGN (02/29/20)
[2022-08-13] MEDS: HYDROmorphone 0.5 MG/0.5 ML SYRINGE IVP PRN ×2 (17:07→22:43)
[2022-08-13] MEDS: gemfibroziL 600 MG TABLET PO SCH (17:15)
[2022-08-13] MEDS ORDERED: iohexoL-300 100 ML VIAL IVP ONE (17:16)
[2022-08-13] MEDS: cefTRIAXone 2 GM in SODIUM CHLORIDE 0.9% MINIBAG 100 ML IV SCH (22:38)
[2022-08-14] MEDS: metroNIDAZOLE 500 MG/100 ML 500 MG/100 ML BAG IV SCH ×3 (04:42→20:24)
[2022-08-14] MEDS: SODIUM CHLORIDE FLUSH 0.9% 10 ML SYRINGE IVP SCH ×5 (04:42→23:58)
[2022-08-14 05:35] LABS: BASOPHILS % (AUTO) 0.3 %; EOSINOPHILS % (AUTO) 2.3 %; HCT - HEMATOCRIT 24.4 % (42.0-52.0); LYMPHOCYTES % (AUTO) 12.3 %; MEAN CORPUSCULAR HGB CONC 32.8 g/dL (32.0-36.0); MEAN CORPUSCULAR VOLUME 103.8 fL (80.0-94.0); MEAN PLATELET VOLUME 13.7 fL (7.4-11.4); MONOCYTES % (AUTO) 6.8 %; NEUTROPHILS % (AUTO) 67.4 %; PLT - PLATELET COUNT 128 10^3/uL (130-450); RED BLOOD COUNT 2.35 10^6/uL (4.70-6.10); RED CELL DISTRIBUTION WIDTH 23.3 % (12.0-15.0); WHITE BLOOD COUNT 22.7 x10^3/uL (4.8-10.8)
[2022-08-14 05:37] LABS: ABNORMAL LYMPHS % (MANUAL) 0 %
[2022-08-14 05:50] LABS: BAND NEUTROPHILS % (MANUAL) 3 %; EOSINOPHILS # (MANUAL) 0.9 10^3/uL (0-0.7); LYMPHOCYTES # (MANUAL) 1.6 10^3/uL (1.5-3.5); LYMPHOCYTES % (MANUAL) 7 %; METAMYELOCYTES % (MANUAL) 2 %; MONOCYTES # (MANUAL) 2.7 10^3/uL (0.0-1.0); MYELOCYTES % (MANUAL) 4 %; NEUTROPHILS # (MANUAL) 16.1 10^3/uL (1.5-6.6)
[2022-08-14 05:51] LABS: DIFFERENTIAL COMMENT MANUAL DIFFERENTIAL; PLATELET ESTIMATE, MANUAL DECREASED (<130,000) (NORMAL); PLATELET MORPHOLOGY NORMAL APPEARANCE (NORMAL); WBC MORPHOLOGY (MULTIPLE) NORMAL APPEARANCE (NORMAL)
[2022-08-14 05:54] LABS: ALBUMIN 1.5 g/dL (3.2-5.5); ALBUMIN/GLOBULIN RATIO 0.3 (1.0-2.2); ALKALINE PHOSPHATASE 222 IU/L (42-121); ALT ALANINE AMINOTRANSFERASE 45 IU/L (10-60); AST ASPARTATE AMINOTRANSFERASE 88 IU/L (10-42); BILIRUBIN,TOTAL 16.4 mg/dL (0.2-1.0); BUN - BLOOD UREA NITROGEN < 5 mg/dL (6-20); CALCIUM 8.1 mg/dL (8.5-10.3); CARBON DIOXIDE - CO2 21 mmol/L (21-32); CHLORIDE 111 mmol/L (101-111); CREATININE 0.4 mg/dL (0.6-1.2); GFR - MDRD 238 (>89); GLUCOSE 85 mg/dL (70-100); POTASSIUM 3.2 mmol/L (3.5-5.0); SODIUM 141 mmol/L (135-145); TOTAL PROTEIN 5.8 g/dL (6.7-8.2)
[2022-08-14] MEDS: gemfibroziL 600 MG TABLET PO SCH ×2 (06:38→17:02)
[2022-08-14] MEDS: PANTOPRAZOLE 40 MG VIAL IVP SCH (06:38)
[2022-08-14] MEDS: THIAMINE 100 MG TABLET PO SCH (08:02)
[2022-08-14] MEDS: LACTULOSE 10 GM /15 ML UDC PO SCH (08:02)
[2022-08-14] MEDS: PRENATAL VITAMIN TABLET PO SCH (08:02)
[2022-08-14] MEDS: HYDROmorphone 0.5 MG/0.5 ML SYRINGE IVP PRN ×3 (08:02→18:32)
--- NOTE | 2022-08-14 15:07 | PROVIDER PROGRESS NOTE ---
Assessment/Plan - Problem List (1) Leukocytosis Assessment/Plan: He continues to have a very elev white cell count (was 30's) which has decreased to 26 yest and 22 today. He did have repeat ultrasound looking for liver abscess. Other than a large liver, no abscess were seen, and his pancreas does have hypoechoic areas. We considered spontaneous bacterial peritonitis, but US showed no ascites fluid, nothing to tap. He has already been on Rocephin since admission. We empirically added Flagyl on 08/12 to the Rocephin Because of very elevated triglycerides (which were checked because of Hx of familial hypertriglyceridemia), consideration is once again for pancreatitis as the cause of his leukocytosis, and therefore repeat CT was done and showed pancreatitis. Plan: Remain on empiric antibiotics Follow CBC daily 2. Pancreatitis Imaging with CT was repeated 08/13 and showed persistent acute pancreatitis. However there is no abscess, no drainable fluid, no cyst or necrosis of the pancreas. Triglyceride level was checked today and is very high at 790. There is a FH of Familial Hypertriglyceridemia, per records I reviewed yesterday. His pancreatitis is likely from alcohol abuse plus hypertriglyceridemia. His lipase has dropped from to normal range of 40 His diet had been soft diet. Yesterday I changed diet to low-fat restrictions and hepatic diet. Plan: Cont treatment of his hypertriglyceridemia using Lopid, started yesterday 08/13. (After the admission 2 years ago he was discharged on Lopid however his current reconciled med list shows he was taking no meds). 3. Familial hypertriglyceridemia Triglyceride level was checked and is very high at 790. There is a FH of Familial Hypertriglyceridemia, per records which I reviewed yesterday. At his last admission, his serum was white from being so fatty. Yesterday I ordered change to low-fat, low protein, hepatic diet Plan: Continue treatment of his hypertriglyceridemia using Lopid BID. After the admission 2 years ago he was discharged on Lopid however his current reconciled med list shows he was taking no meds. I reminded the patient about his hypertriglyceridemia, when I saw him on 08/13, and he answered "yeah I think I have heard about that before" 4. Alcohol dependance with withdrawal From a withdrawal perspective the patient is improving. He is already on oral vitamin, thiamine. When he last was admitted here for alcohol withdrawal, he had a similar pattern of needing many days of benzodiazepines to get through withdrawal and was very sleepy for a prolonged period of time Plan: Continue benzodiazepine, now just as needed. He is tired appearing, has become deconditioned. PT started with him yesterday 08/13; continue PT and will also order OT. 5. Elevated LFTs His ammonia level was elevated and nursing states that he is taking his lactulose. Bilirubin is elevated but liver enzymes are going down. Plan: Even if we asked for transfer, to a higher level of care, I do not know how much more a GI specialist could help us. He is improving, albeit quite slowly and will continue supportive care. Continue Lactulose for high Ammonia levels 6. Alcohol abuse As per Hx. SW input appreciated. 7. Anemia No signs or symptoms of GI bleed other than the anemia. Plan: We will continue to monitor hemoglobin and transfuse as necessary. If he continues to need transfusion he may need an upper endoscopy. 8 Hypokalemia Likely related to poor p.o. intake in conjunction with his alcohol abuse. Still requiring K replacement as well as getting Mg and Phosporus. Plan: Continue to monitor electrolytes, Mg and PO4 and replace if low 9. Hypotension Resolved - Current Meds Current Meds: Current Medications Generic Name Dose Route Start Last Admin Trade Name Freq PRN Reason Stop Dose Admin Gemfibrozil 600 mg 08/13/22 17:06 08/14/22 06:38 Gemfibrozil 600 Mg Tablet PO 600 mg BIDAC CASH Administration Hydromorphone HCl 0.5 mg 08/13/22 15:13 08/14/22 14:36 Hydromorphone 0.5 Mg/0.5 Ml Syringe IVP 0.5 mg Q4HR PRN Administration Moderate Pain (Level 4-6) Ceftriaxone Sodium 2 gm/ 100 mls @ 200 mls/hr 08/07/22 23:00 08/13/22 23:27 Sodium Chloride IV Infused Q24H CASH Infusion Sodium Chloride 500 mls @ 20 mls/hr 08/08/22 06:05 08/13/22 14:00 Normal Saline 0.9% IV 20 mls/hr Q24H PRN Infusion TKO RATE Metronidazole 500 mg in 100 mls @ 100 mls/hr 08/12/22 20:00 08/14/22 12:24 Flagyl 500 Mg/100 Ml IV Infused Q8H CASH Infusion Lactulose 10 gm 08/09/22 09:00 08/14/22 08:02 Lactulose 10 Gm /15 Ml Udc PO 10 gm DAILY CASH Administration Lorazepam 1 mg 08/13/22 11:16 08/14/22 05:23 Lorazepam 2 Mg/Ml Vial IVP 1 mg Q30M PRN Administration CIWA >8 Protocol Nicotine 1 patch 08/07/22 22:39 08/10/22 03:02 Nicotine 14 Mg Patch TOP 1 patch DAILY PRN Administration smoking cessation Pantoprazole Sodium 40 mg 08/11/22 08:00 08/14/22 06:38 Pantoprazole 40 Mg Vial IVP 40 mg QDAC CASH Administration Multivit/Folic Acid/Iron 1 tab 08/08/22 12:00 08/14/22 08:02 Vitamin Tablet PO 1 tab DAILYWM CASH Administration Sodium Chloride 10 ml 08/08/22 01:00 08/14/22 14:36 Sodium Chloride Flush 0.9% 10 Ml Syringe IVP 10 ml 0100,0900,1700 CASH Administration Sodium Chloride 10 ml 08/07/22 22:20 08/12/22 06:33 Sodium Chloride Flush 0.9% 10 Ml Syringe IVP 10 ml PRN PRN Administration NEEDED PER PROVIDER ORDERS Thiamine HCl 100 mg 08/08/22 12:00 08/14/22 08:02 Thiamine 100 Mg Tablet PO 100 mg DAILY CASH Administration - Lab Result Fish Bone Diagrams: 08/14/22 05:03 08/14/22 05:03 - Additional Planning My Orders: My Active Orders 08/13/22 15:13 HYDROmorphone 0.5MG SYRINGE [Dilaudid 0.5MG Syringe] 0.5 mg IVP Q4HR PRN 08/13/22 16:43 Telemetry- [RC] Q4HR 08/13/22 17:06 gemfibroziL [Lopid] 600 mg PO BIDAC 08/14/22 Evaluate and Treat OT [OT] Routine 08/14/22 Breakfast Hepatic/Renal Diet [DIET] Low Fat Diet [DIET] 08/15/22 05:00 AMMONIA [CHEM] DAILYLAB CMP [COMPREHENSIVE METABOLIC PANEL] [CHEM] DAILYLAB 08/16/22 05:00 AMMONIA [CHEM] DAILYLAB CMP [COMPREHENSIVE METABOLIC PANEL] [CHEM] DAILYLAB 08/17/22 05:00 AMMONIA [CHEM] DAILYLAB 08/18/22 05:00 AMMONIA [CHEM] DAILYLAB Subjective - Subjective Patient Reports: Feeling Better (He is overall tired. He is still feeling weak) Objective Vital Signs: Vital Signs - 24 hr 08/13/22 08/13/22 08/13/22 16:11 18:11 20:00 Temperature 36.9 C Heart Rate [ 107 H 103 H 103 H Monitoring electrodes] Respiratory 20 20 19 Rate Blood Pressure 119/75 107/68 114/91 H [Right Brachial artery] O2 Saturation 98 93 96 08/14/22 08/14/22 08/14/22 00:55 05:01 07:40 Temperature 37.1 C 37.8 C 37.4 C Heart Rate [ 95 94 97 Monitoring electrodes] Respiratory 19 18 18 Rate Blood Pressure 106/69 118/64 116/74 [Right Brachial artery] O2 Saturation 97 95 96 08/14/22 12:24 Temperature 37.3 C Heart Rate [ 107 H Monitoring electrodes] Respiratory 20 Rate Blood Pressure 103/69 [Right Brachial artery] O2 Saturation 95 Oxygen O2 Source Room air I&O (Last 24 Hrs): Intake and Output Totals x24h 08/12/22 08/13/22 08/14/22 23:59 23:59 23:59 Intake Total 6380.952 7486 1550 Output Total 600 575 375 Balance 5370.588 8826 1175 General: Alert, Oriented x3, Other (Thin, appears weak and tired. Has a tremor of head and arms at rest) HEENT: Mucous membr. moist/pink, Other (poor dentition, sclerae are icteric) Neck: Supple Neuro: Alert, Other (fine resting tremor of head and arms) Cardiovascular: Regular rate Respiratory: No respiratory distress Abdomen: Soft, Other (Mild tenderness LUQ, no rebound) Extremities: No clubbing, Other (Skin icteric) - Results Results: Laboratory Results WBC 22.7 x10^3/uL (4.8-10.8) H 08/14/22 05:03 RBC 2.35 10^6/uL (4.70-6.10) L 08/14/22 05:03 Hgb 8.0 g/dL (14.0-18.0) L 08/14/22 05:03 Hct 24.4 % (42.0-52.0) L 08/14/22 05:03 MCV 103.8 fL (80.0-94.0) H 08/14/22 05:03 MCH 34.0 pg (27.0-31.0) H 08/14/22 05:03 MCHC 32.8 g/dL (32.0-36.0) 08/14/22 05:03 RDW 23.3 % (12.0-15.0) H 08/14/22 05:03 Plt Count 128 10^3/uL (130-450) L 08/14/22 05:03 MPV 13.7 fL (7.4-11.4) H 08/14/22 05:03 Neut # (Auto) Not Reportable 08/14/22 05:03 Lymph # (Auto) Not Reportable 08/14/22 05:03 [place] # (Auto) Not Reportable 08/14/22 05:03 Eos # (Auto) Not Reportable 08/14/22 05:03 Baso # (Auto) Not Reportable 08/14/22 05:03 Absolute Nucleated RBC Not Reportable 08/14/22 05:03 Total Counted 100 08/14/22 05:03 Band Neuts % (Manual) 3 % (0-10) 08/14/22 05:03 Abnorm Lymph % (Manual) 0 % 08/14/22 05:03 Metamyelocytes % 2 % (-0) H 08/14/22 05:03 Myelocytes % 4 % (-0) H 08/14/22 05:03 Promyelocytes % 1 % (-0) H 08/09/22 21:48 Nucleated RBC % Not Reportable 08/14/22 05:03 Neutrophils # (Manual) 16.1 10^3/uL (1.5-6.6) H 08/14/22 05:03 Lymphocytes # (Manual) 1.6 10^3/uL (1.5-3.5) 08/14/22 05:03 Monocytes # (Manual) 2.7 10^3/uL (0.0-1.0) H 08/14/22 05:03 Eosinophils # (Manual) 0.9 10^3/uL (0-0.7) H 08/14/22 05:03 Basophils # (Manual) 0.0 10^3/uL (0-0.1) 08/14/22 05:03 Nucleated RBCs 1 % 08/12/22 04:19 Differential Comment MANUAL DIFFERENTIAL 08/14/22 05:03 WBC Morphology NORMAL APPEARANCE (NORMAL) 08/14/22 05:03 Platelet Estimate DECREASED (<130,000) (NORMAL) 08/14/22 05:03 Platelet Morphology NORMAL APPEARANCE (NORMAL) 08/14/22 05:03 RBC Morph Micro Appear 2+ ANISOCYTOSIS (NORMAL) 2+ POLYCHROMASIA (NORMAL) 1+ TARGET CELLS (NORMAL) 08/14/22 05:03 RBC Morph Micro Appear 2+ ANISOCYTOSIS (NORMAL) 2+ POLYCHROMASIA (NORMAL) 1+ TARGET CELLS (NORMAL) 08/14/22 05:03 RBC Morph Micro Appear 2+ ANISOCYTOSIS (NORMAL) 2+ POLYCHROMASIA (NORMAL) 1+ TARGET CELLS (NORMAL) 08/14/22 05:03 PT 12.0 secs (9.9-12.6) 08/13/22 08:24 INR 1.1 (0.8-1.2) 08/13/22 08:24 VBG pH 7.504 (7.31-7.41) H 08/13/22 06:36 Ionized Calcium 1.05 mmol/L (1.15-1.33) L 08/13/22 06:36 Sodium 141 mmol/L (135-145) 08/14/22 05:03 Potassium 3.2 mmol/L (3.5-5.0) L 08/14/22 05:03 Chloride 111 mmol/L (101-111) 08/14/22 05:03 Carbon Dioxide 21 mmol/L (21-32) 08/14/22 05:03 Anion Gap 9.0 (6-13) 08/14/22 05:03 BUN < 5 mg/dL (6-20) L 08/14/22 05:03 Creatinine 0.4 mg/dL (0.6-1.2) L 08/14/22 05:03 Estimated GFR (MDRD) 238 (>89) 08/14/22 05:03 Glucose 85 mg/dL (70-100) 08/14/22 05:03 Calcium 8.1 mg/dL (8.5-10.3) L 08/14/22 05:03 Phosphorus 2.9 mg/dL (2.5-4.6) 08/12/22 21:20 Magnesium 2.4 mg/dL (1.7-2.8) 08/12/22 21:20 Total Bilirubin 16.4 mg/dL (0.2-1.0) H 08/14/22 05:03 AST 88 IU/L (10-42) H 08/14/22 05:03 ALT 45 IU/L (10-60) 08/14/22 05:03 Alkaline Phosphatase 222 IU/L (42-121) H 08/14/22 05:03 Ammonia 71.6 umol/L (7-35) H 08/13/22 08:24 Total Protein 5.8 g/dL (6.7-8.2) L 08/14/22 05:03 Albumin 1.5 g/dL (3.2-5.5) L 08/14/22 05:03 Globulin 4.3 g/dL (2.1-4.2) H 08/14/22 05:03 Albumin/Globulin Ratio 0.3 (1.0-2.2) L 08/14/22 05:03 Triglycerides 790 mg/dL (-149) H 08/13/22 06:36 LDL Cholesterol Direct 321 mg/dL (-129) H 08/13/22 06:36 dLDL/HDL Ratio Not Reportable 08/13/22 06:36 Lipase 40 U/L (22-51) 08/13/22 06:36 Procalcitonin 1.30 ng/mL (<0.5) H 08/07/22 22:45 Urine Color YELLOW 08/11/22 21:40 Urine Clarity HAZY (CLEAR) 08/11/22 21:40 Urine pH 7.0 PH (5.0-7.5) 08/11/22 21:40 Ur Specific [place] 1.010 (1.002-1.030) 08/11/22 21:40 Urine Protein NEGATIVE mg/dL (NEGATIVE) 08/11/22 21:40 Urine Glucose (UA) 100 mg/dL (NEGATIVE) H 08/11/22 21:40 Urine Ketones NEGATIVE mg/dL (NEGATIVE) 08/11/22 21:40 Urine Occult Blood TRACE-INTA (NEGATIVE) 08/11/22 21:40 Urine Nitrite NEGATIVE (NEGATIVE) 08/11/22 21:40 Urine Bilirubin LARGE (NEGATIVE) H 08/11/22 21:40 Urine Urobilinogen 0.2 (NORMAL) E.U./dL (NORMAL) 08/11/22 21:40 Ur Leukocyte Esterase NEGATIVE (NEGATIVE) 08/11/22 21:40 Urine RBC 0-5 /HPF (0-5) 08/11/22 21:40 Urine WBC 0-3 /HPF (0-3) 08/11/22 21:40 Ur Squamous Epith Cells FEW Squamous (<= Few) 08/11/22 21:40 Amorphous Sediment Few /LPF 08/11/22 21:40 Urine Bacteria Few /HPF (None Seen) 08/11/22 21:40 Urine Casts 3-5 Fine Granular /LPF 08/11/22 21:40 Urine Mucus Few Strands 08/11/22 21:40 Ur Microscopic Review INDICATED 08/07/22 17:15 Urine Culture Comments NOT INDICATED 08/11/22 21:40 Nasal Adenovirus (PCR) NOT DETECTED 08/07/22 15:54 Nasal B. parapertussis DNA (PCR) NOT DETECTED 08/07/22 15:54 Nasal Coronavir 229E PCR NOT DETECTED 08/07/22 15:54 Nasal Coronavir HKU1 PCR NOT DETECTED 08/07/22 15:54 Nasal Coronavir NL63 PCR NOT DETECTED 08/07/22 15:54 Nasal Coronavir OC43 PCR NOT DETECTED 08/07/22 15:54 Nasal Enterovir/Rhinovir PCR NOT DETECTED 08/07/22 15:54 Nasal Influenza B PCR NOT DETECTED 08/07/22 15:54 Nasal Influenza A PCR NOT DETECTED 08/07/22 15:54 Nasal Parainfluen 1 PCR NOT DETECTED 08/07/22 15:54 Nasal Parainfluen 2 PCR NOT DETECTED 08/07/22 15:54 Nasal Parainfluen 3 PCR NOT DETECTED 08/07/22 15:54 Nasal Parainfluen 4 PCR NOT DETECTED 08/07/22 15:54 Nasal RSV (PCR) NOT DETECTED 08/07/22 15:54 Nasal Screen MRSA (PCR) NEGATIVE (NEGATIVE) 08/07/22 23:35 Nasal B.pertussis DNA PCR NOT DETECTED 08/07/22 15:54 Nasal C.pneumoniae (PCR) NOT DETECTED 08/07/22 15:54 Asaf Human Metapneumo PCR NOT DETECTED 08/07/22 15:54 Nasal M.pneumoniae (PCR) NOT DETECTED 08/07/22 15:54 Nasal SARS-CoV-2 (PCR) NOT DETECTED 08/07/22 15:54 Ethyl Alcohol 121.5 mg/dL 08/07/22 15:37 Hepatitis A IgM Ab Negative (Negative) 08/07/22 15:37 Hep Bs Antigen Negative (Negative) 08/07/22 15:37 Hep B Core IgM Ab Negative (Negative) 08/07/22 15:37 Hepatitis C Antibody Non Reactive (Non Reactive) 08/07/22 15:37 Hepatitis C Interp Comment (.) 08/07/22 15:37 Blood Type O POSITIVE 08/07/22 22:45 Antibody Screen NEGATIVE 08/07/22 22:45 Crossmatch IS Only See Detail 08/07/22 22:45 - Procedures Procedures: Procedures EXCISION OF DUODENUM, ENDO, DIAGN (02/29/20) EXCISION OF ESOPHAGUS, ENDO, DIAGN (02/29/20) EXCISION OF STOMACH, ENDO, DIAGN (02/29/20)
[2022-08-14] MEDS ORDERED: POTASSIUM CHLORIDE 10 MEQ CAPSULE PO ONE (19:02)
[2022-08-14] MEDS: cefTRIAXone 2 GM in SODIUM CHLORIDE 0.9% MINIBAG 100 ML IV SCH (23:58)
[2022-08-15] MEDS: SODIUM CHLORIDE FLUSH 0.9% 10 ML SYRINGE IVP PRN ×3 (00:09→16:21)
[2022-08-15] MEDS: HYDROmorphone 0.5 MG/0.5 ML SYRINGE IVP PRN ×4 (00:09→20:30)
[2022-08-15] MEDS: metroNIDAZOLE 500 MG/100 ML 500 MG/100 ML BAG IV SCH ×3 (04:11→20:31)
[2022-08-15] MEDS: SODIUM CHLORIDE FLUSH 0.9% 10 ML SYRINGE IVP SCH ×6 (04:11→20:31)
[2022-08-15] MEDS: gemfibroziL 600 MG TABLET PO SCH ×2 (05:21→16:21)
[2022-08-15] MEDS: PANTOPRAZOLE 40 MG VIAL IVP SCH (06:44)
[2022-08-15 07:01] LABS: BASOPHILS % (AUTO) 0.2 %; EOSINOPHILS % (AUTO) 2.3 %; HCT - HEMATOCRIT 24.4 % (42.0-52.0); HGB - HEMOGLOBIN 8.1 g/dL (14.0-18.0); LYMPHOCYTES % (AUTO) 10.5 %; MEAN CORPUSCULAR HEMOGLOBIN 34.5 pg (27.0-31.0); MEAN CORPUSCULAR HGB CONC 33.2 g/dL (32.0-36.0); MEAN CORPUSCULAR VOLUME 103.8 fL (80.0-94.0); MEAN PLATELET VOLUME 12.8 fL (7.4-11.4); MONOCYTES % (AUTO) 6.8 %; NEUTROPHILS % (AUTO) 72.1 %; PLT - PLATELET COUNT 205 10^3/uL (130-450); RED BLOOD COUNT 2.35 10^6/uL (4.70-6.10); RED CELL DISTRIBUTION WIDTH 23.4 % (12.0-15.0); WHITE BLOOD COUNT 22.1 x10^3/uL (4.8-10.8)
[2022-08-15 07:04] LABS: ABNORMAL LYMPHS % (MANUAL) 0 %
[2022-08-15 07:17] LABS: ALBUMIN 1.5 g/dL (3.2-5.5); ALBUMIN/GLOBULIN RATIO 0.3 (1.0-2.2); ALKALINE PHOSPHATASE 224 IU/L (42-121); ALT ALANINE AMINOTRANSFERASE 37 IU/L (10-60); AST ASPARTATE AMINOTRANSFERASE 78 IU/L (10-42); BILIRUBIN,TOTAL 16.5 mg/dL (0.2-1.0); BUN - BLOOD UREA NITROGEN < 5 mg/dL (6-20); CALCIUM 7.7 mg/dL (8.5-10.3); CARBON DIOXIDE - CO2 19 mmol/L (21-32); CHLORIDE 109 mmol/L (101-111); CREATININE 0.3 mg/dL (0.6-1.2); GFR - MDRD 332 (>89); GLUCOSE 97 mg/dL (70-100); POTASSIUM 3.3 mmol/L (3.5-5.0); SODIUM 136 mmol/L (135-145); TOTAL PROTEIN 5.9 g/dL (6.7-8.2)
[2022-08-15] MEDS: LACTULOSE 10 GM /15 ML UDC PO SCH ×2 (07:46→18:50)
[2022-08-15] MEDS: THIAMINE 100 MG TABLET PO SCH (07:46)
[2022-08-15] MEDS: PRENATAL VITAMIN TABLET PO SCH (07:46)
[2022-08-15] MEDS ORDERED: POTASSIUM CHLORIDE 10 MEQ CAPSULE PO SCH (08:00)
[2022-08-15 08:12] LABS: BAND NEUTROPHILS % (MANUAL) 2 %; EOSINOPHILS # (MANUAL) 0.2 10^3/uL (0-0.7); LYMPHOCYTES # (MANUAL) 3.1 10^3/uL (1.5-3.5); LYMPHOCYTES % (MANUAL) 14 %; METAMYELOCYTES % (MANUAL) 4 %; MONOCYTES # (MANUAL) 0.9 10^3/uL (0.0-1.0); NEUTROPHILS # (MANUAL) 16.8 10^3/uL (1.5-6.6); PROMYELOCYTES % (MANUAL) 1 %
[2022-08-15 08:13] LABS: DIFFERENTIAL COMMENT MANUAL DIFFERENTIAL; PLATELET ESTIMATE, MANUAL NORMAL (130-450,000) (NORMAL); PLATELET MORPHOLOGY NORMAL APPEARANCE (NORMAL)
[2022-08-15] MEDS ORDERED: GADOBUTROL 7.5 MMOL/7.5 ML VIAL ONE (11:13)
[2022-08-15] MEDS ORDERED: POTASSIUM CHLORIDE 10 MEQ CAPSULE PO ONE (12:00)
--- NOTE | 2022-08-15 13:23 | PROVIDER PROGRESS NOTE ---
Assessment/Plan - Problem List (1) Leukocytosis Assessment/Plan: LAbs were all reviewed. He continues to have a very elev white cell count (most recent days WBC 32>> 26>> 22>> 22 today). He did have repeat ultrasound looking for liver abscess. Other than a large liver, no abscess were seen, and his pancreas does have hypoechoic areas. We considered spontaneous bacterial peritonitis, but US showed no ascites fluid, nothing to tap. He has already been on Rocephin since admission. We empirically added Flagyl on 08/12 to the Rocephin Because of very elevated triglycerides (which were checked because of Hx of familial hypertriglyceridemia), consideration is once again for pancreatitis as the cause of his leukocytosis, and therefore repeat CT was done and showed pancreatitis. Since his major abn on LFTs is a persistently elevated bili, with normalizing AST and ALT, an MRCP was done today>> shows same inflammed pancr and still a consideration for acalculus cholecystitis. Plan: Remain on empiric antibiotics Follow CBC daily Will ask Gen Surg re-see/get a second opinion. Dr Goyal did a consult on day of admission and his feeling was that the GB was abn due to the liver, not GB primary trouble. 2. Pancreatitis Imaging with CT was repeated 08/13 and showed persistent acute pancreatitis. However there is no abscess, no drainable fluid, no cyst or necrosis of the pancreas. Triglyceride level was checked today and is very high at 790. There is a FH of Familial Hypertriglyceridemia, per records I reviewed yesterday. His pancreatitis is likely from alcohol abuse plus hypertriglyceridemia. His lipase has dropped from to normal range of 40 His diet is now low-fat restrictions and hepatic diet. Plan: Cont treatment of his hypertriglyceridemia using Lopid, started 08/13. (After the admission 2 years ago he was discharged on Lopid however his current reconciled med list shows he was taking no meds). 3. Familial hypertriglyceridemia Triglyceride level was checked and is very high at 790. There is a FH of Familial Hypertriglyceridemia, per records which I reviewed. At his last admission, his serum was white from being so fatty. His diet is now low-fat restrictions and hepatic diet. Plan: Continue treatment of his hypertriglyceridemia using Lopid BID. After the admission 2 years ago he was discharged on Lopid however his current reconciled med list shows he was taking no meds. I reminded the patient about his hypertriglyceridemia, when I saw him on 08/13, and he answered "yeah I think I have heard about that before" 4. Alcohol dependance with withdrawal From a withdrawal perspective the patient is improving. He is already on oral vitamin, thiamine. When he last was admitted here for alcohol withdrawal, he had a similar pattern of needing many days of benzodiazepines to get through withdrawal and was very sleepy for a prolonged period of time after the benzos were stopped Plan: Continue benzodiazepine only as needed now. He has become deconditioned. PT started with him 08/13; continue PT and to start OT. 5. Elevated bili His ammonia level was elevated at 70 and nursing states that he is taking his lactulose. Bilirubin is elevated but liver enzymes are going down. Plan: Will W/U the elev bili and WBC with MRCP today Will increase Lactulose to BID for high Ammonia levels 6. Alcohol abuse As per Hx. SW input appreciated. 7. Anemia No signs or symptoms of GI bleed other than the anemia. Plan: We will continue to monitor hemoglobin and transfuse as necessary. If he continues to need transfusion he may need an upper endoscopy. 8 Hypokalemia Likely related to poor p.o. intake in conjunction with his alcohol abuse. Still requiring K replacement as well as getting Mg and Phosporus. Plan: Continue to monitor electrolytes, Mg and PO4 and replace if low 9. Hypotension Resolved - Current Meds Current Meds: Current Medications Generic Name Dose Route Start Last Admin Trade Name Taniq PRN Reason Stop Dose Admin Gemfibrozil 600 mg 08/13/22 17:06 08/15/22 05:21 Gemfibrozil 600 Mg Tablet PO 600 mg BIDAC CASH Administration Hydromorphone HCl 0.5 mg 08/15/22 10:43 08/15/22 11:17 Hydromorphone 0.5 Mg/0.5 Ml Syringe IVP 0.5 mg Q8HR PRN Administration Moderate Pain (Level 4-6) Ceftriaxone Sodium 2 gm/ 100 mls @ 200 mls/hr 08/07/22 23:00 08/15/22 00:28 Sodium Chloride IV Infused Q24H CASH Infusion Metronidazole 500 mg in 100 mls @ 100 mls/hr 08/12/22 20:00 08/15/22 12:38 Flagyl 500 Mg/100 Ml IV 100 mls/hr Q8H CASH Administration Lorazepam 1 mg 08/13/22 11:16 08/14/22 05:23 Lorazepam 2 Mg/Ml Vial IVP 1 mg Q30M PRN Administration CIWA >8 Protocol Nicotine 1 patch 08/07/22 22:39 08/10/22 03:02 Nicotine 14 Mg Patch TOP 1 patch DAILY PRN Administration smoking cessation Pantoprazole Sodium 40 mg 08/11/22 08:00 08/15/22 06:44 Pantoprazole 40 Mg Vial IVP 40 mg QDAC CASH Administration Multivit/Folic Acid/Iron 1 tab 08/08/22 12:00 08/15/22 07:46 Vitamin Tablet PO 1 tab DAILYWM CASH Administration Sodium Chloride 10 ml 08/08/22 01:00 08/15/22 11:17 Sodium Chloride Flush 0.9% 10 Ml Syringe IVP 10 ml 0100,0900,1700 CASH Administration Sodium Chloride 10 ml 08/07/22 22:20 08/15/22 06:44 Sodium Chloride Flush 0.9% 10 Ml Syringe IVP 10 ml PRN PRN Administration NEEDED PER PROVIDER ORDERS Thiamine HCl 100 mg 08/08/22 12:00 08/15/22 07:46 Thiamine 100 Mg Tablet PO 100 mg DAILY CASH Administration - Lab Result Fish Bone Diagrams: 08/15/22 06:53 08/15/22 06:53 - Additional Planning My Orders: My Active Orders 08/15/22 10:43 HYDROmorphone 0.5MG SYRINGE [Dilaudid 0.5MG Syringe] 0.5 mg IVP Q8HR PRN 08/15/22 Lunch Hepatic/Renal Diet [DIET] 08/15/22 18:00 Lactulose [Enulose] 10 gm PO 0800,1800 08/16/22 05:00 AMMONIA [CHEM] DAILYLAB CMP [COMPREHENSIVE METABOLIC PANEL] [CHEM] DAILYLAB 08/16/22 08:00 Potassium Chloride [Micro-K] 20 meq PO DAILYWM 08/17/22 05:00 AMMONIA [CHEM] DAILYLAB 08/18/22 05:00 AMMONIA [CHEM] DAILYLAB Subjective - Subjective Patient Reports: Pain (Unchanged pain in the upper abdomen, no nausea, tolerating solid food. Today he is very tired because he "worked hard with PT".) Objective Vital Signs: Vital Signs - 24 hr 08/14/22 08/14/22 08/15/22 15:56 21:00 00:08 Temperature 37.1 C 37.1 C 36.8 C Heart Rate [ 88 97 Brachial] Heart Rate [ 91 Monitoring electrodes] Respiratory 16 18 20 Rate Blood Pressure 104/58 L [Left Brachial artery] Blood Pressure 97/61 100/63 [Right Brachial artery] O2 Saturation 93 96 94 08/15/22 08/15/22 05:19 07:35 Temperature 36.9 C 37.3 C Heart Rate [ 94 100 Brachial] Heart Rate [ Monitoring electrodes] Respiratory 18 18 Rate Blood Pressure 105/65 [Left Brachial artery] Blood Pressure 109/60 [Right Brachial artery] O2 Saturation 95 96 Oxygen O2 Source Room air I&O (Last 24 Hrs): Intake and Output Totals x24h 08/13/22 08/14/22 08/15/22 23:59 23:59 23:59 Intake Total 3360 2630 740 Output Total 575 425 300 Balance 2785 2205 440 General: Alert, Oriented x3 HEENT: Mucous membr. moist/pink, Other (Sclerae icteric) Neck: Supple Neuro: Alert, Non Focal, Other (Almost no resting tremor today) Cardiovascular: Regular rate, No murmurs Respiratory: No respiratory distress, Breath sounds nml Abdomen: Normal bowel sounds, Other (Mild tenderness in upper abdomen, no guarding or rebound) Extremities: No clubbing, No edema Skin: No rashes (Skin is icteric) - Results Results: Laboratory Results WBC 22.1 x10^3/uL (4.8-10.8) H 08/15/22 06:53 RBC 2.35 10^6/uL (4.70-6.10) L 08/15/22 06:53 Hgb 8.1 g/dL (14.0-18.0) L 08/15/22 06:53 Hct 24.4 % (42.0-52.0) L 08/15/22 06:53 MCV 103.8 fL (80.0-94.0) H 08/15/22 06:53 MCH 34.5 pg (27.0-31.0) H 08/15/22 06:53 MCHC 33.2 g/dL (32.0-36.0) 08/15/22 06:53 RDW 23.4 % (12.0-15.0) H 08/15/22 06:53 Plt Count 205 10^3/uL (130-450) 08/15/22 06:53 MPV 12.8 fL (7.4-11.4) H 08/15/22 06:53 Neut # (Auto) Not Reportable 08/15/22 06:53 Lymph # (Auto) Not Reportable 08/15/22 06:53 [place] # (Auto) Not Reportable 08/15/22 06:53 Eos # (Auto) Not Reportable 08/15/22 06:53 Baso # (Auto) Not Reportable 08/15/22 06:53 Absolute Nucleated RBC Not Reportable 08/15/22 06:53 Total Counted 100 08/15/22 06:53 Band Neuts % (Manual) 2 % (0-10) 08/15/22 06:53 Abnorm Lymph % (Manual) 0 % 08/15/22 06:53 Metamyelocytes % 4 % (-0) H 08/15/22 06:53 Myelocytes % 4 % (-0) H 08/14/22 05:03 Promyelocytes % 1 % (-0) H 08/15/22 06:53 Nucleated RBC % Not Reportable 08/15/22 06:53 Neutrophils # (Manual) 16.8 10^3/uL (1.5-6.6) H 08/15/22 06:53 Lymphocytes # (Manual) 3.1 10^3/uL (1.5-3.5) 08/15/22 06:53 Monocytes # (Manual) 0.9 10^3/uL (0.0-1.0) 08/15/22 06:53 Eosinophils # (Manual) 0.2 10^3/uL (0-0.7) 08/15/22 06:53 Basophils # (Manual) 0.0 10^3/uL (0-0.1) 08/15/22 06:53 Nucleated RBCs 1 % 08/12/22 04:19 Differential Comment MANUAL DIFFERENTIAL 08/15/22 06:53 WBC Morphology NORMAL APPEARANCE (NORMAL) 08/14/22 05:03 Platelet Estimate NORMAL (130-450,000) (NORMAL) 08/15/22 06:53 Platelet Morphology NORMAL APPEARANCE (NORMAL) 08/15/22 06:53 RBC Morph Micro Appear 1+ TARGET CELLS (NORMAL) 1+ POLYCHROMASIA (NORMAL) 1+ MACROCYTOSIS (NORMAL) 2+ ANISOCYTOSIS (NORMAL) 08/15/22 06:53 RBC Morph Micro Appear 1+ TARGET CELLS (NORMAL) 1+ POLYCHROMASIA (NORMAL) 1+ MACROCYTOSIS (NORMAL) 2+ ANISOCYTOSIS (NORMAL) 08/15/22 06:53 RBC Morph Micro Appear 1+ TARGET CELLS (NORMAL) 1+ POLYCHROMASIA (NORMAL) 1+ MACROCYTOSIS (NORMAL) 2+ ANISOCYTOSIS (NORMAL) 08/15/22 06:53 RBC Morph Micro Appear 1+ TARGET CELLS (NORMAL) 1+ POLYCHROMASIA (NORMAL) 1+ MACROCYTOSIS (NORMAL) 2+ ANISOCYTOSIS (NORMAL) 08/15/22 06:53 PT 12.0 secs (9.9-12.6) 08/13/22 08:24 INR 1.1 (0.8-1.2) 08/13/22 08:24 VBG pH 7.504 (7.31-7.41) H 08/13/22 06:36 Ionized Calcium 1.05 mmol/L (1.15-1.33) L 08/13/22 06:36 Sodium 136 mmol/L (135-145) 08/15/22 06:53 Potassium 3.3 mmol/L (3.5-5.0) L 08/15/22 06:53 Chloride 109 mmol/L (101-111) 08/15/22 06:53 Carbon Dioxide 19 mmol/L (21-32) L 08/15/22 06:53 Anion Gap 8.0 (6-13) 08/15/22 06:53 BUN < 5 mg/dL (6-20) L 08/15/22 06:53 Creatinine 0.3 mg/dL (0.6-1.2) L 08/15/22 06:53 Estimated GFR (MDRD) 332 (>89) 08/15/22 06:53 Glucose 97 mg/dL (70-100) 08/15/22 06:53 Calcium 7.7 mg/dL (8.5-10.3) L 08/15/22 06:53 Phosphorus 2.9 mg/dL (2.5-4.6) 08/12/22 21:20 Magnesium 1.8 mg/dL (1.7-2.8) 08/15/22 06:53 Total Bilirubin 16.5 mg/dL (0.2-1.0) H 08/15/22 06:53 AST 78 IU/L (10-42) H 08/15/22 06:53 ALT 37 IU/L (10-60) 08/15/22 06:53 Alkaline Phosphatase 224 IU/L (42-121) H 08/15/22 06:53 Ammonia 77.5 umol/L (7-35) H 08/15/22 06:53 Total Protein 5.9 g/dL (6.7-8.2) L 08/15/22 06:53 Albumin 1.5 g/dL (3.2-5.5) L 08/15/22 06:53 Globulin 4.4 g/dL (2.1-4.2) H 08/15/22 06:53 Albumin/Globulin Ratio 0.3 (1.0-2.2) L 08/15/22 06:53 Triglycerides 790 mg/dL (-149) H 08/13/22 06:36 LDL Cholesterol Direct 321 mg/dL (-129) H 08/13/22 06:36 dLDL/HDL Ratio Not Reportable 08/13/22 06:36 Lipase 40 U/L (22-51) 08/13/22 06:36 Procalcitonin 1.30 ng/mL (<0.5) H 08/07/22 22:45 Urine Color YELLOW 08/11/22 21:40 Urine Clarity HAZY (CLEAR) 08/11/22 21:40 Urine pH 7.0 PH (5.0-7.5) 08/11/22 21:40 Ur Specific [place] 1.010 (1.002-1.030) 08/11/22 21:40 Urine Protein NEGATIVE mg/dL (NEGATIVE) 08/11/22 21:40 Urine Glucose (UA) 100 mg/dL (NEGATIVE) H 08/11/22 21:40 Urine Ketones NEGATIVE mg/dL (NEGATIVE) 08/11/22 21:40 Urine Occult Blood TRACE-INTA (NEGATIVE) 08/11/22 21:40 Urine Nitrite NEGATIVE (NEGATIVE) 08/11/22 21:40 Urine Bilirubin LARGE (NEGATIVE) H 08/11/22 21:40 Urine Urobilinogen 0.2 (NORMAL) E.U./dL (NORMAL) 08/11/22 21:40 Ur Leukocyte Esterase NEGATIVE (NEGATIVE) 08/11/22 21:40 Urine RBC 0-5 /HPF (0-5) 08/11/22 21:40 Urine WBC 0-3 /HPF (0-3) 08/11/22 21:40 Ur Squamous Epith Cells FEW Squamous (<= Few) 08/11/22 21:40 Amorphous Sediment Few /LPF 08/11/22 21:40 Urine Bacteria Few /HPF (None Seen) 08/11/22 21:40 Urine Casts 3-5 Fine Granular /LPF 08/11/22 21:40 Urine Mucus Few Strands 08/11/22 21:40 Ur Microscopic Review INDICATED 08/07/22 17:15 Urine Culture Comments NOT INDICATED 08/11/22 21:40 Nasal Adenovirus (PCR) NOT DETECTED 08/07/22 15:54 Nasal B. parapertussis DNA (PCR) NOT DETECTED 08/07/22 15:54 Nasal Coronavir 229E PCR NOT DETECTED 08/07/22 15:54 Nasal Coronavir HKU1 PCR NOT DETECTED 08/07/22 15:54 Nasal Coronavir NL63 PCR NOT DETECTED 08/07/22 15:54 Nasal Coronavir OC43 PCR NOT DETECTED 08/07/22 15:54 Nasal Enterovir/Rhinovir PCR NOT DETECTED 08/07/22 15:54 Nasal Influenza B PCR NOT DETECTED 08/07/22 15:54 Nasal Influenza A PCR NOT DETECTED 08/07/22 15:54 Nasal Parainfluen 1 PCR NOT DETECTED 08/07/22 15:54 Nasal Parainfluen 2 PCR NOT DETECTED 08/07/22 15:54 Nasal Parainfluen 3 PCR NOT DETECTED 08/07/22 15:54 Nasal Parainfluen 4 PCR NOT DETECTED 08/07/22 15:54 Nasal RSV (PCR) NOT DETECTED 08/07/22 15:54 Nasal Screen MRSA (PCR) NEGATIVE (NEGATIVE) 08/07/22 23:35 Nasal B.pertussis DNA PCR NOT DETECTED 08/07/22 15:54 Nasal C.pneumoniae (PCR) NOT DETECTED 08/07/22 15:54 Asaf Human Metapneumo PCR NOT DETECTED 08/07/22 15:54 Nasal M.pneumoniae (PCR) NOT DETECTED 08/07/22 15:54 Nasal SARS-CoV-2 (PCR) NOT DETECTED 08/07/22 15:54 Ethyl Alcohol 121.5 mg/dL 08/07/22 15:37 Hepatitis A IgM Ab Negative (Negative) 08/07/22 15:37 Hep Bs Antigen Negative (Negative) 08/07/22 15:37 Hep B Core IgM Ab Negative (Negative) 08/07/22 15:37 Hepatitis C Antibody Non Reactive (Non Reactive) 08/07/22 15:37 Hepatitis C Interp Comment (.) 08/07/22 15:37 Blood Type O POSITIVE 08/07/22 22:45 Antibody Screen NEGATIVE 08/07/22 22:45 Crossmatch IS Only See Detail 08/07/22 22:45 - Procedures Procedures: Procedures EXCISION OF DUODENUM, ENDO, DIAGN (02/29/20) EXCISION OF ESOPHAGUS, ENDO, DIAGN (02/29/20) EXCISION OF STOMACH, ENDO, DIAGN (02/29/20)
--- NOTE | 2022-08-15 13:47 | MRI Report ---
PROCEDURE: MRCP W/WO INDICATIONS: Poss acalculous cholecystitis by US and CT CONTRAST: 6.7ML GADADVIST TECHNIQUE: Coronal ultra fast SE through the abdomen, axial 2-D spoiled GE in- and [id number], and breath-hold T2 FSE with fat saturation through the biliary system and pancreas. Oblique coronal and axial thin- slice ultra fast SE, radial thick-slab ultra fast SE centered on the extrahepatic bile ducts. COMPARISON: CT abdomen pelvis 08/13/2022, right upper quadrant ultrasound 08/12/2022 FINDINGS: Pancreas and biliary system: Intra- and extra-hepatic biliary ducts are non dilated. Redemonstrated findings of acute pancreatitis, not substantially changed allowing for differences in modality. No o rganized/interval peripancreatic fluid collection visualized. No gallstones are visualized. Possible gallbladder wall thickening, nonspecific. Other solid organs: Liver appears enlarged. There is diffuse signal loss on [id number] images ezequiel tible with hepatic steatosis. No adrenal nodules. Both kidneys are normal in size, without hydronep hrosis. Nodes and vessels: No retroperitoneal or mesenteric adenopathy by size criteria. Aorta and inferior vena cava are normal in size. Bowel and peritoneum: Unenhanced bowel loops are normal in caliber. Lung bases: No basal pleural effusions. IMPRESSION: 1. Redemonstrated findings of acute pancreatitis, not substantially changed. No drainable peripancrea tic fluid collection visualized. 2. Possible gallbladder wall thickening, a nonspecific finding. Although this can be seen in the sett ing of calculus or acalculous cholecystitis, it can also be seen in the setting of chronic liver dise ase, volume overload, or other etiologies. If additional imaging for assessment of acalculus cholecys titis is desired, repeat abdominal ultrasound or nuclear medicine hepatobiliary scan could be obtaine d. 3. Hepatic steatosis. Reviewed by: Kenan Baker MD on 08/15/2022 1:46 PM PST Approved by: Kenan Baker MD on 08/15/2022 1:46 PM PST Station ID: [id number]
[2022-08-15] MEDS ORDERED: GADOBUTROL 7.5 MMOL/7.5 ML VIAL IVP ONE (15:45)
[2022-08-15] MEDS: cefTRIAXone 2 GM in SODIUM CHLORIDE 0.9% MINIBAG 100 ML IV SCH (23:01)
[2022-08-16] MEDS: metroNIDAZOLE 500 MG/100 ML 500 MG/100 ML BAG IV SCH ×3 (04:51→20:01)
[2022-08-16 05:04] LABS: BASOPHILS % (AUTO) 0.2 %; EOSINOPHILS # (AUTO) 0.3 10^3/uL (0.0-0.7); EOSINOPHILS % (AUTO) 1.7 %; HCT - HEMATOCRIT 24.6 % (42.0-52.0); LYMPHOCYTES # (AUTO) 1.9 10^3/uL (1.5-3.5); LYMPHOCYTES % (AUTO) 9.9 %; MEAN CORPUSCULAR HEMOGLOBIN 34.3 pg (27.0-31.0); MEAN CORPUSCULAR HGB CONC 32.5 g/dL (32.0-36.0); MEAN CORPUSCULAR VOLUME 105.6 fL (80.0-94.0); MEAN PLATELET VOLUME 12.8 fL (7.4-11.4); MONOCYTES # (AUTO) 1.5 10^3/uL (0.0-1.0); MONOCYTES % (AUTO) 7.8 %; NEUTROPHILS # (AUTO) 13.8 10^3/uL (1.5-6.6); NEUTROPHILS % (AUTO) 72.2 %; PLT - PLATELET COUNT 241 10^3/uL (130-450); RED BLOOD COUNT 2.33 10^6/uL (4.70-6.10); RED CELL DISTRIBUTION WIDTH 23.9 % (12.0-15.0); WHITE BLOOD COUNT 19.1 x10^3/uL (4.8-10.8)
[2022-08-16 05:19] LABS: ALBUMIN 1.5 g/dL (3.2-5.5); ALBUMIN/GLOBULIN RATIO 0.3 (1.0-2.2); ALKALINE PHOSPHATASE 202 IU/L (42-121); ALT ALANINE AMINOTRANSFERASE 33 IU/L (10-60); AST ASPARTATE AMINOTRANSFERASE 74 IU/L (10-42); BILIRUBIN,TOTAL 15.7 mg/dL (0.2-1.0); BUN - BLOOD UREA NITROGEN < 5 mg/dL (6-20); CALCIUM 7.7 mg/dL (8.5-10.3); CARBON DIOXIDE - CO2 17 mmol/L (21-32); CHLORIDE 111 mmol/L (101-111); CREATININE 0.3 mg/dL (0.6-1.2); GFR - MDRD 332 (>89); GLUCOSE 108 mg/dL (70-100); POTASSIUM 3.4 mmol/L (3.5-5.0); SLIDE REVIEW? Indicated; SODIUM 136 mmol/L (135-145); TOTAL PROTEIN 5.9 g/dL (6.7-8.2)
[2022-08-16 05:52] LABS: PLATELET ESTIMATE, MANUAL NORMAL (130-450,000) (NORMAL)
[2022-08-16] MEDS: gemfibroziL 600 MG TABLET PO SCH ×2 (06:49→16:01)
[2022-08-16] MEDS: PANTOPRAZOLE 40 MG VIAL IVP SCH (06:49)
[2022-08-16] MEDS: HYDROmorphone 0.5 MG/0.5 ML SYRINGE IVP PRN ×4 (06:54→23:31)
[2022-08-16] MEDS ORDERED: POTASSIUM CHLORIDE 10 MEQ CAPSULE PO SCH (08:00)
[2022-08-16] MEDS: LACTULOSE 10 GM /15 ML UDC PO SCH ×2 (08:20→18:25)
[2022-08-16] MEDS: THIAMINE 100 MG TABLET PO SCH (08:20)
[2022-08-16] MEDS: PRENATAL VITAMIN TABLET PO SCH (08:20)
[2022-08-16] MEDS: SODIUM CHLORIDE FLUSH 0.9% 10 ML SYRINGE IVP PRN ×5 (08:27→23:32)
--- NOTE | 2022-08-16 11:23 | PROVIDER PROGRESS NOTE ---
Assessment/Plan - Problem List (1) Leukocytosis Assessment/Plan: Labs were all reviewed. He continues to have a very elev white cell count (most recent days WBC 32>> 26>> 22>> 22>> 19 today). It started to come down once Flagyl was empirically added 08/13 to the empiric Ceftrixone He did have repeat ultrasound looking for liver abscess. Other than a large liver, no abscess were seen, and his pancreas does have hypoechoic areas. We considered spontaneous bacterial peritonitis, but US showed no ascites fluid, nothing to tap. He has already been on Rocephin since admission. We empirically added Flagyl on 08/12 to the Rocephin Because of very elevated triglycerides (which were checked because of Hx of fa milial hypertriglyceridemia), consideration is once again for pancreatitis as the cause of his leukocytosis, and therefore repeat CT was done and showed pancreatitis. Since his major abn on LFTs is a persistently elevated bili, with normalizing AST and ALT, an MRCP was done yesterday 08/15>> showed same inflamed pancreas and inflamed GB, still wirh a consideration for acalculus cholecystitis, per r janette. Plan: Remain on empiric antibiotics Follow CBC daily We have no nuclear medicine here whatsoever to get a HIDA scan. Will get a second opinion from Gen Surg about how to manage his presumed sara lculous cholecystitis. (Dr Goyal, of Gen Surg did a consult on day of admission and his feeling was that the GB was abn due to the liver, not GB primary trouble). 2. Pancreatitis Imaging with CT was repeated 08/13 and showed persistent acute pancreatitis. However there is no abscess, no drainable fluid, no cyst or necrosis of the pancreas. Triglyceride level was checked today and is very high at 790. There is a FH of Familial Hypertriglyceridemia, per records I reviewed yesterday. His pancreatitis is likely from alcohol abuse plus hypertriglyceridemia. His lipase has dropped from to normal range of 40 His diet is now low-fat restrictions and hepatic diet. Plan: Cont treatment of his hypertriglyceridemia using Lopid, started 08/13. (After the admission 2 years ago he was discharged on Lopid however his current reconciled med list shows he was taking no meds). 3. Familial hypertriglyceridemia Triglyceride level was checked and is very high at 790. There is a FH of Familial Hypertriglyceridemia, per records which I reviewed. At his last admission, his serum was white from being so fatty. His diet is now low-fat restriction and hepatic diet. Plan: Continue treatment of his hypertriglyceridemia using Lopid BID. After the admission 2 years ago he was discharged on Lopid however his current reconciled med list shows he was taking no meds. I reminded the patient about his hypertriglyceridemia, when I saw him on 08/13, and he answered "yeah I think I have heard about that before" 4. Alcohol dependance with withdrawal From a withdrawal perspective the patient has improved. When he was last admit trevor here for alcohol withdrawal, he had a similar pattern of needing many days of benzodiazepines to get through withdrawal and then was very sleepy for a prolonged period of time after the benzos were stopped. He has now less somnolent, awake, but has a persistent tremor which is probably from chronic liver disease, not from withdrawal. He is already on oral vitamin, thiamine. Plan: Continue benzodiazepine only as needed now. Continue daily thiamine and MOV He has become deconditioned. PT started with him 08/13; continue PT and OT. 5. Elevated bili Bilirubin remains elevated but liver enzymes are going down. Plan: We have W/U the elev bili and WBC and await a Gen Surg second opinion re possible acalculus cholecystitis 6. Alcohol abuse His ammonia level was as elevated as 70 and nursing states that he is taking his lactulose. Lactulose was made bid yesterday 08/15 Plan: Continue benzodiazepine only as needed now. Continue daily thiamine and MOV 7. Hypokalemia Labs were all reviewed. K is 3.4 today Likely related to poor p.o. intake in conjunction with his alcohol abuse. Still requiring K replacement as well as getting Mg and Phosporus. Plan: Continue to monitor electrolytes, Mg and PO4 and replace if low. 8. Anemia No signs or symptoms of GI bleed other than the anemia. Hgb has been stable Plan: We will continue to monitor hemoglobin and transfuse as necessary. If he continues to need transfusion he may need an upper endoscopy. 9. Hypotension Resolved - Current Meds Current Meds: Current Medications Generic Name Dose Route Start Last Admin Trade Name Freq PRN Reason Stop Dose Admin Gemfibrozil 600 mg 08/13/22 17:06 08/16/22 06:49 Gemfibrozil 600 Mg Tablet PO 600 mg BIDAC CASH Administration Hydromorphone HCl 1 mg 08/16/22 10:19 08/16/22 11:00 Hydromorphone 0.5 Mg/0.5 Ml Syringe IVP 1 mg Q6HR PRN Administration NEEDED PER PROVIDER ORDERS Ceftriaxone Sodium 2 gm/ 100 mls @ 200 mls/hr 08/07/22 23:00 08/15/22 23:35 Sodium Chloride IV Infused Q24H CASH Infusion Metronidazole 500 mg in 100 mls @ 100 mls/hr 08/12/22 20:00 08/16/22 05:55 Flagyl 500 Mg/100 Ml IV Infused Q8H CASH Infusion Lactulose 10 gm 08/15/22 18:00 08/16/22 08:20 Lactulose 10 Gm /15 Ml Udc PO 10 gm 0800,1800 CASH Administration Lorazepam 1 mg 08/13/22 11:16 08/14/22 05:23 Lorazepam 2 Mg/Ml Vial IVP 1 mg Q30M PRN Administration CIWA >8 Protocol Nicotine 1 patch 08/07/22 22:39 08/10/22 03:02 Nicotine 14 Mg Patch TOP 1 patch DAILY PRN Administration smoking cessation Pantoprazole Sodium 40 mg 08/11/22 08:00 08/16/22 06:49 Pantoprazole 40 Mg Vial IVP 40 mg QDAC CASH Administration Multivit/Folic Acid/Iron 1 tab 08/08/22 12:00 08/16/22 08:20 Vitamin Tablet PO 1 tab DAILYWM CASH Administration Sodium Chloride 10 ml 08/08/22 01:00 08/15/22 20:31 Sodium Chloride Flush 0.9% 10 Ml Syringe IVP 10 ml 0100,0900,1700 CASH Administration Sodium Chloride 10 ml 08/07/22 22:20 08/16/22 08:27 Sodium Chloride Flush 0.9% 10 Ml Syringe IVP 10 ml PRN PRN Administration NEEDED PER PROVIDER ORDERS Thiamine HCl 100 mg 08/08/22 12:00 08/16/22 08:20 Thiamine 100 Mg Tablet PO 100 mg DAILY CASH Administration - Lab Result Fish Bone Diagrams: 08/16/22 04:55 08/16/22 04:55 - Additional Planning My Orders: My Active Orders 08/15/22 Lunch Hepatic/Renal Diet [DIET] 08/15/22 18:00 Lactulose [Enulose] 10 gm PO 0800,1800 08/16/22 09:14 Vital Signs- Do Not Awaken For [RC] HS 08/16/22 10:19 HYDROmorphone 0.5MG SYRINGE [Dilaudid 0.5MG Syringe] 1 mg IVP Q6HR PRN 08/16/22 12:00 Potassium Chloride [Micro-K] 20 meq PO ONCE ONE 08/17/22 05:00 AMMONIA [CHEM] DAILYLAB 08/17/22 08:00 Potassium Chloride [Micro-K] 30 meq PO DAILYWM 08/18/22 05:00 AMMONIA [CHEM] DAILYLAB Subjective - Subjective Patient Reports: Pain (Since narcotic dose decreased, the patient has complained of 6-10 pain, per his RN.), Other (Walking better and farther daily with PT) Objective Vital Signs: Vital Signs - 24 hr 08/15/22 08/15/22 08/15/22 14:37 16:19 21:00 Temperature 37.1 C 37.5 C 36.8 C Heart Rate [ 98 100 93 Brachial] Respiratory 18 19 20 Rate Blood Pressure [Left Brachial artery] Blood Pressure 112/71 116/69 103/57 L [Right Brachial artery] O2 Saturation 96 96 95 08/16/22 08/16/22 08/16/22 00:14 03:44 08:23 Temperature 36.5 C 37.3 C 37.7 C Heart Rate [ 85 94 89 Brachial] Respiratory 18 18 18 Rate Blood Pressure 106/65 115/72 [Left Brachial artery] Blood Pressure 104/62 [Right Brachial artery] O2 Saturation 98 97 96 Oxygen O2 Source Room air I&O (Last 24 Hrs): Intake and Output Totals x24h 08/14/22 08/15/22 08/16/22 23:59 23:59 23:59 Intake Total 2630 1410 840 Output Total 425 500 200 Balance 2205 910 640 General: Alert, Oriented x3 HEENT: EOMI, Other (Sclerae are icteric) Neck: Supple Neuro: Alert, Other (Has constant tremor of arms and hands) Cardiovascular: Regular rate Respiratory: No respiratory distress Abdomen: Soft, Other (Mild tenderness in the left upper quadrant and right upper quadrant, no guarding or rebound) Extremities: No clubbing, No edema, No tenderness/swelling - Results Results: Laboratory Results WBC 19.1 x10^3/uL (4.8-10.8) H 08/16/22 04:55 RBC 2.33 10^6/uL (4.70-6.10) L 08/16/22 04:55 Hgb 8.0 g/dL (14.0-18.0) L 08/16/22 04:55 Hct 24.6 % (42.0-52.0) L 08/16/22 04:55 MCV 105.6 fL (80.0-94.0) H 08/16/22 04:55 MCH 34.3 pg (27.0-31.0) H 08/16/22 04:55 MCHC 32.5 g/dL (32.0-36.0) 08/16/22 04:55 RDW 23.9 % (12.0-15.0) H 08/16/22 04:55 Plt Count 241 10^3/uL (130-450) 08/16/22 04:55 MPV 12.8 fL (7.4-11.4) H 08/16/22 04:55 Neut # (Auto) 13.8 10^3/uL (1.5-6.6) H 08/16/22 04:55 Lymph # (Auto) 1.9 10^3/uL (1.5-3.5) 08/16/22 04:55 [place] # (Auto) 1.5 10^3/uL (0.0-1.0) H 08/16/22 04:55 Eos # (Auto) 0.3 10^3/uL (0.0-0.7) 08/16/22 04:55 Baso # (Auto) 0.0 10^3/uL (0.0-0.1) 08/16/22 04:55 Absolute Nucleated RBC 0.00 x10^3/uL 08/16/22 04:55 Total Counted 100 08/15/22 06:53 Band Neuts % (Manual) 2 % (0-10) 08/15/22 06:53 Abnorm Lymph % (Manual) 0 % 08/15/22 06:53 Metamyelocytes % 4 % (-0) H 08/15/22 06:53 Myelocytes % 4 % (-0) H 08/14/22 05:03 Promyelocytes % 1 % (-0) H 08/15/22 06:53 Nucleated RBC % 0.0 /100WBC 08/16/22 04:55 Neutrophils # (Manual) 16.8 10^3/uL (1.5-6.6) H 08/15/22 06:53 Lymphocytes # (Manual) 3.1 10^3/uL (1.5-3.5) 08/15/22 06:53 Monocytes # (Manual) 0.9 10^3/uL (0.0-1.0) 08/15/22 06:53 Eosinophils # (Manual) 0.2 10^3/uL (0-0.7) 08/15/22 06:53 Basophils # (Manual) 0.0 10^3/uL (0-0.1) 08/15/22 06:53 Nucleated RBCs 1 % 08/12/22 04:19 Differential Comment MANUAL DIFFERENTIAL 08/15/22 06:53 Manual Slide Review Indicated 08/16/22 04:55 WBC Morphology NORMAL APPEARANCE (NORMAL) 08/14/22 05:03 Platelet Estimate NORMAL (130-450,000) (NORMAL) 08/16/22 04:55 Platelet Morphology NORMAL APPEARANCE (NORMAL) 08/15/22 06:53 RBC Morph Micro Appear 2+ ANISOCYTOSIS (NORMAL) 2+ MACROCYTOSIS (NORMAL) 1+ HYPOCHROMASIA (NORMAL) 08/16/22 04:55 RBC Morph Micro Appear 2+ ANISOCYTOSIS (NORMAL) 2+ MACROCYTOSIS (NORMAL) 1+ HYPOCHROMASIA (NORMAL) 08/16/22 04:55 RBC Morph Micro Appear 2+ ANISOCYTOSIS (NORMAL) 2+ MACROCYTOSIS (NORMAL) 1+ HYPOCHROMASIA (NORMAL) 08/16/22 04:55 PT 12.0 secs (9.9-12.6) 08/13/22 08:24 INR 1.1 (0.8-1.2) 08/13/22 08:24 VBG pH 7.504 (7.31-7.41) H 08/13/22 06:36 Ionized Calcium 1.05 mmol/L (1.15-1.33) L 08/13/22 06:36 Sodium 136 mmol/L (135-145) 08/16/22 04:55 Potassium 3.4 mmol/L (3.5-5.0) L 08/16/22 04:55 Chloride 111 mmol/L (101-111) 08/16/22 04:55 Carbon Dioxide 17 mmol/L (21-32) L 08/16/22 04:55 Anion Gap 8.0 (6-13) 08/16/22 04:55 BUN < 5 mg/dL (6-20) L 08/16/22 04:55 Creatinine 0.3 mg/dL (0.6-1.2) L 08/16/22 04:55 Estimated GFR (MDRD) 332 (>89) 08/16/22 04:55 Glucose 108 mg/dL (70-100) H 08/16/22 04:55 Calcium 7.7 mg/dL (8.5-10.3) L 08/16/22 04:55 Phosphorus 2.9 mg/dL (2.5-4.6) 08/12/22 21:20 Magnesium 1.8 mg/dL (1.7-2.8) 08/15/22 06:53 Total Bilirubin 15.7 mg/dL (0.2-1.0) H 08/16/22 04:55 AST 74 IU/L (10-42) H 08/16/22 04:55 ALT 33 IU/L (10-60) 08/16/22 04:55 Alkaline Phosphatase 202 IU/L (42-121) H 08/16/22 04:55 Ammonia 76.6 umol/L (7-35) H 08/16/22 04:55 Total Protein 5.9 g/dL (6.7-8.2) L 08/16/22 04:55 Albumin 1.5 g/dL (3.2-5.5) L 08/16/22 04:55 Globulin 4.4 g/dL (2.1-4.2) H 08/16/22 04:55 Albumin/Globulin Ratio 0.3 (1.0-2.2) L 08/16/22 04:55 Triglycerides 790 mg/dL (-149) H 08/13/22 06:36 LDL Cholesterol Direct 321 mg/dL (-129) H 08/13/22 06:36 dLDL/HDL Ratio Not Reportable 08/13/22 06:36 Lipase 40 U/L (22-51) 08/13/22 06:36 Procalcitonin 1.30 ng/mL (<0.5) H 08/07/22 22:45 Urine Color YELLOW 08/11/22 21:40 Urine Clarity HAZY (CLEAR) 08/11/22 21:40 Urine pH 7.0 PH (5.0-7.5) 08/11/22 21:40 Ur Specific [place] 1.010 (1.002-1.030) 08/11/22 21:40 Urine Protein NEGATIVE mg/dL (NEGATIVE) 08/11/22 21:40 Urine Glucose (UA) 100 mg/dL (NEGATIVE) H 08/11/22 21:40 Urine Ketones NEGATIVE mg/dL (NEGATIVE) 08/11/22 21:40 Urine Occult Blood TRACE-INTA (NEGATIVE) 08/11/22 21:40 Urine Nitrite NEGATIVE (NEGATIVE) 08/11/22 21:40 Urine Bilirubin LARGE (NEGATIVE) H 08/11/22 21:40 Urine Urobilinogen 0.2 (NORMAL) E.U./dL (NORMAL) 08/11/22 21:40 Ur Leukocyte Esterase NEGATIVE (NEGATIVE) 08/11/22 21:40 Urine RBC 0-5 /HPF (0-5) 08/11/22 21:40 Urine WBC 0-3 /HPF (0-3) 08/11/22 21:40 Ur Squamous Epith Cells FEW Squamous (<= Few) 08/11/22 21:40 Amorphous Sediment Few /LPF 08/11/22 21:40 Urine Bacteria Few /HPF (None Seen) 08/11/22 21:40 Urine Casts 3-5 Fine Granular /LPF 08/11/22 21:40 Urine Mucus Few Strands 08/11/22 21:40 Ur Microscopic Review INDICATED 08/07/22 17:15 Urine Culture Comments NOT INDICATED 08/11/22 21:40 Nasal Adenovirus (PCR) NOT DETECTED 08/07/22 15:54 Nasal B. parapertussis DNA (PCR) NOT DETECTED 08/07/22 15:54 Nasal Coronavir 229E PCR NOT DETECTED 08/07/22 15:54 Nasal Coronavir HKU1 PCR NOT DETECTED 08/07/22 15:54 Nasal Coronavir NL63 PCR NOT DETECTED 08/07/22 15:54 Nasal Coronavir OC43 PCR NOT DETECTED 08/07/22 15:54 Nasal Enterovir/Rhinovir PCR NOT DETECTED 08/07/22 15:54 Nasal Influenza B PCR NOT DETECTED 08/07/22 15:54 Nasal Influenza A PCR NOT DETECTED 08/07/22 15:54 Nasal Parainfluen 1 PCR NOT DETECTED 08/07/22 15:54 Nasal Parainfluen 2 PCR NOT DETECTED 08/07/22 15:54 Nasal Parainfluen 3 PCR NOT DETECTED 08/07/22 15:54 Nasal Parainfluen 4 PCR NOT DETECTED 08/07/22 15:54 Nasal RSV (PCR) NOT DETECTED 08/07/22 15:54 Nasal Screen MRSA (PCR) NEGATIVE (NEGATIVE) 08/07/22 23:35 Nasal B.pertussis DNA PCR NOT DETECTED 08/07/22 15:54 Nasal C.pneumoniae (PCR) NOT DETECTED 08/07/22 15:54 Asaf Human Metapneumo PCR NOT DETECTED 08/07/22 15:54 Nasal M.pneumoniae (PCR) NOT DETECTED 08/07/22 15:54 Nasal SARS-CoV-2 (PCR) NOT DETECTED 08/07/22 15:54 Ethyl Alcohol 121.5 mg/dL 08/07/22 15:37 Hepatitis A IgM Ab Negative (Negative) 08/07/22 15:37 Hep Bs Antigen Negative (Negative) 08/07/22 15:37 Hep B Core IgM Ab Negative (Negative) 08/07/22 15:37 Hepatitis C Antibody Non Reactive (Non Reactive) 08/07/22 15:37 Hepatitis C Interp Comment (.) 08/07/22 15:37 Blood Type O POSITIVE 08/07/22 22:45 Antibody Screen NEGATIVE 08/07/22 22:45 Crossmatch IS Only See Detail 08/07/22 22:45 - Procedures Procedures: Procedures EXCISION OF DUODENUM, ENDO, DIAGN (02/29/20) EXCISION OF ESOPHAGUS, ENDO, DIAGN (02/29/20) EXCISION OF STOMACH, ENDO, DIAGN (02/29/20)
[2022-08-16] MEDS ORDERED: POTASSIUM CHLORIDE 10 MEQ CAPSULE PO ONE (12:00)
[2022-08-16] MEDS: SODIUM CHLORIDE FLUSH 0.9% 10 ML SYRINGE IVP SCH (20:02)
[2022-08-16] MEDS: cefTRIAXone 2 GM in SODIUM CHLORIDE 0.9% MINIBAG 100 ML IV SCH (23:31)
[2022-08-17] MEDS: metroNIDAZOLE 500 MG/100 ML 500 MG/100 ML BAG IV SCH ×3 (04:22→20:21)
[2022-08-17] MEDS: SODIUM CHLORIDE FLUSH 0.9% 10 ML SYRINGE IVP PRN (05:34)
[2022-08-17] MEDS: HYDROmorphone 0.5 MG/0.5 ML SYRINGE IVP PRN ×5 (05:34→23:45)
[2022-08-17] MEDS: PANTOPRAZOLE 40 MG VIAL IVP SCH (06:55)
[2022-08-17] MEDS: gemfibroziL 600 MG TABLET PO SCH ×2 (06:55→16:16)
[2022-08-17 07:58] LABS: BASOPHILS % (AUTO) 0.3 %; EOSINOPHILS % (AUTO) 1.1 %; HCT - HEMATOCRIT 29.3 % (42.0-52.0); HGB - HEMOGLOBIN 8.9 g/dL (14.0-18.0); LYMPHOCYTES % (AUTO) 11.9 %; MEAN CORPUSCULAR HEMOGLOBIN 33.6 pg (27.0-31.0); MEAN CORPUSCULAR HGB CONC 30.4 g/dL (32.0-36.0); MEAN CORPUSCULAR VOLUME 110.6 fL (80.0-94.0); MONOCYTES % (AUTO) 8.5 %; PLT - PLATELET COUNT 344 10^3/uL (130-450); RED BLOOD COUNT 2.65 10^6/uL (4.70-6.10); RED CELL DISTRIBUTION WIDTH 24.6 % (12.0-15.0); WHITE BLOOD COUNT 18.6 x10^3/uL (4.8-10.8)
[2022-08-17] MEDS: PRENATAL VITAMIN TABLET PO SCH (08:06)
[2022-08-17] MEDS: THIAMINE 100 MG TABLET PO SCH (08:06)
[2022-08-17] MEDS: PANTOPRAZOLE 40 MG TABLET PO SCH (08:06)
[2022-08-17] MEDS: NICOTINE 7 MG PATCH TOP SCH (08:07)
[2022-08-17] MEDS: POTASSIUM CHLORIDE 10 MEQ CAPSULE PO SCH (08:07)
[2022-08-17] MEDS: LACTULOSE 10 GM /15 ML UDC PO SCH ×2 (08:07→17:45)
[2022-08-17] MEDS: SODIUM CHLORIDE FLUSH 0.9% 10 ML SYRINGE IVP SCH ×3 (08:09→23:35)
[2022-08-17 08:24] LABS: SLIDE REVIEW? Indicated
[2022-08-17 08:25] LABS: ABNORMAL LYMPHS % (MANUAL) 0 %
[2022-08-17 08:28] LABS: BAND NEUTROPHILS % (MANUAL) 12 %; DIFFERENTIAL COMMENT MANUAL DIFFERENTIAL; EOSINOPHILS # (MANUAL) 0.2 10^3/uL (0-0.7); LYMPHOCYTES # (MANUAL) 1.3 10^3/uL (1.5-3.5); LYMPHOCYTES % (MANUAL) 7 %; METAMYELOCYTES % (MANUAL) 3 %; MONOCYTES # (MANUAL) 1.5 10^3/uL (0.0-1.0); NEUTROPHILS # (MANUAL) 15.1 10^3/uL (1.5-6.6)
[2022-08-17 08:31] LABS: PLATELET ESTIMATE, MANUAL NORMAL (130-450,000) (NORMAL); PLATELET MORPHOLOGY NORMAL APP (NORMAL)
[2022-08-17 09:16] LABS: ALBUMIN 1.8 g/dL (3.2-5.5); ALKALINE PHOSPHATASE 206 IU/L (42-121); ALT ALANINE AMINOTRANSFERASE 34 IU/L (10-60); AST ASPARTATE AMINOTRANSFERASE 71 IU/L (10-42); BILIRUBIN,TOTAL 18.9 mg/dL (0.2-1.0); BUN - BLOOD UREA NITROGEN < 5 mg/dL (6-20); CALCIUM 8.3 mg/dL (8.5-10.3); CARBON DIOXIDE - CO2 19 mmol/L (21-32); CHLORIDE 110 mmol/L (101-111); CREATININE 0.3 mg/dL (0.6-1.2); GFR - MDRD 332 (>89); GLUCOSE 100 mg/dL (70-100); POTASSIUM 3.5 mmol/L (3.5-5.0); SODIUM 137 mmol/L (135-145); TOTAL PROTEIN 6.7 g/dL (6.7-8.2)
[2022-08-17 09:19] LABS: BILIRUBIN,DIRECT 12.3 mg/dL (0.1-0.5)
--- NOTE | 2022-08-17 12:35 | PROVIDER PROGRESS NOTE ---
Assessment/Plan - Problem List (1) Leukocytosis Assessment/Plan: Labs were all reviewed. He continues to have a very elev white cell count (most recent days WBC 32>> 26>> 22>> 22>> 19 today). It started to come down once Flagyl was empirically added 08/13 to the empiric Ceftrixone He did have repeat ultrasound looking for liver abscess. Other than a large liver, no abscess were seen, and his pancreas does have hypoechoic areas. We considered spontaneous bacterial peritonitis, but US showed no ascites fluid, nothing to tap. He has already been on Rocephin since admission. We empirically added Flagyl on 08/12 to the Rocephin Because of very elevated triglycerides (which were checked because of Hx of fa milial hypertriglyceridemia), consideration is once again for pancreatitis as the cause of his leukocytosis, and therefore repeat CT was done and showed pancreatitis. Since his major abn on LFTs is a persistently elevated bili, with normalizing AST and ALT, an MRCP was done yesterday 08/15>> showed same inflamed pancreas and inflamed GB, still wirh a consideration for acalculus cholecystitis, per r janette. Plan: Remain on empiric antibiotics Follow CBC daily We have no nuclear medicine here whatsoever to get a HIDA scan. Will get a new consult/second opinion from a different Gen Surg about how to manage his presumed acalculous cholecystitis. (Dr Goyal, of Gen Surg did a consult on day of admission and his feeling was that the GB was abn due to the liver, not GB primary trouble). 2. Pancreatitis Imaging with CT was repeated 08/13 and showed persistent acute pancreatitis. However there is no abscess, no drainable fluid, no cyst or necrosis of the pancreas. Triglyceride level was checked today and is very high at 790. There is a FH of Familial Hypertriglyceridemia, per records I reviewed yesterday. His pancreatitis is likely from alcohol abuse plus hypertriglyceridemia. His lipase has dropped from to normal range of 40 His diet is now low-fat restrictions and hepatic diet. Plan: Cont treatment of his hypertriglyceridemia using Lopid, started 08/13. (After the admission 2 years ago he was discharged on Lopid however his current reconciled med list shows he was taking no meds). 3. Familial hypertriglyceridemia Triglyceride level was checked and is very high at 790. There is a FH of Familial Hypertriglyceridemia, per records which I reviewed. At his last admission, his serum was white from being so fatty. His diet is now low-fat restriction and hepatic diet. Plan: Continue treatment of his hypertriglyceridemia using Lopid BID. After the admission 2 years ago he was discharged on Lopid however his current reconciled med list shows he was taking no meds. I reminded the patient about his hypertriglyceridemia, when I saw him on 08/13, and he answered "yeah I think I have heard about that before" 4. Alcohol dependance with withdrawal From a withdrawal perspective the patient has improved. When he was last admitted here for alcohol withdrawal, he had a similar pattern of needing many days of benzodiazepines to get through withdrawal and then was very sleepy for a prolonged period of time after the benzos were stopped. He has now less somnolent, awake, but has a persistent tremor which is probably from chronic liver disease, not from withdrawal. He is already on oral vitamin, thiamine. Plan: Continue benzodiazepine only as needed now. Continue daily thiamine and MOV He has become deconditioned. PT started with him 08/13; continue PT and OT. 5. Elevated bili Bilirubin remains elevated but liver enzymes are going down. Plan: We have W/U the elev bili and WBC and await a Gen Surg consult/second opinion re possible acalculus cholecystitis 6. Alcohol abuse All labs were reviewed. His ammonia level has been 77>> 76>> 88 today but nursing states that he is taking his lactulose. Lactulose was made bid on 08/15. Today his calculated MELD score equals 19, giving him very high risk of morbidity and mortality Plan: Continue benzodiazepine only as needed now. Continue daily thiamine and MOV We will increase lactulose from 10 g twice daily to 15 g twice daily 7. Hypokalemia Labs were all reviewed. K is 3.4 today Likely related to poor p.o. intake in conjunction with his alcohol abuse. Still requiring K replacement as well as getting Mg and Phosporus. Plan: Continue to monitor electrolytes, Mg and PO4 and replace if low. 8. Anemia No signs or symptoms of GI bleed other than the anemia. Needed 1 U of blood earlier. Hgb has been stable Plan: We will continue to monitor hemoglobin and transfuse as necessary. If he continues to need transfusion he may need an upper endoscopy. 9. Hyponatremia Resolved - Current Meds Current Meds: Current Medications Generic Name Dose Route Start Last Admin Trade Name Freq PRN Reason Stop Dose Admin Gemfibrozil 600 mg 08/13/22 17:06 08/17/22 06:55 Gemfibrozil 600 Mg Tablet PO 600 mg BIDAC CASH Administration Hydromorphone HCl 1 mg 08/16/22 10:19 08/17/22 11:35 Hydromorphone 0.5 Mg/0.5 Ml Syringe IVP 1 mg Q6HR PRN Administration NEEDED PER PROVIDER ORDERS Ceftriaxone Sodium 2 gm/ 100 mls @ 200 mls/hr 08/07/22 23:00 08/17/22 00:05 Sodium Chloride IV Infused Q24H CASH Infusion Metronidazole 500 mg in 100 mls @ 100 mls/hr 08/12/22 20:00 08/17/22 07:00 Flagyl 500 Mg/100 Ml IV Infused Q8H CASH Infusion Lactulose 15 gm 08/17/22 08:00 08/17/22 08:07 Lactulose 10 Gm /15 Ml Udc PO 15 gm 0800,1800 CASH Administration Lorazepam 1 mg 08/13/22 11:16 08/14/22 05:23 Lorazepam 2 Mg/Ml Vial IVP 1 mg Q30M PRN Administration CIWA >8 Protocol Nicotine 1 patch 08/17/22 09:00 08/17/22 08:07 Nicotine 7 Mg Patch TOP 1 patch DAILY CASH Administration Pantoprazole Sodium 40 mg 08/17/22 07:48 08/17/22 08:06 Pantoprazole 40 Mg Tablet PO 40 mg QDAC CASH Administration Potassium Chloride 30 meq 08/17/22 08:00 08/17/22 08:07 Potassium Chloride 10 Meq Capsule PO 30 meq DAILYWM CASH Administration Multivit/Folic Acid/Iron 1 tab 08/08/22 12:00 08/17/22 08:06 Vitamin Tablet PO 1 tab DAILYWM CASH Administration Sodium Chloride 10 ml 08/08/22 01:00 08/17/22 08:09 Sodium Chloride Flush 0.9% 10 Ml Syringe IVP 10 ml 0100,0900,1700 CASH Administration Sodium Chloride 10 ml 08/07/22 22:20 08/17/22 05:34 Sodium Chloride Flush 0.9% 10 Ml Syringe IVP 10 ml PRN PRN Administration NEEDED PER PROVIDER ORDERS Thiamine HCl 100 mg 08/08/22 12:00 08/17/22 08:06 Thiamine 100 Mg Tablet PO 100 mg DAILY CASH Administration - Lab Result Fish Bone Diagrams: 08/18/22 05:00 08/18/22 05:00 - Additional Planning My Orders: My Active Orders 08/17/22 General Surgery Consult [CONS] Routine 08/17/22 07:48 Pantoprazole [Protonix] 40 mg PO QDAC 08/17/22 08:00 Lactulose [Enulose] 15 gm PO 0800,1800 Potassium Chloride [Micro-K] 30 meq PO DAILYWM 08/17/22 09:00 Nicotine 7 mg Patch [Nicoderm] 1 patch TOP DAILY 08/18/22 05:00 AMMONIA [CHEM] DAILYLAB CBC - COMP BLD CT W/AUTO DIFF [HEME] DAILYLAB CMP [COMPREHENSIVE METABOLIC PANEL] [CHEM] DAILYLAB 08/19/22 05:00 CBC - COMP BLD CT W/AUTO DIFF [HEME] DAILYLAB CMP [COMPREHENSIVE METABOLIC PANEL] [CHEM] DAILYLAB 08/20/22 05:00 CBC - COMP BLD CT W/AUTO DIFF [HEME] DAILYLAB Subjective - Subjective Patient Reports: Pain (Slightly improved pain in LUQ and RUQ after Dilaudid increased from 0.5 to 1 mg but does not last until the next dose) Objective Vital Signs: Vital Signs - 24 hr 08/16/22 08/16/22 08/16/22 13:00 15:40 20:25 Temperature 37.5 C 37.6 C 37.3 C Heart Rate [ 101 H 101 H 92 Brachial] Heart Rate [ Monitoring electrodes] Respiratory 18 16 18 Rate Blood Pressure 102/69 107/65 [Left Brachial artery] Blood Pressure 117/76 [Right Brachial artery] O2 Saturation 98 96 08/17/22 08/17/22 08/17/22 00:08 05:02 07:53 Temperature 36.8 C 37.0 C 37.1 C Heart Rate [ 84 86 95 Brachial] Heart Rate [ Monitoring electrodes] Respiratory 18 18 18 Rate Blood Pressure 112/63 103/63 106/67 [Left Brachial artery] Blood Pressure [Right Brachial artery] O2 Saturation 95 97 95 08/17/22 11:22 Temperature Heart Rate [ Brachial] Heart Rate [ 119 H Monitoring electrodes] Respiratory 20 Rate Blood Pressure [Left Brachial artery] Blood Pressure 126/76 [Right Brachial artery] O2 Saturation 100 Oxygen O2 Source Room air I&O (Last 24 Hrs): Intake and Output Totals x24h 08/15/22 08/16/22 08/17/22 23:59 23:59 23:59 Intake Total 1410 1530 980 Output Total 500 375 Balance 910 1155 980 General: Alert, Oriented x3, Other (Cachectic, has a resting tremor of jaw and upper EXTR) HEENT: Mucous membr. moist/pink, Other (Poor dentition) Neck: Supple, No JVD Neuro: Alert, Other (Resting tremor of jaw and upper extremity) Cardiovascular: Regular rate, No murmurs Respiratory: No respiratory distress, Breath sounds nml Abdomen: Normal bowel sounds, Other (Mild tenderness to moderate palpation in the LUQ and RUQ, no guarding or rebound) Extremities: No clubbing, No edema, Other (Very icteric skin) - Results Results: Laboratory Results WBC 18.6 x10^3/uL (4.8-10.8) H 08/17/22 04:42 RBC 2.65 10^6/uL (4.70-6.10) L 08/17/22 04:42 Hgb 8.9 g/dL (14.0-18.0) L 08/17/22 04:42 Hct 29.3 % (42.0-52.0) L 08/17/22 04:42 MCV 110.6 fL (80.0-94.0) H 08/17/22 04:42 MCH 33.6 pg (27.0-31.0) H 08/17/22 04:42 MCHC 30.4 g/dL (32.0-36.0) L 08/17/22 04:42 RDW 24.6 % (12.0-15.0) H 08/17/22 04:42 Plt Count 344 10^3/uL (130-450) 08/17/22 04:42 MPV 12.8 fL (7.4-11.4) H 08/16/22 04:55 Neut # (Auto) ASSISTANT GOLF PROFESSIONAL 08/17/22 04:42 Lymph # (Auto) ASSISTANT GOLF PROFESSIONAL 08/17/22 04:42 [place] # (Auto) ASSISTANT GOLF PROFESSIONAL 08/17/22 04:42 Eos # (Auto) ASSISTANT GOLF PROFESSIONAL 08/17/22 04:42 Baso # (Auto) ASSISTANT GOLF PROFESSIONAL 08/17/22 04:42 Absolute Nucleated RBC ASSISTANT GOLF PROFESSIONAL 08/17/22 04:42 Total Counted 100 08/17/22 04:42 Band Neuts % (Manual) 12 % (0-10) H 08/17/22 04:42 Abnorm Lymph % (Manual) 0 % 08/17/22 04:42 Metamyelocytes % 3 % (-0) H 08/17/22 04:42 Myelocytes % 4 % (-0) H 08/14/22 05:03 Promyelocytes % 1 % (-0) H 08/15/22 06:53 Nucleated RBC % ASSISTANT GOLF PROFESSIONAL 08/17/22 04:42 Neutrophils # (Manual) 15.1 10^3/uL (1.5-6.6) H 08/17/22 04:42 Lymphocytes # (Manual) 1.3 10^3/uL (1.5-3.5) L 08/17/22 04:42 Monocytes # (Manual) 1.5 10^3/uL (0.0-1.0) H 08/17/22 04:42 Eosinophils # (Manual) 0.2 10^3/uL (0-0.7) 08/17/22 04:42 Basophils # (Manual) 0.0 10^3/uL (0-0.1) 08/17/22 04:42 Nucleated RBCs 1 % 08/12/22 04:19 Differential Comment MANUAL DIFFERENTIAL 08/17/22 04:42 Manual Slide Review Indicated 08/17/22 04:42 WBC Morphology NORMAL APPEARANCE (NORMAL) 08/14/22 05:03 Platelet Estimate NORMAL (130-450,000) (NORMAL) 08/17/22 04:42 Platelet Morphology NORMAL APPLE (NORMAL) 08/17/22 04:42 RBC Morph Micro Appear 2+ ANISOCYTOSIS (NORMAL) 1+ MACROCYTOSIS (NORMAL) 1+ TARGET CELLS (NORMAL) 08/17/22 04:42 RBC Morph Micro Appear 2+ ANISOCYTOSIS (NORMAL) 1+ MACROCYTOSIS (NORMAL) 1+ TARGET CELLS (NORMAL) 08/17/22 04:42 RBC Morph Micro Appear 2+ ANISOCYTOSIS (NORMAL) 1+ MACROCYTOSIS (NORMAL) 1+ TARGET CELLS (NORMAL) 08/17/22 04:42 PT 12.0 secs (9.9-12.6) 08/13/22 08:24 INR 1.1 (0.8-1.2) 08/13/22 08:24 VBG pH 7.504 (7.31-7.41) H 08/13/22 06:36 Ionized Calcium 1.05 mmol/L (1.15-1.33) L 08/13/22 06:36 Sodium 137 mmol/L (135-145) 08/17/22 04:42 Potassium 3.5 mmol/L (3.5-5.0) 08/17/22 04:42 Chloride 110 mmol/L (101-111) 08/17/22 04:42 Carbon Dioxide 19 mmol/L (21-32) L 08/17/22 04:42 Anion Gap 8.0 (6-13) 08/17/22 04:42 BUN < 5 mg/dL (6-20) L 08/17/22 04:42 Creatinine 0.3 mg/dL (0.6-1.2) L 08/17/22 04:42 Estimated GFR (MDRD) 332 (>89) 08/17/22 04:42 Glucose 100 mg/dL (70-100) 08/17/22 04:42 Calcium 8.3 mg/dL (8.5-10.3) L 08/17/22 04:42 Phosphorus 2.9 mg/dL (2.5-4.6) 08/12/22 21:20 Magnesium 1.8 mg/dL (1.7-2.8) 08/15/22 06:53 Total Bilirubin 18.9 mg/dL (0.2-1.0) H 08/17/22 04:42 Direct Bilirubin 12.3 mg/dL (0.1-0.5) H 08/17/22 04:42 AST 71 IU/L (10-42) H 08/17/22 04:42 ALT 34 IU/L (10-60) 08/17/22 04:42 Alkaline Phosphatase 206 IU/L (42-121) H 08/17/22 04:42 Ammonia 88.3 umol/L (7-35) H* 08/17/22 04:42 Total Protein 6.7 g/dL (6.7-8.2) 08/17/22 04:42 Albumin 1.8 g/dL (3.2-5.5) L 08/17/22 04:42 Globulin 4.9 g/dL (2.1-4.2) H 08/17/22 04:42 Albumin/Globulin Ratio 0.3 (1.0-2.2) L 08/16/22 04:55 Triglycerides 790 mg/dL (-149) H 08/13/22 06:36 LDL Cholesterol Direct 321 mg/dL (-129) H 08/13/22 06:36 dLDL/HDL Ratio Not Reportable 08/13/22 06:36 Lipase 40 U/L (22-51) 08/13/22 06:36 Procalcitonin 1.30 ng/mL (<0.5) H 08/07/22 22:45 Urine Color YELLOW 08/11/22 21:40 Urine Clarity HAZY (CLEAR) 08/11/22 21:40 Urine pH 7.0 PH (5.0-7.5) 08/11/22 21:40 Ur Specific [place] 1.010 (1.002-1.030) 08/11/22 21:40 Urine Protein NEGATIVE mg/dL (NEGATIVE) 08/11/22 21:40 Urine Glucose (UA) 100 mg/dL (NEGATIVE) H 08/11/22 21:40 Urine Ketones NEGATIVE mg/dL (NEGATIVE) 08/11/22 21:40 Urine Occult Blood TRACE-INTA (NEGATIVE) 08/11/22 21:40 Urine Nitrite NEGATIVE (NEGATIVE) 08/11/22 21:40 Urine Bilirubin LARGE (NEGATIVE) H 08/11/22 21:40 Urine Urobilinogen 0.2 (NORMAL) E.U./dL (NORMAL) 08/11/22 21:40 Ur Leukocyte Esterase NEGATIVE (NEGATIVE) 08/11/22 21:40 Urine RBC 0-5 /HPF (0-5) 08/11/22 21:40 Urine WBC 0-3 /HPF (0-3) 08/11/22 21:40 Ur Squamous Epith Cells FEW Squamous (<= Few) 08/11/22 21:40 Amorphous Sediment Few /LPF 08/11/22 21:40 Urine Bacteria Few /HPF (None Seen) 08/11/22 21:40 Urine Casts 3-5 Fine Granular /LPF 08/11/22 21:40 Urine Mucus Few Strands 08/11/22 21:40 Ur Microscopic Review INDICATED 08/07/22 17:15 Urine Culture Comments NOT INDICATED 08/11/22 21:40 Nasal Adenovirus (PCR) NOT DETECTED 08/07/22 15:54 Nasal B. parapertussis DNA (PCR) NOT DETECTED 08/07/22 15:54 Nasal Coronavir 229E PCR NOT DETECTED 08/07/22 15:54 Nasal Coronavir HKU1 PCR NOT DETECTED 08/07/22 15:54 Nasal Coronavir NL63 PCR NOT DETECTED 08/07/22 15:54 Nasal Coronavir OC43 PCR NOT DETECTED 08/07/22 15:54 Nasal Enterovir/Rhinovir PCR NOT DETECTED 08/07/22 15:54 Nasal Influenza B PCR NOT DETECTED 08/07/22 15:54 Nasal Influenza A PCR NOT DETECTED 08/07/22 15:54 Nasal Parainfluen 1 PCR NOT DETECTED 08/07/22 15:54 Nasal Parainfluen 2 PCR NOT DETECTED 08/07/22 15:54 Nasal Parainfluen 3 PCR NOT DETECTED 08/07/22 15:54 Nasal Parainfluen 4 PCR NOT DETECTED 08/07/22 15:54 Nasal RSV (PCR) NOT DETECTED 08/07/22 15:54 Nasal Screen MRSA (PCR) NEGATIVE (NEGATIVE) 08/07/22 23:35 Nasal B.pertussis DNA PCR NOT DETECTED 08/07/22 15:54 Nasal C.pneumoniae (PCR) NOT DETECTED 08/07/22 15:54 Asaf Human Metapneumo PCR NOT DETECTED 08/07/22 15:54 Nasal M.pneumoniae (PCR) NOT DETECTED 08/07/22 15:54 Nasal SARS-CoV-2 (PCR) NOT DETECTED 08/07/22 15:54 Ethyl Alcohol 121.5 mg/dL 08/07/22 15:37 Hepatitis A IgM Ab Negative (Negative) 08/07/22 15:37 Hep Bs Antigen Negative (Negative) 08/07/22 15:37 Hep B Core IgM Ab Negative (Negative) 08/07/22 15:37 Hepatitis C Antibody Non Reactive (Non Reactive) 08/07/22 15:37 Hepatitis C Interp Comment (.) 08/07/22 15:37 Blood Type O POSITIVE 08/07/22 22:45 Antibody Screen NEGATIVE 08/07/22 22:45 Crossmatch IS Only See Detail 08/07/22 22:45 - Procedures Procedures: Procedures EXCISION OF DUODENUM, ENDO, DIAGN (02/29/20) EXCISION OF ESOPHAGUS, ENDO, DIAGN (02/29/20) EXCISION OF STOMACH, ENDO, DIAGN (02/29/20)
--- NOTE | 2022-08-17 13:50 | CONSULTATION NOTE ---
Referring Provider Name of Referring Provider:: Dr. Annie Hill Consult Date: 08/17/22 Chief Complaint - Chief Complaint Chief Complaint: Pancreatitis, liver failure MELD=19, possible acalculous cholecystits History of Present Illness - Admitted From Admitted From:: ED - History Obtained From Records Reviewed: Yes History obtained from: Patient and chart - History of Present Illness HPI Comment/Other: Patient is a known alcoholic who states he started drinking in earnest following his divorce. Patient presented with pancreatitis and profound hepatic failure and has improved to the point where he is now talking (he was near comatose on presentation). He is now evaluated in Room 7 at [facility] Med-Surg unit at the request of Dr. Hill. Despite the fact that I have stated that his liver failure has improved his MELD score is 19, he has a profoundly elevated ammonia and resting tremor (asterixis). His pain in the RUQ is worse. History - Past Medical History Cardiovascular: reports: None Respiratory: reports: Other Neuro: reports: None Endocrine/Autoimmune: reports: None GI: reports: None : reports: None HEENT: reports: None Psych: reports: None Musculoskeletal: reports: None Derm: reports: None MRSA Hx?: No Other Past Medical History: alcohol abuse c hx of withdraw - Past Surgical History Ortho: reports: Other Derm: reports: Skin grafts - Family & Social History Family History: Mother: Alive and Well, Father: Alive and Well Family History Comment/Other: Patient reported his father have heart medical problem, her mother is healthy.He had 2 children, 1 daughter and 1 son, both are health. Living arrangement: At home Living Situation: With friend(s) Social History Notes: Patient reported he is still smoking cigarette 1 pack/day, drinks alcohol daily.He is live at [facility]. 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 - POLST Patient has POLST: No Meds/Allgy - Home Medications Home Medications: Ambulatory Orders Medication Instructions Recorded Confirmed No Known Home Medications 12/18/20 08/07/22 - Allergies Allergies/Adverse Reactions: Allergies Allergy/AdvReac Type Severity Reaction Status Date / Time phenobarbital Allergy Severe Anaphylaxis Verified 08/07/22 15:08 morphine AdvReac Emesis Verified 08/07/22 15:08 Review of Systems - Other Findings Other Findings: I did not do an extensive ROS - it is not necessary and it does not change the severity of his liver failure. Exam - Vital Signs Reviewed Vital Signs: Yes Vital Signs: Vital Signs x48h Temp Pulse Pulse Resp BP BP Pulse Ox 08/17/22 13:00 37.5 C 103 H 18 104/68 98 08/17/22 11:22 119 H 20 126/76 100 08/17/22 07:53 37.1 C 95 18 106/67 95 - Physical Exam General Appearance: positive: Anxious Eyes Bilateral: positive: No lid inflammation. negative: No scleral icterus ENT: positive: Dry mucous membranes Neck: positive: Trachea midline Respiratory: positive: Chest non-tender, Breath sounds nml Cardiovascular: positive: Regular rate & rhythm Abdomen: positive: Nml bowel sounds, Tenderness (Throughout but slightly worse in RUQ.), Hepatomegaly (Severe.) Skin: positive: Warm, Dry, Other (Jaundice - significant.) Extremities: negative: Maverick's sign/cords Neurologic/Psychiatric: positive: Oriented x3, Sensation nml, Mood/affect nml. negative: Motor nml (Resting tremor - asterixis.) Conclusion/Plan - Lab Results Lab results reviewed: Yes Fish Bones: 08/17/22 04:42 08/17/22 04:42 - Diagnostic Imaging Results Diagnostic Imaging Results: positive: Final report reviewed - Other Other Results/Comments: This is an exceedingly complicated patient whose diagnosis is liver failure and pancreatitis who although has markedly improved since admission is at exceedingly high risk for any surgical intervention. Acalculous cholecystitis is absolutely in the differential but pancreatitis and enlarged liver and/or nadine lure are also absolutely in the differential as well. In order for the patient to be taken care of in the safest way possible I would recommend transfer to a hospital setting where interventional radiology could drain the gallbladder as opposed to surgical removal. Both surgical removal or interventional radiographic drainage are "risky" in this patient but interventional radiology is MUCH less risky. The other reason that he should be transferred is that he should be evaluated by a speech and language assistant to determine if any intervention could improve his outcome. Although it goes without saying I told the patient that he absolutely must stop drinking alcohol completely. There is no "wiggle room." Absolute alcohol abstinence is mandatory and I explained this to the patient. In short, this hospital does not have interventional radiology that could drain the gallbladder and surgical removal of his gallbladder with his current medical standing is way to risky to even consider. Safety dictates transfer. I wish to thank Dr. Hill very much for the opportunity to participate in this patient's care. CPT 77751
[2022-08-17] MEDS: cefTRIAXone 2 GM in SODIUM CHLORIDE 0.9% MINIBAG 100 ML IV SCH (23:34)
[2022-08-18] MEDS: metroNIDAZOLE 500 MG/100 ML 500 MG/100 ML BAG IV SCH ×2 (04:56→12:09)
[2022-08-18] MEDS: PANTOPRAZOLE 40 MG TABLET PO SCH (04:57)
[2022-08-18] MEDS: gemfibroziL 600 MG TABLET PO SCH (04:57)
[2022-08-18] MEDS: HYDROmorphone 0.5 MG/0.5 ML SYRINGE IVP PRN ×3 (04:57→13:41)
[2022-08-18] MEDS: SODIUM CHLORIDE FLUSH 0.9% 10 ML SYRINGE IVP PRN (04:59)
[2022-08-18 05:07] LABS: BASOPHILS % (AUTO) 0.2 %; EOSINOPHILS % (AUTO) 1.1 %; HCT - HEMATOCRIT 27.2 % (42.0-52.0); HGB - HEMOGLOBIN 8.5 g/dL (14.0-18.0); LYMPHOCYTES % (AUTO) 13.2 %; MEAN CORPUSCULAR HEMOGLOBIN 34.1 pg (27.0-31.0); MEAN CORPUSCULAR HGB CONC 31.3 g/dL (32.0-36.0); MEAN CORPUSCULAR VOLUME 109.2 fL (80.0-94.0); MEAN PLATELET VOLUME 12.2 fL (7.4-11.4); MONOCYTES % (AUTO) 8.3 %; NEUTROPHILS % (AUTO) 67.5 %; PLT - PLATELET COUNT 376 10^3/uL (130-450); RED BLOOD COUNT 2.49 10^6/uL (4.70-6.10); WHITE BLOOD COUNT 14.9 x10^3/uL (4.8-10.8)
[2022-08-18 05:15] LABS: ABNORMAL LYMPHS % (MANUAL) 0 %
[2022-08-18 05:21] LABS: ALBUMIN 1.7 g/dL (3.2-5.5); ALBUMIN/GLOBULIN RATIO 0.4 (1.0-2.2); ALKALINE PHOSPHATASE 178 IU/L (42-121); ALT ALANINE AMINOTRANSFERASE 27 IU/L (10-60); AST ASPARTATE AMINOTRANSFERASE 76 IU/L (10-42); BILIRUBIN,TOTAL 18.3 mg/dL (0.2-1.0); BUN - BLOOD UREA NITROGEN < 5 mg/dL (6-20); CARBON DIOXIDE - CO2 19 mmol/L (21-32); CHLORIDE 111 mmol/L (101-111); GLUCOSE 95 mg/dL (70-100); POTASSIUM 3.5 mmol/L (3.5-5.0); SODIUM 138 mmol/L (135-145); TOTAL PROTEIN 6.3 g/dL (6.7-8.2)
[2022-08-18 05:23] LABS: CREATININE < 0.3 mg/dL (0.6-1.2)
[2022-08-18 05:58] LABS: BAND NEUTROPHILS % (MANUAL) 3 %; LYMPHOCYTES # (MANUAL) 1.5 10^3/uL (1.5-3.5); LYMPHOCYTES % (MANUAL) 10 %; METAMYELOCYTES % (MANUAL) 2 %; MONOCYTES # (MANUAL) 0.6 10^3/uL (0.0-1.0); MYELOCYTES % (MANUAL) 2 %; NEUTROPHILS # (MANUAL) 12.1 10^3/uL (1.5-6.6); PLATELET ESTIMATE, MANUAL NORMAL (130-450,000) (NORMAL); PROMYELOCYTES % (MANUAL) 1 %
[2022-08-18 05:59] LABS: DIFFERENTIAL COMMENT MANUAL DIFFERENTIAL
[2022-08-18] MEDS: NICOTINE 7 MG PATCH TOP SCH (09:12)
[2022-08-18] MEDS: POTASSIUM CHLORIDE 10 MEQ CAPSULE PO SCH (09:13)
[2022-08-18] MEDS: THIAMINE 100 MG TABLET PO SCH (09:13)
[2022-08-18] MEDS: LACTULOSE 10 GM /15 ML UDC PO SCH (09:13)
[2022-08-18] MEDS: PRENATAL VITAMIN TABLET PO SCH (09:14)
[2022-08-18] MEDS: SODIUM CHLORIDE FLUSH 0.9% 10 ML SYRINGE IVP SCH (09:17)
[2022-08-18] MEDS ORDERED: HYDROmorphone 0.5 MG/0.5 ML SYRINGE IVP PRN (10:54)
[2022-08-18] MEDS ORDERED: LACTULOSE 10 GM /15 ML UDC PO SCH (12:00)
--- NOTE | 2022-08-18 12:43 | Discharge Plan ---
Discharge Plan Problem Reviewed?: Yes Disposition: 02 Transfer Acute Care Hosp Condition: Poor No Smoking: If you smoke, Please STOP! Call for help.
--- NOTE | 2022-08-18 12:53 | DISCHARGE SUMMARY ---
"Discharge Summary Admit Date: 08/07/22 Discharge Date: 08/18/22 Discharging Provider: Dr Annie Hill Primary Care Provider: [facility] due to [employer] Code Status: Attempt Resuscitation Condition at Discharge: Poor Discharge Disposition: 02 Transfer Acute Care Hosp Discharge Facility Name: [facility] History of Present Illness: 42M w/ alcohol abuse hx presents w/ URI sx a week ago then nausea, vomiting, and abdominal pain. Patient reports drinking 1 bottle of vodka a day and has kept drinking. Prior hx of alcohol withdraw however no seizure. He actually has had abdominal pain for the past 2 weeks with RUQ being more tender for the past 2-3 days. He has noticed skin turning yellow and subsequently due to N/V, was unable to tolerate any po. He denies bleed- no deidra blood or coffee ground or melena. Patient states no fever. ROS cough - chronically due to smoking. No chest pain. Positive SOB. No palpitation. No dysuria. No swelling in extremities. Work-up showed elevated LFTs and bilirubin significantly elevated at 12. (He has known alcoholic liver disease but no prior bilirubin elevation. The jaundice is new). He also started having some mild alcohol withdrawal in the ER and received lorazepam. Lipase is elevated minimally at 58. His sodium is [address] of the abdomen showed enlarged liver, and findings consistent with pancreatitis. There was some distention of the gallbladder but no wall thickness or fluid noted, and no obvious stones. Ultrasound was done and the preliminary reading is slightly thickened GB wall with some distention but no pericholecystic fluid and no edema. Common bile duct was normal at 5 mm. No obvious stone seen. Liver was obviously enlarged. Inflammation of the pancreas seen. A general surgery consult was obtained who felt that the gallbladder findings were secondary to the liver and pancreatic problem. The patient is being admitted to the Hospitalist team to treat pancreatitis, alcohol withdrawal, probable alcoholic hepatitis, nausea and vomiting causing hyponatremia and hypokalemia. - CONSULTS | PROCEDURES Consultations: Dr Goyal, Dr Moran - HOSPITAL COURSE Hospital Course: 1. Alcohol dependance with withdrawal He was admitted to the ICU for frequent monitoring, CIWA protocol, needed frequent dosing with benzodiazepines. He then had many days of somnolence. (When he was last admitted here for alcohol withdrawal, he had a similar pattern of needing many days of benzodiazepines to get through withdrawal and then was very sleepy for a prolonged period of time after the benzos were stopped). He was transferred out of the ICU when stabilized. When awake, we noticed he has a persistent tremor of upper extremities and jaw, which is probably from chronic liver disease, not from withdrawal. He was treated with banana bag then daily oral vitamin, thiamine. 2. Pancreatitis Imaging with CT showed acute pancreatitis, but Lipase was only 58. Triglyceride level was checked and was elevated at 790. His pancreatitis is likely from alcohol abuse plus hypertriglyceridemia. His lipase dropped from 58 to normal range of 40. His diet was advanced as he awoke, to a low-fat hepatic diet, which he tolerated w/out N/V. We treated his hypertriglyceridemia using Lopid starting on 08/13. 3. Familial hypertriglyceridemia Triglyceride level was checked on 08/13 and was very high at 790. There is a FH of Familial Hypertriglyceridemia, learned from chart review, as he did not provide details at admission. (At his last admission here 2 yrs ago, his serum was white from being so fatty, that his Triglyceride level was above the level that could be measured). We treated his hypertriglyceridemia using Lopid starting on 08/13. (After the admission 2 years ago he was discharged on Lopid however his current reconciled med list shows he was taking no meds). 4. Leukocytosis His admission WBC was elevated at 18, and he was put on empiric Ceftriaxone started at admission. His WBC did not improve, WBC 22>> 32>> 26. Abdominal imaging was repeated with ultrasound, and CT and eventually MRCP. There was a large liver, but no abscess, no ascites, his pancreas did have hypoechoic area, but no cyst or necrosis of the pancreas. We considered spontaneous bacterial peritonitis, but US showed no ascites to tap. He had already been on Rocephin since admission. We empirically added Flagyl on 08/12. With this, his WBC dropped minimally (22>> 19>> 18>> 14 at transfer), but Bands were 12%, on the day before transfer. The MRCP done 08/15 showed same inflamed pancreas and inflamed and thickened GB wall, making consideration for acalculus cholecystitis still present, per report. We have no nuclear medicine at this hospital whatsoever, to get a HIDA scan. We got a consult from Gen Surg, who advised he needs transfer to manage his acalculous cholecystitis. He was accepted in transfer by the Hospitalist team, at [facility], after discussion also with gastroenterology and general surgery. He was transferred there by ambulance in stable but poor condition on 08/18/2022. 5. Acalculus cholecystitis He had undergone 2 ultrasounds, 2 CT scans and eventually MRCP. Those described gallbladder wall thickening, dilated duct, no stones were ever seen. Because of the persistently elevated WBC and rising bilirubin, we diagnosed calculus cholecystitis and he needed transfer. His calculated MELD score was 19, giving him very high risk to undergo surgery. We requested transfer to a facility to try IR drainage of his gallbladder. 6. Elevated LFTs Liver enzymes were all elevated then trended down (AST 273>> 233>> 171>> 141>> 115>> 88>> 76 on day of transfer, ALT 107>> 93>> 73>> 61>> 54>> 33>> 27 on day of transfer, Alk Phos 556>> 437>> 343>> 314>> 222>> 202>> 178 on day of tra nsfer), except for his bilirubin (12.5 on admission) which mario (13>> 15.8>> 16.8>> 16.5>> 18.9>> 18.3 on day of transfer ). His Hepatitis A, B and C panel came back neg. With persistently elevated bilirubin and WBC, we considered a liver or gallbladder source of infection and imaging W/U was done as described in # 5 & 6. 7. Alcohol abuse His LFTs were elevated, plts 76, which corrected in 48 hours, and INR was 1.1. No ascites was seen on repeat imaging. We ordered daily thiamine and MOV, once he was awake. His ammonia level was 63 at admission, Lactulose was started. Ammonia kept risng >> 77 but nursing confirmed he was taking his Lactulose. On 08/17 his Ammonia level was 88, and on 08/18 (day of transfer), Ammonia level was 90. Lactulose was increased from 10 g daily to BID, to 15 g BID, to TID. He did only have about 1 soft BM daily, however. His calculated MELD score equals 19, giving him very high risk of morbidity and mortality. 8. Hypokalemia At admission, K was 2.3. Despite replacement aggressively it was still 2.9 several days later. Hypokalemia persisted throughout hospitalization (3.2-3.4), likely related to poor p.o. intake in conjunction with his alcohol abuse. He got multiple IV potassium replacements and then started on increasing doses of daily oral potassium. 9. Hyponatremia Resolved with iv hydration using Banana Bag and NS. 10. Anemia At admission, Hgb was 9.7 which then dropped to 7.3>> 6.8 and he then got 1 U of blood transfused on 08/09. His hemoglobin improved to 8.1 and was stable between 8 and 8.9 after that. - ALLERGIES Allergies/Adverse Reactions: Allergies Allergy/AdvReac Type Severity Reaction Status Date / Time phenobarbital Allergy Severe Anaphylaxis Verified 08/07/22 15:08 morphine AdvReac Emesis Verified 08/07/22 15:08 - MEDICATIONS Home Medications: Ambulatory Orders Medication Instructions Recorded Confirmed No Known Home Medications 12/18/20 08/07/22 - PHYSICAL EXAM AT DISCHARGE General Appearance: positive: Mild distress (He is currently having chills. He also has a resting tremor of the head jaw and arms which is chronic.), Other (Cachectic male, severely icteric, has a resting tremor, appears older than his age.) Eyes Bilateral: positive: EOMI, Other (Sclerae are icteric. Dentition is poor, several missing teeth, oral mucosa is moist.) ENT: positive: No signs of dehydration Neck: positive: Nml inspection, No JVD Respiratory: positive: No respiratory distress, Breath sounds nml Cardiovascular: positive: Regular rate & rhythm, No murmur Abdomen: positive: No organomegaly, Nml bowel sounds, No distention, Other (Tender to light palpation in the LUQ and RUQ. No guarding or rebound.) Skin: positive: Warm, Dry, Other (Icteric) Extremities: positive: Non-tender, No pedal edema Neurologic/Psychiatric: positive: Oriented x3, Other (Patient has resting asterixis and tremor, when he speaks, of the lower jaw.) - LABS Result Diagrams: 08/18/22 05:00 08/18/22 05:00 - DIAGNOSTIC IMAGING Diagnostic Imaging Results: Final report reviewed - FOLLOW UP Follow Up: This will be determined after his hospitalization at [facility]. - TIME SPENT Time Spent in Discharge (Minutes): 65"
[2022-08-18 13:52] VITALS: BP 135/82
== END 2022-08-18 13:40 | disposition short-term general hospital (02) | DRG 896 ==
LOC: ED 14:56 → ICU 22:23 → MS2 08-14 00:04
PROVIDERS: ADMIT Internal Medicine; ATTEND Internal Medicine
PROC: 30233N1 Transfusion of Nonautologous Red Blood Cells into Peripheral Vein, Percutaneous Approach (ICD-10-PCS; principal; 2022-08-09)
DX: F10.239 Alcohol dependence with withdrawal, unspecified (principal); K72.01 Acute and subacute hepatic failure with coma; K85.20 Alcohol induced acute pancreatitis without necrosis or infection; K81.0 Acute cholecystitis; B37.0 Candidal stomatitis; E87.1 Hypo-osmolality and hyponatremia; R64 Cachexia; B37.81 Candidal esophagitis; K70.10 Alcoholic hepatitis without ascites; E78.1 Pure hyperglyceridemia; R79.89 Other specified abnormal findings of blood chemistry; E87.6 Hypokalemia; R25.1 Tremor, unspecified; Z68.20 Body mass index [BMI] 20.0-20.9, adult; F17.210 Nicotine dependence, cigarettes, uncomplicated; E86.0 Dehydration; R53.83 Other fatigue; R00.0 Tachycardia, unspecified; R41.0 Disorientation, unspecified; D52.9 Folate deficiency anemia, unspecified; K59.00 Constipation, unspecified; D72.829 Elevated white blood cell count, unspecified; I95.9 Hypotension, unspecified; Z20.822 Contact with and (suspected) exposure to COVID-19; R32 Unspecified urinary incontinence
CPT/HCPCS: 36415; 71045; 74177; 74183; 76705; 80048; 80053; 80076; 80320; 81001; 82140; 82272; 82330; 83690; 83721; 83735; 84100; 84132; 84145; 84478; 85014; 85018; 85025; 85610; 86705; 86709; 86803; 86850; 86900; 86901; 86920; 87150; 87340; 87633; 96361; 96365; 96367; 96375; 96376; 97116; 97162; 97165; 99284; 99285; 99406; A9270; A9585; J1170; J2060; J7120; P9016; Q9967; 81003; 82270; 87086

== ENCOUNTER 2022-08-18 13:19 | Outpatient (CLI) | payer MEDICAID | END 2022-08-18 23:59 | disposition short-term general hospital (02) | LOC: EMS 13:19 | PROVIDERS: ATTEND Urology | DX: K81.9 Cholecystitis, unspecified (principal); K85.20 Alcohol induced acute pancreatitis without necrosis or infection; K72.90 Hepatic failure, unspecified without coma | CPT/HCPCS: A0425; A0428 ==

== ENCOUNTER 2023-09-09 12:14 | Outpatient (CLI) | payer MEDICAID ==
--- NOTE | 2023-09-09 14:54 | XRAY Report ---
PROCEDURE: Hand 3+V RT INDICATIONS: PAINI N R HAND TECHNIQUE: 4 views of the hand(s) acquired. COMPARISON: None. FINDINGS: Bones: Minimally displaced fracture of the fourth metacarpal neck. Healed fifth metacarpal neck frac ture. Soft tissues: No suspicious soft tissue calcifications or masses. IMPRESSION: Minimally displaced fracture of the fourth metacarpal neck. Reviewed by: Bertrand Guerra MD on 09/09/2023 2:53 PM PDT Approved by: Bertrand Guerra MD on 09/09/2023 2:53 PM PDT Station ID: [id number]
== END 2023-09-09 12:15 | disposition home or self-care (01) ==
LOC: DI 12:14
PROVIDERS: ATTEND Physician Assistant Medical
DX: S62.334A Displaced fracture of neck of fourth metacarpal bone, right hand, initial encounter for closed fracture (principal)

== ENCOUNTER 2023-09-15 07:45 | Outpatient (CLI) | payer MEDICAID ==
--- NOTE | 2023-09-15 13:34 | XRAY Report ---
PROCEDURE: Hand 3 View RT INDICATIONS: RIGHT HAND PAIN TECHNIQUE: 3 views of the hand(s) acquired. COMPARISON: Right hand radiographs 09/09/2023. FINDINGS: Bones: Suspected nondisplaced fracture of the fourth metacarpal neck. No significant displacement. Pr ior fracture deformity of the fifth metacarpal. No dislocations. No suspicious bony lesions. Soft tissues: No suspicious soft tissue calcifications or masses. IMPRESSION: Suspected nondisplaced fracture of the fourth metacarpal neck. Reviewed by: Eder Mitchell MD on 09/15/2023 1:32 PM PDT Approved by: Eder Mitchell MD on 09/15/2023 1:32 PM PDT Station ID: [id number]
== END 2023-09-15 23:59 | disposition home or self-care (01) ==
LOC: DI.WOS 07:45
PROVIDERS: ATTEND Physician Assistant Surgical
DX: S62.334A Displaced fracture of neck of fourth metacarpal bone, right hand, initial encounter for closed fracture (principal)